=== PATIENT | female | born 1970 | race Caucasian/White ===

== ENCOUNTER 2023-04-12 10:34 | Outpatient (OUT) | payer BC, SELFPAY ==
--- NOTE | 2023-04-12 10:50 | US_ITS ---
The [address] [address] Patient Name: QUINN AGUILAR MRN: [id number] date: 1970 Sex: F Assigned Patient Location: US Current Patient Location: US Accession/Order Number: [id number] Exam Date: 04/12/2023 10:52 Report Date: 04/12/2023 11:42 At the request of: SEFERINO MENDOZA Procedure: US right upper quadrant EXAM: US right upper quadrant HISTORY: . R10.11 RIGHT UPPER QUADRANT PAIN . COMPARISON: None. TECHNIQUE: Grayscale and color imaging was performed FINDINGS: The pancreas appears normal. Scanning of the liver demonstrates diffuse increased echogenicity of liver consistent with fatty infiltration of the liver. Color-flow is noted in the portal and hepatic veins. Common bile duct measures 4 mm. The gallbladder appears normal. Right kidney measures 10.6 x 5.3 x 6.4 cm. No solid renal cortical masses or hydronephrosis is noted. No fluid is noted in the right upper quadrant. US/US right upper quadrant IMPRESSION: 1. Increased echogenicity of liver consistent with fatty infiltration of liver. 2. The remainder of the right upper quadrant is unremarkable. Electronically authenticated by: YULIANA JOHANSEN Date: 04/12/2023 11:42
== END 2023-04-12 10:35 | disposition home or self-care (01) ==
PROVIDERS: PCP Family Medicine; Visit Provider Family Medicine
DX: R10.11 Right upper quadrant pain (principal)
CPT/HCPCS: 76705

== ENCOUNTER 2024-01-10 07:45 | Outpatient (OUT) | payer BC, SELFPAY ==
[2024-01-10 08:15] LABS: Basophils Absolute Auto 0.1 10^3/uL (0.0-0.1); Basophils Percent Auto 1.2 % (0.2-2.0); Eosinophils Absolute Auto 0.1 10^3/uL (0.0-0.7); Eosinophils Percent Auto 2.3 % (0.9-7.0); Hematocrit 43.1 % (36.0-48.0); Hemoglobin 13.8 g/dL (12.0-16.0); Immature Granulocytes Abs Auto 0.01 10^3/uL (0.00-0.03); Immature Granulocytes Pct Auto 0.2 % (0.0-0.5); Lymphocytes Absolute Auto 1.6 10^3/uL (1.2-3.8); Mean Corpuscular Hemoglobin 25.7 pg (26.7-34.0); Mean Corpuscular Volume 80.4 fL (81.0-99.0); Mean Platelet Volume 10.8 fL (9.5-13.5); Monocytes Absolute Auto 0.5 10^3/uL (0.3-0.8); Monocytes Percent Auto 8.4 % (1.7-12.0); Neutrophils Absolute Auto 3.4 10^3/uL (1.4-6.5); Neutrophils Percent Auto 59.9 % (43.0-75.0); Platelet Count 235 10^3/uL (150-450); Red Blood Count 5.36 10^6/uL (4.20-5.40); Red Cell Distribution Width 13.8 % (11.0-15.0); White Blood Count 5.6 10^3/uL (4.0-11.0)
[2024-01-10 08:47] LABS: Estimated Average Glucose 174 mg/dL; Glycohemoglobin A1C 7.7 % (4.5-6.2)
[2024-01-10 10:33] LABS: Alanine Aminotransferase 32 U/L (14-59); Albumin Globulin Ratio 1.1; Albumin Level 3.8 g/dL (3.4-5.0); Alkaline Phosphatase 64 U/L (46-116); Anion Gap 15.5; Aspartate Amino Transferase 16 U/L (15-37); BUN Creatinine Ratio 33.3; Bilirubin Total 0.6 mg/dL (0.2-1.0); Calcium 9.3 mg/dL (8.5-10.1); Carbon Dioxide 23.5 mmol/L (21.0-32.0); Chloride 107 mmol/L (98-107); Cholesterol 137 mg/dL (<=200); Estimated GFR (African America >60 (>=60); Estimated GFR (Non-African Ame >60 (>=60); Free T3 2.41 pg/mL (2.18-3.98); Globulin 3.4 g/dL; Glucose 155 mg/dL (74-106); HDL Cholesterol 34 mg/dL (40-60); Sodium 142 mmol/L (136-145); Thyroid Stimulating Hormone 0.056 uIU/mL (0.358-3.740); Total Protein 7.2 g/dL (6.4-8.2); Triglycerides 140 mg/dL (<=150)
== END 2024-01-10 07:46 | disposition home or self-care (01) ==
LOC: LAB 07:49
PROVIDERS: PCP Family Medicine; Visit Provider Family Medicine
DX: Z00.00 Encounter for general adult medical examination without abnormal findings (principal)
CPT/HCPCS: 36415; 80053; 80061; 83036; 83540; 84436; 84443; 84481; 85025

== ENCOUNTER 2024-02-04 15:25 | Outpatient (OUT) | payer BC, SELFPAY ==
--- NOTE | 2024-02-04 | MM_ITS ---
Patient Name: QUINN AGUILAR MR#: [id number] : 1970 Exam Date: 02/04/2024 Ordering Doctor: DR Vincent Ahmadi . RADIOLOGY REPORT PROCEDURE: MM TOMOSYNTHESIS SCREENING BI COMPARISON: MG MAMM SCREEN 3D PORSHA CAD, 01/29/2023. MG MAMM SCREEN 3D PORSHA CAD, 01/25/2022. MG MAMM SCREEN 3D PORSHA CAD, 01/24/2021. MG MAMM PORSHA SCRN W CAD DIG, 10/05/2013. INDICATIONS: Screening mammogram Calculator Name NCI Breast Cancer Risk Assessment Tool 5 Year Breast Cancer Risk 1.10% Lifetime Breast Cancer Risk 7.40% Personal Breast Cancer No Personal Ovarian Cancer No Treatments None Family Cancers None LOCATION: [facility] BREAST COMPOSITION: There are scattered areas of fibroglandular density. FINDINGS: DIAGNOSTIC CATEGORY 1--NEGATIVE. RIGHT BREAST: No significant suspicious finding. No significant change has occurred. LEFT BREAST: No significant suspicious finding. No significant change has occurred. RECOMMENDATIONS: ROUTINE MAMMOGRAM AND CLINICAL EVALUATION IN 12 MONTHS. PLEASE NOTE: A NORMAL MAMMOGRAM DOES NOT EXCLUDE THE POSSIBILITY OF BREAST CANCER. A CLINICALLY SUSPICIOUS PALPABLE LUMP SHOULD BE BIOPSIED. Dictated by: Nazario Perez M.D. on 02/06/2024 at 14:04 Approved by: Nazario Perez M.D. on 02/06/2024 at 14:18
== END 2024-02-04 15:26 | disposition home or self-care (01) ==
LOC: MAMMO 15:26
PROVIDERS: PCP Family Medicine; Visit Provider Family Medicine
DX: Z12.31 Encounter for screening mammogram for malignant neoplasm of breast (principal)
CPT/HCPCS: 77063; 77067

== ENCOUNTER 2024-04-13 08:52 | Outpatient (OUT) | payer BC, SELFPAY ==
--- OUTSIDE RECORDS SUMMARY | 2024-04-13 09:09 | XMS_ITS | CCD ---
Author Organization [facility] Care Team Providers Care Glass Blowing Instructor Name Role Phone PHYSICIAN, DEFAULT Unavailable Unavailable PHYSICIAN, DEFAULT Unavailable Unavailable HOY ., DR GENTILE Primary Care Unavailable HOY ., DR GENTILE Admitting Unavailable HOY ., DR GENTILE Attending Unavailable HOY ., DR GENTILE Consulting Unavailable HOY ., DR GENTILE Consulting Unavailable HOY ., DR GENTILE Admitting Unavailable HOY ., DR GENTILE Primary Care Unavailable HOY ., DR GENTILE Attending Unavailable ZIEBER, DR NAZARIO Dao Consulting Unavailable HOY ., DR GENTILE Admitting Unavailable HOY ., DR GENTILE Primary Care Unavailable HOY ., DR GENTILE Attending Unavailable HOY ., DR GENTILE Consulting Unavailable HOY ., DR GENTILE Admitting Unavailable HOY ., DR GENTILE Primary Care Unavailable HOY ., DR GENTILE Attending Unavailable HOY ., DR GENTILE Consulting Unavailable HOY ., DR GENTILE Admitting Unavailable HOY ., DR GENTILE Primary Care Unavailable HOY ., DR GENTILE Attending Unavailable HOY ., DR GENTILE Consulting Unavailable HOY ., DR GENTILE Primary Care Unavailable HOY ., DR GENTILE Admitting Unavailable HOY ., DR GENTILE Attending Unavailable HOY ., DR GENTILE Admitting Unavailable HOY ., DR GENTILE Primary Care Unavailable HOY ., DR GENTILE Attending Unavailable HOY ., DR GENTILE Consulting Unavailable HOY ., DR GENTIEL Primary Care Unavailable HOY ., DR GENTILE Admitting Unavailable HOY ., DR GENTILE Attending Unavailable HOY ., DR GENTILE Consulting Unavailable ZIEBER, DR NAZARIO Dao Consulting Unavailable Allergies Allergy Classification Reported Allergen(s) Allergy Type Date of Onset Reaction(s) Facility (1 source) Acetaminophen / oxyCODONE Drug Allergy 10-19-2016 [facility] Repository (1 source) Penicillins Drug allergy (disorder) 01-09-2013 [facility] Repository Problems Active Problems Problem Classification Problem Date Documented Date Episodic/Chronic Deficiency and other anemia (1 source) Anemia, unspecified; Translations: [ANEMIA UNSPECIFIED] Onset: 01-11-20 Episodic Diabetes mellitus with complications (1 source) Type 2 diabetes mellitus with diabetic neuropathy, unspecified; Translations: [TYPE 2 DM W/DIABETIC NEUROPATHY UNS] Onset: 01-11-20 Chronic Disorders of lipid metabolism (4 sources) Pure hypercholesterolemia, unspecified; Translations: [PURE HYPERCHOLESTEROLEMIA UNSPEC] Onset: 10-13-19 Chronic Essential hypertension (1 source) Essential (primary) hypertension; Translations: [ESSENTIAL PRIMARY HYPERTENSION] Onset: 01-11-20 Chronic Other gastrointestinal disorders (1 source) Diarrhea, unspecified; Translations: [DIARRHEA UNSPECIFIED] Onset: 01-11-20 Episodic Other screening for suspected conditions (not mental disorders or infectious disease) (5 sources) Encounter for screening mammogram for malignant neoplasm of breast; Translations: [Encounter for screening for malignant neoplasm of rectum] Onset: 01-11-20 Episodic Rheumatoid arthritis and related disease (4 sources) Rheumatoid arthritis, unspecified; Translations: [RHEUMATOID ARTHRITIS UNSPECIFIED] Onset: 01-08-20 Chronic Thyroid disorders (1 source) Hypothyroidism, unspecified; Translations: [HYPOTHYROIDISM UNSPECIFIED] Onset: 01-11-20 Chronic Unclassified (3 sources) CONTACT W/AND (SUSP) EXPOS COVID-19; Translations: [CONTACT W/AND (SUSP) EXPOS COVID-19] Onset: 04-19-20 Past or Other Problems Problem Classification Problem Date Documented Da te Episodic/Chronic Other connective tissue disease (4 sources) Pain in right hand; Translations: [PAIN IN RIGHT HAND] Onset: 07-03-2022 Episodic Other non-traumatic joint disorders (4 sources) Pain in unspecified joint; Translations: [PAIN IN UNSPECIFIED JOINT] Onset: 07-13-2022 Episodic Other non-traumatic joint disorders (1 source) Pain in right wrist; Translations: [PAIN IN RIGHT WRIST] Onset: 07-05-2022 Episodic Unclassified (1 source) CONTACT W/AND (SUSP) EXPOS COVID-19; Translations: [CONTACT W/AND (SUSP) EXPOS COVID-19] Onset: 04-18-2022 Results Test Name Value Interpretation Reference Range Facility MG MAMM SCREEN 3D PORSHA CADon 01-29-2023 MG MAMM SCREEN 3D PORSHA CAD Patient: QUINN AGUILAR Exam Date: 01/29/2023 : 1970 Gender:F Ordering : DR SEFERINO MENDOZA . Admission #: [id number] Family : Order #: [id number] CLICK HERE TO VIEW EXAM RADIOLOGY REPORT PROCEDURE: MAMMOGRAM SCREENING 3D BILATERAL CAD COMPARISON: MG MAMM SCREEN 3D PORSHA CAD, 01/25/2022. MG MAMM SCREEN 3D PORSHA CAD, 01/24/2021. MG MAMM SCREEN PORSHA W CAD, 01/12/2020. DIGITIZED_MAMMO, 06/28/2009. INDICATIONS: Screening mammography Calculator Name NCI Breast Cancer Risk Assessment Tool 5 Year Breast Cancer Risk 1.00% Lifetime Breast Cancer Risk 7.50% Personal Breast Cancer No Personal Ovarian Cancer No Treatments None Family Cancers None LOCATION: [facility] BREAST COMPOSITION: Scattered areas fibroglandular density. FINDINGS: DIAGNOSTIC CATEGORY 1--NEGATIVE. RIGHT BREAST: No significant suspicious finding. No significant change has occurred. LEFT BREAST: No significant suspicious finding. No significant change has occurred. RECOMMENDATIONS: ROUTINE MAMMOGRAM AND CLINICAL EVALUATION IN 12 MONTHS. PLEASE NOTE: A NORMAL MAMMOGRAM DOES NOT EXCLUDE THE POSSIBILITY OF BREAST CANCER. A CLINICALLY SUSPICIOUS PALPABLE LUMP SHOULD BE BIOPSIED. Dictated by: Nazario Perez M.D. on 01/30/2023 at 13:37 Approved by: Nazario Perez M.D. on 01/30/2023 at 13:47 Normal [facility] INSULINon 01-08-2023 Insulin 11.3 uIU/mL Normal 2.6-24.9 [facility] Comment on above: Performed By: #### C VDTBH #### [facility] [address] [address] [address] Dona Turner CBC AUTO DIFFon 01-07-2023 BASO # 0.1 103/ul Normal 0.0-0.1 [facility] Comment on above: Performed By: #### C VDTBH #### [facility] [address] [address] [address] Dona Turner Basophils/100 WBC (Bld) 1.2 % Normal 0.2-2.0 [facility] Comment on above: Performed By: #### C VDTBH #### [facility] [address] [place] [address] Dr. Dona Turner EO # 0.1 103/ul Normal 0.0-0.7 [facility] Comment on above: Performed By: #### C VDTBH #### [facility] [address] [place] [address] Dr. Dona Turner Eosinophils/100 WBC (Bld) 2.0 % Normal 0.9-7.0 [facility] Comment on above: Performed By: #### C VDTBH #### [facility] [address] [place] [address] Dr. Dona Turner Erythrocyte distribution width (RBC) [Ratio] 14.5 % Normal 11.0-15.0 [facility] Comment on above: Performed By: #### C VDTBH #### [facility] [address] [place] [address] Dr. Dona Turner Hematocrit (Bld) [Volume fraction] 45.1 % Normal 36.0-48.0 [facility] Comment on above: Performed By: #### C VDTBH #### [facility] [address] [place] [address] Dr. Dona Turner Hemoglobin (Bld) [Mass/Vol] 14.1 g/dL Normal 12.0-16.0 [facility] Comment on above: Performed By: #### C VDTBH #### [facility] [address] [place] [address] Dr. Dona Turner IG # 0.02 10e3/ul Normal 0.00-0.03 [facility] Comment on above: Performed By: #### C VDTBH #### [facility] [address] [place] [address] Dr. Dona Turner IG % 0.4 % Normal 0.0-0.5 [facility] Comment on above: Performed By: #### C VDTBH #### [facility] [address] [place] [address] Dr. Dona Turner LYMPH # 1.3 103/ul Normal 1.2-3.8 [facility] Comment on above: Performed By: #### C VDTBH #### [facility] [address] [place] [address] Dr. Dona Turner Lymphocytes/100 WBC (Bld) 26.4 % Normal 20.5-60.0 [facility] Comment on above: Performed By: #### C VDTBH #### [facility] [address] [place] [address] Dr. Dona Turner MANUAL DIFF REQ NO Normal [facility] Comment on above: Performed By: #### C VDTBH #### [facility] [address] [place] [address] Dr. Dona Turner MCH (RBC) [Entitic mass] 25.0 pg Critically low 26.7-34.0 [facility] Comment on above: Performed By: #### C VDTBH #### [facility] [address] [place] [address] Dr. Dona Turner MCHC (RBC) [Mass/Vol] 31.3 g/dL Normal 29.9-35.2 [facility] Comment on above: Performed By: #### C VDTBH #### [facility] [address] [place] [address] Dr. Dona Turner MCV (RBC) [Entitic vol] 80.0 fL Critically low 81.0-99.0 [facility] Comment on above: Performed By: #### C VDTBH #### [facility] [address] [place] [address] Dr. Dona Turner MONO # 0.4 103/ul Normal 0.3-0.8 [facility] Comment on above: Performed By: #### C VDTBH #### [facility] [address] [place] [address] Dr. Dona Turner Monocytes/100 WBC (Bld) 7.7 % Normal 1.7-12.0 [facility] Comment on above: Performed By: #### C VDTBH #### [facility] [address] [place] [address] Dr. Dona Turner NEUT # 3.1 103/ul Normal 1.4-6.5 [facility] Comment on above: Performed By: #### C VDTBH #### [facility] [address] [place] [address] Dr. Dona Turner Neutrophils/100 WBC (Bld) 62.3 % Normal 43.0-75.0 [facility] Comment on above: Performed By: #### C VDTBH #### [facility] [address] [place] [address] Dr. Dona Turner Platelet mean volume (Bld) [Entitic vol] 10.7 fL Normal 9.5-13.5 [facility] Comment on above: Performed By: #### C VDTBH #### [facility] [address] [place] [address] Dr. Dona Turner PLT 257 103/ul Normal 150-450 [facility] Comment on above: Performed By: #### C VDTBH #### [facility] [address] [place] [address] Dr. Dona Turner RBC 5.64 106/ul Critically high 4.20-5.40 [facility] Comment on above: Performed By: #### C VDTBH #### [facility] [address] [place] [address] Dr. Dona Turner WBC 5.0 103/ul Normal 4.0-11.0 [facility] Comment on above: Performed By: #### C VDTBH #### [facility] [address] [place] [address] Dr. Dona Turner FREE THYROXINE INDEX T7on FTI 3.78 Normal 1.30-4.50 [facility] Comment on above: Performed By: #### L IPID, TSH, T7, CMP #### [facility] [address] [place] [address] Dr. Dona Turner T3U 35.0 % Normal 30.0-39.0 [facility] Comment on above: Performed By: #### L IPID, TSH, T7, CMP #### [facility] [address] [place] [address] Dr. Dona Turner T4 [Mass/Vol] 10.80 ug/dL Normal 4.80-13.90 [facility] Comment on above: Performed By: #### L IPID, TSH, T7, CMP #### [facility] [address] [address] [address] Dona Turner GLYCOHEMOGLOBIN A1Con 2022 ADA RECOMMENDATION SEE BELOW Normal [facility] Comment on above: Result Comment: ADA RECOMMENDED LIMIT 4.0 - 6.0 ADA THERAPEUTIC TARGET < 7.0 ACTION SUGGESTED > 7.0 Performed By: #### C VDTBH #### [facility] [address] [address] [address] Dnoa Turner Glucose [Mass/Vol] 160 mg/dL Normal [facility] Comment on above: Performed By: #### C VDTBH #### [facility] [address] [place] [address] Dr. Dona Turner HbA1c (Bld) [Mass fraction] 7.2 % Critically high 4.5-6.2 [facility] Comment on above: Performed By: #### C VDTBH #### [facility] [address] [address] [address] Dona Turner IRONon 01-07-2023 Iron [Mass/Vol] 50.0 ug/dL Normal 50.0-170.0 [facility] Comment on above: Performed By: #### I NSULIN #### [facility] [address] [place] [address] Dr. Dona Turner LIPID PROFILEon 01-07-2023 CHOL-HDL RATIO NORM SEE BELOW Normal [facility] Comment on above: Result Comment: 3.3 - 4.4 LOW RISK 4.4 - 7.1 AVERAGE RISK 7.1 - 11.0 MODERATE RISK >11.0 HIGH RISK Performed By: #### L IPID, TSH, T7, CMP #### [facility] [address] [address] [address] Dona Turner Cholesterol [Mass/Vol] 162 mg/dL Normal <=200 [facility] Comment on above: Performed By: #### L IPID, TSH, T7, CMP #### [facility] [address] [address] [address] Dona Turner Cholesterol in HDL [Mass/Vol] 33 mg/dL Critically low 40-60 [facility] Comment on above: Performed By: #### L IPID, TSH, T7, CMP #### [facility] [address] [address] [address] Dona Turner Cholesterol in LDL [Mass/Vol] 100.4 mg/dL Normal [facility] Comment on above: Performed By: #### L IPID, TSH, T7, CMP #### [facility] [address] [address] [address] Dona Turner Cholesterol.total/Chol esterol in HDL [Mass ratio] 4.9 {ratio} Normal [facility] Comment on above: Performed By: #### L IPID, TSH, T7, CMP #### [facility] [address] [address] [address] Dona Turner HDL NORMAL > or = 60 mg/dl - LOW CARDIOVASCULAR RISK <40 mg/dl - HIGH CARDIOVASCULAR RISK Normal [facility] Comment on above: Performed By: #### L IPID, TSH, T7, CMP #### [facility] [address] [address] [address] Dona Turner LDL CALC NORMAL SEE BELOW Normal [facility] Comment on above: Result Comment: <100 mg/dl OPTIMAL 100 - 129 mg/dl NEAR OR ABOVE OPTIMAL 130 - 159 mg/dl BORDERLINE HIGH 160 - 189 mg/dl HIGH >190 mg/dl VERY HIGH Performed By: #### L IPID, TSH, T7, CMP #### [facility] [address] [address] [address] Dona Turner Triglyceride [Mass/Vol] 143 mg/dL Normal <=150 [facility] Comment on above: Performed By: #### L IPID, TSH, T7, CMP #### [facility] [address] [address] [address] Dona Turner VLDL CALC 28.6 mg/dL Normal [facility] Comment on above: Performed By: #### L IPID, TSH, T7, CMP #### [facility] [address] [place] [address] Dr. Dona Turner PROF 14(COMP METB)on 023 Albumin [Mass/Vol] 3.8 g/dL Normal 3.4-5.0 [facility] Comment on above: Performed By: #### L IPID, TSH, T7, CMP #### [facility] [address] [place] [address] Dr. Dona Turner Albumin/Globulin [Mass ratio] 1.0 {ratio} Normal [facility] Comment on above: Performed By: #### L IPID, TSH, T7, CMP #### [facility] [address] [place] [address] Dr. Dona Turner ALP [Catalytic activity/Vol] 59 U/L Normal 46-116 [facility] Comment on above: Performed By: #### L IPID, TSH, T7, CMP #### [facility] [address] [place] [address] Dr. Dona Turner ALT [Catalytic activity/Vol] 43 U/L Normal 14-59 [facility] Comment on above: Performed By: #### L IPID, TSH, T7, CMP #### [facility] [address] [place] [address] Dr. Dona Turner Anion gap [Moles/Vol] 11.5 mmol/L Normal [facility] Comment on above: Performed By: #### L IPID, TSH, T7, CMP #### [facility] [address] [place] [address] Dr. Dona Turner AST [Catalytic activity/Vol] 19 U/L Normal 15-37 [facility] Comment on above: Performed By: #### L IPID, TSH, T7, CMP #### [facility] [address] [place] [address] Dr. Dona Turner Bilirubin [Mass/Vol] 0.4 mg/dL Normal 0.2-1.0 [facility] Comment on above: Performed By: #### L IPID, TSH, T7, CMP #### [facility] [address] [place] [address] Dr. Dona Turner Calcium [Mass/Vol] 9.1 mg/dL Normal 8.5-10.1 [facility] Comment on above: Performed By: #### L IPID, TSH, T7, CMP #### [facility] [address] [place] [address] Dr. Dona Turner Chloride [Moles/Vol] 107 mmol/L Normal 98-107 [facility] Comment on above: Performed By: #### L IPID, TSH, T7, CMP #### [facility] [address] [place] [address] Dr. Dona Turner CO2 [Moles/Vol] 28.5 mmol/L Normal 21.0-32.0 [facility] Comment on above: Performed By: #### L IPID, TSH, T7, CMP #### [facility] [address] [place] [address] Dr. Dona Turner Creatinine [Mass/Vol] 0.66 mg/dL Normal 0.55-1.02 [facility] Comment on above: Performed By: #### L IPID, TSH, T7, CMP #### [facility] [address] [place] [address] Dr. Dona Turner EGFR-AF UKRAINIAN >60 Normal >=60 [facility] Comment on above: Performed By: #### L IPID, TSH, T7, CMP #### [facility] [address] [place] [address] Dr. Dona Turner EGFR-NON AF UKRAINIAN >60 Normal >=60 [facility] Comment on above: Performed By: #### L IPID, TSH, T7, CMP #### [facility] [address] [place] [address] Dr. Dona Turner Globulin (S) [Mass/Vol] 3.8 g/dL Normal [facility] Comment on above: Performed By: #### L IPID, TSH, T7, CMP #### [facility] [address] [place] [address] Dr. Dona Turner Glucose [Mass/Vol] 112 mg/dL Critically high 74-106 [facility] Comment on above: Performed By: #### L IPID, TSH, T7, CMP #### [facility] [address] [place] [address] Dr. Dona Turner Potassium [Moles/Vol] 4.0 mmol/L Normal 3.5-5.1 [facility] Comment on above: Performed By: #### L IPID, TSH, T7, CMP #### [facility] [address] [place] [address] Dr. Dona Turner Protein [Mass/Vol] 7.6 g/dL Normal 6.4-8.2 [facility] Comment on above: Performed By: #### L IPID, TSH, T7, CMP #### [facility] [address] [place] [address] Dr. Dona Turner Sodium [Moles/Vol] 143 mmol/L Normal 136-145 [facility] Comment on above: Performed By: #### L IPID, TSH, T7, CMP #### [facility] [address] [place] [address] Dr. Dona Turner Urea nitrogen [Mass/Vol] 11.0 mg/dL Normal 7.0-18.0 [facility] Comment on above: Performed By: #### L IPID, TSH, T7, CMP #### [facility] [address] [place] [address] Dr. Dona Turner Urea nitrogen/Creatinine [Mass ratio] 16.7 mg/mg Normal [facility] Comment on above: Performed By: #### L IPID, TSH, T7, CMP #### [facility] [address] [place] [address] Dr. Dona Turner TSHon 01-07-2023 TSH 0.350 uIU/mL Critically low 0.358-3.740 [facility] Comment on above: Performed By: #### L IPID, TSH, T7, CMP #### [facility] [address] [place] [address] Dr. Dona Turner VITAMIN D 25 OHon 01-07-2023 VIT D 25-OH 52.4 ng/mL Normal [facility] Comment on above: Performed By: #### I NSULIN #### [facility] [address] [address] [address] Dona Turner VIT D RANGES SEE BELOW Normal [facility] Comment on above: Result Comment: <20 ng/mL Vit D deficient 20 - <30 ng/mL Vit D insufficient 30 - 100 ng/mL Vit D sufficient >100 ng/mL Potential Toxicity Performed By: #### I NSULIN #### [facility] [address] [address] [address] Dona Turner LIPID PROFILEon 10-13-2022 CHOL-HDL RATIO NORM SEE BELOW Normal [facility] Comment on above: Result Comment: 3.3 - 4.4 LOW RISK 4.4 - 7.1 AVERAGE RISK 7.1 - 11.0 MODERATE RISK >11.0 HIGH RISK Performed By: #### C VDTBH #### [facility] [address] [address] [address] Dona Turner Cholesterol [Mass/Vol] 136 mg/dL Normal <=200 [facility] Comment on above: Performed By: #### C VDTBH #### [facility] [address] [address] [address] Dona Turner Cholesterol in HDL [Mass/Vol] 33 mg/dL Critically low 40-60 [facility] Comment on above: Performed By: #### C VDTBH #### [facility] [address] [place] [address] Dr. Dona Turner Cholesterol in LDL [Mass/Vol] 76.4 mg/dL Normal [facility] Comment on above: Performed By: #### C VDTBH #### [facility] [address] [address] [address] Dona Turner Cholesterol.total/Chol esterol in HDL [Mass ratio] 4.1 {ratio} Normal [facility] Comment on above: Performed By: #### C VDTBH #### [facility] [address] [place] [address] Dr. Dona Turner HDL NORMAL > or = 60 mg/dl - LOW CARDIOVASCULAR RISK <40 mg/dl - HIGH CARDIOVASCULAR RISK Normal [facility] Comment on above: Performed By: #### C VDTBH #### [facility] [address] [address] [address] Dona Turner LDL CALC NORMAL SEE BELOW Normal [facility] Comment on above: Result Comment: <100 mg/dl OPTIMAL 100 - 129 mg/dl NEAR OR ABOVE OPTIMAL 130 - 159 mg/dl BORDERLINE HIGH 160 - 189 mg/dl HIGH >190 mg/dl VERY HIGH Performed By: #### C VDTBH #### [facility] [address] [address] [address] Dona Turner Triglyceride [Mass/Vol] 133 mg/dL Normal <=150 [facility] Comment on above: Performed By: #### C VDTBH #### [facility] [address] [address] [address] Dona Turner VLDL CALC 26.6 mg/dL Normal [facility] Comment on above: Performed By: #### C VDTBH #### [facility] [address] [place] [address] Dr. Dona Turner LIVER PROFILEon 10-13-2022 Albumin [Mass/Vol] 3.6 g/dL Normal 3.4-5.0 [facility] Comment on above: Performed By: #### I NSULIN #### [facility] [address] [place] [address] Dr. Dona Turner Albumin/Globulin [Mass ratio] 1.1 {ratio} Normal [facility] Comment on above: Performed By: #### I NSULIN #### [facility] [address] [place] [address] Dr. Dona Turner ALP [Catalytic activity/Vol] 62 U/L Normal 46-116 [facility] [facility] Comment on above: Performed By: #### I NSULIN #### [facility] [address] [place] [address] Dr. Dona Turner ALT [Catalytic activity/Vol] 28 U/L Normal 14-59 [facility] Comment on above: Performed By: #### I NSULIN #### [facility] [address] [place] [address] Dr. Dona Turner AST [Catalytic activity/Vol] 16 U/L Normal 15-37 [facility] Comment on above: Performed By: #### I NSULIN #### [facility] [address] [address] [address] Dona Turner BILI, CONJUGATED 0.1 mg/dL Normal 0.0-0.2 [facility] Comment on above: Performed By: #### I NSULIN #### [facility] [address] [address] [address] Dona Turner Bilirubin [Mass/Vol] 0.5 mg/dL Normal 0.2-1.0 [facility] Comment on above: Performed By: #### I NSULIN #### [facility] [address] [address] [address] Dona Turner Globulin (S) [Mass/Vol] 3.4 g/dL Normal [facility] Comment on above: Performed By: #### I NSULIN #### [facility] [address] [place] [address] Dr. Dona Turner Protein [Mass/Vol] 7.0 g/dL Normal 6.4-8.2 [facility] Comment on above: Performed By: #### I NSULIN #### [facility] [address] [place] [address] Dr. Dona Turner BETH by IFAon 07-19-2022 Antinuclear Antibodies, IFA Negative Normal [facility] Comment on above: Result Comment: Nega tive <1:80 Borderline 1:80 Positive >1:80 ICAP nomenclature: AC-0 For more information about Hep-2 cell patterns use ANApatterns.org, the official website for the International Consensus on Antinuclear Antibody (BETH) Patterns (ICAP). Performed By: #### A NAIFA #### [facility] [address] [place] [address] Dr. Dona Turner ANTISTREPTOLYSIN O AB (ASO)o n 07-14-2022 Antistreptolysin O Ab 25.3 IU/mL Normal 0.0-200.0 [facility] Comment on above: Performed By: #### I NSULIN #### [facility] [address] [address] [address] Dona Turner RHEUMATOID FACTORon 07-14-20 RA Latex Turbid. 19.2 IU/mL Critically high <14.0 [facility] Comment on above: Performed By: #### L IPID, TSH, T7, CMP #### [facility] [address] [place] [address] Dr. Dona Turner CBC AUTO DIFFon 07-13-2022 BASO # 0.1 103/ul Normal 0.0-0.1 [facility] Comment on above: Performed By: #### C VDTBH #### [facility] [address] [place] [address] Dr. Dona Turner Basophils/100 WBC (Bld) 0.8 % Normal 0.2-2.0 [facility] Comment on above: Performed By: #### C VDTBH #### [facility] [address] [place] [address] Dr. Dona Turner EO # 0.1 103/ul Normal 0.0-0.7 [facility] Comment on above: Performed By: #### C VDTBH #### [facility] [address] [place] [address] Dr. Dona Turner Eosinophils/100 WBC (Bld) 1.0 % Normal 0.9-7.0 [facility] Comment on above: Performed By: #### C VDTBH #### [facility] [address] [place] [address] Dr. Dona Turner Erythrocyte distribution width (RBC) [Ratio] 14.3 % Normal 11.0-15.0 [facility] Comment on above: Performed By: #### C VDTBH #### [facility] [address] [place] [address] Dr. Dona Turner Hematocrit (Bld) [Volume fraction] 44.8 % Normal 36.0-48.0 [facility] Comment on above: Performed By: #### C VDTBH #### [facility] [address] [place] [address] Dr. Dona Turner Hemoglobin (Bld) [Mass/Vol] 14.4 g/dL Normal 12.0-16.0 [facility] Comment on above: Performed By: #### C VDTBH #### [facility] [address] [place] [address] Dr. Dona Turner IG # 0.03 10e3/ul Normal 0.00-0.03 [facility] Comment on above: Performed By: #### C VDTBH #### [facility] [address] [place] [address] Dr. Dona Turner IG % 0.3 % Normal 0.0-0.5 [facility] Comment on above: Performed By: #### C VDTBH #### [facility] [address] [place] [address] Dr. Dona Turner LYMPH # 1.9 103/ul Normal 1.2-3.8 [facility] Comment on above: Performed By: #### C VDTBH #### [facility] [address] [place] [address] Dr. Dona Turner Lymphocytes/100 WBC (Bld) 20.8 % Normal 20.5-60.0 [facility] Comment on above: Performed By: #### C VDTBH #### [facility] [address] [place] [address] Dr. Dona Turner MANUAL DIFF REQ NO Normal [facility] Comment on above: Performed By: #### C VDTBH #### [facility] [address] [place] [address] Dr. Dona Turner MCH (RBC) [Entitic mass] 25.5 pg Critically low 26.7-34.0 [facility] Comment on above: Performed By: #### C VDTBH #### [facility] [address] [place] [address] Dr. Dona Turner MCHC (RBC) [Mass/Vol] 32.1 g/dL Normal 29.9-35.2 [facility] Comment on above: Performed By: #### C VDTBH #### [facility] [address] [place] [address] Dr. Dona Turner MCV (RBC) [Entitic vol] 79.3 fL Critically low 81.0-99.0 [facility] Comment on above: Performed By: #### C VDTBH #### [facility] [address] [address] [address] Dona Turner MONO # 0.8 103/ul Normal 0.3-0.8 [facility] Comment on above: Performed By: #### C VDTBH #### [facility] [address] [place] [address] Dr. Dona Turner Monocytes/100 WBC (Bld) 8.5 % Normal 1.7-12.0 [facility] Comment on above: Performed By: #### C VDTBH #### [facility] [address] [place] [address] Dr. Dona Turner NEUT # 6.4 103/ul Normal 1.4-6.5 [facility] Comment on above: Performed By: #### C VDTBH #### [facility] [address] [place] [address] Dr. Dona Turner Neutrophils/100 WBC (Bld) 68.6 % Normal 43.0-75.0 [facility] Comment on above: Performed By: #### C VDTBH #### [facility] [address] [place] [address] Dr. Dona Turner Platelet mean volume (Bld) [Entitic vol] 10.5 fL Normal 9.5-13.5 [facility] Comment on above: Performed By: #### C VDTBH #### [facility] [address] [place] [address] Dr. Dona Turner PLT 290 103/ul Normal 150-450 [facility] Comment on above: Performed By: #### C VDTBH #### [facility] [address] [place] [address] Dr. Dona Turner RBC 5.65 106/ul Critically high 4.20-5.40 [facility] Comment on above: Performed By: #### C VDTBH #### [facility] [address] [place] [address] Dr. Dona Turnre WBC 9.3 103/ul Normal 4.0-11.0 [facility] Comment on above: Performed By: #### C VDTBH #### [facility] [address] [place] [address] Dr. Dona Turner CRPon 07-13-2022 CRP [Mass/Vol] mg/L Normal <=1.0 [facility] Comment on above: Performed By: #### I NSULIN #### [facility] [address] [place] [address] Dr. Dona Turner SED RATE WESTERGRENon 2021 SED RATE 47 mm/hr Critically high <=30 [facility] Comment on above: Performed By: #### S EDR #### [facility] [address] [place] [address] Dr. Dona Turner URIC ACID SERUMon 07-13-2022 Urate [Mass/Vol] 3.2 mg/dL Normal 2.6-6.0 [facility] Comment on above: Performed By: #### I NSULIN #### [facility] [address] [place] [address] Dr. Dona Turner INSULINon 07-10-2022 Insulin 11.5 uIU/mL Normal 2.6-24.9 [facility] Comment on above: Performed By: #### I NSULIN #### [facility] [address] [place] [address] Dr. Dona Turner CBC AUTO DIFFon 07-09-2022 BASO # 0.1 103/ul Normal 0.0-0.1 [facility] Comment on above: Performed By: #### C BC #### [facility] [address] [place] [address] Dr. Dona Turner Basophils/100 WBC (Bld) 0.8 % Normal 0.2-2.0 [facility] Comment on above: Performed By: #### C BC #### [facility] [address] [place] [address] Dr. Dona Turner EO # 0.1 103/ul Normal 0.0-0.7 [facility] Comment on above: Performed By: #### C BC #### [facility] [address] [place] [address] Dr. Dona Turner Eosinophils/100 WBC (Bld) 0.7 % Critically low 0.9-7.0 [facility] Comment on above: Performed By: #### C BC #### [facility] [address] [place] [address] Dr. Dona Turner Erythrocyte distribution width (RBC) [Ratio] 14.5 % Normal 11.0-15.0 [facility] Comment on above: Performed By: #### C BC #### [facility] [address] [place] [address] Dr. Dona Turner Hematocrit (Bld) [Volume fraction] 44.7 % Normal 36.0-48.0 [facility] Comment on above: Performed By: #### C BC #### [facility] [address] [place] [address] Dr. Dona Turner Hemoglobin (Bld) [Mass/Vol] 14.5 g/dL Normal 12.0-16.0 [facility] Comment on above: Performed By: #### C BC #### [facility] [address] [place] [address] Dr. Dona Turner IG # 0.04 10e3/ul Critically high 0.00-0.03 [facility] Comment on above: Performed By: #### C BC #### [facility] [address] [place] [address] Dr. Dona Turner IG % 0.4 % Normal 0.0-0.5 [facility] Comment on above: Performed By: #### C BC #### [facility] [address] [place] [address] Dr. Dona Turner LYMPH # 1.6 103/ul Normal 1.2-3.8 [facility] Comment on above: Performed By: #### C BC #### [facility] [address] [place] [address] Dr. Dona Turner Lymphocytes/100 WBC (Bld) 17.7 % Critically low 20.5-60.0 [facility] Comment on above: Performed By: #### C BC #### [facility] [address] [place] [address] Dr. Dona Turner MANUAL DIFF REQ NO Normal [facility] Comment on above: Performed By: #### C BC #### [facility] [address] [place] [address] Dr. Dona Turner MCH (RBC) [Entitic mass] 25.9 pg Critically low 26.7-34.0 [facility] Comment on above: Performed By: #### C BC #### [facility] [address] [place] [address] Dr. Dona Turner MCHC (RBC) [Mass/Vol] 32.4 g/dL Normal 29.9-35.2 [facility] Comment on above: Performed By: #### C BC #### [facility] [address] [place] [address] Dr. Dona Turner MCV (RBC) [Entitic vol] 79.8 fL Critically low 81.0-99.0 [facility] Comment on above: Performed By: #### C BC #### [facility] [address] [place] [address] Dr. Dona Turner MONO # 0.6 103/ul Normal 0.3-0.8 [facility] Comment on above: Performed By: #### C BC #### [facility] [address] [place] [address] Dr. Dona Turner Monocytes/100 WBC (Bld) 6.9 % Normal 1.7-12.0 [facility] Comment on above: Performed By: #### C BC #### [facility] [address] [place] [address] Dr. Dona Turner NEUT # 6.6 103/ul Critically high 1.4-6.5 [facility] Comment on above: Performed By: #### C BC #### [facility] [address] [place] [address] Dr. Dona Turner Neutrophils/100 WBC (Bld) 73.5 % Normal 43.0-75.0 [facility] Comment on above: Performed By: #### C BC #### [facility] [address] [place] [address] Dr. Dona Turner Platelet mean volume (Bld) [Entitic vol] 11.1 fL Normal 9.5-13.5 [facility] Comment on above: Performed By: #### C BC #### [facility] [address] [place] [address] Dr. Dona Turner PLT 256 103/ul Normal 150-450 [facility] Comment on above: Performed By: #### C BC #### [facility] [address] [place] [address] Dr. Dona Turner RBC 5.60 106/ul Critically high 4.20-5.40 [facility] Comment on above: Performed By: #### C BC #### [facility] [address] [place] [address] Dr. Dona Turner WBC 8.9 103/ul Normal 4.0-11.0 [facility] Comment on above: Performed By: #### C BC #### [facility] [address] [place] [address] Dr. Dona Turner FREE THYROXINE INDEX T7on FTI 3.66 Normal 1.30-4.50 [facility] Comment on above: Performed By: #### C VDTBH #### [facility] [address] [place] [address] Dr. Dona Turner T3U 37.0 % Normal 30.0-39.0 [facility] Comment on above: Performed By: #### C VDTBH #### [facility] [address] [place] [address] Dr. Dona Turner T4 [Mass/Vol] 9.90 ug/dL Normal 4.80-13.90 [facility] Comment on above: Performed By: #### C VDTBH #### [facility] [address] [place] [address] Dr. Dnoa Turner GLYCOHEMOGLOBIN A1Con 2021 ADA RECOMMENDATION SEE BELOW Normal [facility] Comment on above: Result Comment: ADA RECOMMENDED LIMIT 4.0 - 6.0 ADA THERAPEUTIC TARGET < 7.0 ACTION SUGGESTED > 7.0 Performed By: #### A 1C #### [facility] [address] [address] [address] Dona Turner Glucose [Mass/Vol] 183 mg/dL Normal [facility] Comment on above: Performed By: #### A 1C #### [facility] [address] [address] [address] Dona Turner HbA1c (Bld) [Mass fraction] 8.0 % Critically high 4.5-6.2 [facility] Comment on above: Performed By: #### A 1C #### [facility] [address] [address] [address] Dona Turner IRONon 07-09-2022 Iron [Mass/Vol] 56.0 ug/dL Normal 50.0-170.0 [facility] Comment on above: Performed By: #### I NSULIN #### [facility] [address] [place] [address] Dr. Dona Turner LIPID PROFILEon 07-09-2022 CHOL-HDL RATIO NORM SEE BELOW Normal [facility] Comment on above: Result Comment: 3.3 - 4.4 LOW RISK 4.4 - 7.1 AVERAGE RISK 7.1 - 11.0 MODERATE RISK >11.0 HIGH RISK Performed By: #### C VDTBH #### [facility] [address] [place] [address] Dr. Dona Turner Cholesterol [Mass/Vol] 228 mg/dL Critically high <=200 [facility] Comment on above: Performed By: #### C VDTBH #### [facility] [address] [place] [address] Dr. Dona Turner Cholesterol in HDL [Mass/Vol] 37 mg/dL Critically low 40-60 [facility] Comment on above: Performed By: #### C VDTBH #### [facility] [address] [place] [address] Dr. Dona Turner Cholesterol in LDL [Mass/Vol] 163.6 mg/dL Normal [facility] Comment on above: Performed By: #### C VDTBH #### [facility] [address] [place] [address] Dr. Dona Turner Cholesterol.total/Chol esterol in HDL [Mass ratio] 6.2 {ratio} Normal [facility] Comment on above: Performed By: #### C VDTBH #### [facility] [address] [place] [address] Dr. Dona Turner HDL NORMAL > or = 60 mg/dl - LOW CARDIOVASCULAR RISK <40 mg/dl - HIGH CARDIOVASCULAR RISK Normal [facility] Comment on above: Performed By: #### C VDTBH #### [facility] [address] [place] [address] Dr. Dona Turner LDL CALC NORMAL SEE BELOW Normal [facility] Comment on above: Result Comment: <100 mg/dl OPTIMAL 100 - 129 mg/dl NEAR OR ABOVE OPTIMAL 130 - 159 mg/dl BORDERLINE HIGH 160 - 189 mg/dl HIGH >190 mg/dl VERY HIGH Performed By: #### C VDTBH #### [facility] [address] [place] [address] Dr. Dona Turner Triglyceride [Mass/Vol] 137 mg/dL Normal <=150 [facility] Comment on above: Performed By: #### C VDTBH #### [facility] [address] [place] [address] Dr. Dona Turner VLDL CALC 27.4 mg/dL Normal [facility] Comment on above: Performed By: #### C VDTBH #### [facility] [address] [place] [address] Dr. Dona Turner PROF 14(COMP METB)on 022 Albumin [Mass/Vol] 3.8 g/dL Normal 3.4-5.0 [facility] Comment on above: Performed By: #### C VDTBH #### [facility] [address] [place] [address] Dr. Dona Turner Albumin/Globulin [Mass ratio] 1.0 {ratio} Normal [facility] Comment on above: Performed By: #### C VDTBH #### [facility] [address] [place] [address] Dr. Dona Turner ALP [Catalytic activity/Vol] 57 U/L Normal 46-116 [facility] Comment on above: Performed By: #### C VDTBH #### [facility] [address] [address] [address] Dona Turner ALT [Catalytic activity/Vol] 24 U/L Normal 14-59 [facility] Comment on above: Performed By: #### C VDTBH #### [facility] [address] [address] [address] Dona Turner Anion gap [Moles/Vol] 9.6 mmol/L Normal [facility] Comment on above: Performed By: #### C VDTBH #### [facility] [address] [address] [address] Dona Turner AST [Catalytic activity/Vol] 15 U/L Normal 15-37 [facility] Comment on above: Performed By: #### C VDTBH #### [facility] [address] [place] [address] Dr. Dona Turner Bilirubin [Mass/Vol] 0.5 mg/dL Normal 0.2-1.0 [facility] Comment on above: Performed By: #### C VDTBH #### [facility] [address] [place] [address] Dr. Dona Turner Calcium [Mass/Vol] 9.3 mg/dL Normal 8.5-10.1 [facility] Comment on above: Performed By: #### C VDTBH #### [facility] [address] [place] [address] Dr. Dona Turner Chloride [Moles/Vol] 103 mmol/L Normal 98-107 [facility] Comment on above: Performed By: #### C VDTBH #### [facility] [address] [address] [address] Dona Turner CO2 [Moles/Vol] 29.5 mmol/L Normal 21.0-32.0 [facility] Comment on above: Performed By: #### C VDTBH #### [facility] [address] [place] [address] Dr. Dona Turner Creatinine [Mass/Vol] 0.61 mg/dL Normal 0.55-1.02 [facility] Comment on above: Performed By: #### C VDTBH #### [facility] [address] [address] [address] Dona Turner EGFR-AF UKRAINIAN >60 Normal >=60 [facility] Comment on above: Performed By: #### C VDTBH #### [facility] [address] [address] [address] Dona Turner EGFR-NON AF UKRAINIAN >60 Normal >=60 [facility] Comment on above: Performed By: #### C VDTBH #### [facility] [address] [address] [address] Dona Turner Globulin (S) [Mass/Vol] 3.8 g/dL Normal [facility] Comment on above: Performed By: #### C VDTBH #### [facility] [address] [address] [address] Dona Turner Glucose [Mass/Vol] 104 mg/dL Normal 74-106 [facility] Comment on above: Performed By: #### C VDTBH #### [facility] [address] [address] [address] Dona Turner Potassium [Moles/Vol] 4.1 mmol/L Normal 3.5-5.1 [facility] Comment on above: Performed By: #### C VDTBH #### [facility] [address] [address] [address] Dona Turner Protein [Mass/Vol] 7.6 g/dL Normal 6.4-8.2 [facility] Comment on above: Performed By: #### C VDTBH #### [facility] [address] [address] [address] Dona Turner Sodium [Moles/Vol] 138 mmol/L Normal 136-145 [facility] Comment on above: Performed By: #### C VDTBH #### [facility] [address] [address] [address] Dona Turner Urea nitrogen [Mass/Vol] 14.0 mg/dL Normal 7.0-18.0 [facility] Comment on above: Performed By: #### C VDTBH #### [facility] [address] [place] [address] Dr. Dona Turner Urea nitrogen/Creatinine [Mass ratio] 23.0 mg/mg Normal [facility] Comment on above: Performed By: #### C VDTBH #### [facility] [address] [place] [address] Dr. Dona Turner TSHon 07-09-2022 TSH 0.324 uIU/mL Critically low 0.358-3.740 [facility] Comment on above: Performed By: #### C VDTBH #### [facility] [address] [place] [address] Dr. Dona Turner VITAMIN D 25 OHon 07-09-2022 VIT D 25-OH 52.6 ng/mL Normal [facility] Comment on above: Performed By: #### I NSULIN #### [facility] [address] [place] [address] Dr. Dona Turner VIT D RANGES SEE BELOW Normal [facility] Comment on above: Result Comment: <20 ng/mL Vit D deficient 20 - <30 ng/mL Vit D insufficient 30 - 100 ng/mL Vit D sufficient >100 ng/mL Potential Toxicity Performed By: #### I NSULIN #### [facility] [address] [place] [address] Dr. Dona Turner Covid-19 PCR ([facility])on 04-02 SARS-CoV-2 (COVID-19) RNA JEWEL+probe Ql (Unsp spec) Not detected Normal NOT DETECTED [facility] Comment on above: Result Comment: This test is not yet approved or cleared by the [place] FDA. When there are no FDA-approved or cleared tests available, and other criteria are met, FDA can make tests available under an emergency access mechanism called an Emergency Use Authorization (EUA). The EUA for this test is supported by the Accident of Health and Human Service's (HHS's) declaration that circumstances exist to justify the emergency use of in vitro diagnostics for the detection and/or diagnosis of the virus that causes COVID-19. This EUA will remain in effect (meaning this test can be used) for the duration of the COVID-19 declaration justifying emergency of IVDs, unless it is terminated or revoked by FDA (after which the test may no longer be used). When diagnostic testing is negative, the possibility of a false negative should be considered in the context of a patient's recent exposures and the presence of clinical signs and symptoms consistent with SARS-CoV-2. Performed By: #### [facility] #### [facility] [address] [address] [address] Dona Turner Coding Summary.on 09-12-2018 Coding Summary. 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 However, the narrative phrase printed from the coding software may appear abbreviated, or result in slightly different terminology. Coded By: Debi Cuellar Date Saved: 09/12/2018 03:25 pm Normal [facility] Main OR Intraoperative Recor don 09-09-2018 Main OR Intraoperative Record IntraOp Document Type FTURO Summary Primary Physician: David ORTIZ MD Finalized Date/Time: 09/09/18 12:32:44 Pt. Name: QUINN AGUILAR/Sex: 1970 Female Med Rec #: [id number] Physician: David ORTIZ MD Financial #: [id number] Pt. Type: O Room/Bed: / Admit/Disch: 09/09/18 09:49:59 - Institution: Case Times FTURO Entry 1 Patient Times In Room 09/09/18 12:19:00 Out Room 09/09/18 12:33:00 Procedure Times Start 09/09/18 12:22:00 Stop 09/09/18 12:26:00 Anesthesia Times Last Modified By: GIUSEPPE Tijerina RN, Lou Ann 09/09/18 12:32:32 Case Attendance FTURO Entry 1 Entry 2 Entry 3 Case Attendee ANGEL SWANSON, David Lyon BUSINESS DEVELOPMENT ANALYST, Alannah Tijerina RN, Pearl CHIN Role Performed Surgeon - Primary Scrub - Primary Solar Power Installer - Primary Time In 09/09/18 12:20:00 09/09/18 12:19:00 09/09/18 12:19:00 Time Out 09/09/18 12:33:00 09/09/18 12:33:00 09/09/18 12:33:00 Procedure CYSTOSCOPY LOCAL WITH CYSTOSCOPY LOCAL WITH CYSTOSCOPY LOCAL WITH URETHRAL DILATION(.) URETHRAL DILATION(.) URETHRAL DILATION(.) Comments Last Modified By: GIUSEPPE Tijerina RN, Lou Ann Blank RN, CNOR, Lou Ann Blank RN, Pearl CHIN 09/09/18 12:32:40 09/09/18 12:32:40 09/09/18 12:32:40 Surgical Procedures FTURO Entry 1 Procedure Description Procedure CYSTOSCOPY LOCAL WITH Modifiers . URETHRAL DILATION Surgeon Description CYSTOSCOPY UD Primary Procedure Yes Primary Surgeon David ORTIZ MD Start 09/09/18 12:22:00 Stop 09/09/18 12:26:00 Anesthesia Type Local Surgical Service Urology Wound Class 2 - Clean-Contaminated Last Modified By: GIUSEPPE Tijerina RN, Lou Ann 09/09/18 12:30:52 General Case Data FTURO Pre-Care Text: Classifies surgical wound, implements aseptic technique, initiates traffic control Entry 1 Case Information OR URO 1 FT Case Level None Wound Class 2 - Clean-Contaminated Specialty Urology Preop Diagnosis FREQUENCY, URGENCY, Postop Same As Preop No MIXED INCONTINENCE, INCOMPLETE EMPTYING Postop Diagnosis urethral stricture Outcomes Met? Yes Last Modified By: Winsome LINDO, RADHIKAORValeria 09/09/18 07:12:30 Post-Care Text: The patient is free from signs and symptoms of infection EU IntraOp - FTURO Pre-Care Text: Implements protective measures prior to operative or invasive procedure, confirms identity before the operative or invasive procedure, verifies operative procedure, surgical site, and laterality Entry 1 EU Perioperative Protocols Procedure(s) CYSTOSCOPY LOCAL WITH Patient Identity Birthday, ID Band URETHRAL DILATION(.) Verified (select at Check, Patient least 2): Participation Consents / H and P HandP, Surgery/Procedure Operative Site N/A Verified Consent Marking Verified Surgical Site Yes Laterality Verified n/a Verified Procedure Verified Yes Correct Patient Yes Position Verified Availability Equipment, Medication Time Out David ORTIZ MD, Verified (If Participants Lyon BUSINESS DEVELOPMENT ANALYST, Alannah, Applicable) GIUSEPPE Tijerina RN, Lou Ann Time Out Complete 09/09/18 12:21:00 Allergies Reviewed? Yes Allergies Reviewed Self/Patient With Body Position Frog Legged Prep Area perineal area Prep Agents Betadine Solution Skin. Condition Unable to Visualize, Warm Additional None Specimens Collected Vitals - EU Blood Pressure Pulse Respirations SPO2 EBL 0 IandO - EU Total Intake 0 Total Output 0 Outcomes Met? Yes Last Modified By: GIUSEPPE Tijerina RN, Lou Ann 09/09/18 12:21:23 Post-Care Text: The patient is free from signs and symptoms of injury caused by extraneous objects Case Comments Finalized By: GIUSEPPE Tijerina RN, Lou Ann Document Signatures Signed By: GIUSEPPE Tijerina RN, Lou Ann 09/09/18 12:32 Normal [facility] Main OR Preoperative Recordo n 09-09-2018 Main OR Preoperative Record Holding Area Document Type FTURO Summary Primary Physician: David ORTIZ MD Finalized Date/Time: 09/09/18 12:22:07 Pt. Name: QUINN AGUILAR/Sex: 1970 Female Med Rec #: [id number] Physician: David ORTIZ MD Financial #: [id number] Pt. Type: O Room/Bed: / Admit/Disch: 09/09/18 09:49:59 - Institution: Case Times Holding FTURO Pre-Care Text: Verifies consent for planned procedure, identifies individual values and wishes concerning care, includes family members in perioperative teaching Secures patient's records' belongings, and valuables, maintains patient's dignity and privacy, and maintains patient confidentiality Entry 1 In Holding 09/09/18 11:42:00 Outcomes Met? Yes Last Modified By: Racheal Bernabe 09/09/18 11:42:03 Post-Care Text: The patient participates in decisions affecting his or her perioperative plan of care The patient's right to privacy is maintained Surgery Checklist FTURO Entry 1 Patient Birthday, ID Band Procedure Surgical Consent, With Identification: Check, Patient Verification: Patient Participation NPO after Midnight: No Date/Time: 09/09/18 11:42:00 Personal Items: Dentures Complaints of Pain: No Skin Integrity Intact, [place], Warm, & Dry Vitals - EU Blood Pressure 141/78 Pulse 57 bpm Respirations 16 br/min SPO2 Additional None RN Reviewed Yes Specimens Collected Last Modified By: GIUSEPPE Tijerina RN, Lou Ann 09/09/18 12:22:05 Finalized By: GIUSEPPE Tijerina RN, Lou Ann Document Signatures Signed By: Racheal Bernabe 09/09/18 11:43 GIUSEPPE Tijerina RN, Lou Ann 09/09/18 12:22 Normal [facility] Operative Reporton Operative Report Patient: QUINN AGUILAR Age: 48 years Sex: Female : 1970 Associated Diagnoses: None Author: David ORTIZ MD Procedure Operative Information Details: Date/ Time: 09/09/18 12:34:00. Pre-Op Dx: Urgency Incontinence - N39.41, Urgency - R39.15, Incomplete Bladder Emptying - R39.14. Post-Op Dx: Same. Anesthesia Type: Local. Procedure: Local Cystoscopy with Urethral Dilation. Complications: None. Risks/Benefits/Infor med Consent: Surgical risks, benefits, details of the procedure have been explained to the patient, Full informed consent has been obtained. Intraoperative Information Prepped: Patient is brought back to the endoscopy suite, Patient is placed in modified dorso/lithotomy position, Patient prepped in the usual fashion with Betadine solution, 2% Xylocaine Jelly is placed per Urethra, After waiting several minutes the Cystoscope is introduced. The Urethra is: Tight. The Bladder is: Abnormal, Trabeculated no b.t., no b.t. cystocele gr 2-3...obstructing urethra a bit. no gertrudis.. The ureteral orifices: Show efflux of clear urine. The Urethra was dilated to: 30 Telugu w/ sounds. Devices Implanted: None. Removal: Cystoscope is removed, The patient tolerated it well. Postoperative Information Discharge: Patient is discharged home with antibiotic coverage, Follow up arranged. she will do timed/double voids. try ditropan xl 10mgqd f/u 3 months with pvr bladder scan....?pessary. Normal [facility] Comment on above: Result Comment: Elec tronically Signed By: ANGEL SWANSON, David Urban\Date and Time Signed: 09/09/18 12:39 EST Encounters Encounter Date Encounter Type Care Provider Facility Start: 01-29-2023 End: 01-30-[address] SEFERINO MENDOZA . Facility[facility] Start: 01-07-2023 End: 01-08-[address] SEFERINO MENDOZA . Facility:[facility] Start: 10-13-2022 End: 10-14-[address] SEFERINO MENDOZA . Facility[facility] Start: 07-14-2022 Encounter for genera l adult medical examination without abnormal findings DR SEFERINO MENDOZA . [facility] Start: 07-13-2022 End: 07-14-[address] SEFERINO MENDOZA . Facility:[facility] Start: 07-09-2022 End: 07-10-[address] SEFERINO MENDOZA . Facility:[facility] Start: 07-09-2022 End: 07-10-2022 Encounter for general adult medical examination without abnormal findings DR SEFERINO MENDOZA . Facility:[facility] Start: 07-04-2022 End: 07-14-[address] SEFERINO MENDOZA . Facility:[facility] Start: 07-03-2022 End: 07-04-[address] SEFERINO MENDOZA . Facility:[facility] Start: 04-18-2022 End: 04-18-[address] SEFERINO MENDOZA . Facility:[facility] Start: 01-29-2018 End: 01-30-2018 Ambulatory DEFAULT PHYSICIAN Facility:[facility] Payers Date Payer Category Payer Unknown [id number] 2.16.84 [id number] 1970 Unknown [id number] 2.16.84 [id number] 1970 Unknown [id number] 2.16.84 [id number] 1970 Unknown [id number] 2.16.84 [id number] 1970 Unknown [id number] 2.16.84 [id number] 1970 Unknown [id number] 2.16.84 [id number] 1970 Unknown [id number] 2.16.84 [id number] 1970 Unknown [id number] 2.16.84 [id number] 1961 Unknown [id number] Unknown Clinical Note 07-03-2022 Note Date & Type Note Facility 07-03-2022 Note PROCEDURE: XR WRIST RT MIN 3 V, XR HAND RT MIN 3V HISTORY: Pain in right hand and wrist; cannot bend or straighten fingers COMPARISON: None. FINDINGS: BONES:No fracture, acute abnormality, or significant arthropathy. SOFT TISSUES:No visible soft tissue swelling. EFFUSION:None visible. OTHER: Negative. IMPRESSION: 1. No acute bone abnormality. 2. No significant degenerative changes or evidence of inflammatory arthritic process. Electronically authenticated by: NAZARIO PEREZ Date: 2022-07-03 10:07 [facility] Clinical Note 07-03-2022 Note Date & Type Note Facility 07-03-2022 Note PROCEDURE: XR WRIST RT MIN 3 V, XR HAND RT MIN 3V HISTORY: Pain in right hand and wrist; cannot bend or straighten fingers COMPARISON: None. FINDINGS: BONES:No fracture, acute abnormality, or significant arthropathy. SOFT TISSUES:No visible soft tissue swelling. EFFUSION:None visible. OTHER: Negative. IMPRESSION: 1. No acute bone abnormality. 2. No significant degenerative changes or evidence of inflammatory arthritic process. Electronically authenticated by: NAZARIO PEREZ Date: 2022-07-03 10:07 [facility] Summary Purpose Family History No Family History Records FoundNo Family History Records FoundNo Family History Records Found Advance Directives No Advanced Directives Records FoundNo Advanced Directives Records FoundNo Advanced Directives Records Found Additional Source Comments INFORMATION SOURCE (unrecogn ized section and content) DATE CREATED AUTHOR 02/19/2018 [facility] DATE CREATED AUTHOR AUTHOR'S ORGANIZ ATION 05/23/2019 [facility] DATE CREATED AUTHOR AUTHOR'S ORGANIZ ATION 02/08/2023 [facility] FOR RECORDS PERTAINING TO PATIENTS WHO ARE OR HAVE BEEN ENROLLED IN A CHEMICAL DEPENDENCY/SUBSTANCEABUSE PROGRAM, SOME INFORMATION MAY BE OMITTED. This clinical summary was aggregated from multiple sources. Caution should be exercised in using it in the provision of clinical care. This summary normalizes information from multiple sources, and as a consequence, information in this document may materially change the coding, format and clinical context of patient data. In addition, data may be omitted in some cases. CLINICAL DECISIONS SHOULD BE BASED ON THE PRIMARY CLINICAL RECORDS. [employer] [facility]. provides no warranty or guarantee of the accuracy or completeness of information in this document.
--- NOTE | 2024-04-13 10:12 | XR_ITS ---
[address] [address] Patient Name: QUINN AGUILAR MRN: [id number] date: 1970 Sex: F Assigned Patient Location: [facility] Current Patient Location: [facility] Accession/Order Number: [id number] Exam Date: 04/13/2024 10:00 Report Date: 04/15/2024 06:29 At the request of: SEFERINO MENDOZA Procedure: XR shoulder RT min 2V PROCEDURE: XR shoulder RT min 2V HISTORY: Arthralgia M25.50 COMPARISON: None. FINDINGS: BONES:Mild degenerative changes of the acromioclavicular joint. Unremarkable humeral head, scapula, and glenohumeral joint. SOFT TISSUES:No visible soft tissue swelling. EFFUSION:None visible. OTHER: Negative. XR/XR shoulder RT min 2V IMPRESSION: 1. No acute or suspicious bone abnormality. 2. Mild degenerative changes of the acromioclavicular joint. Electronically authenticated by: RAMESH GEORGE Date: 04/15/2024 06:29
--- NOTE | 2024-04-13 12:15 | VEINCLINIC_ITS ---
Varicose Veins Patient is a 54 year old female in this day as referral from her PCP Dr. Ahmadi due to bilateral leg edema and pain with a notable increase in the edema within the last three months. Patient has had multiple DVT to left leg. 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 Patient has worn bilateral leg knee high compression stockings for >5 years. Patient has not had any varicose vein treatment in the past. Patient does have a family history of varicose veins in her mother. IThomas MD personally performed the services described in this documentation, as scribed by Ramírez Driver RN in my presence and it is both accurate and complete. I, Ramírez Driver RN, am scribing for, and in the presence of, Dr. Thomas Shearer and in the presence of the patient. . thigh: bilateral, knee: bilateral, calf: bilateral, ankle: bilateral and hayward: bilateral aching, burning, cramping, dull and tender 1 year Worsened in recent months: Yes standing analgesics (Tylenol), elevating extremities and compression stockings Reports fatigue, heaviness, limb pain, edema and leg edema History of lower extremity trauma: No Superficial thrombophlebitis: Yes Family history of varicose veins: yes Has patient had previous lower extremity venous surgery: No Patient has previously received the following treatment(s) for lower extremity varicose veins: Reports none Does patient have a history of : yes Does patient intend to have future pregnancies: no Has patient had lower extremity venous scan with relux testing: No Support hose used: Yes Problems walking or doing physical activity: Yes How does it affect you: patient is on work restriction due to weakness Do you walk much: Yes Do you stand much: Yes Review of Systems ROS Status of ROS 10 or more systems reviewed and unremark able except as noted in history and below Cardiovascular Reports: edema Integumentary/Breast Reports: skin swelling and changing lesion Neurological Reports: weakness in extremities [facility] Medical History (Updated 04/13/24 @ 14:19 by Ramírez Driver) Varicose veins of bilateral lower extremities with pain ?I83.813 - Varicose veins of bilateral lower extremities with pain (ICD-10) Carpal tunnel syndrome ?G56.00 - Carpal tunnel syndrome, unspecified upper limb (ICD-10) Edema ?R60.9 - Edema, unspecified (ICD-10) Hypercholesteremia ?E78.00 - Pure hypercholesterolemia, unspecified (ICD-10) Hypothyroid ?E03.9 - Hypothyroidism, unspecified (ICD-10) Diabetes ?E11.9 - Type 2 diabetes mellitus without complications (ICD-10) Hypertension ?I10 - Essential (primary) hypertension (ICD-10) Deep vein thrombosis ?I82.409 - Acute embolism and thrombosis of unspecified deep veins of unspecified lower extremity (ICD-10) Surgical History (Updated 04/13/24 @ 13:42 by Ramírez Driver) History of carpal tunnel surgery ?Z98.890 - Other specified postprocedural states (ICD-10) History of arthroscopy of left shoulder ?Z98.890 - Other specified postprocedural states (ICD-10) H/O: hysterectomy ?Z90.710 - Acquired absence of both cervix and uterus (ICD-10) Family History (Updated 04/13/24 @ 13:42 by Ramírez Driver) Mother Family history of diabetes mellitus Family history of hypertension Varicose veins of bilateral lower extremities with pain Social History (Updated 04/13/24 @ 13:43 by Ramírez Driver) Within the past year, how often did you have a drink containing alcohol: never Score interpretation: A score less than 3 is consistent with normal alcohol consumption. Smoking status: Never smoker Non-prescribed substance use: denies use Meds Home Medications and Allergies Home Medications ?Medication ?Instructions ?Recorded ?Confirmed ?Type diclofenac potassium 04/13/24 History empagliflozin 25 mg tablet 25 mg PO QAM 04/13/24 04/13/24 History (Jardiance) furosemide 20 mg tablet 20 mg PO DAILY 04/13/24 04/13/24 History glimepiride 4 mg tablet 4 mg PO DAILY 04/13/24 04/13/24 History levothyroxine 125 mcg capsule 125 mcg PO DAILY 04/13/24 04/13/24 History levothyroxine 137 mcg tablet 137 mcg PO DAILY 04/13/24 04/13/24 History (Euthyrox) metformin 500 mg tablet,extended 500 mg PO DAILY 04/13/24 04/13/24 History release 24 hr metoprolol tartrate 50 mg tablet 25 mg PO DAILY 04/13/24 04/13/24 History pantoprazole 40 mg tablet,delayed 40 mg PO DAILY 04/13/24 04/13/24 History release (Protonix) sitagliptin phosphate 100 mg 100 mg PO DAILY 04/13/24 04/13/24 History tablet (Januvia) Allergies Allergy/AdvReac Type Severity Reaction Status Date / Time penicillamine Allergy Intermediate Rash Verified 04/13/24 13:46 Exam Narrative Exam Narrative: IThomas MD personally performed the services described in this documentation, as scribed by Ramírez Driver RN in my presence and it is both accurate and complete. IRamírez RN, am scribing for, and in the presence of, Dr. Thomas Shearer and in the presence of the patient. Constitutional Documenting provider has reviewed patient's vital signs: yes Common normals: oriented x3 Nutritional appearance: overweight Cardio Peripheral pulses: posterior tibial pulses present and dorsalis pedis pulses pr esent Extremity Common normals: normal capillary refill General: edema Right lower extremity: lower leg Right lower leg: inspection and palpation Left lower extremity: lower leg Left lower leg: inspection and palpation Neuro Common normals: oriented x3 Assessment and Plan Assessment and Plan (1) Edema: (2) Varicose veins of bilateral lower extremities with pain:
--- NOTE | 2024-04-13 12:16 | P.DS_ITS ---
Discharge Plan Discharge Disposition: Home, Self-Care Print Language: Citizen Of [place] Discharge Date/Time: 04/13/24 14:13
--- NOTE | 2024-04-13 12:16 | W.VEIN ---
Discharge Plan Discharge Disposition: Home, Self-Care Print Language: Chadian Discharge Date/Time: 04/13/24 14:13
--- NOTE | 2024-04-13 13:24 | VEIN_ITS ---
Patient Name: QUINN AGUILAR MR#: [id number] : 1970 Exam Date: 04/13/2024 Ordering Doctor: DR Vincent Ahmadi . CORRECTION Corrected on: 04/14/2024; change brain to vein in the impression RADIOLOGY REPORT PROCEDURE: VC EXT VENOUS REFLUX PORSHA LMTD COMPARISON: None. INDICATIONS: Edema R60.0 TECHNIQUE: Duplex imaging of the lower extremity to assess the deep and superficial venous system for the presence of deep or superficial venous incompetence and to document the location and severity of disease. The study includes evaluation of the great saphenous vein (GSV), anterior accessory saphenous vein (AASV) and small saphenous vein (SSV). Patient scanned in reverse Trendelenburg and standing. FINDINGS: RIGHT LOWER EXTREMITY: Saphenofemoral Junction Reflux: Yes 10.7mm 1.8 sec GSV: Diam (mm) Reflux/ Time (sec) Proximal Thigh 8.6 Yes 3.9 Mid Thigh 4.3 Yes 0.5 Distal Thigh 5.7 Yes 1.1 Prox Calf 4.7 Yes 0.3 Mid Calf 3.8 Yes 0.5 Saphenopopliteal Junction Reflux: 2.7mm Yes 0.3 SSV: Proximal Calf 3.3 No Mid Calf 3.5 No AASV: Proximal Thigh 5.9 No Mid Thigh 3.7 Yes 0.3 Distal Thigh Thrombi: No acute or chronic thrombus. Compressibility: Normal. Flow: No significant deep venous reflux. Preforator: Dist/medial lower leg 3.7 mm with 0.3s of reflux. Mid medial calf 2.8 mm with 0.6s reflux. Tech Note: Complex fluid collection popliteal fossa measures 4.7 x 2.6 x 1.7 cm. Incompetent varicose vein medial knee measures 3.6 mm with 0.7s reflux. Varicose vein mid medial thigh measures 5.2 mm with 0.7s reflux. Varicose vein mid medial calf measures 4.0 mm with 1.1s reflux. LEFT LOWER EXTREMITY: Saphenofemoral Junction Reflux: Yes 10.8 mm 1.5 sec GSV: Diam (mm) Reflux/Time (sec) Proximal Thigh 8.9 Yes 0.8 Mid Thigh 5.4 Yes 4.3 Distal Thigh 5.8 Yes 4.8 Prox Calf 4.0 Yes 1.9 Mid Calf 4.2 Yes 1.3 Saphenopopliteal Junction Relux: 5.5 mm Yes 0.9 SSV: Proximal Calf 3.9 No Mid Calf 3.3 No AASV: Proximal Thigh 6.4 Yes 0.4 Mid Thigh 5.3 Yes 1.0 Distal Thigh Thrombi: No acute or chronic thrombus. Compressibility: Normal. Flow: Severe reflux in popliteal vein. 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 Mid posterior calf 3.7 mm with 4.8s reflux. Tech Note: Incompetent varicose vein proximal medial calf measures 5.0 mm with 3.5s reflux. Varicose vein mid medial thigh off of GSV measures 4.3 mm with 0.5s reflux. CONCLUSION: 1. Moderate to severe bilateral great saphenous vein venous insufficiency with saphenofemoral junction reflux and dilatation 2. Severe deep vein reflux left popliteal vein 3. Bilateral incompetent varicose veins Dictated by: Thomas Shearer MD on 04/13/2024 at 14:53 Approved by: Thomas Shearer MD on 04/13/2024 at 15:27 Dictated by: Thomas Shearer MD on 04/14/2024 at 15:09 Approved by: Thomas Shearer MD on 04/14/2024 at 15:09
== END 2024-04-13 14:13 | disposition home or self-care (01) ==
PROVIDERS: PCP Family Medicine; Visit Provider Family Medicine
DX: M25.511 Pain in right shoulder (principal); R60.0 Localized edema
CPT/HCPCS: 73030; 93970

== ENCOUNTER 2024-05-21 13:51 | Outpatient (OUT) | payer BC, SELFPAY ==
--- NOTE | 2024-05-20 09:12 | VEINCLINIC_ITS ---
Vital Signs 05/21/24 13:56 Height 5 ft 2 in Weight 90.718 kg BMI 36.6 BP 124/66 BP Location Left Brachial BP Position Sitting BP Cuff Size Adult BP Source Manual Cuff Respiration 16 Pulse 91 H Pulse Source Monitor Pulse Oximetry (%) 95 Oxygen Delivery Method Room Air Comment The patient's blood pressure is elevated. Varicose Veins Patient is a 54 year old female in this day as a referral from her PCP Dr. MENDOZA. Patient c/o bilateral leg pain and edema intermittently for approximately 2 years. 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 Patient has worn bilateral leg knee high compression stockings for >5years. Patient has no history of varicose vein procedures. Patient rates the pain at an 8 on a scale of 1-10 and says it wakes her from her sleep often. Patient has a history of DVT x2 to left leg. Thomas Reza MD personally performed the services described in this documentation, as scribed by Ramírez Driver RN in my presence and it is both accurate and complete. IRamírez RN, am scribing for, and in the presence of, Dr. Thomas Shearer and in the presence of the patient. thigh: bilateral (symptoms equal bilaterally), knee: bilateral, calf: bilateral, ankle: bilateral and hayward: bilateral aching, burning, cramping, dull, sharp and tender 8 2 years Worsened in recent months: Yes standing, sitting and walking analgesics (Tylenol), elevating extremities, compression stockings and exercise Reports muscle spasms of leg, fatigue, heaviness, limb pain, edema and leg edema History of lower extremity trauma: No Superficial thrombophlebitis: Yes Family history of varicose veins: yes Has patient had previous lower extremity venous surgery: No Patient has previously received the following treatment(s) for lower extremity varicose veins: Reports none Does patient have a history of : yes Does patient intend to have future pregnancies: no Has patient had lower extremity venous scan with relux testing: No Support hose used: Yes Problems walking or doing physical activity: Yes How does it affect you: awakens her from sleep, often has to stop and elevate feet/legs Do you walk much: Yes Do you stand much: Yes Review of Systems ROS Narrative Thomas Reza MD personally performed the services described in this documentation, as scribed by Ramírez Driver RN in my presence and it is both accurate and complete. I, Ramírez Driver RN, am scribing for, and in the presence of, Dr. Thomas Shearer and in the presence of the patient. Status of ROS 10 or more systems reviewed and unremark able except as noted in history and below Cardiovascular Reports: edema Integumentary/Breast Reports: itching Neurological Reports: weakness in extremities PFSH PFS Medical History (Updated 04/13/24 @ 14:19 by Ramírez Driver) Varicose veins of bilateral lower extremities with pain ?I83.813 - Varicose veins of bilateral lower extremities with pain (ICD-10) Carpal tunnel syndrome ?G56.00 - Carpal tunnel syndrome, unspecified upper limb (ICD-10) Edema ?R60.9 - Edema, unspecified (ICD-10) Hypercholesteremia ?E78.00 - Pure hypercholesterolemia, unspecified (ICD-10) Hypothyroid ?E03.9 - Hypothyroidism, unspecified (ICD-10) Diabetes ?E11.9 - Type 2 diabetes mellitus without complications (ICD-10) Hypertension ?I10 - Essential (primary) hypertension (ICD-10) Deep vein thrombosis ?I82.409 - Acute embolism and thrombosis of unspecified deep veins of unspecified lower extremity (ICD-10) Surgical History (Updated 04/13/24 @ 13:42 by Ramírez Driver) History of carpal tunnel surgery ?Z98.890 - Other specified postprocedural states (ICD-10) History of arthroscopy of left shoulder ?Z98.890 - Other specified postprocedural states (ICD-10) H/O: hysterectomy ?Z90.710 - Acquired absence of both cervix and uterus (ICD-10) Family History (Updated 04/13/24 @ 13:42 by Ramírez Driver) Mother Family history of diabetes mellitus Family history of hypertension Varicose veins of bilateral lower extremities with pain Social History (Updated 04/13/24 @ 13:43 by Ramírez Driver) Within the past year, how often did you have a drink containing alcohol: never Score interpretation: A score less than 3 is consistent with normal alcohol consumption. Smoking status: Never smoker Non-prescribed substance use: denies use Meds Home Medications and Allergies Home Medications ?Medication ?Instructions ?Recorded ?Confirmed ?Type diclofenac potassium 04/13/24 History empagliflozin 25 mg tablet 25 mg PO QAM 04/13/24 04/13/24 History (Jardiance) furosemide 20 mg tablet 20 mg PO DAILY 04/13/24 04/13/24 History glimepiride 4 mg tablet 4 mg PO DAILY 04/13/24 04/13/24 History levothyroxine 125 mcg capsule 125 mcg PO DAILY 04/13/24 04/13/24 History levothyroxine 137 mcg tablet 137 mcg PO DAILY 04/13/24 04/13/24 History (Euthyrox) metformin 500 mg tablet,extended 500 mg PO DAILY 04/13/24 04/13/24 History release 24 hr metoprolol tartrate 50 mg tablet 25 mg PO DAILY 04/13/24 04/13/24 History pantoprazole 40 mg tablet,delayed 40 mg PO DAILY 04/13/24 04/13/24 History release (Protonix) sitagliptin phosphate 100 mg 100 mg PO DAILY 04/13/24 04/13/24 History tablet (Januvia) Allergies Allergy/AdvReac Type Severity Reaction Status Date / Time penicillamine Allergy Intermediate Rash Verified 04/13/24 13:46 Exam Narrative Exam Narrative: Thomas Reza MD personally performed the services described in this documentation, as scribed by Ramírez Driver RN in my presence and it is both accurate and complete. Ramírez Reza RN, am scribing for, and in the presence of, Dr. Thomas Shearer and in the presence of the patient. Constitutional Documenting provider has reviewed patient's vital signs: yes Common normals: oriented x3 Nutritional appearance: overweight Cardio Peripheral pulses: posterior tibial pulses present and dorsalis pedis pulses pr esent Extremity Common normals: normal capillary refill General: edema Right lower extremity: lower leg Right lower leg: inspection and palpation Left lower extremity: lower leg Left lower leg: inspection and palpation Neuro Common normals: oriented x3 Results Additional Findings Additional findings: Bilateral leg reflux u/s reveals moderate to severe GSV insufficiency with associated dilatation along with bilateral leg branch saphenous truncal tributary varicosities. Thomas Reza MD personally performed the services described in this documentation, as scribed by Ramírez Driver RN in my presence and it is both accurate and complete. Ramírez Reza RN, am scribing for, and in the presence of, Dr. Thomas Shearer and in the presence of the patient. Assessment and Plan Assessment and Plan (1) Varicose veins of bilateral lower extremities with pain: Plan Patient to continue use of bilateral leg compression stockings, exercise, rest, and elevation bilateral legs. Patient to return for EVLT of left GSV. IThomas MD personally performed the services described in this documentation, as scribed by Ramírez Driver RN in my presence and it is both accurate and complete. I, Ramírez Driver RN, am scribing for, and in the presence of, Dr. Thomas Shearer and in the presence of the patient.
--- NOTE | 2024-05-20 09:21 | P.DS_ITS ---
Discharge Plan Discharge Disposition: Home, Self-Care Outpatient Diagnostics: VC Endovenous Ablation 1VeinLT (Routine) Timeframe: 2 Months Facility: [facility] [place] - Location: [facility] Ordered By: Thomas Shearer Plan of Treatment: EVLT of left GSV Patient Instructions: Endovenous Ablation (GEN) Print Language: Vietnamese Discharge Date/Time: 05/21/24 15:12
--- NOTE | 2024-05-21 13:52 | VEIN_ITS ---
Patient Name: QUINN AGUILAR MR#: [id number] : 1970 Exam Date: 05/21/2024 Ordering Doctor: DR SEFERINO MENDOZA . RADIOLOGY REPORT PROCEDURE: [facility] [facility] - OFFICE VISIT INITIAL COMPARISON: None. PROGRESS NOTES: 54-year-old female who presents from her primary care physician Dr. Herrmann with bilateral leg edema and pain present for approximately 5-10 years but significantly increasing in the past 3 months. The patient reports several episodes of deep vein thrombus in the left leg more than 10 years ago for which she was temporarily placed on a blood thinner. The patient is no longer on a blood thinner. The patient has worn compression stockings for over 5 years. The patient's symptoms are exacerbated by prolonged sitting and standing and are only partially relieved by rest, leg elevation and over the counter Tylenol. The patient denies any signs and symptoms to suggest arterial ischemia. The patient describes a family history significant for diabetes hypertension and varicose veins. Past medical history is significant for lower extremity edema, varicose veins, hypercholesterolemia, hyperthyroidism, diabetes, hypertension. Past surgical history is significant for left shoulder arthroscope, carpal tunnel central in hysterectomy The patient does not drink alcohol. The patient has never smoked. No illicit drug use. No history of deep venous thrombus or pulmonary embolus. See separate history and physical for medication list. No prior treatment for varicose or spider veins. Nursing notes were reviewed. After history and physical exam I discussed at length the pathophysiology of venous hypertension and possible treatments, therapies and strategies available. We discussed at length the importance of elevating the lower extremities above the level of the heart, increased physical activity and compression stocking use. We discussed conservative treatment with compression stockings. Surgical and the interventions including ligation stripping and phlebectomy. I informed the patient that her symptoms were likely multifactorial and that treatment likely would resolve an improvement but not complete resolution of her swelling. Ultrasound venous reflux study performed April 13, 2024 was discussed at length with the patient. The report demonstrates moderate right and severe left great saphenous vein venous insufficiency with dilatation and saphenofemoral junction reflux. Bilateral incompetent varicose veins PHYSICAL EXAM: The right leg demonstrates moderate scattered varicose, reticular and spider veins. No hemosiderin staining . Mild to moderate subcutaneous edema. No active ulceration The left leg demonstrates moderate scattered varicose, reticular and spider veins. No hemosiderin staining. Mild to moderate subcutaneous edema. No active ulceration. Both thighs, legs and feet were symmetrically warm to the touch. Good posterior tibial and dorsalis pedis pulses were present bilaterally. VEIN/VC Facility EST Comprehensive IMPRESSION: 1. Bilateral great saphenous vein venous insufficiency with dilatation and saphenofemoral junction reflux 2. Moderate bilateral lower extremity varicose veins 3. Mild to moderate bilateral lower extremity subcutaneous edema 4. No definite flow significant arterial disease 5. CEAP: C3, Ep, As, Pr PLAN: 1. Endovenous laser ablation of the left great saphenous vein followed by the right great saphenous vein 2. Micro foam chemical ablation bilateral incompetent varicose veins 3. Injection sclerotherapy of reticular and spider veins 4. Long-term use of bilateral thigh-high or knee high 20-30 mm compression stockings 5. Leg elevation and increased physical activity for symptomatic relief Nurse notes, history and physical were reviewed and confirmed, see attached forms. The nurse was present throughout the physical exam and consultation Dictated by: Thomas Shearer MD on 05/21/2024 at 15:24 Approved by: Thomas Shearer MD on 05/21/2024 at 15:33
[2024-05-21 13:56] VITALS: BP 124/66; PULSE 91; O2SAT 95; BMI 36.6
--- OUTSIDE RECORDS SUMMARY | 2024-05-21 14:10 | XMS_ITS | CCD ---
Author Organization [facility] Care Team Providers Care Manager Engagement Name Role Phone PHYSICIAN, DEFAULT Unavailable Unavailable [...] Acetaminophen / oxyCODONE Drug Allergy 10-19-2016 [facility] Repository (1 source) Penicillins Drug allergy (disorder) 01-09-2013 [facility] Repository Problems Active Problems Problem Classification Problem [...] : DR SEFERINO MENDOZA . Admission #: [id number] Family : Order #: [id number] CLICK HERE TO VIEW EXAM RADIOLOGY REPORT [...] Treatments None Family Cancers None LOCATION: [facility] BREAST COMPOSITION: Scattered areas fibroglandular density. [...] M.D. on 01/30/2023 at 13:47 Normal [facility] INSULINon 01-08-2023 Insulin 11.3 uIU/mL Normal 2.6-24.9 [facility] Comment on above: Performed By: #### C VDTBH #### [facility] [address] [address] [address] Dona Turner CBC AUTO DIFFon 01-07-2023 BASO # 0.1 103/ul Normal 0.0-0.1 [facility] Comment on above: Performed By: #### C VDTBH #### [facility] [address] [address] [address] Dona Turner Basophils/100 WBC (Bld) 1.2 % Normal 0.2-2.0 [facility] Comment on above: Performed By: #### C VDTBH #### [facility] [address] [place] [address] Dr. Dona Turner EO # 0.1 103/ul Normal 0.0-0.7 [facility] Comment on above: Performed By: #### C VDTBH #### [facility] [address] [place] [address] Dr. Dona Turner Eosinophils/100 WBC (Bld) 2.0 % Normal 0.9-7.0 [facility] Comment on above: Performed By: #### C VDTBH #### [facility] [address] [place] [address] Dr. Dona Turner Erythrocyte distribution width (RBC) [Ratio] 14.5 % Normal 11.0-15.0 [facility] Comment on above: Performed By: #### C VDTBH #### [facility] [address] [place] [address] Dr. Dona Turner Hematocrit (Bld) [Volume fraction] 45.1 % Normal 36.0-48.0 [facility] Comment on above: Performed By: #### C VDTBH #### [facility] [address] [place] [address] Dr. Dona Turner Hemoglobin (Bld) [Mass/Vol] 14.1 g/dL Normal 12.0-16.0 [facility] Comment on above: Performed By: #### C VDTBH #### [facility] [address] [place] [address] Dr. Dona Turner IG # 0.02 10e3/ul Normal 0.00-0.03 [facility] Comment on above: Performed By: #### C VDTBH #### [facility] [address] [place] [address] Dr. Dona Turner IG % 0.4 % Normal 0.0-0.5 [facility] Comment on above: Performed By: #### C VDTBH #### [facility] [address] [place] [address] Dr. Dona Turner LYMPH # 1.3 103/ul Normal 1.2-3.8 [facility] Comment on above: Performed By: #### C VDTBH #### [facility] [address] [place] [address] Dr. Dona Turner Lymphocytes/100 WBC (Bld) 26.4 % Normal 20.5-60.0 [facility] Comment on above: Performed By: #### C VDTBH #### [facility] [address] [place] [address] Dr. Dona Turner MANUAL DIFF REQ NO Normal [facility] Comment on above: Performed By: #### C VDTBH #### [facility] [address] [place] [address] Dr. Dona Turner MCH (RBC) [Entitic mass] 25.0 pg Critically low 26.7-34.0 [facility] Comment on above: Performed By: #### C VDTBH #### [facility] [address] [place] [address] Dr. Dona Turner MCHC (RBC) [Mass/Vol] 31.3 g/dL Normal 29.9-35.2 [facility] Comment on above: Performed By: #### C VDTBH #### [facility] [address] [place] [address] Dr. Dona Turner MCV (RBC) [Entitic vol] 80.0 fL Critically low 81.0-99.0 [facility] Comment on above: Performed By: #### C VDTBH #### [facility] [address] [place] [address] Dr. Dona Turner MONO # 0.4 103/ul Normal 0.3-0.8 [facility] Comment on above: Performed By: #### C VDTBH #### [facility] [address] [place] [address] Dr. Dona Turner Monocytes/100 WBC (Bld) 7.7 % Normal 1.7-12.0 [facility] Comment on above: Performed By: #### C VDTBH #### [facility] [address] [place] [address] Dr. Dona Turner NEUT # 3.1 103/ul Normal 1.4-6.5 [facility] Comment on above: Performed By: #### C VDTBH #### [facility] [address] [place] [address] Dr. Dona Turner Neutrophils/100 WBC (Bld) 62.3 % Normal 43.0-75.0 [facility] Comment on above: Performed By: #### C VDTBH #### [facility] [address] [place] [address] Dr. Dona Turner Platelet mean volume (Bld) [Entitic vol] 10.7 fL Normal 9.5-13.5 [facility] Comment on above: Performed By: #### C VDTBH #### [facility] [address] [place] [address] Dr. Dona Turner PLT 257 103/ul Normal 150-450 [facility] Comment on above: Performed By: #### C VDTBH #### [facility] [address] [place] [address] Dr. Dnoa Turner RBC 5.64 106/ul Critically high 4.20-5.40 [facility] Comment on above: Performed By: #### C VDTBH #### [facility] [address] [place] [address] Dr. Dona Turner WBC 5.0 103/ul Normal 4.0-11.0 [facility] Comment on above: Performed By: #### C VDTBH #### [facility] [address] [place] [address] Dr. Dona Turner FREE THYROXINE INDEX T7on FTI 3.78 Normal 1.30-4.50 [facility] Comment on above: Performed By: #### L IPID, TSH, T7, CMP #### [facility] [address] [place] [address] Dr. Dona Turner T3U 35.0 % Normal 30.0-39.0 [facility] Comment on above: Performed By: #### L IPID, TSH, T7, CMP #### [facility] [address] [place] [address] Dr. Dona Turner T4 [Mass/Vol] 10.80 ug/dL Normal 4.80-13.[address] [facility] Comment on above: Performed By: #### L IPID, TSH, T7, CMP #### [facility] [address] [address] [address] Dona Turner GLYCOHEMOGLOBIN A1Con 2022 ADA RECOMMENDATION SEE BELOW Normal [facility] Comment on above: Result Comment: ADA RECOMMENDED LIMIT 4.0 - 6.0 ADA THERAPEUTIC TARGET < 7.0 ACTION SUGGESTED > 7.0 Performed By: #### C VDTBH #### [facility] [address] [address] [address] Dona Turner Glucose [Mass/Vol] 160 mg/dL Normal [facility] Comment on above: Performed By: #### C VDTBH #### [facility] [address] [place] [address] Dr. Dona Turner HbA1c (Bld) [Mass fraction] 7.2 % Critically high 4.5-6.2 [facility] Comment on above: Performed By: #### C VDTBH #### [facility] [address] [address] [address] Dona Turner IRONon 01-07-2023 Iron [Mass/Vol] 50.0 ug/dL Normal 50.0-170.0 [facility] Comment on above: Performed By: #### I NSULIN #### [facility] [address] [place] [address] Dr. Dona Turner LIPID PROFILEon 01-07-2023 CHOL-HDL RATIO NORM SEE BELOW Normal [facility] Comment on above: Result Comment: 3.3 - 4.4 LOW RISK 4.4 - 7.1 AVERAGE RISK 7.1 - 11.0 MODERATE RISK >11.0 HIGH RISK Performed By: #### L IPID, TSH, T7, CMP #### [facility] [address] [address] [address] Dona Turner Cholesterol [Mass/Vol] 162 mg/dL Normal <=200 [facility] Comment on above: Performed By: #### L IPID, TSH, T7, CMP #### [facility] [address] [address] [address] Dona Turner Cholesterol in HDL [Mass/Vol] 33 mg/dL Critically low 40-60 [facility] Comment on above: Performed By: #### L IPID, TSH, T7, CMP #### [facility] [address] [address] [address] Dona Turner Cholesterol in LDL [Mass/Vol] 100.4 mg/dL Normal [facility] Comment on above: Performed By: #### L IPID, TSH, T7, CMP #### [facility] [address] [address] [address] Dona Turner Cholesterol.total/Chol esterol in HDL [Mass ratio] 4.9 {ratio} Normal [facility] Comment on above: Performed By: #### L IPID, TSH, T7, CMP #### [facility] [address] [address] [address] Dona Turner HDL NORMAL > or = 60 mg/dl - LOW CARDIOVASCULAR RISK <40 mg/dl - HIGH CARDIOVASCULAR RISK Normal [facility] Comment on above: Performed By: #### L IPID, TSH, T7, CMP #### [facility] [address] [address] [address] Dona Turner LDL CALC NORMAL SEE BELOW Normal [facility] Comment on above: Result Comment: <100 mg/dl OPTIMAL 100 - 129 mg/dl NEAR OR ABOVE OPTIMAL 130 - 159 mg/dl BORDERLINE HIGH 160 - 189 mg/dl HIGH >190 mg/dl VERY HIGH Performed By: #### L IPID, TSH, T7, CMP #### [facility] [address] [address] [address] Dona Turner Triglyceride [Mass/Vol] 143 mg/dL Normal <=150 [facility] Comment on above: Performed By: #### L IPID, TSH, T7, CMP #### [facility] [address] [address] [address] Dona Turner VLDL CALC 28.6 mg/dL Normal [facility] Comment on above: Performed By: #### L IPID, TSH, T7, CMP #### [facility] [address] [place] [address] Dr. Dona Turner PROF 14(COMP METB)on 023 Albumin [Mass/Vol] 3.8 g/dL Normal 3.4-5.0 [facility] Comment on above: Performed By: #### L IPID, TSH, T7, CMP #### [facility] [address] [place] [address] Dr. Dona Turner Albumin/Globulin [Mass ratio] 1.0 {ratio} Normal [facility] Comment on above: Performed By: #### L IPID, TSH, T7, CMP #### [facility] [address] [place] [address] Dr. Dona Turner ALP [Catalytic activity/Vol] 59 U/L Normal 46-116 [facility] Comment on above: Performed By: #### L IPID, TSH, T7, CMP #### [facility] [address] [place] [address] Dr. Dona Turner ALT [Catalytic activity/Vol] 43 U/L Normal 14-59 [facility] Comment on above: Performed By: #### L IPID, TSH, T7, CMP #### [facility] [address] [place] [address] Dr. Dona Turner Anion gap [Moles/Vol] 11.5 mmol/L Normal [facility] Comment on above: Performed By: #### L IPID, TSH, T7, CMP #### [facility] [address] [place] [address] Dr. Dona Turner AST [Catalytic activity/Vol] 19 U/L Normal 15-37 [facility] Comment on above: Performed By: #### L IPID, TSH, T7, CMP #### [facility] [address] [place] [address] Dr. Dona Turner Bilirubin [Mass/Vol] 0.4 mg/dL Normal 0.2-1.0 [facility] Comment on above: Performed By: #### L IPID, TSH, T7, CMP #### [facility] [address] [place] [address] Dr. Dona Turner Calcium [Mass/Vol] 9.1 mg/dL Normal 8.5-10.1 [facility] Comment on above: Performed By: #### L IPID, TSH, T7, CMP #### [facility] [address] [place] [address] Dr. Dona Turner Chloride [Moles/Vol] 107 mmol/L Normal 98-107 [facility] Comment on above: Performed By: #### L IPID, TSH, T7, CMP #### [facility] [address] [place] [address] Dr. Dona Turner CO2 [Moles/Vol] 28.5 mmol/L Normal 21.0-32.0 [facility] Comment on above: Performed By: #### L IPID, TSH, T7, CMP #### [facility] [address] [place] [address] Dr. Dona Turner Creatinine [Mass/Vol] 0.66 mg/dL Normal 0.55-1.02 [facility] Comment on above: Performed By: #### L IPID, TSH, T7, CMP #### [facility] [address] [place] [address] Dr. Dona Turner EGFR-AF VIETNAMESE >60 Normal >=60 [facility] Comment on above: Performed By: #### L IPID, TSH, T7, CMP #### [facility] [address] [place] [address] Dr. Dona Turner EGFR-NON AF VIET[place]ESE >60 Normal >=60 [facility] Comment on above: Performed By: #### L IPID, TSH, T7, CMP #### [facility] [address] [place] [address] Dr. Dona Turner Globulin (S) [Mass/Vol] 3.8 g/dL Normal [facility] Comment on above: Performed By: #### L IPID, TSH, T7, CMP #### [facility] [address] [place] [address] Dr. Dona Turner Glucose [Mass/Vol] 112 mg/dL Critically high 74-106 [facility] Comment on above: Performed By: #### L IPID, TSH, T7, CMP #### [facility] [address] [place] [address] Dr. Dona Turner Potassium [Moles/Vol] 4.0 mmol/L Normal 3.5-5.1 [facility] Comment on above: Performed By: #### L IPID, TSH, T7, CMP #### [facility] [address] [place] [address] Dr. Dona Turner Protein [Mass/Vol] 7.6 g/dL Normal 6.4-8.2 [facility] Comment on above: Performed By: #### L IPID, TSH, T7, CMP #### [facility] [address] [place] [address] Dr. Dona Turner Sodium [Moles/Vol] 143 mmol/L Normal 136-145 [facility] Comment on above: Performed By: #### L IPID, TSH, T7, CMP #### [facility] [address] [place] [address] Dr. Dona Turner Urea nitrogen [Mass/Vol] 11.0 mg/dL Normal 7.0-18.0 [facility] Comment on above: Performed By: #### L IPID, TSH, T7, CMP #### [facility] [address] [place] [address] Dr. Dona Turner Urea nitrogen/Creatinine [Mass ratio] 16.7 mg/mg Normal [facility] Comment on above: Performed By: #### L IPID, TSH, T7, CMP #### [facility] [address] [place] [address] Dr. Dona Turner TSHon 01-07-2023 TSH 0.350 uIU/mL Critically low 0.358-3.740 [facility] Comment on above: Performed By: #### L IPID, TSH, T7, CMP #### [facility] [address] [place] [address] Dr. Dona Turner VITAMIN D 25 OHon 01-07-2023 VIT D 25-OH 52.4 ng/mL Normal [facility] Comment on above: Performed By: #### I NSULIN #### [facility] [address] [address] [address] Dona Turner VIT D RANGES SEE BELOW Normal [facility] Comment on above: Result Comment: <20 ng/mL Vit D deficient 20 - <30 ng/mL Vit D insufficient 30 - 100 ng/mL Vit D sufficient >100 ng/mL Potential Toxicity Performed By: #### I NSULIN #### [facility] [address] [address] [address] Dona Turner LIPID PROFILEon 10-13-2022 CHOL-HDL RATIO NORM SEE BELOW Normal [facility] Comment on above: Result Comment: 3.3 - 4.4 LOW RISK 4.4 - 7.1 AVERAGE RISK 7.1 - 11.0 MODERATE RISK >11.0 HIGH RISK Performed By: #### C VDTBH #### [facility] [address] [address] [address] Dona Turner Cholesterol [Mass/Vol] 136 mg/dL Normal <=200 [facility] Comment on above: Performed By: #### C VDTBH #### [facility] [address] [address] [address] Dona Turner Cholesterol in HDL [Mass/Vol] 33 mg/dL Critically low 40-60 [facility] Comment on above: Performed By: #### C VDTBH #### [facility] [address] [place] [address] Dr. Dona Turner Cholesterol in LDL [Mass/Vol] 76.4 mg/dL Normal [facility] Comment on above: Performed By: #### C VDTBH #### [facility] [address] [address] [address] Dona Turner Cholesterol.total/Chol esterol in HDL [Mass ratio] 4.1 {ratio} Normal [facility] Comment on above: Performed By: #### C VDTBH #### [facility] [address] [place] [address] Dr. Dona Turner HDL NORMAL > or = 60 mg/dl - LOW CARDIOVASCULAR RISK <40 mg/dl - HIGH CARDIOVASCULAR RISK Normal [facility] Comment on above: Performed By: #### C VDTBH #### [facility] [address] [address] [address] Dona Turner LDL CALC NORMAL SEE BELOW Normal [facility] Comment on above: Result Comment: <100 mg/dl OPTIMAL 100 - 129 mg/dl NEAR OR ABOVE OPTIMAL 130 - 159 mg/dl BORDERLINE HIGH 160 - 189 mg/dl HIGH >190 mg/dl VERY HIGH Performed By: #### C VDTBH #### [facility] [address] [address] [address] Dona Turner Triglyceride [Mass/Vol] 133 mg/dL Normal <=150 [facility] Comment on above: Performed By: #### C VDTBH #### [facility] [address] [address] [address] Dona Turner VLDL CALC 26.6 mg/dL Normal [facility] Comment on above: Performed By: #### C VDTBH #### [facility] [address] [place] [address] Dr. Dona Turner LIVER PROFILEon 10-13-2022 Albumin [Mass/Vol] 3.6 g/dL Normal 3.4-5.0 [facility] Comment on above: Performed By: #### I NSULIN #### [facility] [address] [place] [address] Dr. Dona Turner Albumin/Globulin [Mass ratio] 1.1 {ratio} Normal [facility] Comment on above: Performed By: #### I NSULIN #### [facility] [address] [place] [address] Dr. Dona Turner ALP [Catalytic activity/Vol] 62 U/L Normal 46-116 [facility] Comment on above: Performed By: #### I NSULIN #### [facility] [address] [place] [address] Dr. Dona Turner ALT [Catalytic activity/Vol] 28 U/L Normal 14-59 [facility] Comment on above: Performed By: #### I NSULIN #### [facility] [address] [place] [address] Dr. Dona Turner AST [Catalytic activity/Vol] 16 U/L Normal 15-37 [facility] Comment on above: Performed By: #### I NSULIN #### [facility] [address] [address] [address] Dona Turner BILI, CONJUGATED 0.1 mg/dL Normal 0.0-0.2 [facility] Comment on above: Performed By: #### I NSULIN #### [facility] [address] [address] [address] Dona Turner Bilirubin [Mass/Vol] 0.5 mg/dL Normal 0.2-1.0 [facility] Comment on above: Performed By: #### I NSULIN #### [facility] [address] [address] [address] Dona Turner Globulin (S) [Mass/Vol] 3.4 g/dL Normal [facility] Comment on above: Performed By: #### I NSULIN #### [facility] [address] [place] [address] Dr. Dona Turner Protein [Mass/Vol] 7.0 g/dL Normal 6.4-8.2 [facility] Comment on above: Performed By: #### I NSULIN #### [facility] [address] [place] [address] Dr. Dona Turner BETH by IFAon 07-19-2022 Antinuclear Antibodies, IFA Negative Normal [facility] Comment on above: Result Comment: Nega tive <1:80 Borderline 1:80 Positive >1:80 ICAP nomenclature: AC-0 For more information about Hep-2 cell patterns use ANApatterns.org, the official website for the International Consensus on Antinuclear Antibody (BETH) Patterns (ICAP). Performed By: #### A NAIFA #### [facility] [address] [place] [address] Dr. Dona Turner ANTISTREPTOLYSIN O AB (ASO)o n 07-14-2022 Antistreptolysin O Ab 25.3 IU/mL Normal 0.0-200.0 [facility] Comment on above: Performed By: #### I NSULIN #### [facility] [address] [address] [address] Dona Turner RHEUMATOID FACTORon 07-14-20 RA Latex Turbid. 19.2 IU/mL Critically high <14.0 [facility] Comment on above: Performed By: #### L IPID, TSH, T7, CMP #### [facility] [address] [place] [address] Dr. Dona Turner CBC AUTO DIFFon 07-13-2022 BASO # 0.1 103/ul Normal 0.0-0.1 [facility] Comment on above: Performed By: #### C VDTBH #### [facility] [address] [place] [address] Dr. Dona Turner Basophils/100 WBC (Bld) 0.8 % Normal 0.2-2.0 [facility] Comment on above: Performed By: #### C VDTBH #### [facility] [address] [place] [address] Dr. Dona Turner EO # 0.1 103/ul Normal 0.0-0.7 [facility] Comment on above: Performed By: #### C VDTBH #### [facility] [address] [place] [address] Dr. Dona Turner Eosinophils/100 WBC (Bld) 1.0 % Normal 0.9-7.0 [facility] Comment on above: Performed By: #### C VDTBH #### [facility] [address] [place] [address] Dr. Dona Turner Erythrocyte distribution width (RBC) [Ratio] 14.3 % Normal 11.0-15.0 [facility] Comment on above: Performed By: #### C VDTBH #### [facility] [address] [place] [address] Dr. Dona Turner Hematocrit (Bld) [Volume fraction] 44.8 % Normal 36.0-48.0 [facility] Comment on above: Performed By: #### C VDTBH #### [facility] [address] [place] [address] Dr. Dona Turner Hemoglobin (Bld) [Mass/Vol] 14.4 g/dL Normal 12.0-16.0 [facility] Comment on above: Performed By: #### C VDTBH #### [facility] [address] [place] [address] Dr. Dona Turner IG # 0.03 10e3/ul Normal 0.00-0.03 [facility] Comment on above: Performed By: #### C VDTBH #### [facility] [address] [place] [address] Dr. Dona Turner IG % 0.3 % Normal 0.0-0.5 [facility] Comment on above: Performed By: #### C VDTBH #### [facility] [address] [place] [address] Dr. Dona Turner LYMPH # 1.9 103/ul Normal 1.2-3.8 [facility] Comment on above: Performed By: #### C VDTBH #### [facility] [address] [place] [address] Dr. Dona Turner Lymphocytes/100 WBC (Bld) 20.8 % Normal 20.5-60.0 [facility] Comment on above: Performed By: #### C VDTBH #### [facility] [address] [place] [address] Dr. Dona Turner MANUAL DIFF REQ NO Normal [facility] Comment on above: Performed By: #### C VDTBH #### [facility] [address] [place] [address] Dr. Dona Turner MCH (RBC) [Entitic mass] 25.5 pg Critically low 26.7-34.0 [facility] Comment on above: Performed By: #### C VDTBH #### [facility] [address] [place] [address] Dr. Dona Turner MCHC (RBC) [Mass/Vol] 32.1 g/dL Normal 29.9-35.2 [facility] Comment on above: Performed By: #### C VDTBH #### [facility] [address] [place] [address] Dr. Dona Turner MCV (RBC) [Entitic vol] 79.3 fL Critically low 81.0-99.0 [facility] Comment on above: Performed By: #### C VDTBH #### [facility] [address] [address] [address] Dona Turner MONO # 0.8 103/ul Normal 0.3-0.8 [facility] Comment on above: Performed By: #### C VDTBH #### [facility] [address] [place] [address] Dr. Dona Turner Monocytes/100 WBC (Bld) 8.5 % Normal 1.7-12.0 [facility] Comment on above: Performed By: #### C VDTBH #### [facility] [address] [place] [address] Dr. Dona Turner NEUT # 6.4 103/ul Normal 1.4-6.5 [facility] - [place] Comment on above: Performed By: #### C VDTBH #### [facility] [address] [place] [address] Dr. Dona Turner Neutrophils/100 WBC (Bld) 68.6 % Normal 43.0-75.0 [facility] [place] Comment on above: Performed By: #### C VDTBH #### [facility] [address] [place] [address] Dr. Dona Turner Platelet mean volume (Bld) [Entitic vol] 10.5 fL Normal 9.5-13.5 [facility] Comment on above: Performed By: #### C VDTBH #### [facility] [address] [place] [address] Dr. Dona Turner PLT 290 103/ul Normal 150-450 [facility] Comment on above: Performed By: #### C VDTBH #### [facility] [address] [place] [address] Dr. Dona Turner RBC 5.65 106/ul Critically high 4.20-5.40 [facility] Comment on above: Performed By: #### C VDTBH #### [facility] [address] [place] [address] Dr. Dona Turner WBC 9.3 103/ul Normal 4.0-11.0 [facility] Comment on above: Performed By: #### C VDTBH #### [facility] [address] [place] [address] Dr. Dona Turner CRPon 07-13-2022 CRP [Mass/Vol] mg/L Normal <=1.0 [facility] Comment on above: Performed By: #### I NSULIN #### [facility] [address] [place] [address] Dr. Dona Turner SED RATE WESTERGRENon 2021 SED RATE 47 mm/hr Critically high <=30 [facility] Comment on above: Performed By: #### S EDR #### [facility] [address] [place] [address] Dr. Dona Turner URIC ACID SERUMon 07-13-2022 Urate [Mass/Vol] 3.2 mg/dL Normal 2.6-6.0 [facility] Comment on above: Performed By: #### I NSULIN #### [facility] [address] [place] [address] Dr. Dona Turner INSULINon 07-10-2022 Insulin 11.5 uIU/mL Normal 2.6-24.9 [facility] [place] Comment on above: Performed By: #### I NSULIN #### [facility] [address] [place] [address] Dr. Dona Turner CBC AUTO DIFFon 07-09-2022 BASO # 0.1 103/ul Normal 0.0-0.1 [facility] Comment on above: Performed By: #### C BC #### [facility] [address] [place] [address] Dr. Dona Turner Basophils/100 WBC (Bld) 0.8 % Normal 0.2-2.0 [facility] Comment on above: Performed By: #### C BC #### [facility] [address] [place] [address] Dr. Dona Turner EO # 0.1 103/ul Normal 0.0-0.7 [facility] Comment on above: Performed By: #### C BC #### [facility] [address] [place] [address] Dr. Dona Turner Eosinophils/100 WBC (Bld) 0.7 % Critically low 0.9-7.0 [facility] Comment on above: Performed By: #### C BC #### [facility] [address] [place] [address] Dr. Dona Turner Erythrocyte distribution width (RBC) [Ratio] 14.5 % Normal 11.0-15.0 [facility] Comment on above: Performed By: #### C BC #### [facility] [address] [place] [address] Dr. Dona Turner Hematocrit (Bld) [Volume fraction] 44.7 % Normal 36.0-48.0 [facility] Comment on above: Performed By: #### C BC #### [facility] [address] [place] [address] Dr. Dona Turner Hemoglobin (Bld) [Mass/Vol] 14.5 g/dL Normal 12.0-16.0 [facility] Comment on above: Performed By: #### C BC #### [facility] [address] [place] [address] Dr. Dona Turner IG # 0.04 10e3/ul Critically high 0.00-0.03 [facility] Comment on above: Performed By: #### C BC #### [facility] [address] [place] [address] Dr. Dona Turner IG % 0.4 % Normal 0.0-0.5 [facility] Comment on above: Performed By: #### C BC #### [facility] [address] [place] [address] Dr. Dona Turner LYMPH # 1.6 103/ul Normal 1.2-3.8 [facility] Comment on above: Performed By: #### C BC #### [facility] [address] [place] [address] Dr. Dona Turner Lymphocytes/100 WBC (Bld) 17.7 % Critically low 20.5-60.0 [facility] Comment on above: Performed By: #### C BC #### [facility] [address] [place] [address] Dr. Dona Turner MANUAL DIFF REQ NO Normal [facility] Comment on above: Performed By: #### C BC #### [facility] [address] [place] [address] Dr. Dona Turner MCH (RBC) [Entitic mass] 25.9 pg Critically low 26.7-34.0 [facility] Comment on above: Performed By: #### C BC #### [facility] [address] [place] [address] Dr. Dona Turner MCHC (RBC) [Mass/Vol] 32.4 g/dL Normal 29.9-35.2 [facility] Comment on above: Performed By: #### C BC #### [facility] [address] [place] [address] Dr. Dona Turner MCV (RBC) [Entitic vol] 79.8 fL Critically low 81.0-99.0 [facility] Comment on above: Performed By: #### C BC #### [facility] [address] [place] [address] Dr. Dona Turner MONO # 0.6 103/ul Normal 0.3-0.8 [facility] Comment on above: Performed By: #### C BC #### [facility] [address] [place] [address] Dr. Dona Turner Monocytes/100 WBC (Bld) 6.9 % Normal 1.7-12.0 [facility] Comment on above: Performed By: #### C BC #### [facility] [address] [place] [address] Dr. Dona Turner NEUT # 6.6 103/ul Critically high 1.4-6.5 [facility] Comment on above: Performed By: #### C BC #### [facility] [address] [place] [address] Dr. Dona Turner Neutrophils/100 WBC (Bld) 73.5 % Normal 43.0-75.0 [facility] Comment on above: Performed By: #### C BC #### [facility] [address] [place] [address] Dr. Dona Turner Platelet mean volume (Bld) [Entitic vol] 11.1 fL Normal 9.5-13.5 [facility] Comment on above: Performed By: #### C BC #### [facility] [address] [place] [address] Dr. Dona Turner PLT 256 103/ul Normal 150-450 [facility] Comment on above: Performed By: #### C BC #### [facility] [address] [place] [address] Dr. Dona Turner RBC 5.60 106/ul Critically high 4.20-5.40 [facility] Comment on above: Performed By: #### C BC #### [facility] [address] [place] [address] Dr. Dona Turner WBC 8.9 103/ul Normal 4.0-11.0 [facility] Comment on above: Performed By: #### C BC #### [facility] [address] [place] [address] Dr. Dona Turner FREE THYROXINE INDEX T7on FTI 3.66 Normal 1.30-4.50 [facility] Comment on above: Performed By: #### C VDTBH #### [facility] [address] [place] [address] Dr. Dona Turner T3U 37.0 % Normal 30.0-39.0 [facility] Comment on above: Performed By: #### C VDTBH #### [facility] [address] [place] [address] Dr. Dona Turner T4 [Mass/Vol] 9.90 ug/dL Normal 4.80-13.90 [facility] Comment on above: Performed By: #### C VDTBH #### [facility] [address] [place] [address] Dr. Dona Turner GLYCOHEMOGLOBIN A1Con 2021 ADA RECOMMENDATION SEE BELOW Normal [facility] Comment on above: Result Comment: ADA RECOMMENDED LIMIT 4.0 - 6.0 ADA THERAPEUTIC TARGET < 7.0 ACTION SUGGESTED > 7.0 Performed By: #### A 1C #### [facility] [address] [address] [address] Dona Turner Glucose [Mass/Vol] 183 mg/dL Normal [facility] Comment on above: Performed By: #### A 1C #### [facility] [address] [address] [address] Dona Turner HbA1c (Bld) [Mass fraction] 8.0 % Critically high 4.5-6.2 [facility] Comment on above: Performed By: #### A 1C #### [facility] [address] [address] [address] Dona Truner IRONon 07-09-2022 Iron [Mass/Vol] 56.0 ug/dL Normal 50.0-170.0 [facility] Comment on above: Performed By: #### I NSULIN #### [facility] [address] [place] [address] Dr. Dona Turner LIPID PROFILEon 07-09-2022 CHOL-HDL RATIO NORM SEE BELOW Normal [facility] Comment on above: Result Comment: 3.3 - 4.4 LOW RISK 4.4 - 7.1 AVERAGE RISK 7.1 - 11.0 MODERATE RISK >11.0 HIGH RISK Performed By: #### C VDTBH #### [facility] [address] [place] [address] Dr. Dona Turner Cholesterol [Mass/Vol] 228 mg/dL Critically high <=200 [facility] Comment on above: Performed By: #### C VDTBH #### [facility] [address] [place] [address] Dr. Dona Turner Cholesterol in HDL [Mass/Vol] 37 mg/dL Critically low 40-60 [facility] Comment on above: Performed By: #### C VDTBH #### [facility] [address] [place] [address] Dr. Dona Turner Cholesterol in LDL [Mass/Vol] 163.6 mg/dL Normal [facility] Comment on above: Performed By: #### C VDTBH #### [facility] [address] [place] [address] Dr. Dona Turner Cholesterol.total/Chol esterol in HDL [Mass ratio] 6.2 {ratio} Normal [facility] Comment on above: Performed By: #### C VDTBH #### [facility] [address] [place] [address] Dr. Dona Turner HDL NORMAL > or = 60 mg/dl - LOW CARDIOVASCULAR RISK <40 mg/dl - HIGH CARDIOVASCULAR RISK Normal [facility] [place] Comment on above: Performed By: #### C VDTBH #### [facility] [address] [place] [address] Dr. Dona Turner LDL CALC NORMAL SEE BELOW Normal [facility] Comment on above: Result Comment: <100 mg/dl OPTIMAL 100 - 129 mg/dl NEAR OR ABOVE OPTIMAL 130 - 159 mg/dl BORDERLINE HIGH 160 - 189 mg/dl HIGH >190 mg/dl VERY HIGH Performed By: #### C VDTBH #### [facility] [address] [place] [address] Dr. Dona Turner Triglyceride [Mass/Vol] 137 mg/dL Normal <=150 [facility] Comment on above: Performed By: #### C VDTBH #### [facility] [address] [place] [address] Dr. Dona Turner VLDL CALC 27.4 mg/dL Normal [facility] Comment on above: Performed By: #### C VDTBH #### [facility] [address] [place] [address] Dr. Dona Turner PROF 14(COMP METB)on 022 Albumin [Mass/Vol] 3.8 g/dL Normal 3.4-5.0 [facility] Comment on above: Performed By: #### C VDTBH #### [facility] [address] [place] [address] Dr. Dona Turner Albumin/Globulin [Mass ratio] 1.0 {ratio} Normal [facility] Comment on above: Performed By: #### C VDTBH #### [facility] [address] [place] [address] Dr. Dona Turner ALP [Catalytic activity/Vol] 57 U/L Normal 46-116 [facility] Comment on above: Performed By: #### C VDTBH #### [facility] [address] [address] [address] Dona Turner ALT [Catalytic activity/Vol] 24 U/L Normal 14-59 [facility] Comment on above: Performed By: #### C VDTBH #### [facility] [address] [address] [address] Dona Turner Anion gap [Moles/Vol] 9.6 mmol/L Normal [facility] Comment on above: Performed By: #### C VDTBH #### [facility] [address] [address] [address] Dona Turner AST [Catalytic activity/Vol] 15 U/L Normal 15-37 [facility] Comment on above: Performed By: #### C VDTBH #### [facility] [address] [place] [address] Dr. Dona Turner Bilirubin [Mass/Vol] 0.5 mg/dL Normal 0.2-1.0 [facility] Comment on above: Performed By: #### C VDTBH #### [facility] [address] [place] [address] Dr. Dona Turner Calcium [Mass/Vol] 9.3 mg/dL Normal 8.5-10.1 [facility] Comment on above: Performed By: #### C VDTBH #### [facility] [address] [place] [address] Dr. Dona Turner Chloride [Moles/Vol] 103 mmol/L Normal 98-107 [facility] Comment on above: Performed By: #### C VDTBH #### [facility] [address] [address] [address] Dona Turner CO2 [Moles/Vol] 29.5 mmol/L Normal 21.0-32.0 [facility] Comment on above: Performed By: #### C VDTBH #### [facility] [address] [place] [address] Dr. Dona Turner Creatinine [Mass/Vol] 0.61 mg/dL Normal 0.55-1.02 [facility] Comment on above: Performed By: #### C VDTBH #### [facility] [address] [address] [address] Dona Turner EGFR-AF VIETNAMESE >60 Normal >=60 [facility] Comment on above: Performed By: #### C VDTBH #### [facility] [address] [address] [address] Dona Turner EGFR-NON AF VIETNAMESE >60 Normal >=60 [facility] Comment on above: Performed By: #### C VDTBH #### [facility] [address] [address] [address] Dona Turner Globulin (S) [Mass/Vol] 3.8 g/dL Normal [facility] Comment on above: Performed By: #### C VDTBH #### [facility] [address] [address] [address] Dona Turner Glucose [Mass/Vol] 104 mg/dL Normal 74-106 [facility] Comment on above: Performed By: #### C VDTBH #### [facility] [address] [address] [address] Dona Turner Potassium [Moles/Vol] 4.1 mmol/L Normal 3.5-5.1 [facility] Comment on above: Performed By: #### C VDTBH #### [facility] [address] [address] [address] Dona Turner Protein [Mass/Vol] 7.6 g/dL Normal 6.4-8.2 [facility] Comment on above: Performed By: #### C VDTBH #### [facility] [address] [address] [address] Dona Turner Sodium [Moles/Vol] 138 mmol/L Normal 136-145 [facility] Comment on above: Performed By: #### C VDTBH #### [facility] [address] [address] [address] Dona Turner Urea nitrogen [Mass/Vol] 14.0 mg/dL Normal 7.0-18.0 [facility] Comment on above: Performed By: #### C VDTBH #### [facility] [address] [place] [address] Dr. Dona Turner Urea nitrogen/Creatinine [Mass ratio] 23.0 mg/mg Normal [facility] Comment on above: Performed By: #### C VDTBH #### [facility] [address] [place] [address] Dr. Dona Turner TSHon 07-09-2022 TSH 0.324 uIU/mL Critically low 0.358-3.740 [facility] Comment on above: Performed By: #### C VDTBH #### [facility] [address] [place] [address] Dr. Dona Turner VITAMIN D 25 OHon 07-09-2022 VIT D 25-OH 52.6 ng/mL Normal [facility] Comment on above: Performed By: #### I NSULIN #### [facility] [address] [place] [address] Dr. Dona Turner VIT D RANGES SEE BELOW Normal [facility] Comment on above: Result Comment: <20 ng/mL Vit D deficient 20 - <30 ng/mL Vit D insufficient 30 - 100 ng/mL Vit D sufficient >100 ng/mL Potential Toxicity Performed By: #### I NSULIN #### [facility] [address] [place] [address] Dr. Dona Turner Covid-19 PCR ([facility])on 04-02 SARS-CoV-2 (COVID-19) RNA JEWEL+probe Ql (Unsp spec) Not detected Normal NOT DETECTED [facility] Comment on above: Result Comment: This test is not yet approved or cleared by the [place] FDA. When there are no FDA-approved or cleared tests available, and other criteria are met, FDA can make tests available under an emergency access mechanism called an Emergency Use Authorization (EUA). The EUA for this test is supported by the [place] of Health and Human Service's (HHS's) declaration [...] SARS-CoV-2. Performed By: #### C [facility] #### [facility] [address] [address] [address] Dona Turner Coding Summary.on 09-12-2018 Coding Summary. CODING DATE: 09/12/2018 FINAL [facility] STATUS: Home (Routine DC) PAYOR: Loreto APC [...] Cuellar Date Saved: 09/12/2018 03:25 pm Normal [facility] Main OR Intraoperative Recor don 09-09-2018 Main OR Intraoperative Record IntraOp Document Type FTURO Summary Primary Physician: David ORTIZ MD Finalized Date/Time: 09/09/18 12:32:44 Pt. Name: QUINN AGUILAR/Sex: 1970 Female Med Rec #: [id number] Physician: David ORTIZ MD Financial #: [id number] Pt. Type: O Room/Bed: / Admit/Disch: 09/09/18 09:49:59 - Institution: Case Times FTURO Entry 1 Patient Times In Room 09/09/18 12:19:00 Out Room 09/09/18 12:33:00 Procedure Times Start 09/09/18 12:22:00 Stop 09/09/18 12:26:00 Anesthesia Times Last Modified By: GIUSEPPE Tijerina RN, Lou Ann 09/09/18 12:32:32 Case Attendance FTURO Entry 1 Entry 2 Entry 3 Case Attendee ANGEL SWANSON, David Lyon [employer]ENT, Alannah Tijerina RN, Pearl CHIN Role Performed Surgeon - Primary Scrub - Primary Agency Development Manager - Primary Time In 09/09/18 12:20:00 09/09/18 [...] David ORTIZ MD, Verified (If Participants [place] [employer]ENT, Alannah, Applicable) GIUSEPPE Tijerina RN, Lou Ann [...] Tijerina RN, Lou Ann 09/09/18 12:32 Normal [facility] Main OR Preoperative Recordo n 09-09-2018 Main OR Preoperative Record Holding Area Document Type FTURO Summary Primary Physician: David ORTIZ MD Finalized Date/Time: 09/09/18 12:22:07 Pt. Name: QUINN AGUILAR/Sex: 1970 Female Med Rec #: [id number] Physician: David ORTIZ MD Financial #: [id number] Pt. Type: O Room/Bed: / Admit/Disch: 09/09/18 [...] Complaints of Pain: No Skin Integrity Intact, [place], Warm, & Dry Vitals - EU Blood Pressure 141/78 Pulse 57 bpm Respirations 16 br/min SPO2 Additional None RN Reviewed Yes Specimens Collected Last Modified By: GIUSEPPE Tijerina RN, Lou Ann 09/09/18 12:22:05 Finalized By: GIUSEPPE Tijerina RN, Lou Ann Document Signatures Signed By: Racheal Bernabe 09/09/18 11:43 GIUSEPPE Tijerina RN, Lou Ann 09/09/18 12:22 Normal [facility] Operative Reporton Operative Report Patient: QUINN AGUILAR [...] urine. The Urethra was dilated to: 30 Trin[place] w/ sounds. Devices Implanted: None. Removal: Cystoscope is removed, The patient tolerated it well. Postoperative Information Discharge: Patient is discharged home with antibiotic coverage, Follow up arranged. she will do timed/double voids. try ditropan xl 10mgqd f/u 3 months with pvr bladder scan....?pessary. Normal [facility] Comment on above: Result Comment: Elec tronically Signed By: NAGEL SWANSON, David Urban\Date and Time Signed: 09/09/18 [...] abnormal findings DR SEFERINO MENDOZA . [facility] Start: 07-13-2022 End: 07-14-[address] [...] Start: 01-29-2018 End: 01-30-2018 Ambulatory DEFAULT PHYSICIAN Facility:[facility] Payers Date Payer Category Payer Unknown [id number] 2.16.84 [id number] 1970 Unknown [id number] 2.16.84 [id number] 1970 Unknown [id number] 2.16.84 [id number] 1970 Unknown [id number] 2.16.84 [id number] 1970 Unknown [id number] 2.16.84 [id number] 1970 Unknown [id number] 2.16.84 [id number] 1970 Unknown [id number] 2.16.84 [id number] 1970 Unknown [id number] 2.16.84 [id number] 1961 Unknown [id number] Unknown Clinical Note 07-03-2022 Note Date & [...] authenticated by: NAZARIO PEREZ Date: 2022-07-03 10:07 [facility] Clinical Note 07-03-2022 Note Date & Type [...] of inflammatory arthritic process. Electronically authenticated by: NAZAROI PEREZ Date: 2022-07-03 10:07 [facility] Summary Purpose Family History No Family History Records FoundNo Family History Records FoundNo Family History Records Found Advance Directives No Advanced Directives Records FoundNo Advanced Directives Records FoundNo Advanced Directives Records Found Additional Source Comments INFORMATION SOURCE (unrecogn ized section and content) DATE CREATED AUTHOR 02/19/2018 [facility] DATE CREATED AUTHOR AUTHOR'S ORGANIZ ATION 05/23/2019 [facility] DATE CREATED AUTHOR AUTHOR'S ORGANIZ ATION 02/08/2023 [facility] FOR RECORDS PERTAINING TO PATIENTS WHO ARE [...] BE BASED ON THE PRIMARY CLINICAL RECORDS. [employer] [facility]. provides no warranty or guarantee of the accuracy or completeness of information in this document.
== END 2024-05-21 15:12 | disposition home or self-care (01) ==
LOC: VC 13:51
PROVIDERS: PCP Family Medicine; Visit Provider Family Medicine
DX: I87.2 Venous insufficiency (chronic) (peripheral) (principal); I83.813 Varicose veins of bilateral lower extremities with pain
CPT/HCPCS: G0463

== ENCOUNTER 2024-06-08 07:41 | Outpatient (OUT) | payer BC, SELFPAY ==
--- NOTE | 2024-06-05 07:23 | VEINCLINIC_ITS ---
Vital Signs 06/08/24 08:01 06/08/24 08:28 Height 5 ft 2 in Weight 90 kg BP 135/71 BP Location Right Brachial BP Position Sitting BP Cuff Size Adult BP Source Automatic Cuff Respiration 16 Pulse 67 Pulse Source Monitor Pulse Oximetry (%) 98 Oxygen Delivery Method Room Air Comment The patient's blood pressure is elevated. Varicose Veins Patient in this day for EVLT of left GSV. Thomas Reza MD personally performed the services described in this documentation, as scribed by Ramírez Driver RN in my presence and it is both accurate and complete. IRamírez RN, am scribing for, and in the presence of, Dr. Thomas Shearer and in the presence of the patient. thigh: bilateral (symptoms equal bilaterally), knee: bilateral, calf: bilateral, ankle: bilateral and hayward: bilateral aching, burning, cramping, dull, sharp and tender 8 2 years Worsened in recent months: Yes standing, sitting and walking analgesics (Tylenol), elevating extremities, compression stockings and exercise Reports muscle spasms of leg, fatigue, heaviness, limb pain, edema and leg edema History of lower extremity trauma: No Superficial thrombophlebitis: Yes Family history of varicose veins: yes Has patient had previous lower extremity venous surgery: No Patient has previously received the following treatment(s) for lower extremity varicose veins: Reports none Does patient have a history of : yes Does patient intend to have future pregnancies: no Has patient had lower extremity venous scan with relux testing: No Support hose used: Yes Problems walking or doing physical activity: Yes How does it affect you: awakens her from sleep, often has to stop and elevate feet/legs Do you walk much: Yes Do you stand much: Yes Review of Systems ROS Narrative Thomas Reza MD personally performed the services described in this documentation, as scribed by Ramírez Driver RN in my presence and it is both accurate and complete. IRamírez RN, am scribing for, and in the presence of, Dr. Thomas Shearer and in the presence of the patient. Status of ROS 10 or more systems reviewed and unremark able except as noted in history and below Cardiovascular Reports: edema Integumentary/Breast Reports: itching Neurological Reports: weakness in extremities PFSH FOR[facility]LY [facility], 1928–1983 Medical History (Updated 04/13/24 @ 14:19 by Ramírez Driver) Varicose veins of bilateral lower extremities with pain ?I83.813 - Varicose veins of bilateral lower extremities with pain (ICD-10) Carpal tunnel syndrome ?G56.00 - Carpal tunnel syndrome, unspecified upper limb (ICD-10) Edema ?R60.9 - Edema, unspecified (ICD-10) Hypercholesteremia ?E78.00 - Pure hypercholesterolemia, unspecified (ICD-10) Hypothyroid ?E03.9 - Hypothyroidism, unspecified (ICD-10) Diabetes ?E11.9 - Type 2 diabetes mellitus without complications (ICD-10) Hypertension ?I10 - Essential (primary) hypertension (ICD-10) Deep vein thrombosis ?I82.409 - Acute embolism and thrombosis of unspecified deep veins of unspecified lower extremity (ICD-10) Surgical History (Updated 06/08/24 @ 08:49 by Ramírez Driver) Status post laser ablation of incompetent vein ?Z98.890 - Other specified postprocedural states (ICD-10) History of carpal tunnel surgery ?Z98.890 - Other specified postprocedural states (ICD-10) History of arthroscopy of left shoulder ?Z98.890 - Other specified postprocedural states (ICD-10) H/O: hysterectomy ?Z90.710 - Acquired absence of both cervix and uterus (ICD-10) Family History (Updated 04/13/24 @ 13:42 by Ramírez Driver) Mother Family history of diabetes mellitus Family history of hypertension Varicose veins of bilateral lower extremities with pain Social History (Updated 04/13/24 @ 13:43 by Ramírez Driver) Within the past year, how often did you have a drink containing alcohol: never Score interpretation: A score less than 3 is consistent with normal alcohol consumption. Smoking status: Never smoker Non-prescribed substance use: denies use Meds Home Medications and Allergies Home Medications ?Medication ?Instructions ?Recorded ?Confirmed ?Type diclofenac potassium 04/13/24 History empagliflozin 25 mg tablet 25 mg PO QAM 04/13/24 04/13/24 History (Jardiance) furosemide 20 mg tablet 20 mg PO DAILY 04/13/24 04/13/24 History glimepiride 4 mg tablet 4 mg PO DAILY 04/13/24 04/13/24 History levothyroxine 125 mcg capsule 125 mcg PO DAILY 04/13/24 04/13/24 History levothyroxine 137 mcg tablet 137 mcg PO DAILY 04/13/24 04/13/24 History (Euthyrox) metformin 500 mg tablet,extended 500 mg PO DAILY 04/13/24 04/13/24 History release 24 hr metoprolol tartrate 50 mg tablet 25 mg PO DAILY 04/13/24 04/13/24 History pantoprazole 40 mg tablet,delayed 40 mg PO DAILY 04/13/24 04/13/24 History release (Protonix) sitagliptin phosphate 100 mg 100 mg PO DAILY 04/13/24 04/13/24 History tablet (Januvia) Allergies Allergy/AdvReac Type Severity Reaction Status Date / Time penicillamine Allergy Intermediate Rash Verified 04/13/24 13:46 Exam Narrative Exam Narrative: Thomas Reza MD personally performed the services described in this documentation, as scribed by Ramírez Driver RN in my presence and it is both accurate and complete. IRamírez RN, am scribing for, and in the presence of, Dr. Thomas Shearer and in the presence of the patient. Constitutional Documenting provider has reviewed patient's vital signs: yes Common normals: oriented x3 Nutritional appearance: overweight Cardio Peripheral pulses: posterior tibial pulses present and dorsalis pedis pulses present Extremity Common normals: normal capillary refill General: edema Right lower extremity: lower leg Right lower leg: inspection and palpation Left lower extremity: lower leg Left lower leg: inspection and palpation Neuro Common normals: oriented x3 Assessment and Plan Assessment and Plan (1) Varicose veins of bilateral lower extremities with pain: Plan f/u evaluation with physician along with left leg limited u/s Thomas Reza MD personally performed the services described in this documentation, as scribed by Ramírez Driver RN in my presence and it is both accurate and complete. Ramírez Reza RN, am scribing for, and in the presence of, Dr. Thomas Shearer and in the presence of the patient. Procedures Procedure Instructions Procedures Plan of care: Risks and benefits of the procedure were discussed at length and informed written consent was obtained.? Time-out completed for verification of correct patient, procedure and site.? Staff present during time-out: Ramírez Driver RN,? Thomas Shearer MD, Kezia Le [facility] Time Out Time__833 Patient prepped and procedure performed in usual sterile fashion. Risk of injury related to use of Diode laser and/or laser devices? __CR___ ? Serial number of laser used :? [id number] Control panel self test performed, electrical cords in good condition, floor is dry, basin of water available, fire extinguisher in close proximity_CR__ Polycarbonate goggles available and Laser warning signs outside of doors___CR__ Eye protection provided to patient and staff in room_CR___ Use of laser retardant drapes and dull blackened instruments as directed__CR___ Use of nonflammable prep solutions and use of saline soaked sponges to protect tissues as indicated _CR___ Length __49__ cm Laser operated by __Dr. Shearer Physician verbal confirmation laser locked in place__CR__ Laser start time (date and time) _06/08/2024@__0848 Laser stop time(date and time) _06/08/2024@__0853 Alvarez _8.0___ Average laser use __2386__Joules Average laser use__298___seconds Pulse continuous ___CR_? Pulse intermittent ___ Amount of Tumescent used __325cc____ Evaluated patient for signs and symptoms of electrical injury __CR___ ? Skin clear at insertion site __CR___ Patient tolerated procedure well.? Left leg Coban dressing applied to access site.? Applied Left thigh high leg compression stocking. Will return on 06/15/2024 for Left leg limited venous ultrasound and exam. IThomas MD personally performed the services described in this documentation, as scribed by Ramírez Driver RN in my presence and it is both accurate and complete. I, Ramírez Driver RN, am scribing for, and in the presence of, Dr. Thomas Shearer and in the presence of the patient.
--- NOTE | 2024-06-05 07:28 | W.VEIN ---
Discharge Plan Discharge Disposition: Home, Self-Care Outpatient Diagnostics: [facility] Facility EST LMTD (Routine) Timeframe: 2 Weeks Facility: [facility] - Location: [facility] Ordered By: Thomas Shearer Follow Up Appointments: 06/15/2024 Plan of Treatment: f/u evaluation with physician along with left leg limited u/s Patient Instructions: Endovenous Ablation (DC) Print Language: Turkmen Discharge Date/Time: 06/08/24 08:38
[2024-06-08] MEDS: LIDOCAINE HCL 1% 100 MG/10 ML MDV INJ (07:51)
[2024-06-08] MEDS: 0.9 % SODIUM CHLORIDE 500 ML, LIDOCAINE HCL 20 ML, SODIUM BICARBONATE 10 MEQ INJ (07:51)
--- NOTE | 2024-06-08 07:52 | VEIN_ITS ---
[address] [address] Patient Name: QUINN AGUILAR MRN: [id number] date: 1970 Sex: F Assigned Patient Location: Current Patient Location: Accession/Order Number: [id number] Exam Date: 06/08/2024 07:56 Report Date: 06/08/2024 09:08 At the request of: YULIANA RANDALL Procedure: VC Endovenous Ablation 1VeinLT EXAMINATION: VC Endovenous Ablation 1VeinLT HISTORY: I83.813 - Varicose veins of bilateral lower extremities w... COMPARISON: No relevant comparison available. TECHNIQUE: The risks and benefits of the procedure had been previously discussed, and were rediscussed at length. Informed written consent was obtained. Kezia Le and Ramírez Driver assisted. Time out procedure was performed. The left lower extremity was prepared and draped in the usual sterile fashion to allow knee flexion in the sterile field. Duplex ultrasound probe was draped in a sterile cover, sterile transmission gel was used. Venous mapping was performed with the areas of dilation and large tributaries marked. The total length was 49 cm from the entry mid calf to 3 cm below the saphenofemoral junction. The diameter of the greater saphenous vein ranged from 5-9 mm. A 30 gauge needle and 1% buffered lidocaine was used to anesthetize the entry site. A 4 mm incision was made with a scalpel and the saphenous vein was entered percutaneously under direct ultrasound guidance with a micropuncture set, a single stick was successful in gaining access. A micro-guide wire was inserted and the needle removed. A micro-set including a dilator was inserted over the microwire and the needle and dilator were removed. A 0.018 guide wire was inserted through the micro-set and threaded through the saphenous vein to the saphenofemoral junction. The dilator was removed and an introducer sheath was inserted over the wire until the end of the sheath entered the saphenofemoral junction. The dilator and wire were removed and the 600 micron fiber was introduced and placed and positioned so that it extended beyond the sheath and was 3 cm peripheral to the saphenofemoral femoral junction. Final position of the fiber was determined by ultrasound guidance and duplex imaging. Tumescent anesthetic was delivered by ultrasound guidance. 325 cc of fluid was delivered along the entire course of the saphenous vein. The solution consisted of 1000 cc of normal saline with 40 mL of 1% lidocaine and 20 mL of sodium bicarbonate. A final positioning check was made. The energy source was turned on by means of the foot pedal and the fiber and sheath were withdrawn. The total number of Joules delivered was 2386. The laser was active for 298 seconds under continuous pulse, average laser use of 8 J. Laser start time 8:48 AM 06/08/2024 . Laser stop time 8:53 AM 06/08/2024 . A duplex ultrasound revealed compressibility and flow at the saphenofemoral junction immediately after the procedure. Hemostasis at the access site was achieved. The skin incision of the saphenous vein was closed with a 4 x 4. A compression stocking was applied. Postop instructions were given. A follow up appointment was recommended and scheduled. The patient tolerated the procedure well and was discharged in good condition . VEIN/VC Endovenous Ablation 1VeinLT IMPRESSION: Technically successful endovenous laser ablation of the left great saphenous vein Electronically authenticated by: YULIANA RANDALL Date: 06/08/2024 09:08
--- OUTSIDE RECORDS SUMMARY | 2024-06-08 07:52 | XMS_ITS | CCD ---
Author Organization [facility] Care Team Providers Care Alarm Security Or Surveillance Monitor Name Role Phone PHYSICIAN, DEFAULT Unavailable Unavailable [...] Acetaminophen / oxyCODONE Drug Allergy 10-19-2016 [facility] Repository (1 source) Penicillins Drug allergy (disorder) 01-09-2013 [facility] Repository Problems Active Problems Problem Classification Problem [...] : DR SEFERINO MENDOZA . Admission #: [id number] Family : Order #: [id number] CLICK HERE TO VIEW EXAM RADIOLOGY REPORT [...] Treatments None Family Cancers None LOCATION: [facility] BREAST COMPOSITION: Scattered areas fibroglandular density. FINDINGS: [...] M.D. on 01/30/2023 at 13:47 Normal [facility] INSULINon 01-08-2023 Insulin 11.3 uIU/mL Normal 2.6-24.9 [facility] Comment on above: Performed By: #### C VDTBH #### [facility] [address] [address] [address] Dona Turner CBC AUTO DIFFon 01-07-2023 BASO # 0.1 103/ul Normal 0.0-0.1 [facility] Comment on above: Performed By: #### C VDTBH #### [facility] [address] [address] [address] Dona Turner Basophils/100 WBC (Bld) 1.2 % Normal 0.2-2.0 [facility] Comment on above: Performed By: #### C VDTBH #### [facility] [address] [place] [address] Dr. Dona Turner EO # 0.1 103/ul Normal 0.0-0.7 [facility] Comment on above: Performed By: #### C VDTBH #### [facility] [address] [place] [address] Dr. Dona Turner Eosinophils/100 WBC (Bld) 2.0 % Normal 0.9-7.0 [facility] Comment on above: Performed By: #### C VDTBH #### [facility] [address] [place] [address] Dr. Dona Turner Erythrocyte distribution width (RBC) [Ratio] 14.5 % Normal 11.0-15.0 [facility] Comment on above: Performed By: #### C VDTBH #### [facility] [address] [place] [address] Dr. Dona Turner Hematocrit (Bld) [Volume fraction] 45.1 % Normal 36.0-48.0 [facility] Comment on above: Performed By: #### C VDTBH #### [facility] [address] [place] [address] Dr. Dona Turner Hemoglobin (Bld) [Mass/Vol] 14.1 g/dL Normal 12.0-16.0 [facility] Comment on above: Performed By: #### C VDTBH #### [facility] [address] [place] [address] Dr. Dona Turner IG # 0.02 10e3/ul Normal 0.00-0.03 [facility] Comment on above: Performed By: #### C VDTBH #### [facility] [address] [place] [address] Dr. Dona Turner IG % 0.4 % Normal 0.0-0.5 [facility] Comment on above: Performed By: #### C VDTBH #### [facility] [address] [place] [address] Dr. Dona Turner LYMPH # 1.3 103/ul Normal 1.2-3.8 [facility] Comment on above: Performed By: #### C VDTBH #### [facility] [address] [place] [address] Dr. Dona Turner Lymphocytes/100 WBC (Bld) 26.4 % Normal 20.5-60.0 [facility] Comment on above: Performed By: #### C VDTBH #### [facility] [address] [place] [address] Dr. Dona Turner MANUAL DIFF REQ NO Normal [facility] Comment on above: Performed By: #### C VDTBH #### [facility] [address] [place] [address] Dr. Dona Turner MCH (RBC) [Entitic mass] 25.0 pg Critically low 26.7-34.0 [facility] Comment on above: Performed By: #### C VDTBH #### [facility] [address] [place] [address] Dr. Dona Turner MCHC (RBC) [Mass/Vol] 31.3 g/dL Normal 29.9-35.2 [facility] Comment on above: Performed By: #### C VDTBH #### [facility] [address] [place] [address] Dr. Dona Turner MCV (RBC) [Entitic vol] 80.0 fL Critically low 81.0-99.0 [facility] Comment on above: Performed By: #### C VDTBH #### [facility] [address] [place] [address] Dr. Dona Turner MONO # 0.4 103/ul Normal 0.3-0.8 [facility] Comment on above: Performed By: #### C VDTBH #### [facility] [address] [place] [address] Dr. Dona Turner Monocytes/100 WBC (Bld) 7.7 % Normal 1.7-12.0 [facility] Comment on above: Performed By: #### C VDTBH #### [facility] [address] [place] [address] Dr. Dona Turner NEUT # 3.1 103/ul Normal 1.4-6.5 [facility] Comment on above: Performed By: #### C VDTBH #### [facility] [address] [place] [address] Dr. Dona Turner Neutrophils/100 WBC (Bld) 62.3 % Normal 43.0-75.0 [facility] Comment on above: Performed By: #### C VDTBH #### [facility] [address] [place] [address] Dr. Dona Turner Platelet mean volume (Bld) [Entitic vol] 10.7 fL Normal 9.5-13.5 [facility] Comment on above: Performed By: #### C VDTBH #### [facility] [address] [place] [address] Dr. Dona Turner PLT 257 103/ul Normal 150-450 [facility] Comment on above: Performed By: #### C VDTBH #### [facility] [address] [place] [address] Dr. Dona Turner RBC 5.64 106/ul Critically high 4.20-5.40 [facility] Comment on above: Performed By: #### C VDTBH #### [facility] [address] [place] [address] Dr. Dona Turner WBC 5.0 103/ul Normal 4.0-11.0 [facility] Comment on above: Performed By: #### C VDTBH #### [facility] [address] [place] [address] Dr. Dona Turner FREE THYROXINE INDEX T7on FTI 3.78 Normal 1.30-4.50 [facility] Comment on above: Performed By: #### L IPID, TSH, T7, CMP #### [facility] [address] [place] [address] Dr. Dona Turner T3U 35.0 % Normal 30.0-39.0 [facility] Comment on above: Performed By: #### L IPID, TSH, T7, CMP #### [facility] [address] [place] [address] Dr. Dona Turner T4 [Mass/Vol] 10.80 ug/dL Normal 4.80-13.90 [facility] Comment on above: Performed By: #### L IPID, TSH, T7, CMP #### [facility] [address] [address] [address] Dona Turner GLYCOHEMOGLOBIN A1Con 2022 ADA RECOMMENDATION SEE BELOW Normal [facility] Comment on above: Result Comment: ADA RECOMMENDED LIMIT 4.0 - 6.0 ADA THERAPEUTIC TARGET < 7.0 ACTION SUGGESTED > 7.0 Performed By: #### C VDTBH #### [facility] [address] [address] [address] Dona Turner Glucose [Mass/Vol] 160 mg/dL Normal [facility] Comment on above: Performed By: #### C VDTBH #### [facility] [address] [place] [address] Dr. Dona Turner HbA1c (Bld) [Mass fraction] 7.2 % Critically high 4.5-6.2 [facility] Comment on above: Performed By: #### C VDTBH #### [facility] [address] [address] [address] Dona Turner IRONon 01-07-2023 Iron [Mass/Vol] 50.0 ug/dL Normal 50.0-170.0 [facility] Comment on above: Performed By: #### I NSULIN #### [facility] [address] [place] [address] Dr. Dona Turner LIPID PROFILEon 01-07-2023 CHOL-HDL RATIO NORM SEE BELOW Normal [facility] Comment on above: Result Comment: 3.3 - 4.4 LOW RISK 4.4 - 7.1 AVERAGE RISK 7.1 - 11.0 MODERATE RISK >11.0 HIGH RISK Performed By: #### L IPID, TSH, T7, CMP #### [facility] [address] [address] [address] Dona Turner Cholesterol [Mass/Vol] 162 mg/dL Normal <=200 [facility] Comment on above: Performed By: #### L IPID, TSH, T7, CMP #### [facility] [address] [address] [address] Dona Turner Cholesterol in HDL [Mass/Vol] 33 mg/dL Critically low 40-60 [facility] Comment on above: Performed By: #### L IPID, TSH, T7, CMP #### [facility] [address] [address] [address] Dona Turner Cholesterol in LDL [Mass/Vol] 100.4 mg/dL Normal [facility] Comment on above: Performed By: #### L IPID, TSH, T7, CMP #### [facility] [address] [address] [address] Dona Turner Cholesterol.total/Chol esterol in HDL [Mass ratio] 4.9 {ratio} Normal [facility] Comment on above: Performed By: #### L IPID, TSH, T7, CMP #### [facility] [address] [address] [address] Dona Turner HDL NORMAL > or = 60 mg/dl - LOW CARDIOVASCULAR RISK <40 mg/dl - HIGH CARDIOVASCULAR RISK Normal [facility] Comment on above: Performed By: #### L IPID, TSH, T7, CMP #### [facility] [address] [address] [address] Dona Turner LDL CALC NORMAL SEE BELOW Normal [facility] Comment on above: Result Comment: <100 mg/dl OPTIMAL 100 - 129 mg/dl NEAR OR ABOVE OPTIMAL 130 - 159 mg/dl BORDERLINE HIGH 160 - 189 mg/dl HIGH >190 mg/dl VERY HIGH Performed By: #### L IPID, TSH, T7, CMP #### [facility] [address] [address] [address] Dona Turner Triglyceride [Mass/Vol] 143 mg/dL Normal <=150 [facility] Comment on above: Performed By: #### L IPID, TSH, T7, CMP #### [facility] [address] [address] [address] Dona Turner VLDL CALC 28.6 mg/dL Normal [facility] Comment on above: Performed By: #### L IPID, TSH, T7, CMP #### [facility] [address] [place] [address] Dr. Dona Turner PROF 14(COMP METB)on 023 Albumin [Mass/Vol] 3.8 g/dL Normal 3.4-5.0 [facility] Comment on above: Performed By: #### L IPID, TSH, T7, CMP #### [facility] [address] [place] [address] Dr. Dona Turner Albumin/Globulin [Mass ratio] 1.0 {ratio} Normal [facility] Comment on above: Performed By: #### L IPID, TSH, T7, CMP #### [facility] [address] [place] [address] Dr. Dona Turner ALP [Catalytic activity/Vol] 59 U/L Normal 46-116 [facility] Comment on above: Performed By: #### L IPID, TSH, T7, CMP #### [facility] [address] [place] [address] Dr. Dona Turner ALT [Catalytic activity/Vol] 43 U/L Normal 14-59 [facility] Comment on above: Performed By: #### L IPID, TSH, T7, CMP #### [facility] [address] [place] [address] Dr. Dona Turner Anion gap [Moles/Vol] 11.5 mmol/L Normal [facility] Comment on above: Performed By: #### L IPID, TSH, T7, CMP #### [facility] [address] [place] [address] Dr. Dona Turner AST [Catalytic activity/Vol] 19 U/L Normal 15-37 [facility] Comment on above: Performed By: #### L IPID, TSH, T7, CMP #### [facility] [address] [place] [address] Dr. Dona Turner Bilirubin [Mass/Vol] 0.4 mg/dL Normal 0.2-1.0 [facility] Comment on above: Performed By: #### L IPID, TSH, T7, CMP #### [facility] [address] [place] [address] Dr. Dona Turner Calcium [Mass/Vol] 9.1 mg/dL Normal 8.5-10.1 [facility] Comment on above: Performed By: #### L IPID, TSH, T7, CMP #### [facility] [address] [place] [address] Dr. Dona Turner Chloride [Moles/Vol] 107 mmol/L Normal 98-107 [facility] Comment on above: Performed By: #### L IPID, TSH, T7, CMP #### [facility] [address] [place] [address] Dr. Dona Turner CO2 [Moles/Vol] 28.5 mmol/L Normal 21.0-32.0 [facility] Comment on above: Performed By: #### L IPID, TSH, T7, CMP #### [facility] [address] [place] [address] Dr. Dona Turner Creatinine [Mass/Vol] 0.66 mg/dL Normal 0.55-1.02 [facility] Comment on above: Performed By: #### L IPID, TSH, T7, CMP #### [facility] [address] [place] [address] Dr. Dona Turner EGFR-AF VENEZUELAN >60 Normal >=60 [facility] Comment on above: Performed By: #### L IPID, TSH, T7, CMP #### [facility] [address] [place] [address] Dr. Dona Turner EGFR-NON AF VENEZUELAN >60 Normal >=60 [facility] Comment on above: Performed By: #### L IPID, TSH, T7, CMP #### [facility] [address] [place] [address] Dr. Dona Turner Globulin (S) [Mass/Vol] 3.8 g/dL Normal [facility] Comment on above: Performed By: #### L IPID, TSH, T7, CMP #### [facility] [address] [place] [address] Dr. Dona Turner Glucose [Mass/Vol] 112 mg/dL Critically high 74-106 [facility] Comment on above: Performed By: #### L IPID, TSH, T7, CMP #### [facility] [address] [place] [address] Dr. Dona Turner Potassium [Moles/Vol] 4.0 mmol/L Normal 3.5-5.1 [facility] Comment on above: Performed By: #### L IPID, TSH, T7, CMP #### [facility] [address] [place] [address] Dr. Dona Turner Protein [Mass/Vol] 7.6 g/dL Normal 6.4-8.2 [facility] Comment on above: Performed By: #### L IPID, TSH, T7, CMP #### [facility] [address] [place] [address] Dr. Dona Turner Sodium [Moles/Vol] 143 mmol/L Normal 136-145 [facility] Comment on above: Performed By: #### L IPID, TSH, T7, CMP #### [facility] [address] [place] [address] Dr. Dona Turner Urea nitrogen [Mass/Vol] 11.0 mg/dL Normal 7.0-18.0 [facility] Comment on above: Performed By: #### L IPID, TSH, T7, CMP #### [facility] [address] [place] [address] Dr. Dona Turner Urea nitrogen/Creatinine [Mass ratio] 16.7 mg/mg Normal [facility] Comment on above: Performed By: #### L IPID, TSH, T7, CMP #### [facility] [address] [place] [address] Dr. Dona Turner TSHon 01-07-2023 TSH 0.350 uIU/mL Critically low 0.358-3.740 [facility] Comment on above: Performed By: #### L IPID, TSH, T7, CMP #### [facility] [address] [place] [address] Dr. Dona Turner VITAMIN D 25 OHon 01-07-2023 VIT D 25-OH 52.4 ng/mL Normal [facility] Comment on above: Performed By: #### I NSULIN #### [facility] [address] [address] [address] Dona Turner VIT D RANGES SEE BELOW Normal [facility] Comment on above: Result Comment: <20 ng/mL Vit D deficient 20 - <30 ng/mL Vit D insufficient 30 - 100 ng/mL Vit D sufficient >100 ng/mL Potential Toxicity Performed By: #### I NSULIN #### [facility] [address] [address] [address] Dona Turner LIPID PROFILEon 10-13-2022 CHOL-HDL RATIO NORM SEE BELOW Normal [facility] Comment on above: Result Comment: 3.3 - 4.4 LOW RISK 4.4 - 7.1 AVERAGE RISK 7.1 - 11.0 MODERATE RISK >11.0 HIGH RISK Performed By: #### C VDTBH #### [facility] [address] [address] [address] Dona Turner Cholesterol [Mass/Vol] 136 mg/dL Normal <=200 [facility] Comment on above: Performed By: #### C VDTBH #### [facility] [address] [address] [address] Dona Turner Cholesterol in HDL [Mass/Vol] 33 mg/dL Critically low 40-60 [facility] Comment on above: Performed By: #### C VDTBH #### [facility] [address] [place] [address] Dr. Dona Turner Cholesterol in LDL [Mass/Vol] 76.4 mg/dL Normal [facility] Comment on above: Performed By: #### C VDTBH #### [facility] [address] [address] [address] Dona Turner Cholesterol.total/Chol esterol in HDL [Mass ratio] 4.1 {ratio} Normal [facility] Comment on above: Performed By: #### C VDTBH #### [facility] [address] [place] [address] Dr. Dona Turner HDL NORMAL > or = 60 mg/dl - LOW CARDIOVASCULAR RISK <40 mg/dl - HIGH CARDIOVASCULAR RISK Normal [facility] Comment on above: Performed By: #### C VDTBH #### [facility] [address] [address] [address] Dona Turner LDL CALC NORMAL SEE BELOW Normal [facility] Comment on above: Result Comment: <100 mg/dl OPTIMAL 100 - 129 mg/dl NEAR OR ABOVE OPTIMAL 130 - 159 mg/dl BORDERLINE HIGH 160 - 189 mg/dl HIGH >190 mg/dl VERY HIGH Performed By: #### C VDTBH #### [facility] [address] [address] [address] Dona Turner Triglyceride [Mass/Vol] 133 mg/dL Normal <=150 [facility] Comment on above: Performed By: #### C VDTBH #### [facility] [address] [address] [address] Dona Turner VLDL CALC 26.6 mg/dL Normal [facility] Comment on above: Performed By: #### C VDTBH #### [facility] [address] [place] [address] Dr. Dona Turner LIVER PROFILEon 10-13-2022 Albumin [Mass/Vol] 3.6 g/dL Normal 3.4-5.0 [facility] Comment on above: Performed By: #### I NSULIN #### [facility] [address] [place] [address] Dr. Dona Turner Albumin/Globulin [Mass ratio] 1.1 {ratio} Normal [facility] Comment on above: Performed By: #### I NSULIN #### [facility] [address] [place] [address] Dr. Dona Turner ALP [Catalytic activity/Vol] 62 U/L Normal 46-116 [facility] Comment on above: Performed By: #### I NSULIN #### [facility] [address] [place] [address] Dr. Dona Turner ALT [Catalytic activity/Vol] 28 U/L Normal 14-59 [facility] Comment on above: Performed By: #### I NSULIN #### [facility] [address] [place] [address] Dr. Dona Turner AST [Catalytic activity/Vol] 16 U/L Normal 15-37 [facility] Comment on above: Performed By: #### I NSULIN #### [facility] [address] [address] [address] Dona Turner BILI, CONJUGATED 0.1 mg/dL Normal 0.0-0.2 [facility] Comment on above: Performed By: #### I NSULIN #### [facility] [address] [address] [address] Dona Turner Bilirubin [Mass/Vol] 0.5 mg/dL Normal 0.2-1.0 [facility] Comment on above: Performed By: #### I NSULIN #### [facility] [address] [address] [address] Dona Turner Globulin (S) [Mass/Vol] 3.4 g/dL Normal [facility] Comment on above: Performed By: #### I NSULIN #### [facility] [address] [place] [address] Dr. Dona Turner Protein [Mass/Vol] 7.0 g/dL Normal 6.4-8.2 [facility] Comment on above: Performed By: #### I NSULIN #### [facility] [address] [place] [address] Dr. Dona Turner BETH by IFAon 07-19-2022 Antinuclear Antibodies, IFA Negative Normal [facility] Comment on above: Result Comment: Nega tive <1:80 Borderline 1:80 Positive >1:80 ICAP nomenclature: AC-0 For more information about Hep-2 cell patterns use ANApatterns.org, the official website for the International Consensus on Antinuclear Antibody (BETH) Patterns (ICAP). Performed By: #### A NAIFA #### [facility] [address] [place] [address] Dr. Dona Turner ANTISTREPTOLYSIN O AB (ASO)o n 07-14-2022 Antistreptolysin O Ab 25.3 IU/mL Normal 0.0-200.0 [facility] Comment on above: Performed By: #### I NSULIN #### [facility] [address] [address] [address] Dona Turner RHEUMATOID FACTORon 07-14-20 RA Latex Turbid. 19.2 IU/mL Critically high <14.0 [facility] Comment on above: Performed By: #### L IPID, TSH, T7, CMP #### [facility] [address] [place] [address] Dr. Dona Turner CBC AUTO DIFFon 07-13-2022 BASO # 0.1 103/ul Normal 0.0-0.1 [facility] Comment on above: Performed By: #### C VDTBH #### [facility] [address] [place] [address] Dr. Dona Turner Basophils/100 WBC (Bld) 0.8 % Normal 0.2-2.0 [facility] Comment on above: Performed By: #### C VDTBH #### [facility] [address] [place] [address] Dr. Dona Turner EO # 0.1 103/ul Normal 0.0-0.7 [facility] Comment on above: Performed By: #### C VDTBH #### [facility] [address] [place] [address] Dr. Dona Turner Eosinophils/100 WBC (Bld) 1.0 % Normal 0.9-7.0 [facility] Comment on above: Performed By: #### C VDTBH #### [facility] [address] [place] [address] Dr. Dona Turner Erythrocyte distribution width (RBC) [Ratio] 14.3 % Normal 11.0-15.0 [facility] Comment on above: Performed By: #### C VDTBH #### [facility] [address] [place] [address] Dr. Dona Turner Hematocrit (Bld) [Volume fraction] 44.8 % Normal 36.0-48.0 [facility] Comment on above: Performed By: #### C VDTBH #### [facility] [address] [place] [address] Dr. Dona Turner Hemoglobin (Bld) [Mass/Vol] 14.4 g/dL Normal 12.0-16.0 [facility] Comment on above: Performed By: #### C VDTBH #### [facility] [address] [place] [address] Dr. Dona Turner IG # 0.03 10e3/ul Normal 0.00-0.03 [facility] Comment on above: Performed By: #### C VDTBH #### [facility] [address] [place] [address] Dr. Dona Turner IG % 0.3 % Normal 0.0-0.5 [facility] Comment on above: Performed By: #### C VDTBH #### [facility] [address] [place] [address] Dr. Dona Turner LYMPH # 1.9 103/ul Normal 1.2-3.8 [facility] Comment on above: Performed By: #### C VDTBH #### [facility] [address] [place] [address] Dr. Dona Turner Lymphocytes/100 WBC (Bld) 20.8 % Normal 20.5-60.0 [facility] Comment on above: Performed By: #### C VDTBH #### [facility] [address] [place] [address] Dr. Dona Turner MANUAL DIFF REQ NO Normal [facility] Comment on above: Performed By: #### C VDTBH #### [facility] [address] [place] [address] Dr. Dona Turner MCH (RBC) [Entitic mass] 25.5 pg Critically low 26.7-34.0 [facility] Comment on above: Performed By: #### C VDTBH #### [facility] [address] [place] [address] Dr. Dona Turner MCHC (RBC) [Mass/Vol] 32.1 g/dL Normal 29.9-35.2 [facility] Comment on above: Performed By: #### C VDTBH #### [facility] [address] [place] [address] Dr. Dona Turner MCV (RBC) [Entitic vol] 79.3 fL Critically low 81.0-99.0 [facility] Comment on above: Performed By: #### C VDTBH #### [facility] [address] [address] [address] Dona Turner MONO # 0.8 103/ul Normal 0.3-0.8 [facility] Comment on above: Performed By: #### C VDTBH #### [facility] [address] [place] [address] Dr. Dona Turner Monocytes/100 WBC (Bld) 8.5 % Normal 1.7-12.0 [facility] Comment on above: Performed By: #### C VDTBH #### [facility] [address] [place] [address] Dr. Dona Turner NEUT # 6.4 103/ul Normal 1.4-6.5 [facility] Comment on above: Performed By: #### C VDTBH #### [facility] [address] [place] [address] Dr. Dona Turner Neutrophils/100 WBC (Bld) 68.6 % Normal 43.0-75.0 [facility] Comment on above: Performed By: #### C VDTBH #### [facility] [address] [place] [address] Dr. Dona Turner Platelet mean volume (Bld) [Entitic vol] 10.5 fL Normal 9.5-13.5 [facility] Comment on above: Performed By: #### C VDTBH #### [facility] [address] [place] [address] Dr. Dona Turner PLT 290 103/ul Normal 150-450 [facility] Comment on above: Performed By: #### C VDTBH #### [facility] [address] [place] [address] Dr. Dona Turner RBC 5.65 106/ul Critically high 4.20-5.40 [facility] Comment on above: Performed By: #### C VDTBH #### [facility] [address] [place] [address] Dr. Dona Turner WBC 9.3 103/ul Normal 4.0-11.0 [facility] Comment on above: Performed By: #### C VDTBH #### [facility] [address] [place] [address] Dr. Dona Turner CRPon 07-13-2022 CRP [Mass/Vol] mg/L Normal <=1.0 [facility] Comment on above: Performed By: #### I NSULIN #### [facility] [address] [place] [address] Dr. Dona Turner SED RATE WESTERGRENon 2021 SED RATE 47 mm/hr Critically high <=30 [facility] Comment on above: Performed By: #### S EDR #### [facility] [address] [place] [address] Dr. Dona Turner URIC ACID SERUMon 07-13-2022 Urate [Mass/Vol] 3.2 mg/dL Normal 2.6-6.0 [facility] Comment on above: Performed By: #### I NSULIN #### [facility] [address] [place] [address] Dr. Dona Turner INSULINon 07-10-2022 Insulin 11.5 uIU/mL Normal 2.6-24.9 [facility] Comment on above: Performed By: #### I NSULIN #### [facility] [address] [place] [address] Dr. Dona Turner CBC AUTO DIFFon 07-09-2022 BASO # 0.1 103/ul Normal 0.0-0.1 [facility] Comment on above: Performed By: #### C BC #### [facility] [address] [place] [address] Dr. Dona Turner Basophils/100 WBC (Bld) 0.8 % Normal 0.2-2.0 [facility] Comment on above: Performed By: #### C BC #### [facility] [address] [place] [address] Dr. Dona Turner EO # 0.1 103/ul Normal 0.0-0.7 [facility] Comment on above: Performed By: #### C BC #### [facility] [address] [place] [address] Dr. Dnoa Turner Eosinophils/100 WBC (Bld) 0.7 % Critically low 0.9-7.0 [facility] Comment on above: Performed By: #### C BC #### [facility] [address] [place] [address] Dr. Dona Turner Erythrocyte distribution width (RBC) [Ratio] 14.5 % Normal 11.0-15.0 [facility] Comment on above: Performed By: #### C BC #### [facility] [address] [place] [address] Dr. Dona Turner Hematocrit (Bld) [Volume fraction] 44.7 % Normal 36.0-48.0 [facility] Comment on above: Performed By: #### C BC #### [facility] [address] [place] [address] Dr. Dona Turner Hemoglobin (Bld) [Mass/Vol] 14.5 g/dL Normal 12.0-16.0 [facility] Comment on above: Performed By: #### C BC #### [facility] [address] [place] [address] Dr. Dona Turner IG # 0.04 10e3/ul Critically high 0.00-0.03 [facility] Comment on above: Performed By: #### C BC #### [facility] [address] [place] [address] Dr. Dona Turner IG % 0.4 % Normal 0.0-0.5 [facility] Comment on above: Performed By: #### C BC #### [facility] [address] [place] [address] Dr. Dona Turner LYMPH # 1.6 103/ul Normal 1.2-3.8 [facility] Comment on above: Performed By: #### C BC #### [facility] [address] [place] [address] Dr. Dona Turner Lymphocytes/100 WBC (Bld) 17.7 % Critically low 20.5-60.0 [facility] Comment on above: Performed By: #### C BC #### [facility] [address] [place] [address] Dr. Dona Turner MANUAL DIFF REQ NO Normal [facility] Comment on above: Performed By: #### C BC #### [facility] [address] [place] [address] Dr. Dona Truner MCH (RBC) [Entitic mass] 25.9 pg Critically low 26.7-34.0 [facility] Comment on above: Performed By: #### C BC #### [facility] [address] [place] [address] Dr. Dona Turner MCHC (RBC) [Mass/Vol] 32.4 g/dL Normal 29.9-35.2 [facility] Comment on above: Performed By: #### C BC #### [facility] [address] [place] [address] Dr. Dona Turner MCV (RBC) [Entitic vol] 79.8 fL Critically low 81.0-99.0 [facility] Comment on above: Performed By: #### C BC #### [facility] [address] [place] [address] Dr. Dona Turner MONO # 0.6 103/ul Normal 0.3-0.8 [facility] Comment on above: Performed By: #### C BC #### [facility] [address] [place] [address] Dr. Dona Turner Monocytes/100 WBC (Bld) 6.9 % Normal 1.7-12.0 [facility] Comment on above: Performed By: #### C BC #### [facility] [address] [place] [address] Dr. Dona Turner NEUT # 6.6 103/ul Critically high 1.4-6.5 [facility] Comment on above: Performed By: #### C BC #### [facility] [address] [place] [address] Dr. Dona Turner Neutrophils/100 WBC (Bld) 73.5 % Normal 43.0-75.0 [facility] Comment on above: Performed By: #### C BC #### [facility] [address] [place] [address] Dr. Dona Turner Platelet mean volume (Bld) [Entitic vol] 11.1 fL Normal 9.5-13.5 [facility] Comment on above: Performed By: #### C BC #### [facility] [address] [place] [address] Dr. Dona Turner PLT 256 103/ul Normal 150-450 [facility] Comment on above: Performed By: #### C BC #### [facility] [address] [place] [address] Dr. Dona Turner RBC 5.60 106/ul Critically high 4.20-5.40 [facility] Comment on above: Performed By: #### C BC #### [facility] [address] [place] [address] Dr. Dona Turner WBC 8.9 103/ul Normal 4.0-11.0 [facility] Comment on above: Performed By: #### C BC #### [facility] [address] [place] [address] Dr. Dona Turner FREE THYROXINE INDEX T7on FTI 3.66 Normal 1.30-4.50 [facility] Comment on above: Performed By: #### C VDTBH #### [facility] [address] [place] [address] Dr. Dona Turner T3U 37.0 % Normal 30.0-39.0 [facility] Comment on above: Performed By: #### C VDTBH #### [facility] [address] [place] [address] Dr. Dona Turner T4 [Mass/Vol] 9.90 ug/dL Normal 4.80-13.90 [facility] Comment on above: Performed By: #### C VDTBH #### [facility] [address] [place] [address] Dr. Dona Turner GLYCOHEMOGLOBIN A1Con 2021 ADA RECOMMENDATION SEE BELOW Normal [facility] Comment on above: Result Comment: ADA RECOMMENDED LIMIT 4.0 - 6.0 ADA THERAPEUTIC TARGET < 7.0 ACTION SUGGESTED > 7.0 Performed By: #### A 1C #### [facility] [address] [address] [address] Dona Turner Glucose [Mass/Vol] 183 mg/dL Normal [facility] Comment on above: Performed By: #### A 1C #### [facility] [address] [address] [address] Dona Turner HbA1c (Bld) [Mass fraction] 8.0 % Critically high 4.5-6.2 [facility] Comment on above: Performed By: #### A 1C #### [facility] [address] [address] [address] Dona Turner IRONon 07-09-2022 Iron [Mass/Vol] 56.0 ug/dL Normal 50.0-170.0 [facility] Comment on above: Performed By: #### I NSULIN #### [facility] [address] [place] [address] Dr. Dona Turner LIPID PROFILEon 07-09-2022 CHOL-HDL RATIO NORM SEE BELOW Normal [facility] Comment on above: Result Comment: 3.3 - 4.4 LOW RISK 4.4 - 7.1 AVERAGE RISK 7.1 - 11.0 MODERATE RISK >11.0 HIGH RISK Performed By: #### C VDTBH #### [facility] [address] [place] [address] Dr. Dona Turner Cholesterol [Mass/Vol] 228 mg/dL Critically high <=200 [facility] Comment on above: Performed By: #### C VDTBH #### [facility] [address] [place] [address] Dr. Dona Turner Cholesterol in HDL [Mass/Vol] 37 mg/dL Critically low 40-60 [facility] Comment on above: Performed By: #### C VDTBH #### [facility] [address] [place] [address] Dr. Dona Turner Cholesterol in LDL [Mass/Vol] 163.6 mg/dL Normal [facility] Comment on above: Performed By: #### C VDTBH #### [facility] [address] [place] [address] Dr. Dona Turner Cholesterol.total/Chol esterol in HDL [Mass ratio] 6.2 {ratio} Normal [facility] Comment on above: Performed By: #### C VDTBH #### [facility] [address] [place] [address] Dr. Dona Turner HDL NORMAL > or = 60 mg/dl - LOW CARDIOVASCULAR RISK <40 mg/dl - HIGH CARDIOVASCULAR RISK Normal [facility] Comment on above: Performed By: #### C VDTBH #### [facility] [address] [place] [address] Dr. Dona Turner LDL CALC NORMAL SEE BELOW Normal [facility] Comment on above: Result Comment: <100 mg/dl OPTIMAL 100 - 129 mg/dl NEAR OR ABOVE OPTIMAL 130 - 159 mg/dl BORDERLINE HIGH 160 - 189 mg/dl HIGH >190 mg/dl VERY HIGH Performed By: #### C VDTBH #### [facility] [address] [place] [address] Dr. Dona Turner Triglyceride [Mass/Vol] 137 mg/dL Normal <=150 [facility] Comment on above: Performed By: #### C VDTBH #### [facility] [address] [place] [address] Dr. Dona Turner VLDL CALC 27.4 mg/dL Normal [facility] Comment on above: Performed By: #### C VDTBH #### [facility] [address] [place] [address] Dr. Dona Turner PROF 14(COMP METB)on 022 Albumin [Mass/Vol] 3.8 g/dL Normal 3.4-5.0 [facility] Comment on above: Performed By: #### C VDTBH #### [facility] [address] [place] [address] Dr. Dona Turner Albumin/Globulin [Mass ratio] 1.0 {ratio} Normal [facility] Comment on above: Performed By: #### C VDTBH #### [facility] [address] [place] [address] Dr. Dona Turner ALP [Catalytic activity/Vol] 57 U/L Normal 46-116 [facility] Comment on above: Performed By: #### C VDTBH #### [facility] [address] [address] [address] Dona Turner ALT [Catalytic activity/Vol] 24 U/L Normal 14-59 [facility] Comment on above: Performed By: #### C VDTBH #### [facility] [address] [address] [address] Dona Turner Anion gap [Moles/Vol] 9.6 mmol/L Normal [facility] Comment on above: Performed By: #### C VDTBH #### [facility] [address] [address] [address] Dona Turner AST [Catalytic activity/Vol] 15 U/L Normal 15-37 [facility] Comment on above: Performed By: #### C VDTBH #### [facility] [address] [place] [address] Dr. Dona Turner Bilirubin [Mass/Vol] 0.5 mg/dL Normal 0.2-1.0 [facility] Comment on above: Performed By: #### C VDTBH #### [facility] [address] [place] [address] Dr. Dona Turner Calcium [Mass/Vol] 9.3 mg/dL Normal 8.5-10.1 [facility] Comment on above: Performed By: #### C VDTBH #### [facility] [address] [place] [address] Dr. Dona Turner Chloride [Moles/Vol] 103 mmol/L Normal 98-107 [facility] Comment on above: Performed By: #### C VDTBH #### [facility] [address] [address] [address] Dona Turner CO2 [Moles/Vol] 29.5 mmol/L Normal 21.0-32.0 [facility] Comment on above: Performed By: #### C VDTBH #### [facility] [address] [place] [address] Dr. Dona Turner Creatinine [Mass/Vol] 0.61 mg/dL Normal 0.55-1.02 [facility] Comment on above: Performed By: #### C VDTBH #### [facility] [address] [address] [address] Dona Turner EGFR-AF VENEZUELAN >60 Normal >=60 [facility] Comment on above: Performed By: #### C VDTBH #### [facility] [address] [address] [address] Dona Turner EGFR-NON AF VENEZUELAN >60 Normal >=60 [facility] Comment on above: Performed By: #### C VDTBH #### [facility] [address] [address] [address] Dona Turner Globulin (S) [Mass/Vol] 3.8 g/dL Normal [facility] Comment on above: Performed By: #### C VDTBH #### [facility] [address] [address] [address] Dona Turner Glucose [Mass/Vol] 104 mg/dL Normal 74-106 [facility] Comment on above: Performed By: #### C VDTBH #### [facility] [address] [address] [address] Dona Turner Potassium [Moles/Vol] 4.1 mmol/L Normal 3.5-5.1 [facility] Comment on above: Performed By: #### C VDTBH #### [facility] [address] [address] [address] Dona Turner Protein [Mass/Vol] 7.6 g/dL Normal 6.4-8.2 [facility] Comment on above: Performed By: #### C VDTBH #### [facility] [address] [address] [address] Dona Turner Sodium [Moles/Vol] 138 mmol/L Normal 136-145 [facility] Comment on above: Performed By: #### C VDTBH #### [facility] [address] [address] [address] Dona Turner Urea nitrogen [Mass/Vol] 14.0 mg/dL Normal 7.0-18.0 [facility] Comment on above: Performed By: #### C VDTBH #### [facility] [address] [place] [address] Dr. Dona Turner Urea nitrogen/Creatinine [Mass ratio] 23.0 mg/mg Normal [facility] Comment on above: Performed By: #### C VDTBH #### [facility] [address] [place] [address] Dr. Dona Turner TSHon 07-09-2022 TSH 0.324 uIU/mL Critically low 0.358-3.740 [facility] Comment on above: Performed By: #### C VDTBH #### [facility] [address] [place] [address] Dr. Dona Turner VITAMIN D 25 OHon 07-09-2022 VIT D 25-OH 52.6 ng/mL Normal [facility] Comment on above: Performed By: #### I NSULIN #### [facility] [address] [place] [address] Dr. Dona Turner VIT D RANGES SEE BELOW Normal [facility] Comment on above: Result Comment: <20 ng/mL Vit D deficient 20 - <30 ng/mL Vit D insufficient 30 - 100 ng/mL Vit D sufficient >100 ng/mL Potential Toxicity Performed By: #### I NSULIN #### [facility] [address] [place] [address] Dr. Dona Turner Covid-19 PCR ([facility])on 04-02 SARS-CoV-2 (COVID-19) RNA JEWEL+probe Ql (Unsp spec) Not detected Normal NOT DETECTED [facility] Comment on above: Result Comment: This test is not yet approved or cleared by the [place] FDA. When there are no FDA-approved or cleared tests available, and other criteria are met, FDA can make tests available under an emergency access mechanism called an Emergency Use Authorization (EUA). The EUA for this test is supported by the [place] of Health and Human Service's (HHS's) declaration [...] consistent with SARS-CoV-2. Performed By: #### C [facility] #### [facility] [address] [address] [address] Dona Turner Coding Summary.on 09-12-2018 Coding Summary. CODING DATE: 09/12/2018 FINAL [facility] STATUS: Home (Routine DC) PAYOR: Loreto [...] Cuellar Date Saved: 09/12/2018 03:25 pm Normal [facility] Main OR Intraoperative Recor don 09-09-2018 Main OR Intraoperative Record IntraOp Document Type FTURO Summary Primary Physician: David ORTIZ MD Finalized Date/Time: 09/09/18 12:32:44 Pt. Name: QUINN AGUILAR/Sex: 1970 Female Med Rec #: [id number] Physician: David ORTIZ MD Financial #: [id number] Pt. Type: O Room/Bed: / Admit/Disch: 09/09/18 09:49:59 - Institution: Case Times FTURO Entry 1 Patient Times In Room 09/09/18 12:19:00 Out Room 09/09/18 12:33:00 Procedure Times Start 09/09/18 12:22:00 Stop 09/09/18 12:26:00 Anesthesia Times Last Modified By: GIUSEPPE Tijerina RN, Lou Ann 09/09/18 12:32:32 Case Attendance FTURO Entry 1 Entry 2 Entry 3 Case Attendee ANGEL SWANSON, David Lyon STAFF COUNSELOR, Alannah Tijerina RN, Pearl CHIN Role Performed Surgeon - Primary Scrub - Primary Stair Builder - Primary Time In 09/09/18 12:20:00 09/09/18 [...] Met? Yes Last Modified By: Winsome LINDO, RAHDIKAORValeria 09/09/18 07:12:30 Post-Care Text: The patient is [...] David ORTIZ MD, Verified (If Participants [place] STAFF COUNSELOR, Alannah, Applicable) GIUSEPPE Tijerina RN, Lou Ann [...] Tijerina RN, Lou Ann 09/09/18 12:32 Normal [facility] Main OR Preoperative Recordo n 09-09-2018 Main OR Preoperative Record Holding Area Document Type FTURO Summary Primary Physician: David ORTIZ MD Finalized Date/Time: 09/09/18 12:22:07 Pt. Name: QUINN AGUILAR/Sex: 1970 Female Med Rec #: [id number] Physician: David ORTIZ MD Financial #: [id number] Pt. Type: O Room/Bed: / Admit/Disch: 09/09/18 [...] Complaints of Pain: No Skin Integrity Intact, Bobo, Warm, & Dry Vitals - EU Blood Pressure 141/78 Pulse 57 bpm Respirations 16 br/min SPO2 Additional None RN Reviewed Yes Specimens Collected Last Modified By: GIUSEPPE Tijerina RN, Lou Ann 09/09/18 12:22:05 Finalized By: GIUSEPPE Tijerina RN, Lou Ann Document Signatures Signed By: Racheal Bernabe 09/09/18 11:43 GIUSEPPE Tijerina RN, Lou Ann 09/09/18 12:22 Normal [facility] Operative Reporton Operative Report Patient: QUINN AGUILAR [...] urine. The Urethra was dilated to: 30 Kyrgyz w/ sounds. Devices Implanted: None. Removal: Cystoscope is removed, The patient tolerated it well. Postoperative Information Discharge: Patient is discharged home with antibiotic coverage, Follow up arranged. she will do timed/double voids. try ditropan xl 10mgqd f/u 3 months with pvr bladder scan....?pessary. Normal [facility] Comment on above: Result Comment: Elec tronically [...] abnormal findings DR SEFERINO MENDOZA . [facility] Start: 07-13-2022 End: 07-14-[address] SEFERINO [...] Start: 01-29-2018 End: 01-30-2018 Ambulatory DEFAULT PHYSICIAN Facility:[facility] Payers Date Payer Category Payer Unknown [id number] [id number] [id number] 1970 Unknown [id number] 2.16.84 [id number] 1970 Unknown [id number] 2.16.84 [id number] 1970 Unknown [id number] 2.16.84 [id number] 1970 Unknown [id number] 2.16.84 [id number] 1970 Unknown [id number] 2.16.84 [id number] 1970 Unknown [id number] 2.16.84 [id number] 1970 Unknown [id number] 2.16.84 [id number] 1961 Unknown [id number] Unknown Clinical Note 07-03-2022 Note Date & [...] authenticated by: NAZARIO PEREZ Date: 2022-07-03 10:07 [facility] Clinical Note 07-03-2022 Note Date & Type [...] authenticated by: NAZARIO PEREZ Date: 2022-07-03 10:07 [facility] Summary Purpose Family History No Family History Records FoundNo Family History Records FoundNo Family History Records Found Advance Directives No Advanced Directives Records FoundNo Advanced Directives Records FoundNo Advanced Directives Records Found Additional Source Comments INFORMATION SOURCE (unrecogn ized section and content) DATE CREATED AUTHOR 02/19/2018 [facility] DATE CREATED AUTHOR AUTHOR'S ORGANIZ ATION 05/23/2019 [facility] DATE CREATED AUTHOR AUTHOR'S ORGANIZ ATION 02/08/2023 [facility] FOR RECORDS PERTAINING TO PATIENTS WHO [...] BE BASED ON THE PRIMARY CLINICAL RECORDS. [employer] [facility]. provides no warranty or guarantee of the accuracy or completeness of information in this document.
[2024-06-08 08:01] VITALS: BP 135/71; PULSE 67; O2SAT 98
== END 2024-06-08 08:38 | disposition home or self-care (01) ==
LOC: VC 07:49
PROVIDERS: PCP Radiology Diagnostic Radiology; Visit Provider Radiology Diagnostic Radiology
DX: I83.813 Varicose veins of bilateral lower extremities with pain (principal)
CPT/HCPCS: 36478

== ENCOUNTER 2024-06-15 15:03 | Outpatient (OUT) | payer BC, SELFPAY ==
[2024-06-15 15:02] VITALS: BMI 36.3
--- NOTE | 2024-06-15 15:02 | VEINCLINIC_ITS ---
Vital Signs 06/15/24 15:02 Height 5 ft 2 in Weight 90 kg BMI 36.3 Varicose Veins Patient in today for follow up ultrasound of left lower extremity following EVLT of left GSV completed on 06/08/24. Thomas Reza MD personally performed the services described in this documentation, as scribed by Kezia Le RDMS in my presence and it is both accurate and complete. I, Kezia Le RDMS, am scribing for, and in the presence of, Dr. Thomas Shearer and in the presence of the patient. thigh: bilateral (symptoms equal bilaterally), knee: bilateral, calf: bilateral, ankle: bilateral and hayward: bilateral aching, burning, cramping, dull, sharp and tender 8 2 years Worsened in recent months: Yes standing, sitting and walking analgesics (Tylenol), elevating extremities, compression stockings and exercise Reports muscle spasms of leg, fatigue, heaviness, limb pain, edema and leg edema History of lower extremity trauma: No Superficial thrombophlebitis: Yes Family history of varicose veins: yes Has patient had previous lower extremity venous surgery: No Patient has previously received the following treatment(s) for lower extremity varicose veins: Reports none Does patient have a history of : yes Does patient intend to have future pregnancies: no Has patient had lower extremity venous scan with relux testing: No Support hose used: Yes Problems walking or doing physical activity: Yes How does it affect you: awakens her from sleep, often has to stop and elevate feet/legs Do you walk much: Yes Do you stand much: Yes Review of Systems ROS Narrative Thomas Reza MD personally performed the services described in this documentation, as scribed by Kezia Le RDMS in my presence and it is both accurate and complete. I, Kezia Le RDMS, am scribing for, and in the presence of, Dr. Thomas Shearer and in the presence of the patient. Status of ROS 10 or more systems reviewed and unremark able except as noted in history and below Cardiovascular Reports: edema Integumentary/Breast Reports: itching Neurological Reports: weakness in extremities [facility] Medical History (Updated 06/15/24 @ 15:06 by Kezia Le) Phlebitis and thrombophlebitis of superficial vessels of left lower extremity ?I80.02 - Phlebitis and thrombophlebitis of superficial vessels of left lower extremity (ICD-10) Varicose veins of bilateral lower extremities with pain ?I83.813 - Varicose veins of bilateral lower extremities with pain (ICD-10) Carpal tunnel syndrome ?G56.00 - Carpal tunnel syndrome, unspecified upper limb (ICD-10) Edema ?R60.9 - Edema, unspecified (ICD-10) Hypercholesteremia ?E78.00 - Pure hypercholesterolemia, unspecified (ICD-10) Hypothyroid ?E03.9 - Hypothyroidism, unspecified (ICD-10) Diabetes ?E11.9 - Type 2 diabetes mellitus without complications (ICD-10) Hypertension ?I10 - Essential (primary) hypertension (ICD-10) Deep vein thrombosis ?I82.409 - Acute embolism and thrombosis of unspecified deep veins of unspecified lower extremity (ICD-10) Surgical History (Updated 06/08/24 @ 08:49 by Ramírez Driver) Status post laser ablation of incompetent vein ?Z98.890 - Other specified postprocedural states (ICD-10) History of carpal tunnel surgery ?Z98.890 - Other specified postprocedural states (ICD-10) History of arthroscopy of left shoulder ?Z98.890 - Other specified postprocedural states (ICD-10) H/O: hysterectomy ?Z90.710 - Acquired absence of both cervix and uterus (ICD-10) Family History (Updated 04/13/24 @ 13:42 by Ramírez Driver) Mother Family history of diabetes mellitus Family history of hypertension Varicose veins of bilateral lower extremities with pain Social History (Updated 04/13/24 @ 13:43 by Ramírez Driver) Within the past year, how often did you have a drink containing alcohol: never Score interpretation: A score less than 3 is consistent with normal alcohol consumption. Smoking status: Never smoker Non-prescribed substance use: denies use Meds Home Medications and Allergies Home Medications ?Medication ?Instructions ?Recorded ?Confirmed ?Type diclofenac potassium 04/13/24 History empagliflozin 25 mg tablet 25 mg PO QAM 04/13/24 04/13/24 History (Jardiance) furosemide 20 mg tablet 20 mg PO DAILY 04/13/24 04/13/24 History glimepiride 4 mg tablet 4 mg PO DAILY 04/13/24 04/13/24 History levothyroxine 125 mcg capsule 125 mcg PO DAILY 04/13/24 04/13/24 History levothyroxine 137 mcg tablet 137 mcg PO DAILY 04/13/24 04/13/24 History (Euthyrox) metformin 500 mg tablet,extended 500 mg PO DAILY 04/13/24 04/13/24 History release 24 hr metoprolol tartrate 50 mg tablet 25 mg PO DAILY 04/13/24 04/13/24 History pantoprazole 40 mg tablet,delayed 40 mg PO DAILY 04/13/24 04/13/24 History release (Protonix) sitagliptin phosphate 100 mg 100 mg PO DAILY 04/13/24 04/13/24 History tablet (Januvia) Allergies Allergy/AdvReac Type Severity Reaction Status Date / Time penicillamine Allergy Intermediate Rash Verified 04/13/24 13:46 Exam Narrative Exam Narrative: Mild red rash noted on left leg. Thomas Reza MD personally performed the services described in this documentation, as scribed by Kezia Le RDMS in my presence and it is both accurate and complete. Kezia Reza RDMS, am scribing for, and in the presence of, Dr. Thomas Shearer and in the presence of the patient. Constitutional Documenting provider has reviewed patient's vital signs: yes Common normals: oriented x3 Nutritional appearance: overweight Cardio Peripheral pulses: posterior tibial pulses present and dorsalis pedis pulses present Extremity Common normals: normal capillary refill General: edema Right lower extremity: lower leg Right lower leg: inspection and palpation Left lower extremity: lower leg Left lower leg: inspection and palpation Neuro Common normals: oriented x3 Results Imaging Venous US: Radiologist's impression: Heat induced thrombus in left GSV 1.2 cm from SFJ and extends to mid lower leg. Thomas Reza MD personally performed the services described in this documentation, as scribed by Kezia Le RDMS in my presence and it is both accurate and complete. Kezia Reza RDMS am scribing for, and in the presence of, Dr. Thomas Shearer and in the presence of the patient. Assessment and Plan Assessment and Plan (1) Phlebitis and thrombophlebitis of superficial vessels of left lower extremity: Plan Plan is for patient to return for EVLT of right GSV on 06/26/24. I, Thomas Shearer MD personally performed the services described in this documentation, as scribed by Kezia Le RDMS in my presence and it is both accurate and complete. I, Kezia Le RDMS, am scribing for, and in the presence of, Dr. Thomas Shearer and in the presence of the patient.
--- NOTE | 2024-06-15 15:04 | VEIN_ITS ---
Patient Name: QUINN AGUILAR MR#: [id number] : 1970 Exam Date: 06/15/2024 Ordering Doctor: DR THOMAS SHEARER M.D. RADIOLOGY REPORT PROCEDURE: VC EXT VENOUS LT LIMITED COMPARISON: None. INDICATIONS: I80.02 - Phlebitis and thrombophlebitis of superficial veins left leg TECHNIQUE: Lower extremity watt scale and Duplex Doppler evaluation of the deep venous system from the inguinal ligament through the calf veins. FINDINGS: REGION: Left lower extremity. THROMBI: Negative for DVT. Heat induced thrombus in left GSV 1.2 cm from SFJ and extends to mid lower leg. COMPRESSIBILITY: Non-compressible segments corresponding to thrombus FLOW: Areas of no flow corresponding to thrombus CONCLUSION: Post ablation occlusion of the left great saphenous vein with heat induced thrombus 1.2 cm from the saphenofemoral junction. No deep vein thrombus Dictated by: Thomas Shaerer MD on 06/15/2024 at 15:41 Approved by: Thomas Shearer MD on 06/15/2024 at 15:42
--- NOTE | 2024-06-15 15:04 | VEIN_ITS ---
Patient Name: QUINN AGUILAR MR#: [id number] : 1970 Exam Date: 06/15/2024 Ordering Doctor: DR THOMAS SHEARER M.D. RADIOLOGY REPORT PROCEDURE: [facility] - OFFICE VISIT FOLLOW UP COMPARISON: None. PROGRESS NOTES: The patient reports some mild tenderness of the left thigh following intravenous laser ablation. The patient has worn her compression stocking. The patient did not require oral analgesics. The patient has exercise Physical exam demonstrates 2 areas of bruising in the medial left mid to distal thigh measuring 4 and 6 cm respectively. No erythema or warmth. The left great saphenous vein cannot be palpated possibly related to patient body habitus. No ulceration. Review of the ultrasound performed the same day demonstrates occlusive thrombus extending throughout the treated left great saphenous vein with heat induced thrombus 1.2 cm from the saphenofemoral junction. No deep vein thrombus. The patient expressed a desire to proceed with treatment of incompetent right great saphenous vein. VEIN/[facility] IMPRESSION: 1. Successful ablation of the left great saphenous vein 2. Persistent incompetent right great saphenous vein. PLAN: Intravenous laser ablation right great saphenous vein Nurse notes, history and physical were reviewed and confirmed, see attached forms. The nurse was present throughout the physical exam and consultation Dictated by: Thomas Shearer MD on 06/15/2024 at 15:50 Approved by: Thomas Shearer MD on 06/15/2024 at 15:55
--- OUTSIDE RECORDS SUMMARY | 2024-06-15 15:08 | XMS_ITS | CCD ---
Author Organization [facility] Care Team Providers Care Stereo Compiler Name Role Phone PHYSICIAN, DEFAULT Unavailable Unavailable [...] Acetaminophen / oxyCODONE Drug Allergy 10-19-2016 [facility] Repository (1 source) Penicillins Drug allergy (disorder) 01-09-2013 [facility] Repository Problems Active Problems Problem Classification Problem [...] : DR SEFERINO MENDOZA . Admission #: [id number] Family : Order #: [id number] CLICK HERE TO VIEW EXAM RADIOLOGY REPORT [...] Treatments None Family Cancers None LOCATION: [facility] BREAST COMPOSITION: Scattered areas fibroglandular density. FINDINGS: [...] M.D. on 01/30/2023 at 13:47 Normal [facility] INSULINon 01-08-2023 Insulin 11.3 uIU/mL Normal 2.6-24.9 [facility] Comment on above: Performed By: #### C VDTBH #### [facility] [address] [address] [address] Dona Turner CBC AUTO DIFFon 01-07-2023 BASO # 0.1 103/ul Normal 0.0-0.1 [facility] Comment on above: Performed By: #### C VDTBH #### [facility] [address] [address] [address] Dona Turner Basophils/100 WBC (Bld) 1.2 % Normal 0.2-2.0 [facility] Comment on above: Performed By: #### C VDTBH #### [facility] [address] [place] [address] Dr. Dona Turner EO # 0.1 103/ul Normal 0.0-0.7 [facility] Comment on above: Performed By: #### C VDTBH #### [facility] [address] [place] [address] Dr. Dona Turner Eosinophils/100 WBC (Bld) 2.0 % Normal 0.9-7.0 [facility] Comment on above: Performed By: #### C VDTBH #### [facility] [address] [place] [address] Dr. Dona Turner Erythrocyte distribution width (RBC) [Ratio] 14.5 % Normal 11.0-15.0 [facility] Comment on above: Performed By: #### C VDTBH #### [facility] [address] [place] [address] Dr. Dona Turner Hematocrit (Bld) [Volume fraction] 45.1 % Normal 36.0-48.0 [facility] Comment on above: Performed By: #### C VDTBH #### [facility] [address] [place] [address] Dr. Dona Turner Hemoglobin (Bld) [Mass/Vol] 14.1 g/dL Normal 12.0-16.0 [facility] Comment on above: Performed By: #### C VDTBH #### [facility] [address] [place] [address] Dr. Dona Turner IG # 0.02 10e3/ul Normal 0.00-0.03 [facility] Comment on above: Performed By: #### C VDTBH #### [facility] [address] [place] [address] Dr. Dona Turner IG % 0.4 % Normal 0.0-0.5 [facility] Comment on above: Performed By: #### C VDTBH #### [facility] [address] [place] [address] Dr. Dona Turner LYMPH # 1.3 103/ul Normal 1.2-3.8 [facility] Comment on above: Performed By: #### C VDTBH #### [facility] [address] [place] [address] Dr. Dona Turner Lymphocytes/100 WBC (Bld) 26.4 % Normal 20.5-60.0 [facility] Comment on above: Performed By: #### C VDTBH #### [facility] [address] [place] [address] Dr. Dona Turner MANUAL DIFF REQ NO Normal [facility] Comment on above: Performed By: #### C VDTBH #### [facility] [address] [place] [address] Dr. Dona Turner MCH (RBC) [Entitic mass] 25.0 pg Critically low 26.7-34.0 [facility] Comment on above: Performed By: #### C VDTBH #### [facility] [address] [place] [address] Dr. Dona Turner MCHC (RBC) [Mass/Vol] 31.3 g/dL Normal 29.9-35.2 [facility] Comment on above: Performed By: #### C VDTBH #### [facility] [address] [place] [address] Dr. Dona Turner MCV (RBC) [Entitic vol] 80.0 fL Critically low 81.0-99.0 [facility] Comment on above: Performed By: #### C VDTBH #### [facility] [address] [place] [address] Dr. Dona Turner MONO # 0.4 103/ul Normal 0.3-0.8 [facility] Comment on above: Performed By: #### C VDTBH #### [facility] [address] [place] [address] Dr. Dona Turner Monocytes/100 WBC (Bld) 7.7 % Normal 1.7-12.0 [facility] Comment on above: Performed By: #### C VDTBH #### [facility] [address] [place] [address] Dr. Dona Turner NEUT # 3.1 103/ul Normal 1.4-6.5 [facility] Comment on above: Performed By: #### C VDTBH #### [facility] [address] [place] [address] Dr. Dona Turner Neutrophils/100 WBC (Bld) 62.3 % Normal 43.0-75.0 [facility] Comment on above: Performed By: #### C VDTBH #### [facility] [address] [place] [address] Dr. Dona Turner Platelet mean volume (Bld) [Entitic vol] 10.7 fL Normal 9.5-13.5 [facility] Comment on above: Performed By: #### C VDTBH #### [facility] [address] [place] [address] Dr. Dona Turner PLT 257 103/ul Normal 150-450 [facility] Comment on above: Performed By: #### C VDTBH #### [facility] [address] [place] [address] Dr. Dona Turner RBC 5.64 106/ul Critically high 4.20-5.40 [facility] Comment on above: Performed By: #### C VDTBH #### [facility] [address] [place] [address] Dr. Dona Turner WBC 5.0 103/ul Normal 4.0-11.0 [facility] Comment on above: Performed By: #### C VDTBH #### [facility] [address] [place] [address] Dr. Dona Turner FREE THYROXINE INDEX T7on FTI 3.78 Normal 1.30-4.50 [facility] Comment on above: Performed By: #### L IPID, TSH, T7, CMP #### [facility] [address] [place] [address] Dr. Dona Turner T3U 35.0 % Normal 30.0-39.0 [facility] Comment on above: Performed By: #### L IPID, TSH, T7, CMP #### [facility] [address] [place] [address] Dr. Dona Turner T4 [Mass/Vol] 10.80 ug/dL Normal 4.80-13.[address] [facility] Comment on above: Performed By: #### L IPID, TSH, T7, CMP #### [facility] [address] [address] [address] Dona Turner GLYCOHEMOGLOBIN A1Con 2022 ADA RECOMMENDATION SEE BELOW Normal [facility] Comment on above: Result Comment: ADA RECOMMENDED LIMIT 4.0 - 6.0 ADA THERAPEUTIC TARGET < 7.0 ACTION SUGGESTED > 7.0 Performed By: #### C VDTBH #### [facility] [address] [address] [address] Dona Turner Glucose [Mass/Vol] 160 mg/dL Normal [facility] Comment on above: Performed By: #### C VDTBH #### [facility] [address] [place] [address] Dr. Dona Turner HbA1c (Bld) [Mass fraction] 7.2 % Critically high 4.5-6.2 [facility] Comment on above: Performed By: #### C VDTBH #### [facility] [address] [address] [address] Dona Turner IRONon 01-07-2023 Iron [Mass/Vol] 50.0 ug/dL Normal 50.0-170.0 [facility] Comment on above: Performed By: #### I NSULIN #### [facility] [address] [place] [address] Dr. Dona Turner LIPID PROFILEon 01-07-2023 CHOL-HDL RATIO NORM SEE BELOW Normal [facility] Comment on above: Result Comment: 3.3 - 4.4 LOW RISK 4.4 - 7.1 AVERAGE RISK 7.1 - 11.0 MODERATE RISK >11.0 HIGH RISK Performed By: #### L IPID, TSH, T7, CMP #### [facility] [address] [address] [address] Dona Turner Cholesterol [Mass/Vol] 162 mg/dL Normal <=200 [facility] Comment on above: Performed By: #### L IPID, TSH, T7, CMP #### [facility] [address] [address] [address] Dona Turner Cholesterol in HDL [Mass/Vol] 33 mg/dL Critically low 40-60 [facility] Comment on above: Performed By: #### L IPID, TSH, T7, CMP #### [facility] [address] [address] [address] Dona Turner Cholesterol in LDL [Mass/Vol] 100.4 mg/dL Normal [facility] Comment on above: Performed By: #### L IPID, TSH, T7, CMP #### [facility] [address] [address] [address] Dona Turner Cholesterol.total/Chol esterol in HDL [Mass ratio] 4.9 {ratio} Normal [facility] Comment on above: Performed By: #### L IPID, TSH, T7, CMP #### [facility] [address] [address] [address] Dona Turner HDL NORMAL > or = 60 mg/dl - LOW CARDIOVASCULAR RISK <40 mg/dl - HIGH CARDIOVASCULAR RISK Normal [facility] Comment on above: Performed By: #### L IPID, TSH, T7, CMP #### [facility] [address] [address] [address] Dona Turner LDL CALC NORMAL SEE BELOW Normal [facility] Comment on above: Result Comment: <100 mg/dl OPTIMAL 100 - 129 mg/dl NEAR OR ABOVE OPTIMAL 130 - 159 mg/dl BORDERLINE HIGH 160 - 189 mg/dl HIGH >190 mg/dl VERY HIGH Performed By: #### L IPID, TSH, T7, CMP #### [facility] [address] [address] [address] Dona Turner Triglyceride [Mass/Vol] 143 mg/dL Normal <=150 [facility] Comment on above: Performed By: #### L IPID, TSH, T7, CMP #### [facility] [address] [address] [address] Dona Turner VLDL CALC 28.6 mg/dL Normal [facility] Comment on above: Performed By: #### L IPID, TSH, T7, CMP #### [facility] [address] [place] [address] Dr. Dona Turner PROF 14(COMP METB)on 023 Albumin [Mass/Vol] 3.8 g/dL Normal 3.4-5.0 [facility] Comment on above: Performed By: #### L IPID, TSH, T7, CMP #### [facility] [address] [place] [address] Dr. Dona Turner Albumin/Globulin [Mass ratio] 1.0 {ratio} Normal [facility] Comment on above: Performed By: #### L IPID, TSH, T7, CMP #### [facility] [address] [place] [address] Dr. Dona Turner ALP [Catalytic activity/Vol] 59 U/L Normal 46-116 [facility] Comment on above: Performed By: #### L IPID, TSH, T7, CMP #### [facility] [address] [place] [address] Dr. Dona Turner ALT [Catalytic activity/Vol] 43 U/L Normal 14-59 [facility] Comment on above: Performed By: #### L IPID, TSH, T7, CMP #### [facility] [address] [place] [address] Dr. Dona Turner Anion gap [Moles/Vol] 11.5 mmol/L Normal [facility] Comment on above: Performed By: #### L IPID, TSH, T7, CMP #### [facility] [address] [place] [address] Dr. Dona Turner AST [Catalytic activity/Vol] 19 U/L Normal 15-37 [facility] Comment on above: Performed By: #### L IPID, TSH, T7, CMP #### [facility] [address] [place] [address] Dr. Dona Turner Bilirubin [Mass/Vol] 0.4 mg/dL Normal 0.2-1.0 [facility] Comment on above: Performed By: #### L IPID, TSH, T7, CMP #### [facility] [address] [place] [address] Dr. Dona Turner Calcium [Mass/Vol] 9.1 mg/dL Normal 8.5-10.1 [facility] Comment on above: Performed By: #### L IPID, TSH, T7, CMP #### [facility] [address] [place] [address] Dr. Dona Turner Chloride [Moles/Vol] 107 mmol/L Normal 98-107 [facility] Comment on above: Performed By: #### L IPID, TSH, T7, CMP #### [facility] [address] [place] [address] Dr. Dona Turner CO2 [Moles/Vol] 28.5 mmol/L Normal 21.0-32.0 [facility] Comment on above: Performed By: #### L IPID, TSH, T7, CMP #### [facility] [address] [place] [address] Dr. Dona Turner Creatinine [Mass/Vol] 0.66 mg/dL Normal 0.55-1.02 [facility] Comment on above: Performed By: #### L IPID, TSH, T7, CMP #### [facility] [address] [place] [address] Dr. Dona Turner EGFR-AF BRITISH >60 Normal >=60 [facility] Comment on above: Performed By: #### L IPID, TSH, T7, CMP #### [facility] [address] [place] [address] Dr. Dona Turner EGFR-NON AF BRITISH >60 Normal >=60 [facility] Comment on above: Performed By: #### L IPID, TSH, T7, CMP #### [facility] [address] [place] [address] Dr. Dona Turner Globulin (S) [Mass/Vol] 3.8 g/dL Normal [facility] Comment on above: Performed By: #### L IPID, TSH, T7, CMP #### [facility] [address] [place] [address] Dr. Dona Turner Glucose [Mass/Vol] 112 mg/dL Critically high 74-106 [facility] Comment on above: Performed By: #### L IPID, TSH, T7, CMP #### [facility] [address] [place] [address] Dr. Dona Turner Potassium [Moles/Vol] 4.0 mmol/L Normal 3.5-5.1 [facility] Comment on above: Performed By: #### L IPID, TSH, T7, CMP #### [facility] [address] [place] [address] Dr. Dona Turner Protein [Mass/Vol] 7.6 g/dL Normal 6.4-8.2 [facility] Comment on above: Performed By: #### L IPID, TSH, T7, CMP #### [facility] [address] [place] [address] Dr. Dona Turner Sodium [Moles/Vol] 143 mmol/L Normal 136-145 [facility] Comment on above: Performed By: #### L IPID, TSH, T7, CMP #### [facility] [address] [place] [address] Dr. Dona Turner Urea nitrogen [Mass/Vol] 11.0 mg/dL Normal 7.0-18.0 [facility] Comment on above: Performed By: #### L IPID, TSH, T7, CMP #### [facility] [address] [place] [address] Dr. Dona Turner Urea nitrogen/Creatinine [Mass ratio] 16.7 mg/mg Normal [facility] Comment on above: Performed By: #### L IPID, TSH, T7, CMP #### [facility] [address] [place] [address] Dr. Dona Turner TSHon 01-07-2023 TSH 0.350 uIU/mL Critically low 0.358-3.740 [facility] Comment on above: Performed By: #### L IPID, TSH, T7, CMP #### [facility] [address] [place] [address] Dr. Dona Turner VITAMIN D 25 OHon 01-07-2023 VIT D 25-OH 52.4 ng/mL Normal [facility] Comment on above: Performed By: #### I NSULIN #### [facility] [address] [address] [address] Dona Turner VIT D RANGES SEE BELOW Normal [facility] Comment on above: Result Comment: <20 ng/mL Vit D deficient 20 - <30 ng/mL Vit D insufficient 30 - 100 ng/mL Vit D sufficient >100 ng/mL Potential Toxicity Performed By: #### I NSULIN #### [facility] [address] [address] [address] Dona Turner LIPID PROFILEon 10-13-2022 CHOL-HDL RATIO NORM SEE BELOW Normal [facility] Comment on above: Result Comment: 3.3 - 4.4 LOW RISK 4.4 - 7.1 AVERAGE RISK 7.1 - 11.0 MODERATE RISK >11.0 HIGH RISK Performed By: #### C VDTBH #### [facility] [address] [address] [address] Dona Turner Cholesterol [Mass/Vol] 136 mg/dL Normal <=200 [facility] Comment on above: Performed By: #### C VDTBH #### [facility] [address] [address] [address] Dona Turner Cholesterol in HDL [Mass/Vol] 33 mg/dL Critically low 40-60 [facility] Comment on above: Performed By: #### C VDTBH #### [facility] [address] [place] [address] Dr. Dona Turner Cholesterol in LDL [Mass/Vol] 76.4 mg/dL Normal [facility] Comment on above: Performed By: #### C VDTBH #### [facility] [address] [address] [address] Dona Turner Cholesterol.total/Chol esterol in HDL [Mass ratio] 4.1 {ratio} Normal [facility] Comment on above: Performed By: #### C VDTBH #### [facility] [address] [place] [address] Dr. Dona Turner HDL NORMAL > or = 60 mg/dl - LOW CARDIOVASCULAR RISK <40 mg/dl - HIGH CARDIOVASCULAR RISK Normal [facility] Comment on above: Performed By: #### C VDTBH #### [facility] [address] [address] [address] Dona Turner LDL CALC NORMAL SEE BELOW Normal [facility] Comment on above: Result Comment: <100 mg/dl OPTIMAL 100 - 129 mg/dl NEAR OR ABOVE OPTIMAL 130 - 159 mg/dl BORDERLINE HIGH 160 - 189 mg/dl HIGH >190 mg/dl VERY HIGH Performed By: #### C VDTBH #### [facility] [address] [address] [address] Dona Turner Triglyceride [Mass/Vol] 133 mg/dL Normal <=150 [facility] Comment on above: Performed By: #### C VDTBH #### [facility] [address] [address] [address] Dona Turner VLDL CALC 26.6 mg/dL Normal [facility] Comment on above: Performed By: #### C VDTBH #### [facility] [address] [place] [address] Dr. Dona Turner LIVER PROFILEon 10-13-2022 Albumin [Mass/Vol] 3.6 g/dL Normal 3.4-5.0 [facility] Comment on above: Performed By: #### I NSULIN #### [facility] [address] [place] [address] Dr. Dona Turner Albumin/Globulin [Mass ratio] 1.1 {ratio} Normal [facility] Comment on above: Performed By: #### I NSULIN #### [facility] [address] [place] [address] Dr. Dona Turner ALP [Catalytic activity/Vol] 62 U/L Normal 46-116 [facility] Comment on above: Performed By: #### I NSULIN #### [facility] [address] [place] [address] Dr. Dona Turner ALT [Catalytic activity/Vol] 28 U/L Normal 14-59 [facility] Comment on above: Performed By: #### I NSULIN #### [facility] [address] [place] [address] Dr. Dona Turner AST [Catalytic activity/Vol] 16 U/L Normal 15-37 [facility] Comment on above: Performed By: #### I NSULIN #### [facility] [address] [address] [address] Dona Turner BILI, CONJUGATED 0.1 mg/dL Normal 0.0-0.2 [facility] Comment on above: Performed By: #### I NSULIN #### [facility] [address] [address] [address] Dona Turner Bilirubin [Mass/Vol] 0.5 mg/dL Normal 0.2-1.0 [facility] Comment on above: Performed By: #### I NSULIN #### [facility] [address] [address] [address] Dona Turner Globulin (S) [Mass/Vol] 3.4 g/dL Normal [facility] Comment on above: Performed By: #### I NSULIN #### [facility] [address] [place] [address] Dr. Dona Turner Protein [Mass/Vol] 7.0 g/dL Normal 6.4-8.2 [facility] Comment on above: Performed By: #### I NSULIN #### [facility] [address] [place] [address] Dr. Dona Turner BETH by IFAon 07-19-2022 Antinuclear Antibodies, IFA Negative Normal [facility] Comment on above: Result Comment: Nega tive <1:80 Borderline 1:80 Positive >1:80 ICAP nomenclature: AC-0 For more information about Hep-2 cell patterns use ANApatterns.org, the official website for the International Consensus on Antinuclear Antibody (BETH) Patterns (ICAP). Performed By: #### A NAIFA #### [facility] [address] [place] [address] Dr. Dona Turner ANTISTREPTOLYSIN O AB (ASO)o n 07-14-2022 Antistreptolysin O Ab 25.3 IU/mL Normal 0.0-200.0 [facility] Comment on above: Performed By: #### I NSULIN #### [facility] [address] [address] [address] Dona Turner RHEUMATOID FACTORon 07-14-20 RA Latex Turbid. 19.2 IU/mL Critically high <14.0 [facility] Comment on above: Performed By: #### L IPID, TSH, T7, CMP #### [facility] [address] [place] [address] Dr. Dona Turner CBC AUTO DIFFon 07-13-2022 BASO # 0.1 103/ul Normal 0.0-0.1 [facility] Comment on above: Performed By: #### C VDTBH #### [facility] [address] [place] [address] Dr. Dona Turner Basophils/100 WBC (Bld) 0.8 % Normal 0.2-2.0 [facility] Comment on above: Performed By: #### C VDTBH #### [facility] [address] [place] [address] Dr. Dona Turner EO # 0.1 103/ul Normal 0.0-0.7 [facility] Comment on above: Performed By: #### C VDTBH #### [facility] [address] [place] [address] Dr. Dona Turner Eosinophils/100 WBC (Bld) 1.0 % Normal 0.9-7.0 [facility] Comment on above: Performed By: #### C VDTBH #### [facility] [address] [place] [address] Dr. Dona Turner Erythrocyte distribution width (RBC) [Ratio] 14.3 % Normal 11.0-15.0 [facility] Comment on above: Performed By: #### C VDTBH #### [facility] [address] [place] [address] Dr. Dona Turner Hematocrit (Bld) [Volume fraction] 44.8 % Normal 36.0-48.0 [facility] Comment on above: Performed By: #### C VDTBH #### [facility] [address] [place] [address] Dr. Dona Turner Hemoglobin (Bld) [Mass/Vol] 14.4 g/dL Normal 12.0-16.0 [facility] Comment on above: Performed By: #### C VDTBH #### [facility] [address] [place] [address] Dr. Dona Turner IG # 0.03 10e3/ul Normal 0.00-0.03 [facility] Comment on above: Performed By: #### C VDTBH #### [facility] [address] [place] [address] Dr. Dona Turner IG % 0.3 % Normal 0.0-0.5 [facility] Comment on above: Performed By: #### C VDTBH #### [facility] [address] [place] [address] Dr. Dona Turner LYMPH # 1.9 103/ul Normal 1.2-3.8 [facility] Comment on above: Performed By: #### C VDTBH #### [facility] [address] [place] [address] Dr. Dona Turner Lymphocytes/100 WBC (Bld) 20.8 % Normal 20.5-60.0 [facility] Comment on above: Performed By: #### C VDTBH #### [facility] [address] [place] [address] Dr. Dona Turner MANUAL DIFF REQ NO Normal [facility] Comment on above: Performed By: #### C VDTBH #### [facility] [address] [place] [address] Dr. Dona Turner MCH (RBC) [Entitic mass] 25.5 pg Critically low 26.7-34.0 [facility] Comment on above: Performed By: #### C VDTBH #### [facility] [address] [place] [address] Dr. Dona Turner MCHC (RBC) [Mass/Vol] 32.1 g/dL Normal 29.9-35.2 [facility] Comment on above: Performed By: #### C VDTBH #### [facility] [address] [place] [address] Dr. Dona Turner MCV (RBC) [Entitic vol] 79.3 fL Critically low 81.0-99.0 [facility] Comment on above: Performed By: #### C VDTBH #### [facility] [address] [address] [address] Dona Turner MONO # 0.8 103/ul Normal 0.3-0.8 [facility] Comment on above: Performed By: #### C VDTBH #### [facility] [address] [place] [address] Dr. Dona Turner Monocytes/100 WBC (Bld) 8.5 % Normal 1.7-12.0 [facility] Comment on above: Performed By: #### C VDTBH #### [facility] [address] [place] [address] Dr. Dona Turner NEUT # 6.4 103/ul Normal 1.4-6.5 [facility] Comment on above: Performed By: #### C VDTBH #### [facility] [address] [place] [address] Dr. Dona Turner Neutrophils/100 WBC (Bld) 68.6 % Normal 43.0-75.0 [facility] Comment on above: Performed By: #### C VDTBH #### [facility] Laboratory [address] [place] [address] Dr. Dona Turner Platelet mean volume (Bld) [Entitic vol] 10.5 fL Normal 9.5-13.5 [facility] Comment on above: Performed By: #### C VDTBH #### [facility] [address] [place] [address] Dr. Dona Turner PLT 290 103/ul Normal 150-450 [facility] Comment on above: Performed By: #### C VDTBH #### [facility] [address] [place] [address] Dr. Dona Turner RBC 5.65 106/ul Critically high 4.20-5.40 The [facility] Comment on above: Performed By: #### C VDTBH #### [facility] [address] [place] [address] Dr. Dona Turner WBC 9.3 103/ul Normal 4.0-11.0 [facility] Comment on above: Performed By: #### C VDTBH #### [facility] [address] [place] [address] Dr. Dona Turner CRPon 07-13-2022 CRP [Mass/Vol] mg/L Normal <=1.0 The [facility] Comment on above: Performed By: #### I NSULIN #### [facility] [address] [place] [address] Dr. Dona Turner SED RATE WESTERGRENon 2021 SED RATE 47 mm/hr Critically high <=30 [facility] Comment on above: Performed By: #### S EDR #### [facility] [address] [place] [address] Dr. Dona Turner URIC ACID SERUMon 07-13-2022 Urate [Mass/Vol] 3.2 mg/dL Normal 2.6-6.0 [facility] Comment on above: Performed By: #### I NSULIN #### [facility] [address] [place] [address] Dr. Dona Turner INSULINon 07-10-2022 Insulin 11.5 uIU/mL Normal 2.6-24.9 [facility] Comment on above: Performed By: #### I NSULIN #### [facility] [address] [place] [address] Dr. Dona Turner CBC AUTO DIFFon 07-09-2022 BASO # 0.1 103/ul Normal 0.0-0.1 [facility] Comment on above: Performed By: #### C BC #### [facility] [address] [place] [address] Dr. Dona Turner Basophils/100 WBC (Bld) 0.8 % Normal 0.2-2.0 [facility] Comment on above: Performed By: #### C BC #### [facility] [address] [place] [address] Dr. Dona Turner EO # 0.1 103/ul Normal 0.0-0.7 [facility] Comment on above: Performed By: #### C BC #### [facility] [address] [place] [address] Dr. Dona Turner Eosinophils/100 WBC (Bld) 0.7 % Critically low 0.9-7.0 [facility] Comment on above: Performed By: #### C BC #### [facility] [address] [place] [address] Dr. Dona Turner Erythrocyte distribution width (RBC) [Ratio] 14.5 % Normal 11.0-15.0 [facility] Comment on above: Performed By: #### C BC #### [facility] [address] [place] [address] Dr. Dona Turner Hematocrit (Bld) [Volume fraction] 44.7 % Normal 36.0-48.0 [facility] Comment on above: Performed By: #### C BC #### [facility] [address] [place] [address] Dr. Dona Turner Hemoglobin (Bld) [Mass/Vol] 14.5 g/dL Normal 12.0-16.0 [facility] Comment on above: Performed By: #### C BC #### [facility] [address] [place] [address] Dr. Dona Turner IG # 0.04 10e3/ul Critically high 0.00-0.03 [facility] Comment on above: Performed By: #### C BC #### [facility] [address] [place] [address] Dr. Dona Turner IG % 0.4 % Normal 0.0-0.5 [facility] Comment on above: Performed By: #### C BC #### [facility] [address] [place] [address] Dr. Dona Turner LYMPH # 1.6 103/ul Normal 1.2-3.8 [facility] Comment on above: Performed By: #### C BC #### [facility] [address] [place] [address] Dr. Dona Turner Lymphocytes/100 WBC (Bld) 17.7 % Critically low 20.5-60.0 [facility] Comment on above: Performed By: #### C BC #### [facility] [address] [place] [address] Dr. Dona Turner MANUAL DIFF REQ NO Normal [facility] Comment on above: Performed By: #### C BC #### [facility] [address] [place] [address] Dr. Dona Turner MCH (RBC) [Entitic mass] 25.9 pg Critically low 26.7-34.0 [facility] Comment on above: Performed By: #### C BC #### [facility] [address] [place] [address] Dr. Dona Turner MCHC (RBC) [Mass/Vol] 32.4 g/dL Normal 29.9-35.2 [facility] Comment on above: Performed By: #### C BC #### [facility] [address] [place] [address] Dr. Dona Turner MCV (RBC) [Entitic vol] 79.8 fL Critically low 81.0-99.0 [facility] Comment on above: Performed By: #### C BC #### [facility] [address] [place] [address] Dr. Dona Turner MONO # 0.6 103/ul Normal 0.3-0.8 [facility] Comment on above: Performed By: #### C BC #### [facility] [address] [place] [address] Dr. Dona Turner Monocytes/100 WBC (Bld) 6.9 % Normal 1.7-12.0 [facility] Comment on above: Performed By: #### C BC #### [facility] [address] [place] [address] Dr. Dona Turner NEUT # 6.6 103/ul Critically high 1.4-6.5 [facility] Comment on above: Performed By: #### C BC #### [facility] [address] [place] [address] Dr. Dona Turner Neutrophils/100 WBC (Bld) 73.5 % Normal 43.0-75.0 [facility] Comment on above: Performed By: #### C BC #### [facility] [address] [place] [address] Dr. Dona Turner Platelet mean volume (Bld) [Entitic vol] 11.1 fL Normal 9.5-13.5 [facility] Comment on above: Performed By: #### C BC #### [facility] [address] [place] [address] Dr. Dona Turner PLT 256 103/ul Normal 150-450 [facility] Comment on above: Performed By: #### C BC #### [facility] [address] [place] [address] Dr. Dona Turner RBC 5.60 106/ul Critically high 4.20-5.40 [facility] Comment on above: Performed By: #### C BC #### [facility] [address] [place] [address] Dr. Dona Turner WBC 8.9 103/ul Normal 4.0-11.0 [facility] Comment on above: Performed By: #### C BC #### [facility] [address] [place] [address] Dr. Dona Turner FREE THYROXINE INDEX T7on FTI 3.66 Normal 1.30-4.50 [facility] Comment on above: Performed By: #### C VDTBH #### [facility] [address] [place] [address] Dr. Dona Turner T3U 37.0 % Normal 30.0-39.0 [facility] Comment on above: Performed By: #### C VDTBH #### [facility] [address] [place] [address] Dr. Dona Turner T4 [Mass/Vol] 9.90 ug/dL Normal 4.80-13.90 [facility] Comment on above: Performed By: #### C VDTBH #### [facility] [address] [place] [address] Dr. Dona Turner GLYCOHEMOGLOBIN A1Con 2021 ADA RECOMMENDATION SEE BELOW Normal [facility] Comment on above: Result Comment: ADA RECOMMENDED LIMIT 4.0 - 6.0 ADA THERAPEUTIC TARGET < 7.0 ACTION SUGGESTED > 7.0 Performed By: #### A 1C #### [facility] [address] [address] [address] Dona Turner Glucose [Mass/Vol] 183 mg/dL Normal [facility] Comment on above: Performed By: #### A 1C #### [facility] [address] [address] [address] Dona Turner HbA1c (Bld) [Mass fraction] 8.0 % Critically high 4.5-6.2 [facility] Comment on above: Performed By: #### A 1C #### [facility] [address] [address] [address] Dona Turner IRONon 07-09-2022 Iron [Mass/Vol] 56.0 ug/dL Normal 50.0-170.0 [facility] Comment on above: Performed By: #### I NSULIN #### [facility] [address] [place] [address] Dr. Dona Turner LIPID PROFILEon 07-09-2022 CHOL-HDL RATIO NORM SEE BELOW Normal [facility] Comment on above: Result Comment: 3.3 - 4.4 LOW RISK 4.4 - 7.1 AVERAGE RISK 7.1 - 11.0 MODERATE RISK >11.0 HIGH RISK Performed By: #### C VDTBH #### [facility] [address] [place] [address] Dr. Dona Turner Cholesterol [Mass/Vol] 228 mg/dL Critically high <=200 [facility] Comment on above: Performed By: #### C VDTBH #### [facility] [address] [place] [address] Dr. Dona Turner Cholesterol in HDL [Mass/Vol] 37 mg/dL Critically low 40-60 [facility] Comment on above: Performed By: #### C VDTBH #### [facility] [address] [place] [address] Dr. Dona Turner Cholesterol in LDL [Mass/Vol] 163.6 mg/dL Normal [facility] Comment on above: Performed By: #### C VDTBH #### [facility] [address] [place] [address] Dr. Dona Turner Cholesterol.total/Chol esterol in HDL [Mass ratio] 6.2 {ratio} Normal [facility] Comment on above: Performed By: #### C VDTBH #### [facility] [address] [place] [address] Dr. Dona Turner HDL NORMAL > or = 60 mg/dl - LOW CARDIOVASCULAR RISK <40 mg/dl - HIGH CARDIOVASCULAR RISK Normal [facility] Comment on above: Performed By: #### C VDTBH #### [facility] [address] [place] [address] Dr. Dona Turner LDL CALC NORMAL SEE BELOW Normal [facility] Comment on above: Result Comment: <100 mg/dl OPTIMAL 100 - 129 mg/dl NEAR OR ABOVE OPTIMAL 130 - 159 mg/dl BORDERLINE HIGH 160 - 189 mg/dl HIGH >190 mg/dl VERY HIGH Performed By: #### C VDTBH #### [facility] [address] [place] [address] Dr. Dona Turner Triglyceride [Mass/Vol] 137 mg/dL Normal <=150 [facility] Comment on above: Performed By: #### C VDTBH #### [facility] [address] [place] [address] Dr. Dona Turner VLDL CALC 27.4 mg/dL Normal [facility] Comment on above: Performed By: #### C VDTBH #### [facility] [address] [place] [address] Dr. Dona Turner PROF 14(COMP METB)on 022 Albumin [Mass/Vol] 3.8 g/dL Normal 3.4-5.0 [facility] Comment on above: Performed By: #### C VDTBH #### [facility] [address] [place] [address] Dr. Dona Turner Albumin/Globulin [Mass ratio] 1.0 {ratio} Normal [facility] Comment on above: Performed By: #### C VDTBH #### [facility] [address] [place] [address] Dr. Dona Turner ALP [Catalytic activity/Vol] 57 U/L Normal 46-116 [facility] Comment on above: Performed By: #### C VDTBH #### [facility] [address] [address] [address] Dona Turner ALT [Catalytic activity/Vol] 24 U/L Normal 14-59 [facility] Comment on above: Performed By: #### C VDTBH #### [facility] [address] [address] [address] Dona Turner Anion gap [Moles/Vol] 9.6 mmol/L Normal [facility] Comment on above: Performed By: #### C VDTBH #### [facility] [address] [address] [address] Dona Turner AST [Catalytic activity/Vol] 15 U/L Normal 15-37 [facility] Comment on above: Performed By: #### C VDTBH #### [facility] [address] [place] [address] Dr. Dona Turner Bilirubin [Mass/Vol] 0.5 mg/dL Normal 0.2-1.0 [facility] Comment on above: Performed By: #### C VDTBH #### [facility] [address] [place] [address] Dr. Dona Turner Calcium [Mass/Vol] 9.3 mg/dL Normal 8.5-10.1 [facility] Comment on above: Performed By: #### C VDTBH #### [facility] [address] [place] [address] Dr. Dona Turner Chloride [Moles/Vol] 103 mmol/L Normal 98-107 [facility] Comment on above: Performed By: #### C VDTBH #### [facility] [address] [address] [address] Dona Turner CO2 [Moles/Vol] 29.5 mmol/L Normal 21.0-32.0 [facility] Comment on above: Performed By: #### C VDTBH #### [facility] [address] [place] [address] Dr. Dona Turner Creatinine [Mass/Vol] 0.61 mg/dL Normal 0.55-1.02 [facility] Comment on above: Performed By: #### C VDTBH #### [facility] [address] [address] [address] Dona Turner EGFR-AF BRITISH >60 Normal >=60 [facility] Comment on above: Performed By: #### C VDTBH #### [facility] [address] [address] [address] Dona Turner EGFR-NON AF BRITISH >60 Normal >=60 [facility] Comment on above: Performed By: #### C VDTBH #### [facility] [address] [address] [address] Dona Turner Globulin (S) [Mass/Vol] 3.8 g/dL Normal [facility] Comment on above: Performed By: #### C VDTBH #### [facility] [address] [address] [address] Dona Turner Glucose [Mass/Vol] 104 mg/dL Normal 74-106 [facility] Comment on above: Performed By: #### C VDTBH #### [facility] [address] [address] [address] Dona Turner Potassium [Moles/Vol] 4.1 mmol/L Normal 3.5-5.1 [facility] Comment on above: Performed By: #### C VDTBH #### [facility] [address] [address] [address] Dona Turner Protein [Mass/Vol] 7.6 g/dL Normal 6.4-8.2 [facility] Comment on above: Performed By: #### C VDTBH #### [facility] [address] [address] [address] Dona Turner Sodium [Moles/Vol] 138 mmol/L Normal 136-145 [facility] Comment on above: Performed By: #### C VDTBH #### [facility] [address] [address] [address] Dona Turner Urea nitrogen [Mass/Vol] 14.0 mg/dL Normal 7.0-18.0 [facility] Comment on above: Performed By: #### C VDTBH #### [facility] [address] [place] [address] Dr. oDna Turner Urea nitrogen/Creatinine [Mass ratio] 23.0 mg/mg Normal [facility] Comment on above: Performed By: #### C VDTBH #### [facility] [address] [place] [address] Dr. Dona Turner TSHon 07-09-2022 TSH 0.324 uIU/mL Critically low 0.358-3.740 [facility] Comment on above: Performed By: #### C VDTBH #### [facility] [address] [place] [address] Dr. Dona Turner VITAMIN D 25 OHon 07-09-2022 VIT D 25-OH 52.6 ng/mL Normal [facility] Comment on above: Performed By: #### I NSULIN #### [facility] [address] [place] [address] Dr. Dona Turner VIT D RANGES SEE BELOW Normal [facility] Comment on above: Result Comment: <20 ng/mL Vit D deficient 20 - <30 ng/mL Vit D insufficient 30 - 100 ng/mL Vit D sufficient >100 ng/mL Potential Toxicity Performed By: #### I NSULIN #### [facility] [address] [place] [address] Dr. Dona Turner Covid-19 PCR ([facility])on 04-02 SARS-CoV-2 (COVID-19) RNA JEWEL+probe Ql (Unsp spec) Not detected Normal NOT DETECTED [facility] Comment on above: Result Comment: This test is not yet approved or cleared by the [place] FDA. When there are no FDA-approved or cleared tests available, and other criteria are met, FDA can make tests available under an emergency access mechanism called an Emergency Use Authorization (EUA). The EUA for this test is supported by the Inventory And Pricing Associate of Health and Human Service's (HHS's) declaration [...] SARS-CoV-2. Performed By: #### C [facility] #### [facility] [address] [address] [address] Dona Turner Coding Summary.on 09-12-2018 Coding Summary. CODING DATE: 09/12/2018 FINAL [facility] STATUS: Home (Routine DC) PAYOR: Loreto APC [...] Cuellar Date Saved: 09/12/2018 03:25 pm Normal [facility] Main OR Intraoperative Recor don 09-09-2018 Main OR Intraoperative Record IntraOp Document Type FTURO Summary Primary Physician: David ORTIZ MD Finalized Date/Time: 09/09/18 12:32:44 Pt. Name: QUINN AGUILAR/Sex: 1970 Female Med Rec #: [id number] Physician: David ORTIZ MD Financial #: [id number] Pt. Type: O Room/Bed: / Admit/Disch: 09/09/18 09:49:59 - Institution: Case Times FTURO Entry 1 Patient Times In Room 09/09/18 12:19:00 Out Room 09/09/18 12:33:00 Procedure Times Start 09/09/18 12:22:00 Stop 09/09/18 12:26:00 Anesthesia Times Last Modified By: GIUSEPPE Tijerina RN, Lou Ann 09/09/18 12:32:32 Case Attendance FTURO Entry 1 Entry 2 Entry 3 Case Attendee ANGEL SWANSON, David Lyon COST RECOVERY TECHNICIAN, Alannah Tijerina RN, Pearl CHIN Role Performed Surgeon - Primary Scrub - Primary Settlement Agent - Primary Time In 09/09/18 12:20:00 09/09/18 [...] David ORTIZ MD, Verified (If Participants Lyon COST RECOVERY TECHNICIAN, Alannah, Applicable) GIUSEPPE Tijerina RN, Lou Ann [...] Tijerina RN, Lou Ann 09/09/18 12:32 Normal [facility] Main OR Preoperative Recordo n 09-09-2018 Main OR Preoperative Record Holding Area Document Type FTURO Summary Primary Physician: David ORTIZ MD Finalized Date/Time: 09/09/18 12:22:07 Pt. Name: QUINN AGUILAR/Sex: 1970 Female Med Rec #: [id number] Physician: David ORTIZ MD Financial #: [id number] Pt. Type: O Room/Bed: / Admit/Disch: 09/09/18 [...] Complaints of Pain: No Skin Integrity Intact, Saunemin, Warm, & Dry Vitals - EU Blood Pressure 141/78 Pulse 57 bpm Respirations 16 br/min SPO2 Additional None RN Reviewed Yes Specimens Collected Last Modified By: GIUSEPPE Tijerina RN, Lou Ann 09/09/18 12:22:05 Finalized By: GIUSEPPE Tijerina RN, Lou Ann Document Signatures Signed By: Racheal Bernabe 09/09/18 11:43 GIUSEPPE Tijerina RN, Lou Ann 09/09/18 12:22 Normal [facility] Operative Reporton Operative Report Patient: [...] urine. The Urethra was dilated to: 30 Macanese w/ sounds. Devices Implanted: None. Removal: Cystoscope is removed, The patient tolerated it well. Postoperative Information Discharge: Patient is discharged home with antibiotic coverage, Follow up arranged. she will do timed/double voids. try ditropan xl 10mgqd f/u 3 months with pvr bladder scan....?pessary. Normal [facility] Comment on above: Result Comment: [...] abnormal findings DR SEFERINO MENDOZA . [facility] Start: 07-13-2022 End: 07-14-[address] SEFERINO [...] Start: 01-29-2018 End: 01-30-2018 Ambulatory DEFAULT PHYSICIAN Facility:[facility] Payers Date Payer Category Payer Unknown [id number] 2.16.84 [id number] 1970 Unknown [id number] 2.16.84 [id number] 1970 Unknown [id number] 2.16.84 [id number] 1970 Unknown [id number] 2.16.84 [id number] 1970 Unknown [id number] 2.16.84 [id number] 1970 Unknown [id number] 2.16.84 [id number] 1970 Unknown [id number] 2.16.84 [id number] 1970 Unknown [id number] 2.16.84 [id number] 1961 Unknown [id number] Unknown Clinical Note 07-03-2022 Note Date & [...] authenticated by: NAZARIO PEREZ Date: 2022-07-03 10:07 [facility] Clinical Note 07-03-2022 Note Date & Type [...] authenticated by: NAZARIO PEREZ Date: 2022-07-03 10:07 [facility] Summary Purpose Family History No Family History Records FoundNo Family History Records FoundNo Family History Records Found Advance Directives No Advanced Directives Records FoundNo Advanced Directives Records FoundNo Advanced Directives Records Found Additional Source Comments INFORMATION SOURCE (unrecogn ized section and content) DATE CREATED AUTHOR 02/19/2018 [facility] DATE CREATED AUTHOR AUTHOR'S ORGANIZ ATION 05/23/2019 [facility] DATE CREATED AUTHOR AUTHOR'S ORGANIZ ATION 02/08/2023 The [facility] FOR RECORDS PERTAINING TO PATIENTS WHO [...] BE BASED ON THE PRIMARY CLINICAL RECORDS. [employer] [facility]. provides no warranty or guarantee of the accuracy or completeness of information in this document.
--- NOTE | 2024-06-15 15:57 | P.DS_ITS ---
Discharge Plan Discharge Disposition: Home, Self-Care Outpatient Diagnostics: VC Endovenous Ablation 1VeinRT (Routine) Timeframe: 3 Weeks Facility: [facility] - Location[facility] Ordered By: Thomas Shearer Follow Up Appointments: 06/26/24 Plan of Treatment: EVLT of right GSV EVLT Tumescent Anesthesia: 500 mL 0.9% NS with 20 mL 1% Lidocaine and 10 mL 8.4% NAHCO3 Buffered Local Anesthesia: 10 mL of 1% Lidocaine Buffered Print Language: Nepalese Discharge Date/Time: 06/15/24 15:58
== END 2024-06-15 15:58 | disposition home or self-care (01) ==
PROVIDERS: PCP Radiology Diagnostic Radiology; Visit Provider Radiology Diagnostic Radiology
DX: I80.02 Phlebitis and thrombophlebitis of superficial vessels of left lower extremity (principal)
CPT/HCPCS: 93971; G0463

== ENCOUNTER 2024-06-26 07:57 | Outpatient (OUT) | payer BC, SELFPAY ==
--- NOTE | 2024-06-25 13:15 | VEINCLINIC_ITS ---
Vital Signs 06/26/24 08:11 BP 122/64 BP Location Right Brachial BP Position Sitting BP Cuff Size Adult Respiration 16 Pulse 68 Pulse Source Monitor Pulse Oximetry (%) 96 Comment The patient's blood pressure is elevated. Varicose Veins Patient in today for EVLT of right GSV Nazario Reza MD personally performed the services described in this documentation, as scribed by Ramírez Driver RN in my presence and it is both accurate and complete. IRamírez RN, am scribing for, and in the presence of, Dr. Nazario Perez and in the presence of the patient. thigh: bilateral (symptoms equal bilaterally), knee: bilateral, calf: bilateral, ankle: bilateral and hayward: bilateral aching, burning, cramping, dull, sharp and tender 8 2 years Worsened in recent months: Yes standing, sitting and walking analgesics (Tylenol), elevating extremities, compression stockings and exercise Reports muscle spasms of leg, fatigue, heaviness, limb pain, edema and leg edema History of lower extremity trauma: No Superficial thrombophlebitis: Yes Family history of varicose veins: yes Has patient had previous lower extremity venous surgery: No Patient has previously received the following treatment(s) for lower extremity varicose veins: Reports none Does patient have a history of : yes Does patient intend to have future pregnancies: no Has patient had lower extremity venous scan with relux testing: No Support hose used: Yes Problems walking or doing physical activity: Yes How does it affect you: awakens her from sleep, often has to stop and elevate feet/legs Do you walk much: Yes Do you stand much: Yes Review of Systems ROS Narrative Nazario Reza MD personally performed the services described in this documentation, as scribed by Ramírez Driver RN in my presence and it is both accurate and complete. Ramírez Reza RN, am scribing for, and in the presence of, Dr. Nazario Perez and in the presence of the patient. Status of ROS 10 or more systems reviewed and unremark able except as noted in history and below Cardiovascular Reports: edema Integumentary/Breast Reports: itching Neurological Reports: weakness in extremities [facility] Medical History (Updated 06/15/24 @ 15:06 by Kezia Le) Phlebitis and thrombophlebitis of superficial vessels of left lower extremity ?I80.02 - Phlebitis and thrombophlebitis of superficial vessels of left lower extremity (ICD-10) Varicose veins of bilateral lower extremities with pain ?I83.813 - Varicose veins of bilateral lower extremities with pain (ICD-10) Carpal tunnel syndrome ?G56.00 - Carpal tunnel syndrome, unspecified upper limb (ICD-10) Edema ?R60.9 - Edema, unspecified (ICD-10) Hypercholesteremia ?E78.00 - Pure hypercholesterolemia, unspecified (ICD-10) Hypothyroid ?E03.9 - Hypothyroidism, unspecified (ICD-10) Diabetes ?E11.9 - Type 2 diabetes mellitus without complications (ICD-10) Hypertension ?I10 - Essential (primary) hypertension (ICD-10) Deep vein thrombosis ?I82.409 - Acute embolism and thrombosis of unspecified deep veins of unspecified lower extremity (ICD-10) Surgical History (Updated 06/26/24 @ 09:09 by Ramírez Driver) Status post laser ablation of incompetent vein ?Z98.890 - Other specified postprocedural states (ICD-10) Status post laser ablation of incompetent vein ?Z98.890 - Other specified postprocedural states (ICD-10) History of carpal tunnel surgery ?Z98.890 - Other specified postprocedural states (ICD-10) History of arthroscopy of left shoulder ?Z98.890 - Other specified postprocedural states (ICD-10) H/O: hysterectomy ?Z90.710 - Acquired absence of both cervix and uterus (ICD-10) Family History (Updated 04/13/24 @ 13:42 by Ramírez Driver) Mother Family history of diabetes mellitus Family history of hypertension Varicose veins of bilateral lower extremities with pain Social History (Updated 04/13/24 @ 13:43 by Ramírez Driver) Within the past year, how often did you have a drink containing alcohol: never Score interpretation: A score less than 3 is consistent with normal alcohol consumption. Smoking status: Never smoker Non-prescribed substance use: denies use Meds Home Medications and Allergies Home Medications ?Medication ?Instructions ?Recorded ?Confirmed ?Type diclofenac potassium 04/13/24 History empagliflozin 25 mg tablet 25 mg PO QAM 04/13/24 04/13/24 History (Jardiance) furosemide 20 mg tablet 20 mg PO DAILY 04/13/24 04/13/24 History glimepiride 4 mg tablet 4 mg PO DAILY 04/13/24 04/13/24 History levothyroxine 125 mcg capsule 125 mcg PO DAILY 04/13/24 04/13/24 History levothyroxine 137 mcg tablet 137 mcg PO DAILY 04/13/24 04/13/24 History (Euthyrox) metformin 500 mg tablet,extended 500 mg PO DAILY 04/13/24 04/13/24 History release 24 hr metoprolol tartrate 50 mg tablet 25 mg PO DAILY 04/13/24 04/13/24 History pantoprazole 40 mg tablet,delayed 40 mg PO DAILY 04/13/24 04/13/24 History release (Protonix) sitagliptin phosphate 100 mg 100 mg PO DAILY 04/13/24 04/13/24 History tablet (Januvia) Allergies Allergy/AdvReac Type Severity Reaction Status Date / Time penicillamine Allergy Intermediate Rash Verified 04/13/24 13:46 Exam Narrative Exam Narrative: Nazario Reza MD personally performed the services described in this documentation, as scribed by Ramírez Driver RN in my presence and it is both accurate and complete. Ramírez Reza RN, am scribing for, and in the presence of, Dr. Nazario Perez and in the presence of the patient. Constitutional Documenting provider has reviewed patient's vital signs: yes Common normals: oriented x3 Nutritional appearance: overweight Cardio Peripheral pulses: posterior tibial pulses present and dorsalis pedis pulses present Extremity Common normals: normal capillary refill General: edema Right lower extremity: lower leg Right lower leg: inspection and palpation Left lower extremity: lower leg Left lower leg: inspection and palpation Neuro Common normals: oriented x3 Assessment and Plan Assessment and Plan (1) Varicose veins of bilateral lower extremities with pain: Plan f/u evaluation with physician along with right leg limited u/s Nazario Reza MD personally performed the services described in this documentation, as scribed by Ramírez Driver RN in my presence and it is both accurate and complete. Ramírez Reza RN, am scribing for, and in the presence of, Dr. Nazario Perez and in the presence of the patient. Procedures Procedure Instructions Procedures Plan of care: Risks and benefits of the procedure were discussed at length and informed written consent was obtained.? Time-out completed for verification of correct patient, procedure and site.? Staff present during time-out: Ramírez Driver RN,? Kezia Hernandez [facility]. Time Out Time__0836 Patient prepped and procedure performed in usual sterile fashion. Risk of injury related to use of Diode laser and/or laser devices__CR___ ? Serial number of laser used :? [id number] Control panel self test performed, electrical cords in good condition, floor is dry, basin of water available, fire extinguisher in close proximity_CR__ Polycarbonate goggles available and Laser warning signs outside of doors___CR__ Eye protection provided to patient and staff in room_CR___ Use of laser retardant drapes and dull blackened instruments as directed__CR___ Use of nonflammable prep solutions and use of saline soaked sponges to protect tissues as indicated _CR___ Length __58 cm Laser operated by __Dr. Perez Physician verbal confirmation laser locked in place__CR__ Laser start time (date and time) _06/25/2024@__0852 Laser stop time(date and time) __06/25/2024@_0859 Alvarez _8.0___ Average laser use ___3076____Joules Average laser use___385 seconds Pulse continuous ___CR_? Pulse intermittent ___ Amount of Tumescent used __250cc____ Evaluated patient for signs and symptoms of electrical injury __CR___ ? Skin clear at insertion site __CR___ Patient tolerated procedure well.? right leg Coban dressing applied to access site.? Applied right thigh high leg compression stocking. Will return on 07/01/2024 for right leg limited venous ultrasound and exam. I, Nazario Perez MD personally performed the services described in this documentation, as scribed by Ramírez Driver RN in my presence and it is both accurate and complete. I, Ramírez Driver RN, am scribing for, and in the presence of, Dr. Nazario Perez and in the presence of the patient.
--- NOTE | 2024-06-25 13:22 | P.DS_ITS ---
Discharge Plan Discharge Disposition: Home, Self-Care Outpatient Diagnostics: VC Facility EST LMTD (Routine) Timeframe: 2 Weeks Facility: [facility] - Location: [facility]in Center Ordered By: Nazario Perez VC EXT Venous RT LMTD (Routine) Timeframe: 2 Weeks Facility: [facility] - Location: Vein Center Ordered By: Nazario Perez Follow Up Appointments: 07/01/2024 Plan of Treatment: f/u evaluation with physician along with right leg limited u/s Patient Instructions: Endovenous Ablation (DC) Print Language: Yoruba Discharge Date/Time: 06/26/24 08:33
--- NOTE | 2024-06-26 07:59 | VEIN_ITS ---
The [address] [address] Patient Name: QUINN AGUILAR MRN: [id number] date: 1970 Sex: F Assigned Patient Location: Current Patient Location: Accession/Order Number: [id number] Exam Date: 06/26/2024 08:08 Report Date: 06/26/2024 09:38 At the request of: YULIANA RANDALL Procedure: VC Endovenous Ablation 1VeinRT EXAMINATION: VC Endovenous Ablation 1VeinRT HISTORY: I83.813 - Varicose veins of bilateral lower extremities w... The risks and benefits of the procedure had been previously discussed, and were rediscussed at length. Informed written consent was obtained. Ramírez Driver RN and Kezia Leonard RDMS assisted. Time out procedure was performed. The right lower extremity was prepared and draped in the usual sterile fashion to allow knee flexion in the sterile field. Duplex ultrasound probe was draped in a sterile cover, sterile transmission gel was used. Venous mapping was performed with the areas of dilation and large tributaries marked. The total length was 58 cm from the entry 3 cm above the ankle to 3 cm below the Saphenofemoral junction. The diameter of the right great saphenous vein ranged from 8.9 mm. A 30 gauge needle and 1% buffered lidocaine was used to anesthetize the entry site. A 4 mm incision was made with a scalpel and the saphenous vein was entered percutaneously under direct ultrasound guidance with a micropuncture set, a single stick was successful in gaining access. A micro-guide wire was inserted and the needle removed. A micro-set including a dilator was inserted over the microwire and the needle and dilator were removed. A guide wire was inserted through the micro-set and guided through the saphenous vein to the saphenofemoral junction. The dilator was removed and an introducer sheath was inserted over the wire until the end of the sheath entered the saphenofemoral junction. The dilator and wire were removed and the 600 micron fiber was introduced and placed and positioned so that it extended beyond the sheath and was 3 cm distal to the saphenofemoral or saphenopopliteal junction. Final position of the fiber was determined by ultrasound guidance and duplex imaging. Tumescent anesthetic was delivered by ultrasound guidance. 250 cc of fluid was delivered along the entire course of the saphenous vein. The solution consisted of 1000 cc of normal saline with 40 mL of 1% lidocaine and 20 mL of sodium bicarbonate. A final positioning check was made. The energy source was turned on by means of the foot pedal and the fiber and sheath were withdrawn. The total number of Joules delivered was 3076. The laser was active for 385 seconds under continuous pulse, average laser use of 8 J. Laser start time: 8:52 AM Laser stop time: 8:59 AM Date: 06/26/2024. A duplex ultrasound revealed compressibility and flow at the saphenofemoral junction immediately after the procedure. Hemostasis at the access site was achieved. The skin incision of the saphenous vein was closed with a 4 x 4. A compression stocking was applied. Postop instructions were given. A follow up appointment was recommended and scheduled. The patient tolerated the procedure well. Electronically authenticated by: RAMESH GEORGE Date: 06/26/2024 09:38
[2024-06-26] MEDS: LIDOCAINE HCL 1% 100 MG/10 ML MDV INJ (08:00)
--- OUTSIDE RECORDS SUMMARY | 2024-06-26 08:00 | XMS_ITS | CCD ---
Author Organization [facility] Care Team Providers Care Mental Health Professional Name Role Phone PHYSICIAN, DEFAULT Unavailable Unavailable [...] Acetaminophen / oxyCODONE Drug Allergy 10-19-2016 [facility] Repository (1 source) Penicillins Drug allergy (disorder) 01-09-2013 [facility] Repository Problems Active Problems Problem Classification [...] : DR SEFERINO MENDOZA . Admission #: [id number] Family : Order #: [id number] CLICK HERE TO VIEW EXAM RADIOLOGY REPORT [...] Treatments None Family Cancers None LOCATION: [facility] BREAST COMPOSITION: Scattered areas fibroglandular density. [...] M.D. on 01/30/2023 at 13:47 Normal [facility] INSULINon 01-08-2023 Insulin 11.3 uIU/mL Normal 2.6-24.9 [facility] Comment on above: Performed By: #### C VDTBH #### [facility] [address] [address] [address] Dona Turner CBC AUTO DIFFon 01-07-2023 BASO # 0.1 103/ul Normal 0.0-0.1 [facility] Comment on above: Performed By: #### C VDTBH #### [facility] [address] [address] [address] Dona Turner Basophils/100 WBC (Bld) 1.2 % Normal 0.2-2.0 [facility] Comment on above: Performed By: #### C VDTBH #### [facility] [address] [place] [address] Dr. Dona Turner EO # 0.1 103/ul Normal 0.0-0.7 [facility] Comment on above: Performed By: #### C VDTBH #### [facility] [address] [place] [address] Dr. Dona Turner Eosinophils/100 WBC (Bld) 2.0 % Normal 0.9-7.0 [facility] Comment on above: Performed By: #### C VDTBH #### [facility] [address] [place] [address] Dr. Dona Turner Erythrocyte distribution width (RBC) [Ratio] 14.5 % Normal 11.0-15.0 [facility] Comment on above: Performed By: #### C VDTBH #### [facility] [address] [place] [address] Dr. Dona Turner Hematocrit (Bld) [Volume fraction] 45.1 % Normal 36.0-48.0 [facility] Comment on above: Performed By: #### C VDTBH #### [facility] [address] [place] [address] Dr. Dona Turner Hemoglobin (Bld) [Mass/Vol] 14.1 g/dL Normal 12.0-16.0 [facility] Comment on above: Performed By: #### C VDTBH #### [facility] [address] [place] [address] Dr. Dona Turner IG # 0.02 10e3/ul Normal 0.00-0.03 [facility] Comment on above: Performed By: #### C VDTBH #### [facility] [address] [place] [address] Dr. Dona Turner IG % 0.4 % Normal 0.0-0.5 [facility] Comment on above: Performed By: #### C VDTBH #### [facility] [address] [place] [address] Dr. Dona Turner LYMPH # 1.3 103/ul Normal 1.2-3.8 [facility] Comment on above: Performed By: #### C VDTBH #### [facility] [address] [place] [address] Dr. Dona Turner Lymphocytes/100 WBC (Bld) 26.4 % Normal 20.5-60.0 [facility] Comment on above: Performed By: #### C VDTBH #### [facility] [address] [place] [address] Dr. Dona Turner MANUAL DIFF REQ NO Normal [facility] Comment on above: Performed By: #### C VDTBH #### [facility] [address] [place] [address] Dr. Dona Turner MCH (RBC) [Entitic mass] 25.0 pg Critically low 26.7-34.0 [facility] Comment on above: Performed By: #### C VDTBH #### [facility] [address] [place] [address] Dr. Dona Turner MCHC (RBC) [Mass/Vol] 31.3 g/dL Normal 29.9-35.2 [facility] Comment on above: Performed By: #### C VDTBH #### [facility] [address] [place] [address] Dr. Dona Turner MCV (RBC) [Entitic vol] 80.0 fL Critically low 81.0-99.0 [facility] Comment on above: Performed By: #### C VDTBH #### [facility] [address] [place] [address] Dr. Dona Turner MONO # 0.4 103/ul Normal 0.3-0.8 [facility] Comment on above: Performed By: #### C VDTBH #### [facility] [address] [place] [address] Dr. Dona Turner Monocytes/100 WBC (Bld) 7.7 % Normal 1.7-12.0 [facility] Comment on above: Performed By: #### C VDTBH #### [facility] [address] [place] [address] Dr. Dona Turner NEUT # 3.1 103/ul Normal 1.4-6.5 [facility] Comment on above: Performed By: #### C VDTBH #### [facility] [address] [place] [address] Dr. Dona Turner Neutrophils/100 WBC (Bld) 62.3 % Normal 43.0-75.0 [facility] Comment on above: Performed By: #### C VDTBH #### [facility] [address] [place] [address] Dr. Dona Turner Platelet mean volume (Bld) [Entitic vol] 10.7 fL Normal 9.5-13.5 [facility] Comment on above: Performed By: #### C VDTBH #### [facility] [address] [place] [address] Dr. Dnoa Turner PLT 257 103/ul Normal 150-450 [facility] Comment on above: Performed By: #### C VDTBH #### [facility] [address] [place] [address] Dr. Dona Turner RBC 5.64 106/ul Critically high 4.20-5.40 [facility] Comment on above: Performed By: #### C VDTBH #### [facility] [address] [place] [address] Dr. Dona Turner WBC 5.0 103/ul Normal 4.0-11.0 [facility] Comment on above: Performed By: #### C VDTBH #### [facility] [address] [place] [address] Dr. Dona Turner FREE THYROXINE INDEX T7on FTI 3.78 Normal 1.30-4.50 [facility] Comment on above: Performed By: #### L IPID, TSH, T7, CMP #### [facility] [address] [place] [address] Dr. Dona Turner T3U 35.0 % Normal 30.0-39.0 [facility] Comment on above: Performed By: #### L IPID, TSH, T7, CMP #### [facility] [address] [place] [address] Dr. Dona Turner T4 [Mass/Vol] 10.80 ug/dL Normal 4.80-13.90 [facility] Comment on above: Performed By: #### L IPID, TSH, T7, CMP #### [facility] [address] [address] [address] oDna Turner GLYCOHEMOGLOBIN A1Con 2022 ADA RECOMMENDATION SEE BELOW Normal [facility] Comment on above: Result Comment: ADA RECOMMENDED LIMIT 4.0 - 6.0 ADA THERAPEUTIC TARGET < 7.0 ACTION SUGGESTED > 7.0 Performed By: #### C VDTBH #### [facility] [address] [address] [address] Dona Turner Glucose [Mass/Vol] 160 mg/dL Normal [facility] Comment on above: Performed By: #### C VDTBH #### [facility] [address] [place] [address] Dr. Dona Turner HbA1c (Bld) [Mass fraction] 7.2 % Critically high 4.5-6.2 [facility] Comment on above: Performed By: #### C VDTBH #### [facility] [address] [address] [address] Dona Turner IRONon 01-07-2023 Iron [Mass/Vol] 50.0 ug/dL Normal 50.0-170.0 [facility] Comment on above: Performed By: #### I NSULIN #### [facility] [address] [place] [address] Dr. Dona Turner LIPID PROFILEon 01-07-2023 CHOL-HDL RATIO NORM SEE BELOW Normal [facility] Comment on above: Result Comment: 3.3 - 4.4 LOW RISK 4.4 - 7.1 AVERAGE RISK 7.1 - 11.0 MODERATE RISK >11.0 HIGH RISK Performed By: #### L IPID, TSH, T7, CMP #### [facility] [address] [address] [address] Dona Turner Cholesterol [Mass/Vol] 162 mg/dL Normal <=200 [facility] Comment on above: Performed By: #### L IPID, TSH, T7, CMP #### [facility] [address] [address] [address] Dona Turner Cholesterol in HDL [Mass/Vol] 33 mg/dL Critically low 40-60 [facility] Comment on above: Performed By: #### L IPID, TSH, T7, CMP #### [facility] [address] [address] [address] Dona Turner Cholesterol in LDL [Mass/Vol] 100.4 mg/dL Normal [facility] Comment on above: Performed By: #### L IPID, TSH, T7, CMP #### [facility] [address] [address] [address] Dona Turner Cholesterol.total/Chol esterol in HDL [Mass ratio] 4.9 {ratio} Normal [facility] Comment on above: Performed By: #### L IPID, TSH, T7, CMP #### [facility] [address] [address] [address] Dona Turner HDL NORMAL > or = 60 mg/dl - LOW CARDIOVASCULAR RISK <40 mg/dl - HIGH CARDIOVASCULAR RISK Normal [facility] Comment on above: Performed By: #### L IPID, TSH, T7, CMP #### [facility] [address] [address] [address] Dona Turner LDL CALC NORMAL SEE BELOW Normal [facility] Comment on above: Result Comment: <100 mg/dl OPTIMAL 100 - 129 mg/dl NEAR OR ABOVE OPTIMAL 130 - 159 mg/dl BORDERLINE HIGH 160 - 189 mg/dl HIGH >190 mg/dl VERY HIGH Performed By: #### L IPID, TSH, T7, CMP #### [facility] [address] [address] [address] Dona Turner Triglyceride [Mass/Vol] 143 mg/dL Normal <=150 [facility] Comment on above: Performed By: #### L IPID, TSH, T7, CMP #### [facility] [address] [address] [address] Dona Turner VLDL CALC 28.6 mg/dL Normal [facility] Comment on above: Performed By: #### L IPID, TSH, T7, CMP #### [facility] [address] [place] [address] Dr. Dona Turner PROF 14(COMP METB)on 023 Albumin [Mass/Vol] 3.8 g/dL Normal 3.4-5.0 [facility] Comment on above: Performed By: #### L IPID, TSH, T7, CMP #### [facility] [address] [place] [address] Dr. Dona Turner Albumin/Globulin [Mass ratio] 1.0 {ratio} Normal [facility] Comment on above: Performed By: #### L IPID, TSH, T7, CMP #### [facility] [address] [place] [address] Dr. Dona Turner ALP [Catalytic activity/Vol] 59 U/L Normal 46-116 [facility] Comment on above: Performed By: #### L IPID, TSH, T7, CMP #### [facility] [address] [place] [address] Dr. Dona Turner ALT [Catalytic activity/Vol] 43 U/L Normal 14-59 [facility] Comment on above: Performed By: #### L IPID, TSH, T7, CMP #### [facility] [address] [place] [address] Dr. Dona Turner Anion gap [Moles/Vol] 11.5 mmol/L Normal [facility] Comment on above: Performed By: #### L IPID, TSH, T7, CMP #### [facility] [address] [place] [address] Dr. Dona Turner AST [Catalytic activity/Vol] 19 U/L Normal 15-37 [facility] Comment on above: Performed By: #### L IPID, TSH, T7, CMP #### [facility] [address] [place] [address] Dr. Dona Turner Bilirubin [Mass/Vol] 0.4 mg/dL Normal 0.2-1.0 [facility] Comment on above: Performed By: #### L IPID, TSH, T7, CMP #### [facility] [address] [place] [address] Dr. Dona Turner Calcium [Mass/Vol] 9.1 mg/dL Normal 8.5-10.1 [facility] Comment on above: Performed By: #### L IPID, TSH, T7, CMP #### [facility] [address] [place] [address] Dr. Dona Turner Chloride [Moles/Vol] 107 mmol/L Normal 98-107 [facility] Comment on above: Performed By: #### L IPID, TSH, T7, CMP #### [facility] [address] [place] [address] Dr. Dona Turner CO2 [Moles/Vol] 28.5 mmol/L Normal 21.0-32.0 [facility] Comment on above: Performed By: #### L IPID, TSH, T7, CMP #### [facility] [address] [place] [address] Dr. Dona Turner Creatinine [Mass/Vol] 0.66 mg/dL Normal 0.55-1.02 [facility] Comment on above: Performed By: #### L IPID, TSH, T7, CMP #### [facility] [address] [place] [address] Dr. Dona Turner EGFR-AF UGANDAN >60 Normal >=60 [facility] Comment on above: Performed By: #### L IPID, TSH, T7, CMP #### [facility] [address] [place] [address] Dr. Dona Turner EGFR-NON AF UGANDAN >60 Normal >=60 [facility] Comment on above: Performed By: #### L IPID, TSH, T7, CMP #### [facility] [address] [place] [address] Dr. Dona Turner Globulin (S) [Mass/Vol] 3.8 g/dL Normal [facility] Comment on above: Performed By: #### L IPID, TSH, T7, CMP #### [facility] [address] [place] [address] Dr. Dona Turner Glucose [Mass/Vol] 112 mg/dL Critically high 74-106 [facility] Comment on above: Performed By: #### L IPID, TSH, T7, CMP #### [facility] [address] [place] [address] Dr. Dona Turner Potassium [Moles/Vol] 4.0 mmol/L Normal 3.5-5.1 [facility] Comment on above: Performed By: #### L IPID, TSH, T7, CMP #### [facility] [address] [place] [address] Dr. Dona Turner Protein [Mass/Vol] 7.6 g/dL Normal 6.4-8.2 [facility] Comment on above: Performed By: #### L IPID, TSH, T7, CMP #### [facility] [address] [place] [address] Dr. Dona Turner Sodium [Moles/Vol] 143 mmol/L Normal 136-145 [facility] Comment on above: Performed By: #### L IPID, TSH, T7, CMP #### [facility] [address] [place] [address] Dr. Dona Turner Urea nitrogen [Mass/Vol] 11.0 mg/dL Normal 7.0-18.0 [facility] Comment on above: Performed By: #### L IPID, TSH, T7, CMP #### [facility] [address] [place] [address] Dr. Dona Turner Urea nitrogen/Creatinine [Mass ratio] 16.7 mg/mg Normal [facility] Comment on above: Performed By: #### L IPID, TSH, T7, CMP #### [facility] [address] [place] [address] Dr. Dona Turner TSHon 01-07-2023 TSH 0.350 uIU/mL Critically low 0.358-3.740 [facility] Comment on above: Performed By: #### L IPID, TSH, T7, CMP #### [facility] [address] [place] [address] Dr. Dona Turner VITAMIN D 25 OHon 01-07-2023 VIT D 25-OH 52.4 ng/mL Normal [facility] Comment on above: Performed By: #### I NSULIN #### [facility] [address] [address] [address] Dona Turner VIT D RANGES SEE BELOW Normal [facility] Comment on above: Result Comment: <20 ng/mL Vit D deficient 20 - <30 ng/mL Vit D insufficient 30 - 100 ng/mL Vit D sufficient >100 ng/mL Potential Toxicity Performed By: #### I NSULIN #### [facility] [address] [address] [address] Dona Turner LIPID PROFILEon 10-13-2022 CHOL-HDL RATIO NORM SEE BELOW Normal [facility] Comment on above: Result Comment: 3.3 - 4.4 LOW RISK 4.4 - 7.1 AVERAGE RISK 7.1 - 11.0 MODERATE RISK >11.0 HIGH RISK Performed By: #### C VDTBH #### [facility] [address] [address] [address] Dona Turner Cholesterol [Mass/Vol] 136 mg/dL Normal <=200 [facility] Comment on above: Performed By: #### C VDTBH #### [facility] [address] [address] [address] Dona Turner Cholesterol in HDL [Mass/Vol] 33 mg/dL Critically low 40-60 [facility] Comment on above: Performed By: #### C VDTBH #### [facility] [address] [place] [address] Dr. Dona Turner Cholesterol in LDL [Mass/Vol] 76.4 mg/dL Normal [facility] Comment on above: Performed By: #### C VDTBH #### [facility] [address] [address] [address] Dona Turner Cholesterol.total/Chol esterol in HDL [Mass ratio] 4.1 {ratio} Normal [facility] Comment on above: Performed By: #### C VDTBH #### [facility] [address] [place] [address] Dr. Dona Turner HDL NORMAL > or = 60 mg/dl - LOW CARDIOVASCULAR RISK <40 mg/dl - HIGH CARDIOVASCULAR RISK Normal [facility] Comment on above: Performed By: #### C VDTBH #### [facility] [address] [address] [address] Dona Turner LDL CALC NORMAL SEE BELOW Normal [facility] Comment on above: Result Comment: <100 mg/dl OPTIMAL 100 - 129 mg/dl NEAR OR ABOVE OPTIMAL 130 - 159 mg/dl BORDERLINE HIGH 160 - 189 mg/dl HIGH >190 mg/dl VERY HIGH Performed By: #### C VDTBH #### [facility] [address] [address] [address] Dona Turner Triglyceride [Mass/Vol] 133 mg/dL Normal <=150 [facility] Comment on above: Performed By: #### C VDTBH #### [facility] [address] [address] [address] Dona Turner VLDL CALC 26.6 mg/dL Normal [facility] Comment on above: Performed By: #### C VDTBH #### [facility] [address] [place] [address] Dr. Dona Turner LIVER PROFILEon 10-13-2022 Albumin [Mass/Vol] 3.6 g/dL Normal 3.4-5.0 [facility] Comment on above: Performed By: #### I NSULIN #### [facility] [address] [place] [address] Dr. Dona Turner Albumin/Globulin [Mass ratio] 1.1 {ratio} Normal [facility] Comment on above: Performed By: #### I NSULIN #### [facility] [address] [place] [address] Dr. Dona Turner ALP [Catalytic activity/Vol] 62 U/L Normal 46-116 [facility] Comment on above: Performed By: #### I NSULIN #### [facility] [address] [place] [address] Dr. Dona Turner ALT [Catalytic activity/Vol] 28 U/L Normal 14-59 [facility] Comment on above: Performed By: #### I NSULIN #### [facility] [address] [place] [address] Dr. Dona Turner AST [Catalytic activity/Vol] 16 U/L Normal 15-37 [facility] Comment on above: Performed By: #### I NSULIN #### [facility] [address] [address] [address] Dona Turner BILI, CONJUGATED 0.1 mg/dL Normal 0.0-0.2 [facility] Comment on above: Performed By: #### I NSULIN #### [facility] [address] [address] [address] Dona Turner Bilirubin [Mass/Vol] 0.5 mg/dL Normal 0.2-1.0 [facility] Comment on above: Performed By: #### I NSULIN #### [facility] [address] [address] [address] Dona Turner Globulin (S) [Mass/Vol] 3.4 g/dL Normal [facility] Comment on above: Performed By: #### I NSULIN #### [facility] [address] [place] [address] Dr. Dona Turner Protein [Mass/Vol] 7.0 g/dL Normal 6.4-8.2 [facility] Comment on above: Performed By: #### I NSULIN #### [facility] [address] [place] [address] Dr. Dona Turner BETH by IFAon 07-19-2022 Antinuclear Antibodies, IFA Negative Normal [facility] Comment on above: Result Comment: Nega tive <1:80 Borderline 1:80 Positive >1:80 ICAP nomenclature: AC-0 For more information about Hep-2 cell patterns use ANApatterns.org, the official website for the International Consensus on Antinuclear Antibody (BETH) Patterns (ICAP). Performed By: #### A NAIFA #### [facility] [address] [place] [address] Dr. Dona Turner ANTISTREPTOLYSIN O AB (ASO)o n 07-14-2022 Antistreptolysin O Ab 25.3 IU/mL Normal 0.0-200.0 [facility] Comment on above: Performed By: #### I NSULIN #### [facility] [address] [address] [address] Dona Turner RHEUMATOID FACTORon 07-14-20 RA Latex Turbid. 19.2 IU/mL Critically high <14.0 [facility] Comment on above: Performed By: #### L IPID, TSH, T7, CMP #### [facility] [address] [place] [address] Dr. Dona Turner CBC AUTO DIFFon 07-13-2022 BASO # 0.1 103/ul Normal 0.0-0.1 [facility] Comment on above: Performed By: #### C VDTBH #### [facility] [address] [place] [address] Dr. Dona Turner Basophils/100 WBC (Bld) 0.8 % Normal 0.2-2.0 [facility] Comment on above: Performed By: #### C VDTBH #### [facility] [address] [place] [address] Dr. Dona Turner EO # 0.1 103/ul Normal 0.0-0.7 [facility] Comment on above: Performed By: #### C VDTBH #### [facility] [address] [place] [address] Dr. Dona Turner Eosinophils/100 WBC (Bld) 1.0 % Normal 0.9-7.0 [facility] Comment on above: Performed By: #### C VDTBH #### [facility] [address] [place] [address] Dr. Dona Turner Erythrocyte distribution width (RBC) [Ratio] 14.3 % Normal 11.0-15.0 [facility] Comment on above: Performed By: #### C VDTBH #### [facility] [address] [place] [address] Dr. Dona Turner Hematocrit (Bld) [Volume fraction] 44.8 % Normal 36.0-48.0 [facility] Comment on above: Performed By: #### C VDTBH #### [facility] [address] [place] [address] Dr. Dona Turner Hemoglobin (Bld) [Mass/Vol] 14.4 g/dL Normal 12.0-16.0 [facility] Comment on above: Performed By: #### C VDTBH #### [facility] [address] [place] [address] Dr. Dona Turner IG # 0.03 10e3/ul Normal 0.00-0.03 [facility] Comment on above: Performed By: #### C VDTBH #### [facility] [address] [place] [address] Dr. Dona Turner IG % 0.3 % Normal 0.0-0.5 [facility] Comment on above: Performed By: #### C VDTBH #### [facility] [address] [place] [address] Dr. Dona Turner LYMPH # 1.9 103/ul Normal 1.2-3.8 [facility] Comment on above: Performed By: #### C VDTBH #### [facility] [address] [place] [address] Dr. Dona Turner Lymphocytes/100 WBC (Bld) 20.8 % Normal 20.5-60.0 [facility] Comment on above: Performed By: #### C VDTBH #### [facility] [address] [place] [address] Dr. Dona Turner MANUAL DIFF REQ NO Normal [facility] Comment on above: Performed By: #### C VDTBH #### [facility] [address] [place] [address] Dr. Dona Turner MCH (RBC) [Entitic mass] 25.5 pg Critically low 26.7-34.0 [facility] Comment on above: Performed By: #### C VDTBH #### [facility] [address] [place] [address] Dr. Dona Turner MCHC (RBC) [Mass/Vol] 32.1 g/dL Normal 29.9-35.2 [facility] Comment on above: Performed By: #### C VDTBH #### [facility] [address] [place] [address] Dr. Dona Turner MCV (RBC) [Entitic vol] 79.3 fL Critically low 81.0-99.0 [facility] Comment on above: Performed By: #### C VDTBH #### [facility] [address] [address] [address] Dona Turner MONO # 0.8 103/ul Normal 0.3-0.8 [facility] Comment on above: Performed By: #### C VDTBH #### [facility] [address] [place] [address] Dr. Dona Turner Monocytes/100 WBC (Bld) 8.5 % Normal 1.7-12.0 [facility] Comment on above: Performed By: #### C VDTBH #### [facility] [address] [place] [address] Dr. Dona Turner NEUT # 6.4 103/ul Normal 1.4-6.5 [facility] Comment on above: Performed By: #### C VDTBH #### [facility] [address] [place] [address] Dr. Dona Turner Neutrophils/100 WBC (Bld) 68.6 % Normal 43.0-75.0 [facility] Comment on above: Performed By: #### C VDTBH #### [facility] [address] [place] [address] Dr. Dona Turner Platelet mean volume (Bld) [Entitic vol] 10.5 fL Normal 9.5-13.5 [facility] Comment on above: Performed By: #### C VDTBH #### [facility] [address] [place] [address] Dr. Dona Turner PLT 290 103/ul Normal 150-450 [facility] Comment on above: Performed By: #### C VDTBH #### [facility] [address] [place] [address] Dr. Dona Turner RBC 5.65 106/ul Critically high 4.20-5.40 [facility] Comment on above: Performed By: #### C VDTBH #### [facility] [address] [place] [address] Dr. Dona Turner WBC 9.3 103/ul Normal 4.0-11.0 [facility] Comment on above: Performed By: #### C VDTBH #### [facility] [address] [place] [address] Dr. Dona Turner CRPon 07-13-2022 CRP [Mass/Vol] mg/L Normal <=1.0 [facility] Comment on above: Performed By: #### I NSULIN #### [facility] [address] [place] [address] Dr. Dona Turner SED RATE WESTERGRENon 2021 SED RATE 47 mm/hr Critically high <=30 [facility] Comment on above: Performed By: #### S EDR #### [facility] [address] [place] [address] Dr. Dona Turner URIC ACID SERUMon 07-13-2022 Urate [Mass/Vol] 3.2 mg/dL Normal 2.6-6.0 [facility] Comment on above: Performed By: #### I NSULIN #### [facility] [address] [place] [address] Dr. Dona Turner INSULINon 07-10-2022 Insulin 11.5 uIU/mL Normal 2.6-24.9 [facility] Comment on above: Performed By: #### I NSULIN #### [facility] [address] [place] [address] Dr. Dona Turner CBC AUTO DIFFon 07-09-2022 BASO # 0.1 103/ul Normal 0.0-0.1 [facility] Comment on above: Performed By: #### C BC #### [facility] [address] [place] [address] Dr. Dona Turner Basophils/100 WBC (Bld) 0.8 % Normal 0.2-2.0 [facility] Comment on above: Performed By: #### C BC #### [facility] [address] [place] [address] Dr. Dona Turner EO # 0.1 103/ul Normal 0.0-0.7 [facility] Comment on above: Performed By: #### C BC #### [facility] [address] [place] [address] Dr. Dona Turner Eosinophils/100 WBC (Bld) 0.7 % Critically low 0.9-7.0 [facility] Comment on above: Performed By: #### C BC #### [facility] [address] [place] [address] Dr. Dona Turner Erythrocyte distribution width (RBC) [Ratio] 14.5 % Normal 11.0-15.0 [facility] Comment on above: Performed By: #### C BC #### [facility] [address] [place] [address] Dr. Dona Turner Hematocrit (Bld) [Volume fraction] 44.7 % Normal 36.0-48.0 [facility] Comment on above: Performed By: #### C BC #### [facility] [address] [place] [address] Dr. Dona Turner Hemoglobin (Bld) [Mass/Vol] 14.5 g/dL Normal 12.0-16.0 [facility] Comment on above: Performed By: #### C BC #### [facility] [address] [place] [address] Dr. Dona Turner IG # 0.04 10e3/ul Critically high 0.00-0.03 [facility] Comment on above: Performed By: #### C BC #### [facility] [address] [place] [address] Dr. Dona Turner IG % 0.4 % Normal 0.0-0.5 [facility] Comment on above: Performed By: #### C BC #### [facility] [address] [place] [address] Dr. Dona Turner LYMPH # 1.6 103/ul Normal 1.2-3.8 [facility] Comment on above: Performed By: #### C BC #### [facility] [address] [place] [address] Dr. Dona Turner Lymphocytes/100 WBC (Bld) 17.7 % Critically low 20.5-60.0 [facility] Comment on above: Performed By: #### C BC #### [facility] [address] [place] [address] Dr. Dona Turner MANUAL DIFF REQ NO Normal [facility] Comment on above: Performed By: #### C BC #### [facility] [address] [place] [address] Dr. Dona Turner MCH (RBC) [Entitic mass] 25.9 pg Critically low 26.7-34.0 [facility] Comment on above: Performed By: #### C BC #### [facility] [address] [place] [address] Dr. Dona Turner MCHC (RBC) [Mass/Vol] 32.4 g/dL Normal 29.9-35.2 [facility] Comment on above: Performed By: #### C BC #### [facility] [address] [place] [address] Dr. Dona Turner MCV (RBC) [Entitic vol] 79.8 fL Critically low 81.0-99.0 [facility] Comment on above: Performed By: #### C BC #### [facility] [address] [place] [address] Dr. Dona Turner MONO # 0.6 103/ul Normal 0.3-0.8 [facility] Comment on above: Performed By: #### C BC #### [facility] [address] [place] [address] Dr. Dona Turner Monocytes/100 WBC (Bld) 6.9 % Normal 1.7-12.0 [facility] Comment on above: Performed By: #### C BC #### [facility] [address] [place] [address] Dr. Dona Turner NEUT # 6.6 103/ul Critically high 1.4-6.5 [facility] Comment on above: Performed By: #### C BC #### [facility] [address] [place] [address] Dr. Dona Turner Neutrophils/100 WBC (Bld) 73.5 % Normal 43.0-75.0 [facility] Comment on above: Performed By: #### C BC #### [facility] [address] [place] [address] Dr. Dona Turner Platelet mean volume (Bld) [Entitic vol] 11.1 fL Normal 9.5-13.5 [facility] Comment on above: Performed By: #### C BC #### [facility] [address] [place] [address] Dr. Dona Turner PLT 256 103/ul Normal 150-450 [facility] Comment on above: Performed By: #### C BC #### [facility] [address] [place] [address] Dr. Dona Turner RBC 5.60 106/ul Critically high 4.20-5.40 [facility] Comment on above: Performed By: #### C BC #### [facility] [address] [place] [address] Dr. Dona Turner WBC 8.9 103/ul Normal 4.0-11.0 [facility] Comment on above: Performed By: #### C BC #### [facility] [address] [place] [address] Dr. Dona Turner FREE THYROXINE INDEX T7on FTI 3.66 Normal 1.30-4.50 [facility] Comment on above: Performed By: #### C VDTBH #### [facility] [address] [place] [address] Dr. Dona Turner T3U 37.0 % Normal 30.0-39.0 [facility] Comment on above: Performed By: #### C VDTBH #### [facility] [address] [place] [address] Dr. Dona Turner T4 [Mass/Vol] 9.90 ug/dL Normal 4.80-13.90 [facility] Comment on above: Performed By: #### C VDTBH #### [facility] [address] [place] [address] Dr. Dona Turner GLYCOHEMOGLOBIN A1Con 2021 ADA RECOMMENDATION SEE BELOW Normal [facility] Comment on above: Result Comment: ADA RECOMMENDED LIMIT 4.0 - 6.0 ADA THERAPEUTIC TARGET < 7.0 ACTION SUGGESTED > 7.0 Performed By: #### A 1C #### [facility] [address] [address] [address] Dona Turner Glucose [Mass/Vol] 183 mg/dL Normal [facility] Comment on above: Performed By: #### A 1C #### [facility] [address] [address] [address] Dona Turner HbA1c (Bld) [Mass fraction] 8.0 % Critically high 4.5-6.2 [facility] Comment on above: Performed By: #### A 1C #### [facility] [address] [address] [address] Dona Turner IRONon 07-09-2022 Iron [Mass/Vol] 56.0 ug/dL Normal 50.0-170.0 [facility] Comment on above: Performed By: #### I NSULIN #### [facility] [address] [place] [address] Dr. Dona Turner LIPID PROFILEon 07-09-2022 CHOL-HDL RATIO NORM SEE BELOW Normal [facility] Comment on above: Result Comment: 3.3 - 4.4 LOW RISK 4.4 - 7.1 AVERAGE RISK 7.1 - 11.0 MODERATE RISK >11.0 HIGH RISK Performed By: #### C VDTBH #### [facility] [address] [place] [address] Dr. Dona Turner Cholesterol [Mass/Vol] 228 mg/dL Critically high <=200 [facility] Comment on above: Performed By: #### C VDTBH #### [facility] [address] [place] [address] Dr. Dona Turner Cholesterol in HDL [Mass/Vol] 37 mg/dL Critically low 40-60 [facility] Comment on above: Performed By: #### C VDTBH #### [facility] [address] [place] [address] Dr. Dona Turner Cholesterol in LDL [Mass/Vol] 163.6 mg/dL Normal [facility] Comment on above: Performed By: #### C VDTBH #### [facility] [address] [place] [address] Dr. Dona Turner Cholesterol.total/Chol esterol in HDL [Mass ratio] 6.2 {ratio} Normal [facility] Comment on above: Performed By: #### C VDTBH #### [facility] [address] [place] [address] Dr. Dona Turner HDL NORMAL > or = 60 mg/dl - LOW CARDIOVASCULAR RISK <40 mg/dl - HIGH CARDIOVASCULAR RISK Normal [facility] Comment on above: Performed By: #### C VDTBH #### [facility] [address] [place] [address] Dr. Dona Turner LDL CALC NORMAL SEE BELOW Normal [facility] Comment on above: Result Comment: <100 mg/dl OPTIMAL 100 - 129 mg/dl NEAR OR ABOVE OPTIMAL 130 - 159 mg/dl BORDERLINE HIGH 160 - 189 mg/dl HIGH >190 mg/dl VERY HIGH Performed By: #### C VDTBH #### [facility] [address] [place] [address] Dr. Dona Turner Triglyceride [Mass/Vol] 137 mg/dL Normal <=150 [facility] Comment on above: Performed By: #### C VDTBH #### [facility] [address] [place] [address] Dr. Dona Turner VLDL CALC 27.4 mg/dL Normal [facility] Comment on above: Performed By: #### C VDTBH #### [facility] [address] [place] [address] Dr. Dona Turner PROF 14(COMP METB)on 022 Albumin [Mass/Vol] 3.8 g/dL Normal 3.4-5.0 [facility] Comment on above: Performed By: #### C VDTBH #### [facility] [address] [place] [address] Dr. Dona Turner Albumin/Globulin [Mass ratio] 1.0 {ratio} Normal [facility] Comment on above: Performed By: #### C VDTBH #### [facility] [address] [place] [address] Dr. Dona Turner ALP [Catalytic activity/Vol] 57 U/L Normal 46-116 [facility] Comment on above: Performed By: #### C VDTBH #### [facility] [address] [address] [address] Dona Turner ALT [Catalytic activity/Vol] 24 U/L Normal 14-59 [facility] Comment on above: Performed By: #### C VDTBH #### [facility] [address] [address] [address] Dona Turner Anion gap [Moles/Vol] 9.6 mmol/L Normal [facility] Comment on above: Performed By: #### C VDTBH #### [facility] [address] [address] [address] Dona Turner AST [Catalytic activity/Vol] 15 U/L Normal 15-37 [facility] Comment on above: Performed By: #### C VDTBH #### [facility] [address] [place] [address] Dr. Dona Turner Bilirubin [Mass/Vol] 0.5 mg/dL Normal 0.2-1.0 [facility] Comment on above: Performed By: #### C VDTBH #### [facility] [address] [place] [address] Dr. Dona Turner Calcium [Mass/Vol] 9.3 mg/dL Normal 8.5-10.1 [facility] Comment on above: Performed By: #### C VDTBH #### [facility] [address] [place] [address] Dr. Dona Turner Chloride [Moles/Vol] 103 mmol/L Normal 98-107 [facility] Comment on above: Performed By: #### C VDTBH #### [facility] [address] [address] [address] Dona Turner CO2 [Moles/Vol] 29.5 mmol/L Normal 21.0-32.0 [facility] Comment on above: Performed By: #### C VDTBH #### [facility] [address] [place] [address] Dr. Dona Turner Creatinine [Mass/Vol] 0.61 mg/dL Normal 0.55-1.02 [facility] Comment on above: Performed By: #### C VDTBH #### [facility] [address] [address] [address] Dona Turner EGFR-AF UGANDAN >60 Normal >=60 [facility] Comment on above: Performed By: #### C VDTBH #### [facility] [address] [address] [address] Dona Turner EGFR-NON AF UGANDAN >60 Normal >=60 [facility] Comment on above: Performed By: #### C VDTBH #### [facility] [address] [address] [address] Dona Turner Globulin (S) [Mass/Vol] 3.8 g/dL Normal [facility] Comment on above: Performed By: #### C VDTBH #### [facility] [address] [address] [address] Dona Turner Glucose [Mass/Vol] 104 mg/dL Normal 74-106 [facility] Comment on above: Performed By: #### C VDTBH #### [facility] [address] [address] [address] Dona Turner Potassium [Moles/Vol] 4.1 mmol/L Normal 3.5-5.1 [facility] Comment on above: Performed By: #### C VDTBH #### [facility] [address] [address] [address] Dona Turner Protein [Mass/Vol] 7.6 g/dL Normal 6.4-8.2 [facility] Comment on above: Performed By: #### C VDTBH #### [facility] [address] [address] [address] Dona Turner Sodium [Moles/Vol] 138 mmol/L Normal 136-145 [facility] Comment on above: Performed By: #### C VDTBH #### [facility] [address] [address] [address] Dona Turner Urea nitrogen [Mass/Vol] 14.0 mg/dL Normal 7.0-18.0 [facility] Comment on above: Performed By: #### C VDTBH #### [facility] [address] [place] [address] Dr. Dona Turner Urea nitrogen/Creatinine [Mass ratio] 23.0 mg/mg Normal [facility] Comment on above: Performed By: #### C VDTBH #### [facility] [address] [place] [address] Dr. Dona Turner TSHon 07-09-2022 TSH 0.324 uIU/mL Critically low 0.358-3.740 [facility] Comment on above: Performed By: #### C VDTBH #### [facility] [address] [place] [address] Dr. Dona Turner VITAMIN D 25 OHon 07-09-2022 VIT D 25-OH 52.6 ng/mL Normal [facility] Comment on above: Performed By: #### I NSULIN #### [facility] [address] [place] [address] Dr. Dona Turner VIT D RANGES SEE BELOW Normal [facility] Comment on above: Result Comment: <20 ng/mL Vit D deficient 20 - <30 ng/mL Vit D insufficient 30 - 100 ng/mL Vit D sufficient >100 ng/mL Potential Toxicity Performed By: #### I NSULIN #### [facility] [address] [place] [address] Dr. Dona Turner Covid-19 PCR ([facility])on 04-02 SARS-CoV-2 (COVID-19) RNA JEWEL+probe Ql (Unsp spec) Not detected Normal NOT DETECTED [facility] Comment on above: Result Comment: This test is not yet approved or cleared by the [place] FDA. When there are no FDA-approved or cleared tests available, and other criteria are met, FDA can make tests available under an emergency access mechanism called an Emergency Use Authorization (EUA). The EUA for this test is supported by the [employer] of Health and Human Service's (HHS's) declaration [...] SARS-CoV-2. Performed By: #### C [facility] #### [facility] [address] [address] [address] Dona Turner Coding Summary.on 09-12-2018 Coding Summary. CODING DATE: 09/12/2018 FINAL [facility] STATUS: Home (Routine DC) PAYOR: Loreto [...] Cuellar Date Saved: 09/12/2018 03:25 pm Normal [facility] Main OR Intraoperative Recor don 09-09-2018 Main OR Intraoperative Record IntraOp Document Type FTURO Summary Primary Physician: David ORTIZ MD Finalized Date/Time: 09/09/18 12:32:44 Pt. Name: QUINN AGUILAR/Sex: 1970 Female Med Rec #: [id number] Physician: David ORTIZ MD Financial #: [id number] Pt. Type: O Room/Bed: / Admit/Disch: 09/09/18 09:49:59 - Institution: Case Times FTURO Entry 1 Patient Times In Room 09/09/18 12:19:00 Out Room 09/09/18 12:33:00 Procedure Times Start 09/09/18 12:22:00 Stop 09/09/18 12:26:00 Anesthesia Times Last Modified By: GIUSEPPE Tijerina RN, Lou Ann 09/09/18 12:32:32 Case Attendance FTURO Entry 1 Entry 2 Entry 3 Case Attendee ANGEL SWANSON, David Lyon UTILITY PORTER, Alannah Tijerina RN, Pearl CHIN Role Performed Surgeon - Primary Scrub - Primary Margin Analyst - Primary Time In 09/09/18 12:20:00 09/09/18 [...] David ORTIZ MD, Verified (If Participants Lyon UTILITY PORTER, Alannah, Applicable) GIUSEPPE Tijerina RN, Lou Ann [...] Tijerina RN, Lou Ann 09/09/18 12:32 Normal [facility] Main OR Preoperative Recordo n 09-09-2018 Main OR Preoperative Record Holding Area Document Type FTURO Summary Primary Physician: David ORTIZ MD Finalized Date/Time: 09/09/18 12:22:07 Pt. Name: QUINN AGUILAR/Sex: 1970 Female Med Rec #: [id number] Physician: David ORTIZ MD Financial #: [id number] Pt. Type: O Room/Bed: / Admit/Disch: 09/09/18 [...] Complaints of Pain: No Skin Integrity Intact, [place], Warm, & Dry Vitals - EU Blood Pressure 141/78 Pulse 57 bpm Respirations 16 br/min SPO2 Additional None RN Reviewed Yes Specimens Collected Last Modified By: GIUSEPPE Tijerina RN, Lou Ann 09/09/18 12:22:05 Finalized By: GIUSEPPE Tijerina RN, Lou Ann Document Signatures Signed By: Racheal Bernabe 09/09/18 11:43 GIUSEPPE Tijerina RN, Lou Ann 09/09/18 12:22 Normal [facility] Operative Reporton Operative Report Patient: [...] urine. The Urethra was dilated to: 30 Cuban w/ sounds. Devices Implanted: None. Removal: Cystoscope is removed, The patient tolerated it well. Postoperative Information Discharge: Patient is discharged home with antibiotic coverage, Follow up arranged. she will do timed/double voids. try ditropan xl 10mgqd f/u 3 months with pvr bladder scan....?pessary. Normal [facility] Comment on above: Result Comment: [...] abnormal findings DR SEFERINO MENDOZA . [facility] Start: 07-13-2022 End: 07-14-[address] SEFERINO MENDOZA . Facility[facility] Start: 07-09-2022 End: 07-10-[address] SEFERINO MENDOZA . [facility] Start: 07-09-2022 End: 07-10-2022 Encounter for general adult medical examination without abnormal findings DR SEFERINO MENDOZA . Facility[facility] Start: 07-04-2022 End: 07-14-[address] SEFERINO MENDOZA . Facility[facility] Start: 07-03-2022 End: 07-04-[address] SEFERINO MENDOAZ . Facility:[facility] Start: 04-18-2022 End: 04-18-[address] SEFERINO MENDOZA . Facility[facility] Start: 01-29-2018 End: 01-30-2018 Ambulatory DEFAULT PHYSICIAN Facility:[facility] Payers Date Payer Category Payer Unknown [id number] 2.16.84 [id number] 1970 Unknown [id number] 2.16.84 [id number] 1970 Unknown [id number] 2.16.84 [id number] 1970 Unknown [id number] 2.16.84 [id number] 1970 Unknown [id number] 2.16.84 [id number] 1970 Unknown [id number] 2.16.84 [id number] 1970 Unknown [id number] 2.16.84 [id number] 1970 Unknown [id number] 2.16.84 [id number] 1961 Unknown [id number] Unknown Clinical Note 07-03-2022 Note Date & [...] authenticated by: NAZARIO PEREZ Date: 2022-07-03 10:07 [facility] Clinical Note 07-03-2022 Note Date & [...] authenticated by: NAZARIO PEREZ Date: 2022-07-03 10:07 [facility] Summary Purpose Family History No Family History Records FoundNo Family History Records FoundNo Family History Records Found Advance Directives No Advanced Directives Records FoundNo Advanced Directives Records FoundNo Advanced Directives Records Found Additional Source Comments INFORMATION SOURCE (unrecogn ized section and content) DATE CREATED AUTHOR 02/19/2018 [facility] DATE CREATED AUTHOR AUTHOR'S ORGANIZ ATION 05/23/2019 [facility] DATE CREATED AUTHOR AUTHOR'S ORGANIZ ATION 02/08/2023 [facility] FOR RECORDS PERTAINING TO PATIENTS WHO [...] BE BASED ON THE PRIMARY CLINICAL RECORDS. [facility] [facility]. provides no warranty or guarantee of the accuracy or completeness of information in this document.
[2024-06-26] MEDS: 0.9 % SODIUM CHLORIDE 500 ML, LIDOCAINE HCL 20 ML, SODIUM BICARBONATE 10 MEQ INJ (08:01)
[2024-06-26 08:11] VITALS: BP 122/64; PULSE 68; O2SAT 96
== END 2024-06-26 08:33 | disposition home or self-care (01) ==
LOC: VC 07:57
PROVIDERS: PCP Radiology Diagnostic Radiology; Visit Provider Radiology Diagnostic Radiology
DX: I83.813 Varicose veins of bilateral lower extremities with pain (principal)
CPT/HCPCS: 36478

== ENCOUNTER 2024-07-01 14:59 | Outpatient (OUT) | payer BC, SELFPAY ==
--- NOTE | 2024-07-01 15:07 | VEIN_ITS ---
Patient Name: QUINN AGUILAR MR#: [id number] : 1970 Exam Date: 07/01/2024 Ordering Doctor: DR RAMESH GEORGE M.D. RADIOLOGY REPORT PROCEDURE: [facility] EST [facility] - OFFICE VISIT FOLLOW UP [facility] PROGRESS NOTES: The patient reports improvement in leg symptoms. There has been interval reduction in varicosities. The patient has followed our recommendations to walk 20-30 minutes once or twice per day since the procedure. Physical exam demonstrates decrease in varicosities of the leg. Persistent varicosities are identified along the legs bilaterally. Review of the ultrasound performed the same day demonstrates occlusive thrombus extending throughout the treated vein(s), see separate report, consistent with a successful ablation. No thrombus extending into or beyond the saphenofemoral junction. The patient expressed a desire to proceed with treatment of remaining incompetent varicosities. The patient was informed that treatment was a process and would require several procedures/sessions. VEIN/[facility] EST TD IMPRESSION: 1. Successful ablation of the right great saphenous vein(s). 2. Persistent varicose veins and lower extremity symptoms. PLAN: 1. Microfoam chemical ablation of left leg incompetent branch saphenous varicosities. Nurse notes, history and physical were reviewed and confirmed, see attached forms. The nurse was present throughout the physical exam and consultation Dictated by: Ramesh George M.D. on 07/01/2024 at 16:10 Approved by: Ramesh George M.D. on 07/01/2024 at 16:11
--- NOTE | 2024-07-01 15:07 | VEIN_ITS ---
Patient Name: QUINN AGUILAR MR#: [id number] : 1970 Exam Date: 07/01/2024 Ordering Doctor: DR RAMESH PEREZ M.D. RADIOLOGY REPORT PROCEDURE: VC EXT VENOUS RT LMTD COMPARISON: None. INDICATIONS: I80.01 - Phlebitis and thrombophlebitis of superficial veins right leg TECHNIQUE: Lower extremity watt scale and Duplex Doppler evaluation of the deep venous system from the inguinal ligament through the calf veins. FINDINGS: REGION: Left lower extremity. THROMBI: Negative for DVT. Heat induced thrombus visualized 1.8cm from the SFJ. The heat induced thrombus extends from groin to distal calf. COMPRESSIBILITY: Non-compressible segments corresponding to thrombus FLOW: Areas of no flow corresponding to thrombus OTHER: CONCLUSION: 1. Successful post ablation occlusion of right great saphenous vein. Dictated by: Ramesh Perez M.D. on 07/01/2024 at 16:09 Approved by: Ramesh Perez M.D. on 07/01/2024 at 16:10
[2024-07-01 15:40] VITALS: BMI 36.3
--- NOTE | 2024-07-01 15:40 | VEINCLINIC_ITS ---
Vital Signs 07/01/24 15:40 Height 5 ft 2 in Weight 90 kg BMI 36.3 Varicose Veins Patient in today for follow up ultrasound post EVLT of right GSV Nazario Reza MD personally performed the services described in this documentation, as scribed by Dilia Lopez RVT, RDMS in my presence and it is both accurate and complete. Dilia Reza RVT, RDMS, am scribing for, and in the presence of, Dr. Nazario Perez and in the presence of the patient. thigh: bilateral (symptoms equal bilaterally), knee: bilateral, calf: bilateral, ankle: bilateral and hayward: bilateral aching, burning, cramping, dull, sharp and tender 8 2 years Worsened in recent months: Yes standing, sitting and walking analgesics (Tylenol), elevating extremities, compression stockings and exercise Reports muscle spasms of leg, fatigue, heaviness, limb pain, edema and leg edema History of lower extremity trauma: No Superficial thrombophlebitis: Yes Family history of varicose veins: yes Has patient had previous lower extremity venous surgery: No Patient has previously received the following treatment(s) for lower extremity varicose veins: Reports none Does patient have a history of : yes Does patient intend to have future pregnancies: no Has patient had lower extremity venous scan with relux testing: No Support hose used: Yes Problems walking or doing physical activity: Yes How does it affect you: awakens her from sleep, often has to stop and elevate feet/legs Do you walk much: Yes Do you stand much: Yes Review of Systems ROS Narrative Nazario Reza MD personally performed the services described in this documentation, as scribed by Dilia Lopez RVT, RDMS in my presence and it is both accurate and complete. Dilia Reza RVT, RDMS, am scribing for, and in the presence of, Dr. Nazario Perez and in the presence of the patient. 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 ?I80.01 - Phlebitis and thrombophlebitis of superficial vessels of right lower extremity (ICD-10) Phlebitis and thrombophlebitis of superficial vessels of left lower extremity ?I80.02 - Phlebitis and thrombophlebitis of superficial vessels of left lower extremity (ICD-10) Varicose veins of bilateral lower extremities with pain ?I83.813 - Varicose veins of bilateral lower extremities with pain (ICD-10) Carpal tunnel syndrome ?G56.00 - Carpal tunnel syndrome, unspecified upper limb (ICD-10) Edema ?R60.9 - Edema, unspecified (ICD-10) Hypercholesteremia ?E78.00 - Pure hypercholesterolemia, unspecified (ICD-10) Hypothyroid ?E03.9 - Hypothyroidism, unspecified (ICD-10) Diabetes ?E11.9 - Type 2 diabetes mellitus without complications (ICD-10) Hypertension ?I10 - Essential (primary) hypertension (ICD-10) Deep vein thrombosis ?I82.409 - Acute embolism and thrombosis of unspecified deep veins of unspecified lower extremity (ICD-10) Surgical History (Updated 06/26/24 @ 09:09 by Ramírez Driver) Status post laser ablation of incompetent vein ?Z98.890 - Other specified postprocedural states (ICD-10) Status post laser ablation of incompetent vein ?Z98.890 - Other specified postprocedural states (ICD-10) History of carpal tunnel surgery ?Z98.890 - Other specified postprocedural states (ICD-10) History of arthroscopy of left shoulder ?Z98.890 - Other specified postprocedural states (ICD-10) H/O: hysterectomy ?Z90.710 - Acquired absence of both cervix and uterus (ICD-10) Family History (Updated 04/13/24 @ 13:42 by Ramírez Driver) Mother Family history of diabetes mellitus Family history of hypertension Varicose veins of bilateral lower extremities with pain Social History (Updated 04/13/24 @ 13:43 by Ramírez Driver) Within the past year, how often did you have a drink containing alcohol: never Score interpretation: A score less than 3 is consistent with normal alcohol consumption. Smoking status: Never smoker Non-prescribed substance use: denies use Meds Home Medications and Allergies Home Medications ?Medication ?Instructions ?Recorded ?Confirmed ?Type diclofenac potassium 04/13/24 History empagliflozin 25 mg tablet 25 mg PO QAM 04/13/24 04/13/24 History (Jardiance) furosemide 20 mg tablet 20 mg PO DAILY 04/13/24 04/13/24 History glimepiride 4 mg tablet 4 mg PO DAILY 04/13/24 04/13/24 History levothyroxine 125 mcg capsule 125 mcg PO DAILY 04/13/24 04/13/24 History levothyroxine 137 mcg tablet 137 mcg PO DAILY 04/13/24 04/13/24 History (Euthyrox) metformin 500 mg tablet,extended 500 mg PO DAILY 04/13/24 04/13/24 History release 24 hr metoprolol tartrate 50 mg tablet 25 mg PO DAILY 04/13/24 04/13/24 History pantoprazole 40 mg tablet,delayed 40 mg PO DAILY 04/13/24 04/13/24 History release (Protonix) sitagliptin phosphate 100 mg 100 mg PO DAILY 04/13/24 04/13/24 History tablet (Januvia) Allergies Allergy/AdvReac Type Severity Reaction Status Date / Time penicillamine Allergy Intermediate Rash Verified 04/13/24 13:46 Exam Narrative Exam Narrative: INazario MD personally performed the services described in this documentation, as scribed by Dilia Lopez RVT, RDMS in my presence and it is both accurate and complete. Dilia Reza RVT, RDMS, am scribing for, and in the presence of, Dr. Nazario Perez and in the presence of the patient. Constitutional Documenting provider has reviewed patient's vital signs: yes Common normals: oriented x3 Nutritional appearance: overweight Cardio Peripheral pulses: posterior tibial pulses present and dorsalis pedis pulses present Extremity Common normals: normal capillary refill General: edema Right lower extremity: lower leg Right lower leg: inspection and palpation Left lower extremity: lower leg Left lower leg: inspection and palpation Neuro Common normals: oriented x3 Results Imaging Venous US: Radiologist's impression: The ultrasound demonstrates Heat induced thrombus visualized 1.8cm from the SFJ. The heat induced thrombus extends from groin to distal calf. Assessment and Plan Assessment and Plan (1) 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: Plan Patient in today for follow up ultrasound of lower extremity following treatment of EVLT of right leg GSV completed on 06/24/24. INazario MD personally performed the services described in this documentation, as scribed by Dilia Lopez RVT, RDMS in my presence and it is both accurate and complete. I, Dilia Lopez RVT, RDMS, am scribing for, and in the presence of, Dr. Nazario Perez and in the presence of the patient.
--- NOTE | 2024-07-01 15:43 | P.DS_ITS ---
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 Print Language: Sinhala Discharge Date/Time: 07/01/24 16:12
--- NOTE | 2024-07-01 15:43 | W.VEIN ---
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 Print Language: Malay Discharge Date/Time: 07/01/24 16:12
== END 2024-07-01 16:12 | disposition home or self-care (01) ==
PROVIDERS: PCP Radiology Diagnostic Radiology; Visit Provider Radiology Diagnostic Radiology
DX: I80.01 Phlebitis and thrombophlebitis of superficial vessels of right lower extremity (principal)
CPT/HCPCS: 93971; G0463

== ENCOUNTER 2024-07-10 07:53 | Outpatient (OUT) | payer BC, SELFPAY ==
--- NOTE | 2024-07-10 07:45 | VEINCLINIC_ITS ---
Vital Signs 07/10/24 08:43 BP 120/68 BP Location Left Brachial BP Position Sitting BP Cuff Size Adult BP Source Manual Cuff Respiration 18 Pulse 72 Pulse Source Monitor Pulse Oximetry (%) 98 Oxygen Delivery Method Room Air Comment The patient's blood pressure is elevated. Varicose Veins Patient in today for varithena/microfoam chemical ablation left leg. Nazario Reza MD personally performed the services described in this documentation, as scribed by Yoli Alegria RN in my presence and it is both accurate and complete. Yoli Reza RN, am scribing for, and in the presence of, Dr. Nazario Perez and in the presence of the patient. thigh: bilateral (symptoms equal bilaterally), knee: bilateral, calf: bilateral, ankle: bilateral and hayward: bilateral aching, burning, cramping, dull, sharp and tender 8 2 years Worsened in recent months: Yes standing, sitting and walking analgesics (Tylenol), elevating extremities, compression stockings and exercise Reports muscle spasms of leg, fatigue, heaviness, limb pain, edema and leg edema History of lower extremity trauma: No Superficial thrombophlebitis: Yes Family history of varicose veins: yes Has patient had previous lower extremity venous surgery: No Patient has previously received the following treatment(s) for lower extremity varicose veins: Reports none Does patient have a history of : yes Does patient intend to have future pregnancies: no Has patient had lower extremity venous scan with relux testing: No Support hose used: Yes Problems walking or doing physical activity: Yes How does it affect you: awakens her from sleep, often has to stop and elevate feet/legs Do you walk much: Yes Do you stand much: Yes Review of Systems ROS Narrative Nazario Reza MD personally performed the services described in this documentation, as scribed by Yoli Alegria RN in my presence and it is both acc urate and complete. Yoli Reza RN, am scribing for, and in the presence of, Dr. Nazario Perez and in the presence of the patient. 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 ?I80.01 - Phlebitis and thrombophlebitis of superficial vessels of right lower extremity (ICD-10) Phlebitis and thrombophlebitis of superficial vessels of left lower extremity ?I80.02 - Phlebitis and thrombophlebitis of superficial vessels of left lower extremity (ICD-10) Varicose veins of bilateral lower extremities with pain ?I83.813 - Varicose veins of bilateral lower extremities with pain (ICD-10) Carpal tunnel syndrome ?G56.00 - Carpal tunnel syndrome, unspecified upper limb (ICD-10) Edema ?R60.9 - Edema, unspecified (ICD-10) Hypercholesteremia ?E78.00 - Pure hypercholesterolemia, unspecified (ICD-10) Hypothyroid ?E03.9 - Hypothyroidism, unspecified (ICD-10) Diabetes ?E11.9 - Type 2 diabetes mellitus without complications (ICD-10) Hypertension ?I10 - Essential (primary) hypertension (ICD-10) Deep vein thrombosis ?I82.409 - Acute embolism and thrombosis of unspecified deep veins of unspecified lower extremity (ICD-10) Surgical History (Updated 06/26/24 @ 09:09 by Ramírez Driver) Status post laser ablation of incompetent vein ?Z98.890 - Other specified postprocedural states (ICD-10) Status post laser ablation of incompetent vein ?Z98.890 - Other specified postprocedural states (ICD-10) History of carpal tunnel surgery ?Z98.890 - Other specified postprocedural states (ICD-10) History of arthroscopy of left shoulder ?Z98.890 - Other specified postprocedural states (ICD-10) H/O: hysterectomy ?Z90.710 - Acquired absence of both cervix and uterus (ICD-10) Family History (Updated 04/13/24 @ 13:42 by Ramírez Driver) Mother Family history of diabetes mellitus Family history of hypertension Varicose veins of bilateral lower extremities with pain Social History (Updated 04/13/24 @ 13:43 by Ramírez Driver) Within the past year, how often did you have a drink containing alcohol: never Score interpretation: A score less than 3 is consistent with normal alcohol consumption. Smoking status: Never smoker Non-prescribed substance use: denies use Meds Home Medications and Allergies Home Medications ?Medication ?Instructions ?Recorded ?Confirmed ?Type diclofenac potassium 04/13/24 History empagliflozin 25 mg tablet 25 mg PO QAM 04/13/24 04/13/24 History (Jardiance) furosemide 20 mg tablet 20 mg PO DAILY 04/13/24 04/13/24 History glimepiride 4 mg tablet 4 mg PO DAILY 04/13/24 04/13/24 History levothyroxine 125 mcg capsule 125 mcg PO DAILY 04/13/24 04/13/24 History levothyroxine 137 mcg tablet 137 mcg PO DAILY 04/13/24 04/13/24 History (Euthyrox) metformin 500 mg tablet,extended 500 mg PO DAILY 04/13/24 04/13/24 History release 24 hr metoprolol tartrate 50 mg tablet 25 mg PO DAILY 04/13/24 04/13/24 History pantoprazole 40 mg tablet,delayed 40 mg PO DAILY 04/13/24 04/13/24 History release (Protonix) sitagliptin phosphate 100 mg 100 mg PO DAILY 04/13/24 04/13/24 History tablet (Januvia) Allergies Allergy/AdvReac Type Severity Reaction Status Date / Time penicillamine Allergy Intermediate Rash Verified 04/13/24 13:46 Exam Narrative Exam Narrative: INazario MD personally performed the services described in this documentation, as scribed by Yoli Alegria RN in my presence and it is both accurate and complete. IYoli RN, am scribing for, and in the presence of, Dr. Nazario Perez and in the presence of the patient. Constitutional Documenting provider has reviewed patient's vital signs: yes Common normals: oriented x3 Nutritional appearance: overweight Cardio Peripheral pulses: posterior tibial pulses present and dorsalis pedis pulses present Extremity Common normals: normal capillary refill General: edema Right lower extremity: lower leg Right lower leg: inspection and palpation Left lower extremity: lower leg Left lower leg: inspection and palpation Neuro Common normals: oriented x3 Assessment and Plan Assessment and Plan (1) Varicose veins of bilateral lower extremities with pain: Plan leg microfoam chemical ablation/Varithena: Risks and benefits of the procedure were discussed at length and informed written consent was obtained.? Time-out procedure was performed and the correct patient and procedure were confirmed.? Staff present during time-out: Yoli Alegria RN and Nazario Perez MD.? Patient prepped and procedure performed in usual sterile fashion.? Patient was placed in Trendelenburg prior to Polidocanol/Varithena injections. Sclerosing Agent:?? 4cc 1% Polidocanol/Varithena Site Injected: left leg Number of Injections:? 5cc into 4mm vein left distal medial lower leg 5cc into 5mm vein left medial knee The patient tolerated the procedure well without complication.? Hemostasis was obtained and thigh-high compression stocking was applied with foam pads.? Instructed patient to wear stocking for at least 96 hours and sleep with it and only remove for showering.? The patient was instructed to? wear stocking for 2 weeks.? Patient verbalizes understanding and states they will comply.? Patient was given post-procedure instructions. Patient was discharged in good condition.? Scheduled to undergo limited venous ultrasound and? exam on 07/16/24. I,Nazario Perez MD personally performed the services described in this documentation, as scribed by Yoli Alegria RN in my presence and it is both accurate and complete. Yoli Reza RN, am scribing for, and in the presence of, Dr. Nazario Perez and in the presence of the patient. Procedures Procedure Note Procedure: Varithena/microfoam chemical ablatoin left leg 07/10/24
--- NOTE | 2024-07-10 07:54 | VEIN_ITS ---
[address] [address] Patient Name: QUINN AGUILAR MRN: [id number] date: 1970 Sex: F Assigned Patient Location: Current Patient Location: Accession/Order Number: [id number] Exam Date: 07/10/2024 08:05 Report Date: 07/10/2024 09:19 At the request of: RAMESH GEORGE Procedure: VC INJ Foam Sclerosant WUS SURVEY RESEARCH ANALYST PROCEDURE: VC INJ Foam Sclerosant WUS SURVEY RESEARCH ANALYST HISTORY: I83.813 - Varicose veins of bilateral lower extremities w... Pre-operative Diagnosis: CEAP class C3 venous insufficiency with pain, tenderness, edema and incompetent branch saphenous vein(s), chronic venous insufficiency left leg secondary to venous incompetence Post-operative Diagnosis: CEAP class C3 venous insufficiency with pain, tenderness, edema and incompetent branch saphenous vein(s), chronic venous insufficiency left leg secondary to venous incompetence Procedure Performed: 1. Ultrasound-guided microfoam chemical ablation with Varithenaregistered 2. Intraoperative ultrasound guidance Physician: Ramesh George M.D. Anesthesia: None Indications for Procedure: 54 year old female. Symptoms including lower extremity pain, swelling, dilated bulging veins for many years despite conservative medical therapy including medical compression stockings, exercise and analgesics. Prior procedures include endovenous laser ablation. Multiple incompetent varicosities of the left leg. Duplex scan showed reflux and enlarged diameters up to 5 mm. The patient underwent informed consent including management options where the complications of infection, bleeding, pain, and skin injury were discussed. Particular attention was spent discussing thrombus extension and deep vein thrombosis as well as the possibility of pulmonary embolus and treatment with oral or injectable blood thinners. Procedure: The patient walked to the procedure room. All applicable staff donned appropriate apparel. A procedure timeout was performed to confirm correct patient, correct extremity, correct procedure, and correct room set-up including presence of all applicable supplies, devices, and drugs. A duplex ultrasound, performed by myself confirmed the location and incompetence of branch saphenous varicosities and their course was marked on the skin together with the dilated tributaries. The extent of treatment of the vein and the associated varicosities was determined through ultrasound mapping. The skin was prepped and then punctured with a butterfly needle and advanced under ultrasound guidance. The Varithenaregistered canister was activated and the canister was primed and purged as required in the instructions for use. Varithenaregistered was drawn into a sterile syringe. Varithenaregistered was slowly administered at 0.5-1.0 cc/second with close observation by ultrasound of its course in the vessels. Total volume utilized was: 10 mL (5 mL into a 4 mm varicosity distal medial lower leg; 5 mL into a 5 mm varicosity medial to the knee). Following administration of Varithenaregistered the leg was elevated and the patient was asked to repeatedly dorsiflex the ankle to limit flow of Varithenaregistered into perforating veins. Once appropriate spasm had been confirmed in the treated veins, the vascular catheter was removed from the leg and light pressure was applied over the puncture site for hemostasis. The common femoral and deep superficial veins were then evaluated for flow and compressibility prior to dressing placement. The lower extremity was kept elevated at 45 degrees above the horizontal and cording material was applied over the saphenous segments and tributaries to allow for eccentric compression over the target vessels including the targeted saphenous vein(s). A multilayer dressing was applied consisting of foam pads, coban and thigh-high 20-30 mm Hg compression elastic support hose were placed on the patient. The leg was lowered only after compression had been applied and the patient was immediately ambulatory. The patient ambulated 10 minutes under supervision and was without apparent concerns at time of release. Post-care instructions include advising patient to keep post-treatment bandages in place and dry for 48 hours, avoid extended periods of inactivity, avoid heavy exercise for one week, wear compression stockings on the treated leg continuously for two weeks, to walk daily for 10 minutes over the next month. The patient was instructed to take an anti-inflammatory medicine as needed and to follow up for color duplex scan of the Saphenous veins, the treated branch saphenous varicosities, the adjacent deep veins, and additional treatment within 7 days. PERSONNEL: Yoli Alegria RN Electronically authenticated by: RAMESH GEORGE Date: 07/10/2024 09:19
--- NOTE | 2024-07-10 07:55 | P.DS_ITS ---
Discharge Plan Discharge Disposition: Home, Self-Care Outpatient Diagnostics: VC Facility EST LMTD (Routine) Timeframe: 2 Weeks Facility: [facility] - Location: [facility] Center Ordered By: Nazario Perez VC EXT Venous LT Limited (Routine) Timeframe: 2 Weeks Facility: [facility] - Location: Vein Center Ordered By: Nazario Perez Follow Up Appointments: 07/16/24 Plan of Treatment: u/s follow up following varithena left leg 07/10/24 Patient Instructions: Polidocanol (By injection) Print Language: Malay Discharge Date/Time: 07/10/24 08:45
--- OUTSIDE RECORDS SUMMARY | 2024-07-10 07:56 | XMS_ITS | CCD ---
Author Organization [facility] Care Team Providers Care Segmental Paver Installer Name Role Phone PHYSICIAN, DEFAULT Unavailable Unavailable [...] Primary Care Unavailable HOY ., DR GENTILE Admanupam Unavailable HOY ., DR GENTILE Attending Unavailable HOY ., DR GENTILE Admitting Unavailable HOY ., DR GENTILE Primary Care Unavailable HOY ., DR GENTILE Attending Unavailable HOY ., DR GENTILE Consulting Unavailable HOY ., DR GENTILE Primary Care Unavailable HOY ., DR GENTILE Admitting Unavailable HOY ., DR GENTILE Attending Unavailable HOY ., DR GENTILE Consulting Unavailable ZIEBER, DR NAZARIO Dao Consulting Unavailable Que Perez Attending Unavailable Que Perez Referring Unavailable Allergies Allergy Classification Reported Allergen(s) Allergy Type Date of Onset Reaction(s) Facility (1 source) Acetaminophen / oxyCODONE Drug Allergy 10-19-2016 [facility] Repository (1 source) Penicillins Drug allergy (disorder) 01-09-2013 [facility] Repository Problems Active Problems Problem Classification Problem Date Documented Date Episodic/Chronic Cataract (1 source) Age-related nuclear cataract, bilateral; Translations: [Cataract, Nuclear Sclerosis OU] Onset: 07-06-20 Chronic Deficiency and other anemia (1 source) Anemia, unspecified; Translations: [ANEMIA UNSPECIFIED] Onset: 01-11-20 Episodic Diabetes mellitus with complications (2 sources) Type 2 diabetes mellitus with diabetic neuropathy, unspecified; Translations: [Type 2 diabetes mellitus with mild nonproliferative diabetic retinopathy without macular edema, bilateral] Onset: 01-11-20 Chronic Disorders of lipid metabolism (4 sources) Pure hypercholesterolemia, unspecified; Translations: [PURE HYPERCHOLESTEROLEMIA UNSPEC] Onset: 10-13-19 Chronic Essential hypertension (2 sources) Essential (primary) hypertension; Translations: [ESSENTIAL PRIMARY HYPERTENSION] Onset: 01-11-20 Chronic Other eye disorders (1 source) Dry eye syndrome of bilateral lacrimal glands; Translations: [Dry eyes, bilateral] Onset: 07-06-20 Episodic Other gastrointestinal disorders (1 source) Diarrhea, unspecified; [...] MG MAMM SCREEN 3D PORSHA CAD Patient: IAN BRIGGS Exam Date: 01/29/2023 : 1970 Gender:F Ordering : DR SEFERINO MENDOZA . Admission #: [id number] Family : Order #: [id number] CLICK HERE TO VIEW EXAM RADIOLOGY REPORT [...] Treatments None Family Cancers None LOCATION: [facility] BREAST COMPOSITION: Scattered areas fibroglandular density. FINDINGS: [...] M.D. on 01/30/2023 at 13:47 Normal [facility] INSULINon 01-08-2023 Insulin 11.3 uIU/mL Normal 2.6-24.9 [facility] Comment on above: Performed By: #### C [facility] #### [facility] [address] [place] [address] Dr. Dona Turner CBC AUTO DIFFon 01-07-2023 BASO # 0.1 103/ul Normal 0.0-0.1 [facility] Comment on above: Performed By: #### C VDTBH #### [facility] [address] [place] [address] Dr. Dona Turner Basophils/100 WBC (Bld) 1.2 % Normal 0.2-2.0 [facility] Comment on above: Performed By: #### C VDTBH #### [facility] [address] [place] [address] Dr. Dona Turner EO # 0.1 103/ul Normal 0.0-0.7 [facility] Comment on above: Performed By: #### C VDTBH #### [facility] [address] [place] [address] Dr. Dona Turner Eosinophils/100 WBC (Bld) 2.0 % Normal 0.9-7.0 [facility] Comment on above: Performed By: #### C VDTBH #### [facility] [address] [place] [address] Dr. Dona Turner Erythrocyte distribution width (RBC) [Ratio] 14.5 % Normal 11.0-15.0 [facility] Comment on above: Performed By: #### C VDTBH #### [facility] [address] [place] [address] Dr. Dona Turner Hematocrit (Bld) [Volume fraction] 45.1 % Normal 36.0-48.0 [facility] Comment on above: Performed By: #### C VDTBH #### [facility] [address] [place] [address] Dr. Dona Turner Hemoglobin (Bld) [Mass/Vol] 14.1 g/dL Normal 12.0-16.0 [facility] Comment on above: Performed By: #### C VDTBH #### [facility] [address] [place] [address] Dr. Dona Turner IG # 0.02 10e3/ul Normal 0.00-0.03 [facility] Comment on above: Performed By: #### C VDTBH #### [facility] [address] [address] [address] Dona Turner IG % 0.4 % Normal 0.0-0.5 [facility] Comment on above: Performed By: #### C VDTBH #### [facility] [address] [address] [address] Dona Turner LYMPH # 1.3 103/ul Normal 1.2-3.8 [facility] Comment on above: Performed By: #### C VDTBH #### [facility] [address] [address] [address] Dona Turner Lymphocytes/100 WBC (Bld) 26.4 % Normal 20.5-60.0 [facility] Comment on above: Performed By: #### C VDTBH #### [facility] [address] [place] [address] Dr. Dona Turner MANUAL DIFF REQ NO Normal [facility] Comment on above: Performed By: #### C VDTBH #### [facility] [address] [place] [address] Dr. Dona Turner MCH (RBC) [Entitic mass] 25.0 pg Critically low 26.7-34.0 [facility] Comment on above: Performed By: #### C VDTBH #### [facility] [address] [place] [address] Dr. Dona Turner MCHC (RBC) [Mass/Vol] 31.3 g/dL Normal 29.9-35.2 [facility] Comment on above: Performed By: #### C VDTBH #### [facility] [address] [place] [address] Dr. Dona Turner MCV (RBC) [Entitic vol] 80.0 fL Critically low 81.0-99.0 [facility] Comment on above: Performed By: #### C VDTBH #### [facility] [address] [place] [address] Dr. Dona Turner MONO # 0.4 103/ul Normal 0.3-0.8 [facility] Comment on above: Performed By: #### C VDTBH #### [facility] [address] [place] [address] Dr. Dona Turner Monocytes/100 WBC (Bld) 7.7 % Normal 1.7-12.0 [facility] Comment on above: Performed By: #### C VDTBH #### [facility] [address] [place] [address] Dr. Dona Turner NEUT # 3.1 103/ul Normal 1.4-6.5 [facility] Comment on above: Performed By: #### C VDTBH #### [facility] [address] [place] [address] Dr. Dona Turner Neutrophils/100 WBC (Bld) 62.3 % Normal 43.0-75.0 [facility] Comment on above: Performed By: #### C VDTBH #### [facility] [address] [place] [address] Dr. Dona Turner Platelet mean volume (Bld) [Entitic vol] 10.7 fL Normal 9.5-13.5 [facility] Comment on above: Performed By: #### C VDTBH #### [facility] [address] [place] [address] Dr. Dona Turner PLT 257 103/ul Normal 150-450 [facility] Comment on above: Performed By: #### C VDTBH #### [facility] [address] [place] [address] Dr. Dona Turner RBC 5.64 106/ul Critically high 4.20-5.40 [facility] Comment on above: Performed By: #### C VDTBH #### [facility] [address] [place] [address] Dr. Dona Turner WBC 5.0 103/ul Normal 4.0-11.0 [facility] Comment on above: Performed By: #### C VDTBH #### [facility] [address] [place] [address] Dr. Dona Turner FREE THYROXINE INDEX T7on FTI 3.78 Normal 1.30-4.50 [facility] Comment on above: Performed By: #### L IPID, TSH, T7, CMP #### [facility] [address] [address] [address] Dona Turner T3U 35.0 % Normal 30.0-39.0 [facility] Comment on above: Performed By: #### L IPID, TSH, T7, CMP #### [facility] [address] [address] [address] Dona Turner T4 [Mass/Vol] 10.80 ug/dL Normal 4.80-13.90 [facility] Comment on above: Performed By: #### L IPID, TSH, T7, CMP #### [facility] [address] [address] [address] Dona Turner GLYCOHEMOGLOBIN A1Con 2022 ADA RECOMMENDATION SEE BELOW Normal [facility] Comment on above: Result Comment: ADA RECOMMENDED LIMIT 4.0 - 6.0 ADA THERAPEUTIC TARGET < 7.0 ACTION SUGGESTED > 7.0 Performed By: #### C VDTBH #### [facility] [address] [address] [address] Dona Turner Glucose [Mass/Vol] 160 mg/dL Normal [facility] Comment on above: Performed By: #### C VDTBH #### [facility] [address] [address] [address] Dona Turner HbA1c (Bld) [Mass fraction] 7.2 % Critically high 4.5-6.2 [facility] Comment on above: Performed By: #### C VDTBH #### [facility] [address] [address] [address] Dona Turner IRONon 01-07-2023 Iron [Mass/Vol] 50.0 ug/dL Normal 50.0-170.0 [facility] Comment on above: Performed By: #### I NSULIN #### [facility] [address] [place] [address] Dr. Dona Turner LIPID PROFILEon 01-07-2023 CHOL-HDL RATIO NORM SEE BELOW Normal [facility] Comment on above: Result Comment: 3.3 - 4.4 LOW RISK 4.4 - 7.1 AVERAGE RISK 7.1 - 11.0 MODERATE RISK >11.0 HIGH RISK Performed By: #### L IPID, TSH, T7, CMP #### [facility] [address] [place] [address] Dr. Dona Turner Cholesterol [Mass/Vol] 162 mg/dL Normal <=200 [facility] Comment on above: Performed By: #### L IPID, TSH, T7, CMP #### [facility] [address] [address] [address] Dona Turner Cholesterol in HDL [Mass/Vol] 33 mg/dL Critically low 40-60 [facility] Comment on above: Performed By: #### L IPID, TSH, T7, CMP #### [facility] [address] [place] [address] Dr. Dona Turner Cholesterol in LDL [Mass/Vol] 100.4 mg/dL Normal [facility] Comment on above: Performed By: #### L IPID, TSH, T7, CMP #### [facility] [address] [place] [address] Dr. Dona Turner Cholesterol.total/Chol esterol in HDL [Mass ratio] 4.9 {ratio} Normal [facility] Comment on above: Performed By: #### L IPID, TSH, T7, CMP #### [facility] [address] [place] [address] Dr. Dona Turner HDL NORMAL > or = 60 mg/dl - LOW CARDIOVASCULAR RISK <40 mg/dl - HIGH CARDIOVASCULAR RISK Normal [facility] Comment on above: Performed By: #### L IPID, TSH, T7, CMP #### [facility] [address] [place] [address] Dr. Dona Turner LDL CALC NORMAL SEE BELOW Normal [facility] Comment on above: Result Comment: <100 mg/dl OPTIMAL 100 - 129 mg/dl NEAR OR ABOVE OPTIMAL 130 - 159 mg/dl BORDERLINE HIGH 160 - 189 mg/dl HIGH >190 mg/dl VERY HIGH Performed By: #### L IPID, TSH, T7, CMP #### [facility] [address] [place] [address] Dr. Dona Turner Triglyceride [Mass/Vol] 143 mg/dL Normal <=150 [facility] Comment on above: Performed By: #### L IPID, TSH, T7, CMP #### [facility] [address] [address] [address] Dona Turner VLDL CALC 28.6 mg/dL Normal [facility] Comment on above: Performed By: #### L IPID, TSH, T7, CMP #### [facility] [address] [address] [address] Dona Turner PROF 14(COMP METB)on 023 Albumin [Mass/Vol] 3.8 g/dL Normal 3.4-5.0 [facility] Comment on above: Performed By: #### L IPID, TSH, T7, CMP #### [facility] [address] [place] [address] Dr. Dona Turner Albumin/Globulin [Mass ratio] 1.0 {ratio} Normal [facility] Comment on above: Performed By: #### L IPID, TSH, T7, CMP #### [facility] [address] [place] [address] Dr. Dona Turner ALP [Catalytic activity/Vol] 59 U/L Normal 46-116 [facility] Comment on above: Performed By: #### L IPID, TSH, T7, CMP #### [facility] [address] [place] [address] Dr. Dona Turner ALT [Catalytic activity/Vol] 43 U/L Normal 14-59 [facility] Comment on above: Performed By: #### L IPID, TSH, T7, CMP #### [facility] [address] [address] [address] Dona Turner Anion gap [Moles/Vol] 11.5 mmol/L Normal [facility] Comment on above: Performed By: #### L IPID, TSH, T7, CMP #### [facility] [address] [place] [address] Dr. Dona Turner AST [Catalytic activity/Vol] 19 U/L Normal 15-37 [facility] Comment on above: Performed By: #### L IPID, TSH, T7, CMP #### [facility] [address] [place] [address] Dr. Dona Turner Bilirubin [Mass/Vol] 0.4 mg/dL Normal 0.2-1.0 [facility] Comment on above: Performed By: #### L IPID, TSH, T7, CMP #### [facility] [address] [place] [address] Dr. Dona Turner Calcium [Mass/Vol] 9.1 mg/dL Normal 8.5-10.1 [facility] Comment on above: Performed By: #### L IPID, TSH, T7, CMP #### [facility] [address] [place] [address] Dr. Dona Turner Chloride [Moles/Vol] 107 mmol/L Normal 98-107 [facility] Comment on above: Performed By: #### L IPID, TSH, T7, CMP #### [facility] [address] [place] [address] Dr. Dona Turner CO2 [Moles/Vol] 28.5 mmol/L Normal 21.0-32.[address] [facility] Comment on above: Performed By: #### L IPID, TSH, T7, CMP #### [facility] [address] [place] [address] Dr. Dona Turner Creatinine [Mass/Vol] 0.66 mg/dL Normal 0.55-1.02 [facility] Comment on above: Performed By: #### L IPID, TSH, T7, CMP #### [facility] [address] [place] [address] Dr. Dona Turner EGFR-AF ERITREAN >60 Normal >=[address] [facility] Comment on above: Performed By: #### L IPID, TSH, T7, CMP #### [facility] [address] [place] [address] Dr. Dona Turner EGFR-NON AF ERITREAN >60 Normal >=60 [facility] Comment on above: Performed By: #### L IPID, TSH, T7, CMP #### [facility] [address] [place] [address] Dr. Dona Turner Globulin (S) [Mass/Vol] 3.8 g/dL Normal [facility] Comment on above: Performed By: #### L IPID, TSH, T7, CMP #### [facility] [address] [address] [address] Dona Turner Glucose [Mass/Vol] 112 mg/dL Critically high 74-106 [facility] [place] Comment on above: Performed By: #### L IPID, TSH, T7, CMP #### [facility] [address] [address] [address] Dona Turner Potassium [Moles/Vol] 4.0 mmol/L Normal 3.5-5.1 [facility] Comment on above: Performed By: #### L IPID, TSH, T7, CMP #### [facility] [address] [place] [address] Dr. Dona Turner Protein [Mass/Vol] 7.6 g/dL Normal 6.4-8.2 [facility] Comment on above: Performed By: #### L IPID, TSH, T7, CMP #### [facility] [address] [place] [address] Dr. Dona Turner Sodium [Moles/Vol] 143 mmol/L Normal 136-145 [facility] Comment on above: Performed By: #### L IPID, TSH, T7, CMP #### [facility] [address] [place] [address] Dr. Dona Turner Urea nitrogen [Mass/Vol] 11.0 mg/dL Normal 7.0-18.0 [facility] Comment on above: Performed By: #### L IPID, TSH, T7, CMP #### [facility] [address] [place] [address] Dr. Dona Turner Urea nitrogen/Creatinine [Mass ratio] 16.7 mg/mg Normal [facility] Comment on above: Performed By: #### L IPID, TSH, T7, CMP #### [facility] [address] [place] [address] Dr. Dona Turner TSHon 01-07-2023 TSH 0.350 uIU/mL Critically low 0.358-3.740 [facility] Comment on above: Performed By: #### L IPID, TSH, T7, CMP #### [facility] [address] [place] [address] Dr. Dona Turner VITAMIN D 25 OHon 01-07-2023 VIT D 25-OH 52.4 ng/mL Normal [facility] Comment on above: Performed By: #### I NSULIN #### [facility] [address] [place] [address] Dr. Dona Turner VIT D RANGES SEE BELOW Normal [facility] Comment on above: Result Comment: <20 ng/mL Vit D deficient 20 - <30 ng/mL Vit D insufficient 30 - 100 ng/mL Vit D sufficient >100 ng/mL Potential Toxicity Performed By: #### I NSULIN #### [facility] [address] [place] [address] Dr. Dona Turner LIPID PROFILEon 10-13-2022 CHOL-HDL RATIO NORM SEE BELOW Normal [facility] Comment on above: Result Comment: 3.3 - 4.4 LOW RISK 4.4 - 7.1 AVERAGE RISK 7.1 - 11.0 MODERATE RISK >11.0 HIGH RISK Performed By: #### C VDTBH #### [facility] [address] [place] [address] Dr. Dona Turner Cholesterol [Mass/Vol] 136 mg/dL Normal <=200 [facility] Comment on above: Performed By: #### C VDTBH #### [facility] [address] [place] [address] Dr. Dona Turner Cholesterol in HDL [Mass/Vol] 33 mg/dL Critically low 40-60 [facility] Comment on above: Performed By: #### C VDTBH #### [facility] [address] [place] [address] Dr. Dona Turner Cholesterol in LDL [Mass/Vol] 76.4 mg/dL Normal [facility] Comment on above: Performed By: #### C VDTBH #### [facility] [address] [place] [address] Dr. Dona Turner Cholesterol.total/Chol esterol in HDL [Mass ratio] 4.1 {ratio} Normal [facility] Comment on above: Performed By: #### C VDTBH #### [facility] [address] [address] [address] Dona Turner HDL NORMAL > or = 60 mg/dl - LOW CARDIOVASCULAR RISK <40 mg/dl - HIGH CARDIOVASCULAR RISK Normal [facility] Comment on above: Performed By: #### C VDTBH #### [facility] [address] [address] [address] Dona Turner LDL CALC NORMAL SEE BELOW Normal [facility] Comment on above: Result Comment: <100 mg/dl OPTIMAL 100 - 129 mg/dl NEAR OR ABOVE OPTIMAL 130 - 159 mg/dl BORDERLINE HIGH 160 - 189 mg/dl HIGH >190 mg/dl VERY HIGH Performed By: #### C VDTBH #### [facility] [address] [place] [address] Dr. Dona Turner Triglyceride [Mass/Vol] 133 mg/dL Normal <=150 [facility] Comment on above: Performed By: #### C VDTBH #### [facility] [address] [place] [address] Dr. Dona Turner VLDL CALC 26.6 mg/dL Normal [facility] Comment on above: Performed By: #### C VDTBH #### [facility] [address] [place] [address] Dr. Dona Turner LIVER PROFILEon 10-13-2022 Albumin [Mass/Vol] 3.6 g/dL Normal 3.4-5.0 [facility] Comment on above: Performed By: #### I NSULIN #### [facility] [address] [place] [address] Dr. Dona Turner Albumin/Globulin [Mass ratio] 1.1 {ratio} Normal [facility] Comment on above: Performed By: #### I NSULIN #### [facility] [address] [place] [address] Dr. Dona Turner ALP [Catalytic activity/Vol] 62 U/L Normal 46-116 [facility] Comment on above: Performed By: #### I NSULIN #### [facility] [address] [address] [address] Dona Turner ALT [Catalytic activity/Vol] 28 U/L Normal 14-59 [facility] Comment on above: Performed By: #### I NSULIN #### [facility] [address] [address] [address] Dona Turner AST [Catalytic activity/Vol] 16 U/L Normal 15-37 [facility] Comment on above: Performed By: #### I NSULIN #### [facility] [address] [address] [address] Dona Turner BILI, CONJUGATED 0.1 mg/dL Normal 0.0-0.[address] [facility] Comment on above: Performed By: #### I NSULIN #### [facility] [address] [place] [address] Dr. Dona Turner Bilirubin [Mass/Vol] 0.5 mg/dL Normal 0.2-1.0 [facility] Comment on above: Performed By: #### I NSULIN #### [facility] [address] [place] [address] Dr. Dona Turner Globulin (S) [Mass/Vol] 3.4 g/dL Normal [facility] Comment on above: Performed By: #### I NSULIN #### [facility] [address] [place] [address] Dr. Dona Turner Protein [Mass/Vol] 7.0 g/dL Normal 6.4-8.2 [facility] Comment on above: Performed By: #### I NSULIN #### [facility] [address] [place] [address] Dr. Dona Turner BETH by IFAon 07-19-2022 Antinuclear Antibodies, IFA Negative Normal [facility] Comment on above: Result Comment: Nega tive <1:80 Borderline 1:80 Positive >1:80 ICAP nomenclature: AC-0 For more information about Hep-2 cell patterns use ANApatterns.org, the official website for the International Consensus on Antinuclear Antibody (BETH) Patterns (ICAP). Performed By: #### A NAIFA #### [facility] [address] [place] [address] Dr. Dona Turner ANTISTREPTOLYSIN O AB (ASO)o n 07-14-2022 Antistreptolysin O Ab 25.3 IU/mL Normal 0.0-200.0 [facility] Comment on above: Performed By: #### I NSULIN #### [facility] [address] [place] [address] Dr. Dona Turner RHEUMATOID FACTORon 07-14-20 RA Latex Turbid. 19.2 IU/mL Critically high <14.0 [facility] Comment on above: Performed By: #### L IPID, TSH, T7, CMP #### [facility] [address] [place] [address] Dr. Dona Turner CBC AUTO DIFFon 07-13-2022 BASO # 0.1 103/ul Normal 0.0-0.1 [facility] Comment on above: Performed By: #### C VDTBH #### [facility] [address] [place] [address] Dr. Dona Turner Basophils/100 WBC (Bld) 0.8 % Normal 0.2-2.0 [facility] Comment on above: Performed By: #### C VDTBH #### [facility] [address] [place] [address] Dr. Dona Turner EO # 0.1 103/ul Normal 0.0-0.7 [facility] Comment on above: Performed By: #### C VDTBH #### [facility] [address] [place] [address] Dr. Dona Turner Eosinophils/100 WBC (Bld) 1.0 % Normal 0.9-7.0 [facility] Comment on above: Performed By: #### C VDTBH #### [facility] [address] [place] [address] Dr. Dona Turner Erythrocyte distribution width (RBC) [Ratio] 14.3 % Normal 11.0-15.0 [facility] Comment on above: Performed By: #### C VDTBH #### [facility] [address] [place] [address] Dr. Dona Turner Hematocrit (Bld) [Volume fraction] 44.8 % Normal 36.0-48.0 [facility] Comment on above: Performed By: #### C VDTBH #### [facility] [address] [place] [address] Dr. Dona Turner Hemoglobin (Bld) [Mass/Vol] 14.4 g/dL Normal 12.0-16.0 [facility] Comment on above: Performed By: #### C VDTBH #### [facility] [address] [place] [address] Dr. Dona Turner IG # 0.03 10e3/ul Normal 0.00-0.03 [facility] Comment on above: Performed By: #### C VDTBH #### [facility] [address] [place] [address] Dr. Dona Turner IG % 0.3 % Normal 0.0-0.5 [facility] Comment on above: Performed By: #### C VDTBH #### [facility] [address] [place] [address] Dr. Dona Turner LYMPH # 1.9 103/ul Normal 1.2-3.8 [facility] Comment on above: Performed By: #### C VDTBH #### [facility] [address] [place] [address] Dr. Dona Turner Lymphocytes/100 WBC (Bld) 20.8 % Normal 20.5-60.0 [facility] Comment on above: Performed By: #### C VDTBH #### [facility] [address] [place] [address] Dr. Dona Turner MANUAL DIFF REQ NO Normal [facility] Comment on above: Performed By: #### C VDTBH #### [facility] [address] [place] [address] Dr. Dona Turner MCH (RBC) [Entitic mass] 25.5 pg Critically low 26.7-34.0 [facility] Comment on above: Performed By: #### C VDTBH #### [facility] [address] [place] [address] Dr. Dona Turner MCHC (RBC) [Mass/Vol] 32.1 g/dL Normal 29.9-35.2 [facility] Comment on above: Performed By: #### C VDTBH #### [facility] [address] [place] [address] Dr. Dona Turner MCV (RBC) [Entitic vol] 79.3 fL Critically low 81.0-99.0 [facility] Comment on above: Performed By: #### C VDTBH #### [facility] [address] [place] [address] Dr. Dona Turner MONO # 0.8 103/ul Normal 0.3-0.8 [facility] Comment on above: Performed By: #### C VDTBH #### [facility] [address] [place] [address] Dr. Dona Turner Monocytes/100 WBC (Bld) 8.5 % Normal 1.7-12.0 [facility] Comment on above: Performed By: #### C VDTBH #### [facility] [address] [place] [address] Dr. Dona Turner NEUT # 6.4 103/ul Normal 1.4-6.5 [facility] Comment on above: Performed By: #### C VDTBH #### [facility] [address] [place] [address] Dr. Dona Turner Neutrophils/100 WBC (Bld) 68.6 % Normal 43.0-75.0 [facility] Comment on above: Performed By: #### C VDTBH #### [facility] [address] [place] [address] Dr. Dona Turner Platelet mean volume (Bld) [Entitic vol] 10.5 fL Normal 9.5-13.5 [facility] Comment on above: Performed By: #### C VDTBH #### [facility] [address] [place] [address] Dr. Dona Turner PLT 290 103/ul Normal 150-450 [facility] Comment on above: Performed By: #### C VDTBH #### [facility] [address] [address] [address] Dona Turner RBC 5.65 106/ul Critically high 4.20-5.40 [facility] Comment on above: Performed By: #### C VDTBH #### [facility] [address] [place] [address] Dr. Dona Turner WBC 9.3 103/ul Normal 4.0-11.0 [facility] Comment on above: Performed By: #### C VDTBH #### [facility] [address] [place] [address] Dr. Dona Turner CRPon 07-13-2022 CRP [Mass/Vol] mg/L Normal <=1.0 [facility] Comment on above: Performed By: #### I NSULIN #### [facility] [address] [place] [address] Dr. Dona Turner SED RATE WESTERGRENon 2021 SED RATE 47 mm/hr Critically high <=30 [facility] Comment on above: Performed By: #### S EDR #### [facility] [address] [place] [address] Dr. Dona Turner URIC ACID SERUMon 07-13-2022 Urate [Mass/Vol] 3.2 mg/dL Normal 2.6-6.0 [facility] Comment on above: Performed By: #### I NSULIN #### [facility] [address] [place] [address] Dr. Dona Turner INSULINon 07-10-2022 Insulin 11.5 uIU/mL Normal 2.6-24.9 [facility] Comment on above: Performed By: #### I NSULIN #### [facility] [address] [place] [address] Dr. Dona Turner CBC AUTO DIFFon 07-09-2022 BASO # 0.1 103/ul Normal 0.0-0.1 [facility] Comment on above: Performed By: #### C BC #### [facility] [address] [place] [address] Dr. Dona Turner Basophils/100 WBC (Bld) 0.8 % Normal 0.2-2.0 [facility] Comment on above: Performed By: #### C BC #### [facility] [address] [place] [address] Dr. Dona Turner EO # 0.1 103/ul Normal 0.0-0.7 [facility] Comment on above: Performed By: #### C BC #### [facility] [address] [place] [address] Dr. Dona Turner Eosinophils/100 WBC (Bld) 0.7 % Critically low 0.9-7.0 [facility] Comment on above: Performed By: #### C BC #### [facility] [address] [place] [address] Dr. Dona Turner Erythrocyte distribution width (RBC) [Ratio] 14.5 % Normal 11.0-15.0 [facility] Comment on above: Performed By: #### C BC #### [facility] [address] [place] [address] Dr. Dona Turner Hematocrit (Bld) [Volume fraction] 44.7 % Normal 36.0-48.0 [facility] Comment on above: Performed By: #### C BC #### [facility] [address] [place] [address] Dr. Dona Turner Hemoglobin (Bld) [Mass/Vol] 14.5 g/dL Normal 12.0-16.0 [facility] Comment on above: Performed By: #### C BC #### [facility] [address] [place] [address] Dr. Dona Turner IG # 0.04 10e3/ul Critically high 0.00-0.03 [facility] Comment on above: Performed By: #### C BC #### [facility] [address] [place] [address] Dr. Dona Turner IG % 0.4 % Normal 0.0-0.5 [facility] Comment on above: Performed By: #### C BC #### [facility] [address] [place] [address] Dr. Dona Turner LYMPH # 1.6 103/ul Normal 1.2-3.8 [facility] Comment on above: Performed By: #### C BC #### [facility] [address] [address] [address] Dona Truner Lymphocytes/100 WBC (Bld) 17.7 % Critically low 20.5-60.0 [facility] Comment on above: Performed By: #### C BC #### [facility] [address] [address] [address] Dona Turner MANUAL DIFF REQ NO Normal [facility] Comment on above: Performed By: #### C BC #### [facility] [address] [address] [address] Dona Turner MCH (RBC) [Entitic mass] 25.9 pg Critically low 26.7-34.0 [facility] Comment on above: Performed By: #### C BC #### [facility] [address] [place] [address] Dr. Dona Turner MCHC (RBC) [Mass/Vol] 32.4 g/dL Normal 29.9-35.2 [facility] Comment on above: Performed By: #### C BC #### [facility] [address] [place] [address] Dr. Dona Turner MCV (RBC) [Entitic vol] 79.8 fL Critically low 81.0-99.0 [facility] Comment on above: Performed By: #### C BC #### [facility] [address] [place] [address] Dr. Dona Turner MONO # 0.6 103/ul Normal 0.3-0.8 [facility] Comment on above: Performed By: #### C BC #### [facility] [address] [place] [address] Dr. Dona Turner Monocytes/100 WBC (Bld) 6.9 % Normal 1.7-12.0 [facility] Comment on above: Performed By: #### C BC #### [facility] [address] [place] [address] Dr. Dona Turner NEUT # 6.6 103/ul Critically high 1.4-6.5 [facility] Comment on above: Performed By: #### C BC #### [facility] [address] [place] [address] Dr. Dona Turner Neutrophils/100 WBC (Bld) 73.5 % Normal 43.0-75.0 [facility] Comment on above: Performed By: #### C BC #### [facility] [address] [place] [address] Dr. Dona Turner Platelet mean volume (Bld) [Entitic vol] 11.1 fL Normal 9.5-13.5 [facility] Comment on above: Performed By: #### C BC #### [facility] [address] [place] [address] Dr. Dona Turner PLT 256 103/ul Normal 150-450 [facility] Comment on above: Performed By: #### C BC #### [facility] [address] [place] [address] Dr. Dona Turner RBC 5.60 106/ul Critically high 4.20-5.[address] [facility] Comment on above: Performed By: #### C BC #### [facility] [address] [place] [address] Dr. Dona Turner WBC 8.9 103/ul Normal 4.0-11.0 [facility] Comment on above: Performed By: #### C BC #### [facility] [address] [place] [address] Dr. Dona Turner FREE THYROXINE INDEX T7on FTI 3.66 Normal 1.30-4.50 [facility] Comment on above: Performed By: #### C VDTBH #### [facility] [address] [place] [address] Dr. Dona Turner T3U 37.0 % Normal 30.0-39.0 [facility] Comment on above: Performed By: #### C VDTBH #### [facility] [address] [place] [address] Dr. Dona Turner T4 [Mass/Vol] 9.90 ug/dL Normal 4.80-13.90 [facility] Comment on above: Performed By: #### C VDTBH #### [facility] [address] [address] [address] Dona Turner GLYCOHEMOGLOBIN A1Con 2021 ADA RECOMMENDATION SEE BELOW Normal [facility] Comment on above: Result Comment: ADA RECOMMENDED LIMIT 4.0 - 6.0 ADA THERAPEUTIC TARGET < 7.0 ACTION SUGGESTED > 7.0 Performed By: #### A 1C #### [facility] [address] [place] [address] Dr. Dona Turner Glucose [Mass/Vol] 183 mg/dL Normal [facility] Comment on above: Performed By: #### A 1C #### [facility] [address] [place] [address] Dr. Dona Turner HbA1c (Bld) [Mass fraction] 8.0 % Critically high 4.5-6.2 [facility] Comment on above: Performed By: #### A 1C #### [facility] [address] [place] [address] Dr. Dona Turner IRONon 07-09-2022 Iron [Mass/Vol] 56.0 ug/dL Normal 50.0-170.0 [facility] Comment on above: Performed By: #### I NSULIN #### [facility] [address] [place] [address] Dr. Dona Turner LIPID PROFILEon 07-09-2022 CHOL-HDL RATIO NORM SEE BELOW Normal [facility] Comment on above: Result Comment: 3.3 - 4.4 LOW RISK 4.4 - 7.1 AVERAGE RISK 7.1 - 11.0 MODERATE RISK >11.0 HIGH RISK Performed By: #### C VDTBH #### [facility] [address] [place] [address] Dr. Dona Turner Cholesterol [Mass/Vol] 228 mg/dL Critically high <=200 [facility] Comment on above: Performed By: #### C VDTBH #### [facility] [address] [place] [address] Dr. Dona Turner Cholesterol in HDL [Mass/Vol] 37 mg/dL Critically low 40-60 [facility] Comment on above: Performed By: #### C VDTBH #### [facility] [address] [address] [address] Dona Turner Cholesterol in LDL [Mass/Vol] 163.6 mg/dL Normal [facility] Comment on above: Performed By: #### C VDTBH #### [facility] [address] [address] [address] Dona Turner Cholesterol.total/Chol esterol in HDL [Mass ratio] 6.2 {ratio} Normal [facility] Comment on above: Performed By: #### C VDTBH #### [facility] [address] [address] [address] Dona Turner HDL NORMAL > or = 60 mg/dl - LOW CARDIOVASCULAR RISK <40 mg/dl - HIGH CARDIOVASCULAR RISK Normal [facility] Comment on above: Performed By: #### C VDTBH #### [facility] [address] [place] [address] Dr. Dona Turner LDL CALC NORMAL SEE BELOW Normal [facility] Comment on above: Result Comment: <100 mg/dl OPTIMAL 100 - 129 mg/dl NEAR OR ABOVE OPTIMAL 130 - 159 mg/dl BORDERLINE HIGH 160 - 189 mg/dl HIGH >190 mg/dl VERY HIGH Performed By: #### C VDTBH #### [facility] [address] [place] [address] Dr. Dona Turner Triglyceride [Mass/Vol] 137 mg/dL Normal <=150 [facility] Comment on above: Performed By: #### C VDTBH #### [facility] [address] [place] [address] Dr. Dona Turner VLDL CALC 27.4 mg/dL Normal [facility] Comment on above: Performed By: #### C VDTBH #### [facility] [address] [place] [address] Dr. Dona Turner PROF 14(COMP METB)on 022 Albumin [Mass/Vol] 3.8 g/dL Normal 3.4-5.0 [facility] Comment on above: Performed By: #### C VDTBH #### [facility] [address] [place] [address] Dr. Dona Turner Albumin/Globulin [Mass ratio] 1.0 {ratio} Normal [facility] Comment on above: Performed By: #### C VDTBH #### [facility] [address] [place] [address] Dr. Dona Turner ALP [Catalytic activity/Vol] 57 U/L Normal 46-116 [facility] Comment on above: Performed By: #### C VDTBH #### [facility] [address] [place] [address] Dr. Dona Turner ALT [Catalytic activity/Vol] 24 U/L Normal 14-59 [facility] Comment on above: Performed By: #### C VDTBH #### [facility] [address] [place] [address] Dr. Dona Turner Anion gap [Moles/Vol] 9.6 mmol/L Normal [facility] Comment on above: Performed By: #### C VDTBH #### [facility] [address] [place] [address] Dr. Dona Turner AST [Catalytic activity/Vol] 15 U/L Normal 15-37 [facility] Comment on above: Performed By: #### C VDTBH #### [facility] [address] [place] [address] Dr. Dona Turner Bilirubin [Mass/Vol] 0.5 mg/dL Normal 0.2-1.0 [facility] Comment on above: Performed By: #### C VDTBH #### [facility] [address] [place] [address] Dr. Dona Turner Calcium [Mass/Vol] 9.3 mg/dL Normal 8.5-10.1 [facility] Comment on above: Performed By: #### C VDTBH #### [facility] [address] [place] [address] Dr. Dona Turner Chloride [Moles/Vol] 103 mmol/L Normal 98-107 [facility] Comment on above: Performed By: #### C VDTBH #### [facility] [address] [place] [address] Dr. Dona Turner CO2 [Moles/Vol] 29.5 mmol/L Normal 21.0-32.0 [facility] Comment on above: Performed By: #### C VDTBH #### [facility] [address] [place] [address] Dr. Dona uTrner Creatinine [Mass/Vol] 0.61 mg/dL Normal 0.55-1.02 [facility] Comment on above: Performed By: #### C VDTBH #### [facility] [address] [address] [address] Dona Turner EGFR-AF ERITREAN >60 Normal >=60 [facility] Comment on above: Performed By: #### C VDTBH #### [facility] [address] [place] [address] Dr. Dona Turner EGFR-NON AF ERITREAN >60 Normal >=60 [facility] Comment on above: Performed By: #### C VDTBH #### [facility] [address] [place] [address] Dr. Dona Turner Globulin (S) [Mass/Vol] 3.8 g/dL Normal [facility] Comment on above: Performed By: #### C VDTBH #### [facility] [address] [place] [address] Dr. Dona Turner Glucose [Mass/Vol] 104 mg/dL Normal 74-106 [facility] Comment on above: Performed By: #### C VDTBH #### [facility] [address] [place] [address] Dr. Dona Turner Potassium [Moles/Vol] 4.1 mmol/L Normal 3.5-5.1 [facility] Comment on above: Performed By: #### C VDTBH #### [facility] [address] [place] [address] Dr. Dona Turner Protein [Mass/Vol] 7.6 g/dL Normal 6.4-8.2 [facility] Comment on above: Performed By: #### C VDTBH #### [facility] [address] [place] [address] Dr. Dona Turner Sodium [Moles/Vol] 138 mmol/L Normal 136-145 [facility] Comment on above: Performed By: #### C VDTBH #### [facility] [address] [place] [address] Dr. Dona Turner Urea nitrogen [Mass/Vol] 14.0 mg/dL Normal 7.0-18.0 [facility] Comment on above: Performed By: #### C VDTBH #### [facility] [address] [place] [address] Dr. Dona Turner Urea nitrogen/Creatinine [Mass ratio] 23.0 mg/mg Normal [facility] Comment on above: Performed By: #### C VDTBH #### [facility] [address] [place] [address] Dr. Dona Turner TSHon 07-09-2022 TSH 0.324 uIU/mL Critically low 0.358-3.740 [facility] Comment on above: Performed By: #### C VDTBH #### [facility] [address] [place] [address] Dr. Dona Turner VITAMIN D 25 OHon 07-09-2022 VIT D 25-OH 52.6 ng/mL Normal [facility] Comment on above: Performed By: #### I NSULIN #### [facility] [address] [place] [address] Dr. Dona Turner VIT D RANGES SEE BELOW Normal [facility] Comment on above: Result Comment: <20 ng/mL Vit D deficient 20 - <30 ng/mL Vit D insufficient 30 - 100 ng/mL Vit D sufficient >100 ng/mL Potential Toxicity Performed By: #### I NSULIN #### [facility] [address] [place] [address] Dr. Dona Turner [facility] SARS-CoV-2 (COVID-19) RNA JEWEL+probe Ql (Unsp spec) Not detected Normal NOT DETECTED [facility] Comment on above: Result Comment: This test is not yet approved or cleared by the [place] FDA. When there are no FDA-approved or cleared tests available, and other criteria are met, FDA can make tests available under an emergency access mechanism called an Emergency Use Authorization (EUA). The EUA for this test is supported by the [place] of Health and Human Service's (HHS's) declaration [...] consistent with SARS-CoV-2. Performed By: #### C [facility] #### [facility] [address] [place] [address] Dr. Dona Turner Coding Summary.on 09-12-2018 Coding Summary. CODING DATE: 09/12/2018 [facility] STATUS: Home (Routine DC) PAYOR: Loreto APC [...] Cuellar Date Saved: 09/12/2018 03:25 pm Normal [facility] Main OR Intraoperative Recor don 09-09-2018 Main OR Intraoperative Record IntraOp Document Type FTURO Summary Primary Physician: David ORTIZ MD Finalized Date/Time: 09/09/18 12:32:44 Pt. Name: IAN BRIGGS /Sex: 1970 Female Med Rec #: [id number] Physician: David ORTIZ MD Financial #: [id number] Pt. Type: O Room/Bed: / Admit/Disch: 09/09/18 09:49:59 - Institution: Case Times FTURO Entry 1 Patient Times In Room 09/09/18 12:19:00 Out Room 09/09/18 12:33:00 Procedure Times Start 09/09/18 12:22:00 Stop 09/09/18 12:26:00 Anesthesia Times Last Modified By: Lilliana RN, RADHIKAOR, Pearl Hoffmann 09/09/18 12:32:32 Case Attendance FTURO Entry 1 Entry 2 Entry 3 Case Attendee David ORTIZ MD SHUTTLE FILLER, Alannah Tijerina RN, CNOR, Pearl Hoffmann Role Performed Surgeon - Primary Scrub - Primary Grapple Operator - Primary Time In 09/09/18 12:20:00 09/09/18 12:19:00 09/09/18 12:19:00 Time Out 09/09/18 12:33:00 09/09/18 12:33:00 09/09/18 12:33:00 Procedure CYSTOSCOPY LOCAL WITH CYSTOSCOPY LOCAL WITH CYSTOSCOPY LOCAL WITH URETHRAL DILATION(.) URETHRAL DILATION(.) URETHRAL DILATION(.) Comments Last Modified By: Lilliana RN, CNOR, Pearl Tijerina RN, RADHIKAOR, Pearl Tijerina RN, RADHIKAOR, Pearl Hoffmann 09/09/18 12:32:40 09/09/18 12:32:40 09/09/18 12:32:40 Surgical Procedures FTURO Entry 1 Procedure Description Procedure CYSTOSCOPY LOCAL WITH Modifiers . URETHRAL DILATION Surgeon Description CYSTOSCOPY UD Primary Procedure Yes Primary Surgeon David ORTIZ MD Start 09/09/18 12:22:00 Stop 09/09/18 12:26:00 Anesthesia Type Local Surgical Service Urology Wound Class 2 - Clean-Contaminated Last Modified By: Lilliana RN, RADHIKAOR, Pearl Hoffmann 09/09/18 12:30:52 General Case Data FTURO Pre-Care Text: Classifies surgical wound, implements aseptic technique, initiates traffic control Entry 1 Case Information OR URO 1 FT Case Level None Wound Class 2 - Clean-Contaminated Specialty Urology Preop Diagnosis FREQUENCY, URGENCY, Postop Same As Preop No MIXED INCONTINENCE, INCOMPLETE EMPTYING Postop Diagnosis urethral stricture Outcomes Met? Yes Last Modified By: GIUSEPPE Schumacher RN, Ruthann 09/09/18 07:12:30 Post-Care Text: The patient is [...] David ORTIZ MD, Verified (If Participants [place] SHUTTLE FILLER, Alannah, Applicable) GIUSEPPE Tijerina RN, Lou Ann [...] Tijerina RN, Lou Ann 09/09/18 12:32 Normal [facility] Main OR Preoperative Recordo n 09-09-2018 Main OR Preoperative Record Holding Area Document Type FTURO Summary Primary Physician: David ORTIZ MD Finalized Date/Time: 09/09/18 12:22:07 Pt. Name: IAN BRIGGS/Sex: 1970 Female Med Rec #: [id number] Physician: David ORTIZ MD Financial #: [id number] Pt. Type: O Room/Bed: / Admit/Disch: 09/09/18 [...] Complaints of Pain: No Skin Integrity Intact, Kiln, Warm, & Dry Vitals - EU Blood Pressure 141/78 Pulse 57 bpm Respirations 16 br/min SPO2 Additional None RN Reviewed Yes Specimens Collected Last Modified By: GIUSEPPE Tijerina RN, Lou Ann 09/09/18 12:22:05 Finalized By: GIUSEPPE Tijerina RN, Lou Ann Document Signatures Signed By: Racheal Bernabe 09/09/18 11:43 GIUSEPPE Tijerina RN, Lou Ann 09/09/18 12:22 Normal [facility] Operative Reporton 9 Operative Report Patient: IAN BRIGGS Age: 48 years Sex: Female : 1970 [...] urine. The Urethra was dilated to: 30 [place] w/ sounds. Devices Implanted: None. Removal: Cystoscope is removed, The patient tolerated it well. Postoperative Information Discharge: Patient is discharged home with antibiotic coverage, Follow up arranged. she will do timed/double voids. try ditropan xl 10mgqd f/u 3 months with pvr bladder scan....?pessary. Normal [facility] Comment on above: Result Comment: Elec tronically Signed By: ANGEL SWANSON, David Leija.br\Date and Time Signed: 09/09/18 12:39 EST Encounters Encounter Date Encounter Type Care Provider Facility Start: [facility]06[facility] Start: 01-29-2023 End: 01-30-[address] SEFERINO MENDOZA . Facility:[facility] Start: 01-07-2023 End: 01-08-[address] SEFERINO MENDOZA . Facility[facility] Start: 10-13-2022 End: 10-14-[address] SEFERINO MENDOZA . Facility:[facility] Start: 07-14-2022 Encounter for genera l adult medical examination without abnormal findings DR SEFERINO MENDOZA . [facility] Start: 07-13-2022 End: 07-14-[address] SEFERINO [...] End: 04-18-[address] SEFERINO MENDOZA . Facility: Start: 01-29-2018 End: 01-30-2018 Ambulatory DEFAULT PHYSICIAN Facility:[facility] Procedures Date Procedure Procedure Detail Performing Clinician Start: 07-06-2024 Computerized ophthal raf imaging retina Que Fernando Shawna Payers Date Payer Category Payer Unknown [id number] 1970 Unknown [id number] 2.16.84 [id number] 1970 Unknown [id number] 2.16.84 [id number] 1970 Unknown [id number] 2.16.84 [id number] 1970 Unknown [id number] 2.16.84 [id number] 1970 Unknown [id number] 2.16.84 [id number] 1970 Unknown [id number] 2.16.84 [id number] 1970 Unknown [id number] 2.16.84 [id number] 1970 Unknown [id number] 2.16.84 [id number] 1970 Unknown [id number] 2.16.84 [id number] 1961 Unknown [id number] Unknown Clinical Note 07-03-2022 Note Date & [...] authenticated by: NAZARIO PEREZ Date: 2022-07-03 10:07 [facility] Clinical Note 07-03-2022 Note Date & [...] authenticated by: NAZARIO PEREZ Date: 2022-07-03 10:07 [facility] Summary Purpose Family History No Family History Records FoundNo Family History Records FoundNo Family History Records FoundNo Family History Records Found Advance Directives No Advanced Directives Records FoundNo Advanced Directives Records FoundNo Advanced Directives Records FoundNo Advanced Directives Records Found Additional Source Comments INFORMATION SOURCE (unrecogn ized section and content) DATE CREATED AUTHOR 02/19/2018 [facility] DATE CREATED AUTHOR AUTHOR'S ORGANIZ ATION 05/23/2019 [facility] DATE CREATED AUTHOR AUTHOR'S ORGANIZ ATION 02/08/2023 [facility] DATE CREATED AUTHOR AUTHOR'S ORGANIZ ATION 07/09/2024 [facility] I nstitute FOR RECORDS PERTAINING TO PATIENTS WHO ARE [...] BE BASED ON THE PRIMARY CLINICAL RECORDS. [email or web address] provides no warranty or guarantee of the accuracy or completeness of information in this document.
[2024-07-10 08:43] VITALS: BP 120/68; PULSE 72; O2SAT 98
== END 2024-07-10 08:45 | disposition home or self-care (01) ==
PROVIDERS: PCP Radiology Diagnostic Radiology; Visit Provider Radiology Diagnostic Radiology
DX: I83.813 Varicose veins of bilateral lower extremities with pain (principal)
CPT/HCPCS: 36466

== ENCOUNTER 2024-07-16 14:59 | Outpatient (OUT) | payer BC, SELFPAY ==
--- NOTE | 2024-07-15 14:36 | V.VEINS.HP ---
Varicose Veins Patient in today for follow up ultrasound post varithena/microfoam chemical ablation left leg. Nazario Reza MD personally performed the services described in this documentation, as scribed by Dilia Lopez RVT, RDMS in my presence and it is both accurate and complete. Dilia Reza RVT, RDMS, am scribing for, and in the presence of, Dr. Nazario Perez and in the presence of the patient. thigh: bilateral (symptoms equal bilaterally), knee: bilateral, calf: bilateral, ankle: bilateral and hayward: bilateral aching, burning, cramping, dull, sharp and tender 8 2 years Worsened in recent months: Yes standing, sitting and walking analgesics (Tylenol), elevating extremities, compression stockings and exercise Reports muscle spasms of leg, fatigue, heaviness, limb pain, edema and leg edema History of lower extremity trauma: No Superficial thrombophlebitis: Yes Family history of varicose veins: yes Has patient had previous lower extremity venous surgery: No Patient has previously received the following treatment(s) for lower extremity varicose veins: Reports none Does patient have a history of : yes Does patient intend to have future pregnancies: no Has patient had lower extremity venous scan with relux testing: No Support hose used: Yes Problems walking or doing physical activity: Yes How does it affect you: awakens her from sleep, often has to stop and elevate feet/legs Do you walk much: Yes Do you stand much: Yes Review of Systems ROS Narrative Nazario Reza MD personally performed the services described in this documentation, as scribed by Dilia Lopez RVT, RDMS in my presence and it is both accurate and complete. Dilia Reza RVT, RDMS, am scribing for, and in the presence of, Dr. Nazario Perez and in the presence of the patient. 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 ?I80.01 - Phlebitis and thrombophlebitis of superficial vessels of right lower extremity (ICD-10) Phlebitis and thrombophlebitis of superficial vessels of left lower extremity ?I80.02 - Phlebitis and thrombophlebitis of superficial vessels of left lower extremity (ICD-10) Varicose veins of bilateral lower extremities with pain ?I83.813 - Varicose veins of bilateral lower extremities with pain (ICD-10) Carpal tunnel syndrome ?G56.00 - Carpal tunnel syndrome, unspecified upper limb (ICD-10) Edema ?R60.9 - Edema, unspecified (ICD-10) Hypercholesteremia ?E78.00 - Pure hypercholesterolemia, unspecified (ICD-10) Hypothyroid ?E03.9 - Hypothyroidism, unspecified (ICD-10) Diabetes ?E11.9 - Type 2 diabetes mellitus without complications (ICD-10) Hypertension ?I10 - Essential (primary) hypertension (ICD-10) Deep vein thrombosis ?I82.409 - Acute embolism and thrombosis of unspecified deep veins of unspecified lower extremity (ICD-10) Surgical History (Updated 06/26/24 @ 09:09 by Ramírez Driver) Status post laser ablation of incompetent vein ?Z98.890 - Other specified postprocedural states (ICD-10) Status post laser ablation of incompetent vein ?Z98.890 - Other specified postprocedural states (ICD-10) History of carpal tunnel surgery ?Z98.890 - Other specified postprocedural states (ICD-10) History of arthroscopy of left shoulder ?Z98.890 - Other specified postprocedural states (ICD-10) H/O: hysterectomy ?Z90.710 - Acquired absence of both cervix and uterus (ICD-10) Family History (Updated 04/13/24 @ 13:42 by Ramírez Driver) Mother Family history of diabetes mellitus Family history of hypertension Varicose veins of bilateral lower extremities with pain Social History (Updated 04/13/24 @ 13:43 by Ramírez Driver) Within the past year, how often did you have a drink containing alcohol: never Score interpretation: A score less than 3 is consistent with normal alcohol consumption. Smoking status: Never smoker Non-prescribed substance use: denies use Meds Home Medications and Allergies Home Medications ?Medication ?Instructions ?Recorded ?Confirmed ?Type diclofenac potassium 04/13/24 History empagliflozin 25 mg tablet 25 mg PO QAM 04/13/24 04/13/24 History (Jardiance) furosemide 20 mg tablet 20 mg PO DAILY 04/13/24 04/13/24 History glimepiride 4 mg tablet 4 mg PO DAILY 04/13/24 04/13/24 History levothyroxine 125 mcg capsule 125 mcg PO DAILY 04/13/24 04/13/24 History levothyroxine 137 mcg tablet 137 mcg PO DAILY 04/13/24 04/13/24 History (Euthyrox) metformin 500 mg tablet,extended 500 mg PO DAILY 04/13/24 04/13/24 History release 24 hr metoprolol tartrate 50 mg tablet 25 mg PO DAILY 04/13/24 04/13/24 History pantoprazole 40 mg tablet,delayed 40 mg PO DAILY 04/13/24 04/13/24 History release (Protonix) sitagliptin phosphate 100 mg 100 mg PO DAILY 04/13/24 04/13/24 History tablet (Januvia) Allergies Allergy/AdvReac Type Severity Reaction Status Date / Time penicillamine Allergy Intermediate Rash Verified 04/13/24 13:46 Exam Narrative Exam Narrative: Nazario Reza MD personally performed the services described in this documentation, as scribed by Dilia Lopez RVT, RDMS in my presence and it is both accurate and complete. Dilia Reza RVT, RDMS, am scribing for, and in the presence of, Dr. Nazario Perez and in the presence of the patient. 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 Assessment and Plan Assessment and Plan (1) Phlebitis and thrombophlebitis of superficial vessels of left lower extremity: Plan Patient in today for follow up ultrasound of lower extremity following treatment of Varithena/microfoam completed on 07/10/24. I, Nazario Perez MD personally performed the services described in this documentation, as scribed by Dilia Lopez RVT, RDMS in my presence and it is both accurate and complete. I, Dilia Lopez RVT, RDMS, am scribing for, and in the presence of, Dr. Nazario Perez and in the presence of the patient.
--- NOTE | 2024-07-15 14:38 | P.DS_ITS ---
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
--- NOTE | 2024-07-15 14:38 | W.VEIN ---
Discharge Plan Discharge Disposition: Home, Self-Care Outpatient Diagnostics: VC INJ Foam Sclerosant BRAULIO ADJUNCT FACULTY MATHEMATICS DEPARTMENT (Routine) Timeframe: 2 Weeks Facility: [facility] - Location: Vein Center Ordered By: Nazario Perez Follow Up Appointments: 08/07/24 Print Language: Yoruba
--- NOTE | 2024-07-16 15:00 | VEIN_ITS ---
Patient Name: QUINN AGUILAR MR#: [id number] : 1970 Exam Date: 07/16/2024 Ordering Doctor: DR RAMESH GEORGE M.D. RADIOLOGY REPORT PROCEDURE: [facility] EST LMTD VEIN CENTER - OFFICE VISIT FOLLOW UP [facility]. PROGRESS NOTES: The patient reports improvement in leg symptoms. There has been interval reduction in varicosities. The patient has followed our recommendations to walk 20-30 minutes once or twice per day since the procedure. Physical exam demonstrates decrease in varicosities of the leg. Persistent right leg varicose veins and bilateral reticular/spider veins are identified along the legs. Review of the ultrasound performed the same day demonstrates occlusive thrombus extending throughout the treated vein(s), see separate report, consistent with a successful ablation. No thrombus extending into or beyond the saphenofemoral junction. The patient expressed a desire to proceed with treatment of remaining incompetent varicosities. The patient was informed that treatment was a process and would require several procedures/sessions. VEIN/[facility] EST LMTD IMPRESSION: 1. Successful ablation of the left leg treated branch saphenous vein(s). 2. Persistent right leg varicose veins and lower extremity symptoms. PLAN: 1. Microfoam chemical ablation of right leg incompetent branch saphenous varicosities. Nurse notes, history and physical were reviewed and confirmed, see attached forms. The nurse was present throughout the physical exam and consultation Dictated by: Ramesh George M.D. on 07/16/2024 at 15:28 Approved by: Ramesh George M.D. on 07/16/2024 at 15:29
--- NOTE | 2024-07-16 15:00 | VEIN_ITS ---
Patient Name: QUINN AGUILAR MR#: [id number] : 1970 Exam Date: 07/16/2024 Ordering Doctor: DR RAMESH PEREZ M.D. RADIOLOGY REPORT PROCEDURE: VC EXT VENOUS LT LIMITED COMPARISON: VC EXT VENOUS LT LIMITED, 06/15/2024. INDICATIONS: I80.02 - Phlebitis and thrombophlebitis of superficial ve... TECHNIQUE: Lower extremity watt scale and Duplex Doppler evaluation of the deep venous system from the inguinal ligament through the calf veins. FINDINGS: REGION: Left lower extremity. THROMBI: Negative for DVT. Varithena induced thrombus visualized at dist/med calf, mid/med calf, and dist/med thigh. COMPRESSIBILITY: Non-compressible segments corresponding to thrombus FLOW: Areas of no flow corresponding to thrombus OTHER: No patent varicose veins remain. CONCLUSION: 1. Successful post ablation occlusion of left leg treated branch saphenous varicosities. Dictated by: Ramesh Perez M.D. on 07/16/2024 at 15:21 Approved by: Ramesh Perez M.D. on 07/16/2024 at 15:28
== END 2024-07-16 15:33 | disposition home or self-care (01) ==
LOC: VC 14:59
PROVIDERS: PCP Radiology Diagnostic Radiology; Visit Provider Radiology Diagnostic Radiology
DX: I80.02 Phlebitis and thrombophlebitis of superficial vessels of left lower extremity (principal)
CPT/HCPCS: 93971; G0463

== ENCOUNTER 2024-07-29 07:52 | Outpatient (OUT) | payer BC, SELFPAY ==
--- NOTE | 2024-07-28 09:00 | V.VEINS.HP ---
Vital Signs 07/29/24 08:00 BP 128/76 BP Location Right Brachial BP Position Sitting BP Cuff Size Adult BP Source Manual Cuff Respiration 18 Pulse 72 Pulse Source Monitor Pulse Oximetry (%) 95 Oxygen Delivery Method Room Air Comment The patient's blood pressure is elevated. Varicose Veins Patient in today for microfoam chemical ablation right leg. Nazario Reza MD personally performed the services described in this documentation, as scribed by Ramírez Driver RN in my presence and it is both accurate and complete. Ramírez Reza RN, am scribing for, and in the presence of, Dr. Nazario Perez and in the presence of the patient. thigh: bilateral (symptoms equal bilaterally), knee: bilateral, calf: bilateral, ankle: bilateral and hayward: bilateral aching, burning, cramping, dull, sharp and tender 8 2 years Worsened in recent months: Yes standing, sitting and walking analgesics (Tylenol), elevating extremities, compression stockings and exercise Reports muscle spasms of leg, fatigue, heaviness, limb pain, edema and leg edema History of lower extremity trauma: No Superficial thrombophlebitis: Yes Family history of varicose veins: yes Has patient had previous lower extremity venous surgery: No Patient has previously received the following treatment(s) for lower extremity varicose veins: Reports none Does patient have a history of : yes Does patient intend to have future pregnancies: no Has patient had lower extremity venous scan with relux testing: No Support hose used: Yes Problems walking or doing physical activity: Yes How does it affect you: awakens her from sleep, often has to stop and elevate feet/legs Do you walk much: Yes Do you stand much: Yes Review of Systems ROS Narrative Nazario Reza MD personally performed the services described in this documentation, as scribed by Ramírez Driver RN in my presence and it is both accurate and complete. Ramírez Reza RN, am scribing for, and in the presence of, Dr. Nazario Perez and in the presence of the patient. 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 ?I80.01 - Phlebitis and thrombophlebitis of superficial vessels of right lower extremity (ICD-10) Phlebitis and thrombophlebitis of superficial vessels of left lower extremity ?I80.02 - Phlebitis and thrombophlebitis of superficial vessels of left lower extremity (ICD-10) Varicose veins of bilateral lower extremities with pain ?I83.813 - Varicose veins of bilateral lower extremities with pain (ICD-10) Carpal tunnel syndrome ?G56.00 - Carpal tunnel syndrome, unspecified upper limb (ICD-10) Edema ?R60.9 - Edema, unspecified (ICD-10) Hypercholesteremia ?E78.00 - Pure hypercholesterolemia, unspecified (ICD-10) Hypothyroid ?E03.9 - Hypothyroidism, unspecified (ICD-10) Diabetes ?E11.9 - Type 2 diabetes mellitus without complications (ICD-10) Hypertension ?I10 - Essential (primary) hypertension (ICD-10) Deep vein thrombosis ?I82.409 - Acute embolism and thrombosis of unspecified deep veins of unspecified lower extremity (ICD-10) Surgical History (Updated 07/29/24 @ 08:54 by Ramírez Driver) S/P sclerotherapy of varicose veins ?Z98.890 - Other specified postprocedural states (ICD-10) ?Z86.79 - Personal history of other diseases of the circulatory system (ICD-10) Status post laser ablation of incompetent vein ?Z98.890 - Other specified postprocedural states (ICD-10) Status post laser ablation of incompetent vein ?Z98.890 - Other specified postprocedural states (ICD-10) History of carpal tunnel surgery ?Z98.890 - Other specified postprocedural states (ICD-10) History of arthroscopy of left shoulder ?Z98.890 - Other specified postprocedural states (ICD-10) H/O: hysterectomy ?Z90.710 - Acquired absence of both cervix and uterus (ICD-10) Family History (Updated 04/13/24 @ 13:42 by Ramírez Driver) Mother Family history of diabetes mellitus Family history of hypertension Varicose veins of bilateral lower extremities with pain Social History (Updated 04/13/24 @ 13:43 by Ramírez Driver) Within the past year, how often did you have a drink containing alcohol: never Score interpretation: A score less than 3 is consistent with normal alcohol consumption. Smoking status: Never smoker Non-prescribed substance use: denies use Meds Home Medications and Allergies Home Medications ?Medication ?Instructions ?Recorded ?Confirmed ?Type diclofenac potassium 04/13/24 History empagliflozin 25 mg tablet 25 mg PO QAM 04/13/24 04/13/24 History (Jardiance) furosemide 20 mg tablet 20 mg PO DAILY 04/13/24 04/13/24 History glimepiride 4 mg tablet 4 mg PO DAILY 04/13/24 04/13/24 History levothyroxine 125 mcg capsule 125 mcg PO DAILY 04/13/24 04/13/24 History levothyroxine 137 mcg tablet 137 mcg PO DAILY 04/13/24 04/13/24 History (Euthyrox) metformin 500 mg tablet,extended 500 mg PO DAILY 04/13/24 04/13/24 History release 24 hr metoprolol tartrate 50 mg tablet 25 mg PO DAILY 04/13/24 04/13/24 History pantoprazole 40 mg tablet,delayed 40 mg PO DAILY 04/13/24 04/13/24 History release (Protonix) sitagliptin phosphate 100 mg 100 mg PO DAILY 04/13/24 04/13/24 History tablet (Januvia) Allergies Allergy/AdvReac Type Severity Reaction Status Date / Time penicillamine Allergy Intermediate Rash Verified 04/13/24 13:46 Exam Narrative Exam Narrative: Nazario Reza MD personally performed the services described in this documentation, as scribed by Ramírez Driver RN in my presence and it is both accurate and complete. Ramírez Reza RN, am scribing for, and in the presence of, Dr. Nazario Perez and in the presence of the patient. Constitutional Documenting provider has reviewed patient's vital signs: yes Common normals: oriented x3 Nutritional appearance: overweight Cardio Peripheral pulses: posterior tibial pulses present and dorsalis pedis pulses present Extremity Common normals: normal capillary refill General: edema Right lower extremity: lower leg Right lower leg: inspection and palpation Left lower extremity: lower leg Left lower leg: inspection and palpation Neuro Common normals: oriented x3 Assessment and Plan Assessment and Plan (1) Varicose veins of bilateral lower extremities with pain: Plan f/u examination with physician along with right leg limited u/s I, Nazario Zieber, MD personally performed the services described in this documentation, as scribed by Ramírez Driver RN in my presence and it is both accurate and complete. Ramírez Reza RN, am scribing for, and in the presence of, Dr. Nazario Perez and in the presence of the patient. Procedures Procedure Instructions Procedures Right legleg microfoam chemical ablation/Varithena: Risks and benefits of the procedure were discussed at length and informed written consent was obtained.? Time-out procedure was performed and the correct patient and procedure were confirmed.? Staff present during time-out: Ramírez Driver RN and Nazario Perez MD.? Patient prepped and procedure performed in usual sterile fashion.? Patient was placed in Trendelenburg prior to Polidocanol/Varithena injections. Sclerosing Agent:?10? cc 1% Polidocanol/Varithena Site Injected: right lecc varithena administered in to a 4mm varicose vein distal medial lower leg 3cc varithena administered in to a 4mm varicose vein mid medial lower leg 5cc varithena administered in to a 4mm varicose vein anterior distal upper leg Number of Injections:? 3 The patient tolerated the procedure well without complication.? Hemostasis was obtained and thigh-high compression stocking was applied with foam pads.? Instructed patient to wear stocking for at least 96 hours and sleep with it and only remove for showering.? The patient was instructed to? wear stocking for 2 weeks.? Patient verbalizes understanding and states they will comply.? Patient was given post-procedure instructions. Patient was discharged in good condition.? Scheduled to undergo limited venous ultrasound and? exam on 08/03/2024. Nazario Reza MD personally performed the services described in this documentation, as scribed by Ramírez Driver RN in my presence and it is both accurate and complete. Ramírez Reza RN, am scribing for, and in the presence of, Dr. Nazario Perez and in the presence of the patient.
--- NOTE | 2024-07-28 09:08 | W.VEIN ---
Discharge Plan Discharge Disposition: Home, Self-Care Outpatient Diagnostics: VC Facility EST LMTD (Routine) Timeframe: 2 Weeks Facility: [facility] - Location: Vein Center Ordered By: Nazario Perez VC EXT Venous RT LMTD (Routine) Timeframe: 2 Weeks Facility: [facility] - Location: Vein Center Ordered By: Nazario Perez Follow Up Appointments: 08/03/2024 Plan of Treatment: f/u evaluation with physician along with right leg limited u/s Patient Instructions: Endovenous Ablation (DC) Print Language: Telugu Discharge Date/Time: 07/29/24 08:57
--- NOTE | 2024-07-29 07:52 | VEIN_ITS ---
[address] [address] Patient Name: QUINN AGUILAR MRN: [id number] date: 1970 Sex: F Assigned Patient Location: Current Patient Location: Accession/Order Number: [id number] Exam Date: 07/29/2024 07:52 Report Date: 07/29/2024 11:05 At the request of: RAMESH GEORGE Procedure: VC INJ Foam Sclerosant [employer] PROCEDURE: VC INJ Foam Sclerosant [employer] HISTORY: I83.813 - Varicose veins of bilateral lower extremities w... Pre-operative Diagnosis: CEAP class C3 venous insufficiency with pain, tenderness, edema and incompetent branch saphenous vein(s), chronic venous insufficiency right leg secondary to venous incompetence Post-operative Diagnosis: CEAP class C3 venous insufficiency with pain, tenderness, edema and incompetent branch saphenous vein(s), chronic venous insufficiency right leg secondary to venous incompetence Procedure Performed: 1. Ultrasound-guided microfoam chemical ablation with Varithenaregistered 2. Intraoperative ultrasound guidance Physician: Ramesh George M.D. Anesthesia: None Indications for Procedure: 54 year old female. Symptoms including lower extremity pain, swelling, dilated bulging veins for many years despite conservative medical therapy including medical compression stockings, exercise and analgesics. Prior procedures include endovenous laser ablation and microfoam chemical ablation. Multiple incompetent varicosities of the right leg. Duplex scan showed reflux and enlarged diameters up to 4 mm. The patient underwent informed consent including management options where the complications of infection, bleeding, pain, and skin injury were discussed. Particular attention was spent discussing thrombus extension and deep vein thrombosis as well as the possibility of pulmonary embolus and treatment with oral or injectable blood thinners. Procedure: The patient walked to the procedure room. All applicable staff donned appropriate apparel. A procedure timeout was performed to confirm correct patient, correct extremity, correct procedure, and correct room set-up including presence of all applicable supplies, devices, and drugs. A duplex ultrasound, performed by myself confirmed the location and incompetence of branch saphenous varicosities and their course was marked on the skin together with the dilated tributaries. The extent of treatment of the vein and the associated varicosities was determined through ultrasound mapping. The skin was prepped and then punctured with a butterfly needle and advanced under ultrasound guidance. The Varithenaregistered canister was activated and the canister was primed and purged as required in the instructions for use. Varithenaregistered was drawn into a sterile syringe. Varithenaregistered was slowly administered at 0.5-1.0 cc/second with close observation by ultrasound of its course in the vessels. Total volume utilized was: 10 mL (2 mL into a 4 mm varicosity distal medial lower right leg; 3 mL into a 4 mm varicosity mid medial lower leg; 5 mL into a 4 mm varicosity anterior distal upper leg). Following administration of Varithenaregistered the leg was elevated and the patient was asked to repeatedly dorsiflex the ankle to limit flow of Varithenaregistered into perforating veins. Once appropriate spasm had been confirmed in the treated veins, the vascular catheter was removed from the leg and light pressure was applied over the puncture site for hemostasis. The common femoral and deep superficial veins were then evaluated for flow and compressibility prior to dressing placement. The lower extremity was kept elevated at 45 degrees above the horizontal and cording material was applied over the saphenous segments and tributaries to allow for eccentric compression over the target vessels including the targeted saphenous vein(s). A multilayer dressing was applied consisting of foam pads, coban and thigh-high 20-30 mm Hg compression elastic support hose were placed on the patient. The leg was lowered only after compression had been applied and the patient was immediately ambulatory. The patient ambulated 10 minutes under supervision and was without apparent concerns at time of release. Post-care instructions include advising patient to keep post-treatment bandages in place and dry for 48 hours, avoid extended periods of inactivity, avoid heavy exercise for one week, wear compression stockings on the treated leg continuously for two weeks, to walk daily for 10 minutes over the next month. The patient was instructed to take an anti-inflammatory medicine as needed and to follow up for color duplex scan of the Saphenous veins, the treated branch saphenous varicosities, the adjacent deep veins, and additional treatment within 7 days. PERSONNEL: Ramírez Driver RN Electronically authenticated by: RAMESH GEORGE Date: 07/29/2024 11:05
[2024-07-29 08:00] VITALS: BP 128/76; PULSE 72; O2SAT 95
--- OUTSIDE RECORDS SUMMARY | 2024-07-29 08:13 | XMS_ITS | CCD ---
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 Repository Problems Active Problems Problem Classification [...] : DR SEFERINO MENDOZA . Admission #: [id number] Family : Order #: [id number] CLICK HERE TO VIEW EXAM RADIOLOGY REPORT [...] Treatments None Family Cancers None LOCATION: [facility] BREAST COMPOSITION: Scattered areas fibroglandular density. FINDINGS: [...] M.D. on 01/30/2023 at 13:47 Normal [facility] INSULINon 01-08-2023 Insulin 11.3 uIU/mL Normal 2.6-24.9 [facility] Comment on above: Performed By: #### C [facility] #### [facility] [address] [place] [address] Dr. Dona Turner CBC AUTO DIFFon 01-07-2023 BASO # 0.1 103/ul Normal 0.0-0.[address] [facility] Comment on above: Performed By: #### C VDT[facility] #### [facility] [address] [place] [address] Dr. Dona Turner Basophils/100 WBC (Bld) 1.2 % Normal 0.2-2.0 [facility] Comment on above: Performed By: #### C VDTBH #### [facility] [address] [place] [address] Dr. Dona Turner EO # 0.1 103/ul Normal 0.0-0.[address] [facility] Comment on above: Performed By: #### C VDT[facility] #### [facility] [address] [place] [address] Dr. Dona Turner Eosinophils/100 WBC (Bld) 2.0 % Normal 0.9-7.[address] [facility] Comment on above: Performed By: #### C VDT[facility] #### [facility] [address] [place] [address] Dr. Dona Turner Erythrocyte distribution width (RBC) [Ratio] 14.5 % Normal 11.0-15.[address] [facility] Comment on above: Performed By: #### C VDT[facility] #### [facility] [address] [place] [address] Dr. Dona Turner Hematocrit (Bld) [Volume fraction] 45.1 % Normal 36.0-48.[address] [facility] Comment on above: Performed By: #### C VDT[facility] #### [facility] [address] [place] [address] Dr. Dona Turner Hemoglobin (Bld) [Mass/Vol] 14.1 g/dL Normal 12.0-16.0 [facility] Comment on above: Performed By: #### C VDT[facility] #### [facility] [address] [place] [address] Dr. Dona Turner IG # 0.02 10e3/ul Normal 0.00-0.03 [facility] Comment on above: Performed By: #### C VDT[facility] #### [facility] [address] [address] [address] Dona Turner IG % 0.4 % Normal 0.0-0.[address] [facility] Comment on above: Performed By: #### C VDT[facility] #### [facility] [address] [address] [address] Dona Turner LYMPH # 1.3 103/ul Normal 1.2-3.[address] [facility] Comment on above: Performed By: #### C V[facility] #### [facility] [address] [address] [address] Dona Turner Lymphocytes/100 WBC (Bld) 26.4 % Normal 20.5-60.[address] [facility] Comment on above: Performed By: #### C VDT[facility] #### [facility] [address] [place] [address] Dr. Dnoa Turner MANUAL DIFF REQ NO Normal [facility] Comment on above: Performed By: #### C VDTBH #### [facility] [address] [place] [address] Dr. Dona Turner MCH (RBC) [Entitic mass] 25.0 pg Critically low 26.7-34.[address] [facility] Comment on above: Performed By: #### C VDT[facility] #### [facility] [address] [place] [address] Dr. Dona Turner MCHC (RBC) [Mass/Vol] 31.3 g/dL Normal 29.9-35.[address] [facility] Comment on above: Performed By: #### C VDT[facility] #### [facility] [address] [place] [address] Dr. Dona Turner MCV (RBC) [Entitic vol] 80.0 fL Critically low 81.0-99.[address] [facility] Comment on above: Performed By: #### C VDT[facility] #### [facility] [address] [place] [address] Dr. Dona Turner MONO # 0.4 103/ul Normal 0.3-0.[address] [facility] Comment on above: Performed By: #### C VDT[facility] #### [facility] [address] [place] [address] Dr. Dona Turner Monocytes/100 WBC (Bld) 7.7 % Normal 1.7-12.[address] [facility] Comment on above: Performed By: #### C VDT[facility] #### [facility] [address] [place] [address] Dr. Dona Turner NEUT # 3.1 103/ul Normal 1.4-6.[address] [facility] Comment on above: Performed By: #### C VDT[facility] #### [facility] [address] [place] [address] Dr. Dona Turner Neutrophils/100 WBC (Bld) 62.3 % Normal 43.0-75.[address] [facility] Comment on above: Performed By: #### C VDT[facility] #### [facility] [address] [place] [address] Dr. Dona Turner Platelet mean volume (Bld) [Entitic vol] 10.7 fL Normal 9.5-13.[address] [facility] Comment on above: Performed By: #### C VDT[facility] #### [facility] [address] [place] [address] Dr. Dona Turner PLT 257 103/ul Normal 150-[address] [facility] Comment on above: Performed By: #### C VDT[facility] #### [facility] [address] [place] [address] Dr. Dona Turner RBC 5.64 106/ul Critically high 4.20-5.40 [facility] Comment on above: Performed By: #### C VDT[facility] #### [facility] [address] [place] [address] Dr. Dona Turner WBC 5.0 103/ul Normal 4.0-11.0 [facility] Comment on above: Performed By: #### C VDT[facility] #### [facility] [address] [place] [address] Dr. Dona Turner FREE THYROXINE INDEX T7on FTI 3.78 Normal 1.30-4.[address] [facility] Comment on above: Performed By: #### L IPID, TSH, T7, CMP #### [facility] [address] [address] [address] Dona Turner T3U 35.0 % Normal 30.0-39.[address] [facility] Comment on above: Performed By: #### L IPID, TSH, T7, CMP #### [facility] [address] [address] [address] Dona Turner T4 [Mass/Vol] 10.80 ug/dL Normal 4.80-13.90 [facility] Comment on above: Performed By: #### L IPID, TSH, T7, CMP #### [facility] [address] [address] [address] Dona Turner GLYCOHEMOGLOBIN A1Con 2022 ADA RECOMMENDATION SEE BELOW Normal [facility] Comment on above: Result Comment: ADA RECOMMENDED LIMIT 4.0 - 6.0 ADA THERAPEUTIC TARGET < 7.0 ACTION SUGGESTED > 7.0 Performed By: #### C VDTBH #### [facility] [address] [address] [address] Dona Turner Glucose [Mass/Vol] 160 mg/dL Normal [facility] Comment on above: Performed By: #### C VDT[facility] #### [facility] [address] [address] [address] Dona Turner HbA1c (Bld) [Mass fraction] 7.2 % Critically high 4.5-6.[address] [facility] Comment on above: Performed By: #### C VDTBH #### [facility] [address] [address] [address] Dona Turner IRONon 01-07-2023 Iron [Mass/Vol] 50.0 ug/dL Normal 50.0-170.0 [facility] Comment on above: Performed By: #### I NSULIN #### [facility] [address] [place] [address] Dr. Dona Turner LIPID PROFILEon 01-07-2023 CHOL-HDL RATIO NORM SEE BELOW Normal [facility] Comment on above: Result Comment: 3.3 - 4.4 LOW RISK 4.4 - 7.1 AVERAGE RISK 7.1 - 11.0 MODERATE RISK >11.0 HIGH RISK Performed By: #### L IPID, TSH, T7, CMP #### [facility] [address] [place] [address] Dr. Dona Turner Cholesterol [Mass/Vol] 162 mg/dL Normal <=200 [facility] Comment on above: Performed By: #### L IPID, TSH, T7, CMP #### [facility] [address] [address] [address] Dona Turner Cholesterol in HDL [Mass/Vol] 33 mg/dL Critically low 40-[address] [facility] Comment on above: Performed By: #### L IPID, TSH, T7, CMP #### [facility] [address] [place] [address] Dr. Dona Turner Cholesterol in LDL [Mass/Vol] 100.4 mg/dL Normal [facility] Comment on above: Performed By: #### L IPID, TSH, T7, CMP #### [facility] [address] [place] [address] Dr. Dona Turner Cholesterol.total/Chol esterol in HDL [Mass ratio] 4.9 {ratio} Normal [facility] Comment on above: Performed By: #### L IPID, TSH, T7, CMP #### [facility] [address] [place] [address] Dr. Dona Turner HDL NORMAL > or = 60 mg/dl - LOW CARDIOVASCULAR RISK <40 mg/dl - HIGH CARDIOVASCULAR RISK Normal [facility] Comment on above: Performed By: #### L IPID, TSH, T7, CMP #### [facility] [address] [place] [address] Dr. Dona Turner LDL CALC NORMAL SEE BELOW Normal [facility] Comment on above: Result Comment: <100 mg/dl OPTIMAL 100 - 129 mg/dl NEAR OR ABOVE OPTIMAL 130 - 159 mg/dl BORDERLINE HIGH 160 - 189 mg/dl HIGH >190 mg/dl VERY HIGH Performed By: #### L IPID, TSH, T7, CMP #### [facility] [address] [place] [address] Dr. Dona Turner Triglyceride [Mass/Vol] 143 mg/dL Normal <=[address] [facility] Comment on above: Performed By: #### L IPID, TSH, T7, CMP #### [facility] [address] [address] [address] Dona Turner VLDL CALC 28.6 mg/dL Normal [facility] Comment on above: Performed By: #### L IPID, TSH, T7, CMP #### [facility] [address] [address] [address] Dona Turner PROF 14(COMP METB)on 023 Albumin [Mass/Vol] 3.8 g/dL Normal 3.4-5.0 [facility] Comment on above: Performed By: #### L IPID, TSH, T7, CMP #### [facility] [address] [place] [address] Dr. Dona Turner Albumin/Globulin [Mass ratio] 1.0 {ratio} Normal [facility] Comment on above: Performed By: #### L IPID, TSH, T7, CMP #### [facility] [address] [place] [address] Dr. Dona Turner ALP [Catalytic activity/Vol] 59 U/L Normal 46-[address] [facility] Comment on above: Performed By: #### L IPID, TSH, T7, CMP #### [facility] [address] [place] [address] Dr. Dona Turner ALT [Catalytic activity/Vol] 43 U/L Normal 14-[address] [facility] Comment on above: Performed By: #### L IPID, TSH, T7, CMP #### [facility] [address] [address] [address] Dona Turner Anion gap [Moles/Vol] 11.5 mmol/L Normal [facility] Comment on above: Performed By: #### L IPID, TSH, T7, CMP #### [facility] [address] [place] [address] Dr. Dona Turner AST [Catalytic activity/Vol] 19 U/L Normal 15-[address] [facility] Comment on above: Performed By: #### L IPID, TSH, T7, CMP #### [facility] [address] [place] [address] Dr. Dona Turner Bilirubin [Mass/Vol] 0.4 mg/dL Normal 0.2-1.[address] [facility] Comment on above: Performed By: #### L IPID, TSH, T7, CMP #### [facility] [address] [place] [address] Dr. Dona Turner Calcium [Mass/Vol] 9.1 mg/dL Normal 8.5-10.1 [facility] Comment on above: Performed By: #### L IPID, TSH, T7, CMP #### [facility] [address] [place] [address] Dr. Dona Turner Chloride [Moles/Vol] 107 mmol/L Normal 98-[address] [facility] Comment on above: Performed By: #### L IPID, TSH, T7, CMP #### [facility] [address] [place] [address] Dr. Dona Turner CO2 [Moles/Vol] 28.5 mmol/L Normal 21.0-32.0 [facility] Comment on above: Performed By: #### L IPID, TSH, T7, CMP #### [facility] [address] [place] [address] Dr. Dona Turner Creatinine [Mass/Vol] 0.66 mg/dL Normal 0.55-1.[address] [facility] Comment on above: Performed By: #### L IPID, TSH, T7, CMP #### [facility] [address] [place] [address] Dr. Dona Turner EGFR-AF TAJIK >60 Normal >=60 [facility] Comment on above: Performed By: #### L IPID, TSH, T7, CMP #### [facility] [address] [place] [address] Dr. Dona Turner EGFR-NON AF TAJIK >60 Normal >=[address] [facility] Comment on above: Performed By: #### L IPID, TSH, T7, CMP #### [facility] [address] [place] [address] Dr. Dona Turner Globulin (S) [Mass/Vol] 3.8 g/dL Normal [facility] Comment on above: Performed By: #### L IPID, TSH, T7, CMP #### [facility] [address] [address] [address] Dona Turner Glucose [Mass/Vol] 112 mg/dL Critically high 74-[address] [facility] Comment on above: Performed By: #### L IPID, TSH, T7, CMP #### [facility] [address] [address] [address] Dona Turner Potassium [Moles/Vol] 4.0 mmol/L Normal 3.5-5.[address] [facility] Comment on above: Performed By: #### L IPID, TSH, T7, CMP #### [facility] [address] [place] [address] Dr. Dona Turner Protein [Mass/Vol] 7.6 g/dL Normal 6.4-8.2 [facility] Comment on above: Performed By: #### L IPID, TSH, T7, CMP #### [facility] [address] [place] [address] Dr. Dona Turner Sodium [Moles/Vol] 143 mmol/L Normal 136-145 [facility] Comment on above: Performed By: #### L IPID, TSH, T7, CMP #### [facility] [address] [place] [address] Dr. Dona Turner Urea nitrogen [Mass/Vol] 11.0 mg/dL Normal 7.0-18.[address] [facility] Comment on above: Performed By: #### L IPID, TSH, T7, CMP #### [facility] [address] [place] [address] Dr. Dona Turner Urea nitrogen/Creatinine [Mass ratio] 16.7 mg/mg Normal [facility] Comment on above: Performed By: #### L IPID, TSH, T7, CMP #### [facility] [address] [place] [address] Dr. Dona Turner TSHon 01-07-2023 TSH 0.350 uIU/mL Critically low 0.358-3.740 [facility] Comment on above: Performed By: #### L IPID, TSH, T7, CMP #### [facility] [address] [place] [address] Dr. Dona Turner VITAMIN D 25 OHon 01-07-2023 VIT D 25-OH 52.4 ng/mL Normal [facility] Comment on above: Performed By: #### I NSULIN #### [facility] [address] [place] [address] Dr. Dona Turner VIT D RANGES SEE BELOW Normal [facility] Comment on above: Result Comment: <20 ng/mL Vit D deficient 20 - <30 ng/mL Vit D insufficient 30 - 100 ng/mL Vit D sufficient >100 ng/mL Potential Toxicity Performed By: #### I NSULIN #### [facility] [address] [place] [address] Dr. Dona Turner LIPID PROFILEon 10-13-2022 CHOL-HDL RATIO NORM SEE BELOW Normal [facility] Comment on above: Result Comment: 3.3 - 4.4 LOW RISK 4.4 - 7.1 AVERAGE RISK 7.1 - 11.0 MODERATE RISK >11.0 HIGH RISK Performed By: #### C VDTBH #### [facility] [address] [place] [address] Dr. Dona Turner Cholesterol [Mass/Vol] 136 mg/dL Normal <=200 Th [facility] Comment on above: Performed By: #### C VDTBH #### [facility] [address] [place] [address] Dr. Dona Turner Cholesterol in HDL [Mass/Vol] 33 mg/dL Critically low 40-[address] [facility] Comment on above: Performed By: #### C VDTBH #### [facility] [address] [place] [address] Dr. Dona Turner Cholesterol in LDL [Mass/Vol] 76.4 mg/dL Normal [facility] Comment on above: Performed By: #### C VDTBH #### [facility] [address] [place] [address] Dr. Dona Turner Cholesterol.total/Chol esterol in HDL [Mass ratio] 4.1 {ratio} Normal [facility] Comment on above: Performed By: #### C VDTBH #### [facility] [address] [address] [address] Dona Turner HDL NORMAL > or = 60 mg/dl - LOW CARDIOVASCULAR RISK <40 mg/dl - HIGH CARDIOVASCULAR RISK Normal [facility] Comment on above: Performed By: #### C VDTBH #### [facility] [address] [address] [address] Dona Turner LDL CALC NORMAL SEE BELOW Normal [facility] Comment on above: Result Comment: <100 mg/dl OPTIMAL 100 - 129 mg/dl NEAR OR ABOVE OPTIMAL 130 - 159 mg/dl BORDERLINE HIGH 160 - 189 mg/dl HIGH >190 mg/dl VERY HIGH Performed By: #### C VDTBH #### [facility] [address] [place] [address] Dr. Dona Turner Triglyceride [Mass/Vol] 133 mg/dL Normal <=[address] [facility] Comment on above: Performed By: #### C VDTBH #### [facility] [address] [place] [address] Dr. Dona Turner VLDL CALC 26.6 mg/dL Normal [facility] Comment on above: Performed By: #### C VDTBH #### [facility] [address] [place] [address] Dr. Dona Turner LIVER PROFILEon 10-13-2022 Albumin [Mass/Vol] 3.6 g/dL Normal 3.4-5.0 [facility] Comment on above: Performed By: #### I NSULIN #### [facility] [address] [place] [address] Dr. Dona Turner Albumin/Globulin [Mass ratio] 1.1 {ratio} Normal [facility] Comment on above: Performed By: #### I NSULIN #### [facility] [address] [place] [address] Dr. Dona Turner ALP [Catalytic activity/Vol] 62 U/L Normal 46-[address] [facility] Comment on above: Performed By: #### I NSULIN #### [facility] [address] [address] [address] Dona Turner ALT [Catalytic activity/Vol] 28 U/L Normal 14-[address] [facility] Comment on above: Performed By: #### I NSULIN #### [facility] [address] [address] [address] Dona Turner AST [Catalytic activity/Vol] 16 U/L Normal 15-[address] [facility] Comment on above: Performed By: #### I NSULIN #### [facility] [address] [address] [address] Dona Turner BILI, CONJUGATED 0.1 mg/dL Normal 0.0-0.2 [facility] Comment on above: Performed By: #### I NSULIN #### [facility] [address] [place] [address] Dr. Dona Turner Bilirubin [Mass/Vol] 0.5 mg/dL Normal 0.2-1.[address] [facility] Comment on above: Performed By: #### I NSULIN #### [facility] [address] [place] [address] Dr. Dona Turner Globulin (S) [Mass/Vol] 3.4 g/dL Normal [facility] Comment on above: Performed By: #### I NSULIN #### [facility] [address] [place] [address] Dr. Dona Turner Protein [Mass/Vol] 7.0 g/dL Normal 6.4-8.2 [facility] Comment on above: Performed By: #### I NSULIN #### [facility] [address] [place] [address] Dr. Dona Turner BETH by IFAon 07-19-2022 Antinuclear Antibodies, IFA Negative Normal [facility] Comment on above: Result Comment: Nega tive <1:80 Borderline 1:80 Positive >1:80 ICAP nomenclature: AC-0 For more information about Hep-2 cell patterns use ANApatterns.org, the official website for the International Consensus on Antinuclear Antibody (BETH) Patterns (ICAP). Performed By: #### A NAIFA #### [facility] [address] [place] [address] Dr. Dona Turner ANTISTREPTOLYSIN O AB (ASO)o n 07-14-2022 Antistreptolysin O Ab 25.3 IU/mL Normal 0.0-200.[address] [facility] Comment on above: Performed By: #### I NSULIN #### [facility] [address] [place] [address] Dr. Dona Turner RHEUMATOID FACTORon 07-14-20 RA Latex Turbid. 19.2 IU/mL Critically high <14.[address] [facility] Comment on above: Performed By: #### L IPID, TSH, T7, CMP #### [facility] [address] [place] [address] Dr. Dona Turner CBC AUTO DIFFon 07-13-2022 BASO # 0.1 103/ul Normal 0.0-0.[address] [facility] Comment on above: Performed By: #### C VDTBH #### [facility] [address] [place] [address] Dr. Dona Turner Basophils/100 WBC (Bld) 0.8 % Normal 0.2-2.[address] [facility] Comment on above: Performed By: #### C VDTBH #### [facility] [address] [place] [address] Dr. Dona Turner EO # 0.1 103/ul Normal 0.0-0.[address] [facility] Comment on above: Performed By: #### C VDTBH #### [facility] [address] [place] [address] Dr. oDna Turner Eosinophils/100 WBC (Bld) 1.0 % Normal 0.9-7.0 [facility] Comment on above: Performed By: #### C VDTBH #### [facility] [address] [place] [address] Dr. Dona Turner Erythrocyte distribution width (RBC) [Ratio] 14.3 % Normal 11.0-15.[address] [facility] Comment on above: Performed By: #### C VDTBH #### [facility] [address] [place] [address] Dr. Dona Turner Hematocrit (Bld) [Volume fraction] 44.8 % Normal 36.0-48.[address] [facility] Comment on above: Performed By: #### C VDTBH #### [facility] [address] [place] [address] Dr. Dona Turner Hemoglobin (Bld) [Mass/Vol] 14.4 g/dL Normal 12.0-16.[address] [facility] Comment on above: Performed By: #### C VDTBH #### [facility] [address] [place] [address] Dr. Dona Turner IG # 0.03 10e3/ul Normal 0.00-0.[address] [facility] Comment on above: Performed By: #### C VDTBH #### [facility] [address] [place] [address] Dr. Dona Turner IG % 0.3 % Normal 0.0-0.[address] [facility] Comment on above: Performed By: #### C VDTBH #### [facility] [address] [place] [address] Dr. Dona Turner LYMPH # 1.9 103/ul Normal 1.2-3.[address] [facility] Comment on above: Performed By: #### C VDTBH #### [facility] [address] [place] [address] Dr. Dona Turner Lymphocytes/100 WBC (Bld) 20.8 % Normal 20.5-60.[address] [facility] Comment on above: Performed By: #### C VDTBH #### [facility] [address] [place] [address] Dr. Dona Turner MANUAL DIFF REQ NO Normal [facility] Comment on above: Performed By: #### C VDTBH #### [facility] [address] [place] [address] Dr. Dona Turner MCH (RBC) [Entitic mass] 25.5 pg Critically low 26.7-34.[address] [facility] Comment on above: Performed By: #### C VDTBH #### [facility] [address] [place] [address] Dr. Dona Turner MCHC (RBC) [Mass/Vol] 32.1 g/dL Normal 29.9-35.2 [facility] Comment on above: Performed By: #### C VDTBH #### [facility] [address] [place] [address] Dr. Dona Turner MCV (RBC) [Entitic vol] 79.3 fL Critically low 81.0-99.0 [facility] Comment on above: Performed By: #### C VDTBH #### [facility] [address] [place] [address] Dr. Dona Turner MONO # 0.8 103/ul Normal 0.3-0.8 [facility] Comment on above: Performed By: #### C VDTBH #### [facility] [address] [place] [address] Dr. Dona Turner Monocytes/100 WBC (Bld) 8.5 % Normal 1.7-12.0 [facility] Comment on above: Performed By: #### C VDTBH #### [facility] [address] [place] [address] Dr. Dona Turner NEUT # 6.4 103/ul Normal 1.4-6.5 [facility] Comment on above: Performed By: #### C VDTBH #### [facility] [address] [place] [address] Dr. Dona Turner Neutrophils/100 WBC (Bld) 68.6 % Normal 43.0-75.0 [facility] Comment on above: Performed By: #### C VDTBH #### [facility] [address] [place] [address] Dr. Dona Turner Platelet mean volume (Bld) [Entitic vol] 10.5 fL Normal 9.5-13.5 [facility] Comment on above: Performed By: #### C VDTBH #### [facility] [address] [place] [address] Dr. Dona Turner PLT 290 103/ul Normal 150-450 [facility] Comment on above: Performed By: #### C VDTBH #### [facility] [address] [address] [address] Dona Turner RBC 5.65 106/ul Critically high 4.20-5.40 [facility] Comment on above: Performed By: #### C VDTBH #### [facility] [address] [place] [address] Dr. Dona Turner WBC 9.3 103/ul Normal 4.0-11.0 [facility] Comment on above: Performed By: #### C VDTBH #### [facility] [address] [place] [address] Dr. Dona Turner CRPon 07-13-2022 CRP [Mass/Vol] mg/L Normal <=1.0 [facility] Comment on above: Performed By: #### I NSULIN #### [facility] [address] [place] [address] Dr. Dona Turner SED RATE WESTERGRENon 2021 SED RATE 47 mm/hr Critically high <=30 [facility] Comment on above: Performed By: #### S EDR #### [facility] [address] [place] [address] Dr. Dona Turner URIC ACID SERUMon 07-13-2022 Urate [Mass/Vol] 3.2 mg/dL Normal 2.6-6.0 [facility] Comment on above: Performed By: #### I NSULIN #### [facility] [address] [place] [address] Dr. Dona Turner INSULINon 07-10-2022 Insulin 11.5 uIU/mL Normal 2.6-24.9 [facility] Comment on above: Performed By: #### I NSULIN #### [facility] [address] [place] [address] Dr. Dona Turner CBC AUTO DIFFon 07-09-2022 BASO # 0.1 103/ul Normal 0.0-0.1 [facility] Comment on above: Performed By: #### C BC #### [facility] [address] [place] [address] Dr. Dona Turner Basophils/100 WBC (Bld) 0.8 % Normal 0.2-2.0 [facility] Comment on above: Performed By: #### C BC #### [facility] [address] [place] [address] Dr. Dona Turner EO # 0.1 103/ul Normal 0.0-0.[address] [facility] Comment on above: Performed By: #### C BC #### [facility] [address] [place] [address] Dr. Dona Turner Eosinophils/100 WBC (Bld) 0.7 % Critically low 0.9-7.[address] [facility] Comment on above: Performed By: #### C BC #### [facility] [address] [place] [address] Dr. Dona Turner Erythrocyte distribution width (RBC) [Ratio] 14.5 % Normal 11.0-15.[address] [facility] Comment on above: Performed By: #### C BC #### [facility] [address] [place] [address] Dr. Dona Turner Hematocrit (Bld) [Volume fraction] 44.7 % Normal 36.0-48.[address] [facility] Comment on above: Performed By: #### C BC #### [facility] [address] [place] [address] Dr. Dona Turner Hemoglobin (Bld) [Mass/Vol] 14.5 g/dL Normal 12.0-16.[address] [facility] Comment on above: Performed By: #### C BC #### [facility] [address] [place] [address] Dr. Dona Turner IG # 0.04 10e3/ul Critically high 0.00-0.03 [facility] Comment on above: Performed By: #### C BC #### [facility] [address] [place] [address] Dr. Dona Turner IG % 0.4 % Normal 0.0-0.[address] [facility] Comment on above: Performed By: #### C BC #### [facility] [address] [place] [address] Dr. Dona Turner LYMPH # 1.6 103/ul Normal 1.2-3.[address] [facility] Comment on above: Performed By: #### C BC #### [facility] [address] [address] [address] Dona Turner Lymphocytes/100 WBC (Bld) 17.7 % Critically low 20.5-60.[address] [facility] Comment on above: Performed By: #### C BC #### [facility] [address] [address] [address] Dona Turner MANUAL DIFF REQ NO Normal [facility] Comment on above: Performed By: #### C BC #### [facility] [address] [address] [address] Dona Turner MCH (RBC) [Entitic mass] 25.9 pg Critically low 26.7-34.[address] [facility] Comment on above: Performed By: #### C BC #### [facility] [address] [place] [address] Dr. Dona Turner MCHC (RBC) [Mass/Vol] 32.4 g/dL Normal 29.9-35.[address] [facility] Comment on above: Performed By: #### C BC #### [facility] [address] [place] [address] Dr. Dona Turner MCV (RBC) [Entitic vol] 79.8 fL Critically low 81.0-99.[address] [facility] Comment on above: Performed By: #### C BC #### [facility] [address] [place] [address] Dr. Dona Turner MONO # 0.6 103/ul Normal 0.3-0.8 [facility] Comment on above: Performed By: #### C BC #### [facility] [address] [place] [address] Dr. Dona Turner Monocytes/100 WBC (Bld) 6.9 % Normal 1.7-12.0 [facility] Comment on above: Performed By: #### C BC #### [facility] [address] [place] [address] Dr. Dona Turner NEUT # 6.6 103/ul Critically high 1.4-6.5 [facility] Comment on above: Performed By: #### C BC #### [facility] [address] [place] [address] Dr. Dona Turner Neutrophils/100 WBC (Bld) 73.5 % Normal 43.0-75.[address] [facility] Comment on above: Performed By: #### C BC #### [facility] [address] [place] [address] Dr. Dona Turner Platelet mean volume (Bld) [Entitic vol] 11.1 fL Normal 9.5-13.[address] [facility] Comment on above: Performed By: #### C BC #### [facility] [address] [place] [address] Dr. Dona Turner PLT 256 103/ul Normal 150-[address] [facility] Comment on above: Performed By: #### C BC #### [facility] [address] [place] [address] Dr. Dona Turner RBC 5.60 106/ul Critically high 4.20-5.40 [facility] Comment on above: Performed By: #### C BC #### [facility] [address] [place] [address] Dr. Dona Turner WBC 8.9 103/ul Normal 4.0-11.[address] [facility] Comment on above: Performed By: #### C BC #### [facility] [address] [place] [address] Dr. Dona Turner FREE THYROXINE INDEX T7on FTI 3.66 Normal 1.30-4.[address] [facility] Comment on above: Performed By: #### C VDTBH #### [facility] [address] [place] [address] Dr. Dona Turner T3U 37.0 % Normal 30.0-39.0 [facility] Comment on above: Performed By: #### C VDTBH #### [facility] [address] [place] [address] Dr. Dona Turner T4 [Mass/Vol] 9.90 ug/dL Normal 4.80-13.90 [facility] Comment on above: Performed By: #### C VDTBH #### [facility] [address] [address] [address] Dona Turner GLYCOHEMOGLOBIN A1Con 2021 ADA RECOMMENDATION SEE BELOW Normal [facility] Comment on above: Result Comment: ADA RECOMMENDED LIMIT 4.0 - 6.0 ADA THERAPEUTIC TARGET < 7.0 ACTION SUGGESTED > 7.0 Performed By: #### A 1C #### [facility] [address] [place] [address] Dr. Dona Turner Glucose [Mass/Vol] 183 mg/dL Normal [facility] Comment on above: Performed By: #### A 1C #### [facility] [address] [place] [address] Dr. Dona Turner HbA1c (Bld) [Mass fraction] 8.0 % Critically high 4.5-6.[address] [facility] Comment on above: Performed By: #### A 1C #### [facility] [address] [place] [address] Dr. Dona Turner IRONon 07-09-2022 Iron [Mass/Vol] 56.0 ug/dL Normal 50.0-170.0 [facility] Comment on above: Performed By: #### I NSULIN #### [facility] [address] [place] [address] Dr. Dona Turner LIPID PROFILEon 07-09-2022 CHOL-HDL RATIO NORM SEE BELOW Normal [facility] Comment on above: Result Comment: 3.3 - 4.4 LOW RISK 4.4 - 7.1 AVERAGE RISK 7.1 - 11.0 MODERATE RISK >11.0 HIGH RISK Performed By: #### C VDTBH #### [facility] [address] [place] [address] Dr. Dona Turner Cholesterol [Mass/Vol] 228 mg/dL Critically high <=[address] [facility] Comment on above: Performed By: #### C VDTBH #### [facility] [address] [place] [address] Dr. Dona Turner Cholesterol in HDL [Mass/Vol] 37 mg/dL Critically low 40-[address] [facility] Comment on above: Performed By: #### C VDTBH #### [facility] [address] [address] [address] Dona Turner Cholesterol in LDL [Mass/Vol] 163.6 mg/dL Normal [facility] Comment on above: Performed By: #### C VDTBH #### [facility] [address] [address] [address] Dona Turner Cholesterol.total/Chol esterol in HDL [Mass ratio] 6.2 {ratio} Normal [facility] Comment on above: Performed By: #### C VDTBH #### [facility] [address] [address] [address] Dona Turner HDL NORMAL > or = 60 mg/dl - LOW CARDIOVASCULAR RISK <40 mg/dl - HIGH CARDIOVASCULAR RISK Normal [facility] Comment on above: Performed By: #### C VDTBH #### [facility] [address] [place] [address] Dr. Dona Truner LDL CALC NORMAL SEE BELOW Normal [facility] Comment on above: Result Comment: <100 mg/dl OPTIMAL 100 - 129 mg/dl NEAR OR ABOVE OPTIMAL 130 - 159 mg/dl BORDERLINE HIGH 160 - 189 mg/dl HIGH >190 mg/dl VERY HIGH Performed By: #### C VDTBH #### [facility] [address] [place] [address] Dr. Dona Turner Triglyceride [Mass/Vol] 137 mg/dL Normal <=[address] [facility] Comment on above: Performed By: #### C VDTBH #### [facility] [address] [place] [address] Dr. Dona Turner VLDL CALC 27.4 mg/dL Normal [facility] Comment on above: Performed By: #### C VDTBH #### [facility] [address] [place] [address] Dr. Dona Turner PROF 14(COMP METB)on 022 Albumin [Mass/Vol] 3.8 g/dL Normal 3.4-5.0 [facility] Comment on above: Performed By: #### C VDTBH #### [facility] [address] [place] [address] Dr. Dona Turner Albumin/Globulin [Mass ratio] 1.0 {ratio} Normal [facility] Comment on above: Performed By: #### C VDTBH #### [facility] [address] [place] [address] Dr. Dona Turner ALP [Catalytic activity/Vol] 57 U/L Normal 46-[address] [facility] Comment on above: Performed By: #### C VDTBH #### [facility] [address] [place] [address] Dr. Dona Turner ALT [Catalytic activity/Vol] 24 U/L Normal 14-[address] [facility] Comment on above: Performed By: #### C VDTBH #### [facility] [address] [place] [address] Dr. Dona Turner Anion gap [Moles/Vol] 9.6 mmol/L Normal [facility] Comment on above: Performed By: #### C VDTBH #### [facility] [address] [place] [address] Dr. Dona Turner AST [Catalytic activity/Vol] 15 U/L Normal 15-[address] [facility] Comment on above: Performed By: #### C VDTBH #### [facility] [address] [place] [address] Dr. Dona Turner Bilirubin [Mass/Vol] 0.5 mg/dL Normal 0.2-1.[address] [facility] Comment on above: Performed By: #### C VDTBH #### [facility] [address] [place] [address] Dr. Dona Turner Calcium [Mass/Vol] 9.3 mg/dL Normal 8.5-10.1 [facility] Comment on above: Performed By: #### C VDTBH #### [facility] [address] [place] [address] Dr. Dona Turner Chloride [Moles/Vol] 103 mmol/L Normal 98-[address] [facility] Comment on above: Performed By: #### C VDTBH #### [facility] [address] [place] [address] Dr. Dona Turner CO2 [Moles/Vol] 29.5 mmol/L Normal 21.0-32.0 [facility] Comment on above: Performed By: #### C VDTBH #### [facility] [address] [place] [address] Dr. Dona Turner Creatinine [Mass/Vol] 0.61 mg/dL Normal 0.55-1.[address] [facility] Comment on above: Performed By: #### C VDTBH #### [facility] [address] [address] [address] Dona Turner EGFR-AF TAJIK >60 Normal >=60 [facility] Comment on above: Performed By: #### C VDTBH #### [facility] [address] [place] [address] Dr. Dona Turner EGFR-NON AF TAJIK >60 Normal >=[address] [facility] Comment on above: Performed By: #### C VDTBH #### [facility] [address] [place] [address] Dr. Dona Turner Globulin (S) [Mass/Vol] 3.8 g/dL Normal [facility] Comment on above: Performed By: #### C VDTBH #### [facility] [address] [place] [address] Dr. Dona Turner Glucose [Mass/Vol] 104 mg/dL Normal 74-106 [facility] Comment on above: Performed By: #### C VDTBH #### [facility] [address] [place] [address] Dr. Dona Turner Potassium [Moles/Vol] 4.1 mmol/L Normal 3.5-5.1 [facility] Comment on above: Performed By: #### C VDTBH #### [facility] [address] [place] [address] Dr. Dona Turner Protein [Mass/Vol] 7.6 g/dL Normal 6.4-8.2 [facility] Comment on above: Performed By: #### C VDTBH #### [facility] [address] [place] [address] Dr. Dona Turner Sodium [Moles/Vol] 138 mmol/L Normal 136-145 [facility] Comment on above: Performed By: #### C VDTBH #### [facility] [address] [place] [address] Dr. Dona Turner Urea nitrogen [Mass/Vol] 14.0 mg/dL Normal 7.0-18.[address] [facility] Comment on above: Performed By: #### C VDTBH #### [facility] [address] [place] [address] Dr. Dona Turner Urea nitrogen/Creatinine [Mass ratio] 23.0 mg/mg Normal [facility] Comment on above: Performed By: #### C VDTBH #### [facility] [address] [place] [address] Dr. Dona Turner TSHon 07-09-2022 TSH 0.324 uIU/mL Critically low 0.358-3.740 [facility] Comment on above: Performed By: #### C VDTBH #### [facility] [address] [place] [address] Dr. Dona Turner VITAMIN D 25 OHon 07-09-2022 VIT D 25-OH 52.6 ng/mL Normal [facility] Comment on above: Performed By: #### I NSULIN #### [facility] [address] [place] [address] Dr. Dona Turner VIT D RANGES SEE BELOW Normal [facility] Comment on above: Result Comment: <20 ng/mL Vit D deficient 20 - <30 ng/mL Vit D insufficient 30 - 100 ng/mL Vit D sufficient >100 ng/mL Potential Toxicity Performed By: #### I NSULIN #### [facility] [address] [place] [address] Dr. Dona Turner [facility]02 SARS-CoV-2 (COVID-19) RNA JEWEL+probe Ql (Unsp spec) Not detected Normal NOT DETECTED [facility] Comment on above: Result Comment: This test is not yet approved or cleared by the [place] FDA. When there are no FDA-approved or cleared tests available, and other criteria are met, FDA can make tests available under an emergency access mechanism called an Emergency Use Authorization (EUA). The EUA for this test is supported by the [employer] Sales Consultant of Health and Human Service's (HHS's) declaration [...] consistent with SARS-CoV-2. Performed By: #### C [facility] #### [facility] [address] [place] [address] Dr. Dona Turenr Coding Summary.on 09-12-2018 Coding Summary. CODING DATE: 09/12/2018 [facility] STATUS: Home (Routine DC) PAYOR: Loreto APC [...] Cuellar Date Saved: 09/12/2018 03:25 pm Normal [facility] Main OR Intraoperative Recor don 09-09-2018 Main OR Intraoperative Record IntraOp Document Type FTURO Summary Primary Physician: David ORTIZ MD Finalized Date/Time: 09/09/18 12:32:44 Pt. Name: IAN BRIGGS /Sex: 1970 Female Med Rec #: [id number] Physician: David ORTIZ MD Financial #: [id number] Pt. Type: O Room/Bed: / Admit/Disch: 09/09/18 09:49:59 - Institution: Case Times FTURO Entry 1 Patient Times In Room 09/09/18 12:19:00 Out Room 09/09/18 12:33:00 Procedure Times Start 09/09/18 12:22:00 Stop 09/09/18 12:26:00 Anesthesia Times Last Modified By: Lilliana RN, RADHIKAOR, Pearl Hoffmann 09/09/18 12:32:32 Case Attendance FTURO Entry 1 Entry 2 Entry 3 Case Attendee David ORTIZ MD CITY [employer] DIRECTOR, Alannah Tijerina RN, CNOR, Pearl Hoffmann Role Performed Surgeon - Primary Scrub - Primary Rigging Engineer - Primary Time In 09/09/18 12:20:00 09/09/18 [...] David ORTIZ MD, Verified (If Participants [place] [employer] LIBRARY DIRECTOR, Alannah, Applicable) GIUSEPPE Tijerina RN, Lou Ann [...] Tijerina RN, Lou Ann 09/09/18 12:32 Normal [facility] Main OR Preoperative Recordo n 09-09-2018 Main OR Preoperative Record Holding Area Document Type FTURO Summary Primary Physician: David ORTIZ MD Finalized Date/Time: 09/09/18 12:22:07 Pt. Name: IAN BRIGGS/Sex: 1970 Female Med Rec #: [id number] Physician: David ORTIZ MD Financial #: [id number] Pt. Type: O Room/Bed: / Admit/Disch: 09/09/18 [...] Complaints of Pain: No Skin Integrity Intact, [place], Warm, & Dry Vitals - EU Blood Pressure 141/78 Pulse 57 bpm Respirations 16 br/min SPO2 Additional None RN Reviewed Yes Specimens Collected Last Modified By: GIUSEPPE Tijerina RN, Lou Ann 09/09/18 12:22:05 Finalized By: GIUSEPPE Tijerina RN, Lou Ann Document Signatures Signed By: Racheal Bernabe 09/09/18 11:43 GIUSEPPE Tijerina RN, Lou Ann 09/09/18 12:22 Normal [facility] Operative Reporton 9 Operative Report Patient: IAN [...] urine. The Urethra was dilated to: 30 English w/ sounds. Devices Implanted: None. Removal: Cystoscope is removed, The patient tolerated it well. Postoperative Information Discharge: Patient is discharged home with antibiotic coverage, Follow up arranged. she will do timed/double voids. try ditropan xl 10mgqd f/u 3 months with pvr bladder scan....?pessary. Normal [facility] Comment on above: Result Comment: Elec tronically Signed By: ANGEL SWANSON, David Leija.br\Date and Time Signed: 09/09/18 12:39 EST Encounters Encounter Date Encounter Type Care Provider Facility Start: [facility] Start: 01-29-2023 End: 01-30-[address] SEFERINO MENDOZA . Facility[facility] Start: 01-07-2023 End: 01-08-[address] SEFERINO MENDOZA . Facility[facility] Start: 10-13-2022 End: 10-14-[address] SEFERINO MENDOZA . Facility[facility] Start: 07-14-2022 Encounter for genera l adult medical examination without abnormal findings DR SEFERINO MENDOZA . [facility] Start: 07-13-2022 End: 07-14-[address] SEFERINO [...] 01-29-2018 End: 01-30-2018 Ambulatory DEFAULT PHYSICIAN Facility:[facility] Procedures Date Procedure Procedure Detail Performing Clinician Start: 07-06-2024 Computerized ophthal raf imaging retina Que Fernando Shawna Payers Date Payer Category Payer Unknown [id number] 1970 Unknown [id number] 2.16.84 [id number] 1970 Unknown [id number] 2.16.84 [id number] 1970 Unknown [id number] 2.16.84 [id number] 1970 Unknown [id number] 2.16.84 [id number] 1970 Unknown [id number] 2.16.84 [id number] 1970 Unknown [id number] 2.16.84 [id number] 1970 Unknown [id number] 2.16.84 [id number] 1970 Unknown [id number] 2.16.84 [id number] 1970 Unknown [id number] 2.16.84 [id number] 1961 Unknown [id number] Unknown Clinical Note 07-03-2022 Note Date & [...] authenticated by: NAZARIO PEREZ Date: 2022-07-03 10:[address] [facility] Clinical Note 07-03-2022 Note Date & [...] authenticated by: NAZARIO PEREZ Date: 2022-07-03 10:[address] [facility] Summary Purpose Family History No Family History Records FoundNo Family History Records FoundNo Family History Records FoundNo Family History Records Found Advance Directives No Advanced Directives Records FoundNo Advanced Directives Records FoundNo Advanced Directives Records FoundNo Advanced Directives Records Found Additional Source Comments INFORMATION SOURCE (unrecogn ized section and content) DATE CREATED AUTHOR 02/19/2018 [facility] DATE CREATED AUTHOR AUTHOR'S ORGANIZ ATION 05/23/2019 [facility] DATE CREATED AUTHOR AUTHOR'S ORGANIZ ATION 02/08/2023 [facility] DATE CREATED AUTHOR AUTHOR'S ORGANIZ ATION 07/09/2024 [facility] I nstitute FOR RECORDS PERTAINING TO [...] BE BASED ON THE PRIMARY CLINICAL RECORDS. [employer] provides no warranty or guarantee of the accuracy or completeness of information in this document.
== END 2024-07-29 08:57 | disposition home or self-care (01) ==
LOC: VC 07:52
PROVIDERS: PCP Radiology Diagnostic Radiology; Visit Provider Radiology Diagnostic Radiology
DX: I83.813 Varicose veins of bilateral lower extremities with pain (principal)
CPT/HCPCS: 36466

== ENCOUNTER 2024-08-03 14:57 | Outpatient (OUT) | payer BC, SELFPAY ==
[2024-08-03 14:48] VITALS: BMI 36.3
--- NOTE | 2024-08-03 14:48 | VEINCLINIC_ITS ---
Vital Signs 08/03/24 14:48 Height 5 ft 2 in Weight 90 kg BMI 36.3 Varicose Veins Patient in today for follow up ultrasound of right lower extremity following treatment of Varithena/microfoam completed on 07/29/24. Nazario Reza MD personally performed the services described in this documentation, as scribed by Kezia Le RDMS in my presence and it is both accurate and complete. I, Kezai Le RDMS, am scribing for, and in the presence of, Dr. Musa Preez and in the presence of the patient. thigh: bilateral (symptoms equal bilaterally), knee: bilateral, calf: bilateral, ankle: bilateral and hayward: bilateral aching, burning, cramping, dull, sharp and tender 8 2 years Worsened in recent months: Yes standing, sitting and walking analgesics (Tylenol), elevating extremities, compression stockings and exercise Reports muscle spasms of leg, fatigue, heaviness, limb pain, edema and leg edema History of lower extremity trauma: No Superficial thrombophlebitis: Yes Family history of varicose veins: yes Has patient had previous lower extremity venous surgery: No Patient has previously received the following treatment(s) for lower extremity varicose veins: Reports none Does patient have a history of : yes Does patient intend to have future pregnancies: no Has patient had lower extremity venous scan with relux testing: No Support hose used: Yes Problems walking or doing physical activity: Yes How does it affect you: awakens her from sleep, often has to stop and elevate feet/legs Do you walk much: Yes Do you stand much: Yes Review of Systems ROS Narrative Nazario Reza MD personally performed the services described in this documentation, as scribed by Kezia Le RDMS in my presence and it is both accurate and complete. Juaquin, Kezia Le RDMS, am scribing for, and in the presence of, Dr. Musa Perez and in the presence of the patient. Status of ROS 10 or more systems reviewed and unremark able except as noted in history and below Cardiovascular Reports: edema Integumentary/Breast Reports: itching Neurological Reports: weakness in extremities [facility] Medical History (Updated 08/03/24 @ 14:57 by Kezia Bollenbacher) Phlebitis and thrombophlebitis of superficial vessels of right lower extremity ?I80.01 - Phlebitis and thrombophlebitis of superficial vessels of right lower extremity (ICD-10) Superficial phlebitis of right leg ?I80.01 - Phlebitis and thrombophlebitis of superficial vessels of right lower extremity (ICD-10) 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 ?I80.01 - Phlebitis and thrombophlebitis of superficial vessels of right lower extremity (ICD-10) Phlebitis and thrombophlebitis of superficial vessels of left lower extremity ?I80.02 - Phlebitis and thrombophlebitis of superficial vessels of left lower extremity (ICD-10) Varicose veins of bilateral lower extremities with pain ?I83.813 - Varicose veins of bilateral lower extremities with pain (ICD-10) Carpal tunnel syndrome ?G56.00 - Carpal tunnel syndrome, unspecified upper limb (ICD-10) Edema ?R60.9 - Edema, unspecified (ICD-10) Hypercholesteremia ?E78.00 - Pure hypercholesterolemia, unspecified (ICD-10) Hypothyroid ?E03.9 - Hypothyroidism, unspecified (ICD-10) Diabetes ?E11.9 - Type 2 diabetes mellitus without complications (ICD-10) Hypertension ?I10 - Essential (primary) hypertension (ICD-10) Deep vein thrombosis ?I82.409 - Acute embolism and thrombosis of unspecified deep veins of unspecified lower extremity (ICD-10) Surgical History (Updated 07/29/24 @ 08:54 by Ramírez Driver) S/P sclerotherapy of varicose veins ?Z98.890 - Other specified postprocedural states (ICD-10) ?Z86.79 - Personal history of other diseases of the circulatory system (ICD- 10) Status post laser ablation of incompetent vein ?Z98.890 - Other specified postprocedural states (ICD-10) Status post laser ablation of incompetent vein ?Z98.890 - Other specified postprocedural states (ICD-10) History of carpal tunnel surgery ?Z98.890 - Other specified postprocedural states (ICD-10) History of arthroscopy of left shoulder ?Z98.890 - Other specified postprocedural states (ICD-10) H/O: hysterectomy ?Z90.710 - Acquired absence of both cervix and uterus (ICD-10) Family History (Updated 04/13/24 @ 13:42 by Ramírez Driver) Mother Family history of diabetes mellitus Family history of hypertension Varicose veins of bilateral lower extremities with pain Social History (Updated 04/13/24 @ 13:43 by Ramírez Driver) Within the past year, how often did you have a drink containing alcohol: never Score interpretation: A score less than 3 is consistent with normal alcohol consumption. Smoking status: Never smoker Non-prescribed substance use: denies use Meds Home Medications and Allergies Home Medications ?Medication ?Instructions ?Recorded ?Confirmed ?Type diclofenac potassium 04/13/24 History empagliflozin 25 mg tablet 25 mg PO QAM 04/13/24 04/13/24 History (Jardiance) furosemide 20 mg tablet 20 mg PO DAILY 04/13/24 04/13/24 History glimepiride 4 mg tablet 4 mg PO DAILY 04/13/24 04/13/24 History levothyroxine 125 mcg capsule 125 mcg PO DAILY 04/13/24 04/13/24 History levothyroxine 137 mcg tablet 137 mcg PO DAILY 04/13/24 04/13/24 History (Euthyrox) metformin 500 mg tablet,extended 500 mg PO DAILY 04/13/24 04/13/24 History release 24 hr metoprolol tartrate 50 mg tablet 25 mg PO DAILY 04/13/24 04/13/24 History pantoprazole 40 mg tablet,delayed 40 mg PO DAILY 04/13/24 04/13/24 History release (Protonix) sitagliptin phosphate 100 mg 100 mg PO DAILY 04/13/24 04/13/24 History tablet (Januvia) rivaroxaban 15 mg tablet (Xarelto) 15 mg PO BID 08/03/24 08/03/24 History Allergies Allergy/AdvReac Type Severity Reaction Status Date / Time penicillamine Allergy Intermediate Rash Verified 04/13/24 13:46 Exam Narrative Exam Narrative: INazario MD personally performed the services described in this documentation, as scribed by Kezia Le RDMS in my presence and it is both accurate and complete. I, Kezia Le RDMS, am scribing for, and in the presence of, Dr. Musa Perez and in the presence of the patient. Constitutional Documenting provider has reviewed patient's vital signs: yes Common normals: oriented x3 Nutritional appearance: overweight Cardio Peripheral pulses: posterior tibial pulses present and dorsalis pedis pulses present Extremity Common normals: normal capillary refill General: edema Right lower extremity: lower leg Right lower leg: inspection and palpation Left lower extremity: lower leg Left lower leg: inspection and palpation Neuro Common normals: oriented x3 Results Imaging Venous US: Radiologist's impression: Chemically induced thrombus in multiple varicose veins in right leg. Thrombus extends into one of the PTVs prox to mid lower leg. Nazario Reza MD personally performed the services described in this documentation, as scribed by Kezia Le RDMS in my presence and it is both accurate and complete. Kezia Reza RDMS, am scribing for, and in the presence of, Dr. Musa Perez and in the presence of the patient. Assessment and Plan Assessment and Plan (1) Phlebitis and thrombophlebitis of superficial vessels of right lower extremity: Plan Plan is for patient to start on Xarelto 15mg BID for 21 days and to return for right leg follow up ultrasound in 2 weeks. Patient to return for sclerotherapy on 08/14/24. Nazario Reza MD personally performed the services described in this documentation, as scribed by Kezia Le RDMS in my presence and it is both accurate and complete. Kezia Reza RDMS am scribing for, and in the presence of, Dr. Musa Perez and in the presence of the patient.
--- NOTE | 2024-08-03 14:58 | VEIN_ITS ---
Patient Name: QUINN AGUILAR MR#: [id number] : 1970 Exam Date: 08/03/2024 Ordering Doctor: DR RAMESH GEORGE M.D. RADIOLOGY REPORT PROCEDURE: [facility] - OFFICE VISIT FOLLOW UP [facility] PROGRESS NOTES: The patient reports improvement in leg symptoms. There has been interval reduction in varicosities. The patient has followed our recommendations to walk 20-30 minutes once or twice per day since the procedure. Physical exam demonstrates decrease in varicosities of the leg. Persistent spider veins are identified along the legs bilaterally. Review of the ultrasound performed the same day demonstrates occlusive thrombus extending throughout the treated vein(s), see separate report, consistent with a successful ablation. Short segment of deep vein thrombus within the proximal to mid posterior tibial vein. The patient expressed a desire to proceed with treatment of superficial spider veins and reticular veins. The patient was informed that treatment was a process and would require approximately 2 procedures/sessions. [facility] IM[facility]ION: 1. Successful ablation of the right leg treated branch saphenous vein(s). 2. Right posterior tibial vein short segment of deep vein thrombus. 3. Persistent spider veins. PLAN: 1. Sclerotherapy of bilateral lower extremity spider veins. 2. Patient will be placed on Xarelto 15 mg twice a day for 21 days with follow-up ultrasound in 2 weeks for treatment of posterior tibial vein deep vein thrombus. Nurse notes, history and physical were reviewed and confirmed, see attached forms. The nurse was present throughout the physical exam and consultation Dictated by: Ramesh George M.D. on 08/03/2024 at 15:53 Approved by: Ramesh George M.D. on 08/03/2024 at 15:55
--- NOTE | 2024-08-03 14:58 | VEIN_ITS ---
Patient Name: QUINN AGUILAR MR#: [id number] : 1970 Exam Date: 08/03/2024 Ordering Doctor: DR RAMESH PEREZ M.D. RADIOLOGY REPORT PROCEDURE: VC EXT VENOUS RT LMTD COMPARISON: [facility] EXT VENOUS RT LMTD, 07/01/2024. INDICATIONS: I80.01 - Phlebitis and thrombophlebitis of superficial veins right leg TECHNIQUE: Lower extremity watt scale and Duplex Doppler evaluation of the deep venous system from the inguinal ligament through the calf veins. FINDINGS: REGION: Right lower extremity. THROMBI: Positive for DVT. Chemically induced thrombus in multiple varicose veins. Thrombus extends into prox to mid PTV. COMPRESSIBILITY: Non-compressible segments corresponding to thrombus FLOW: Areas of no flow corresponding to thrombus OTHER: Patent varicose vein proximal posterior calf measures 4.0mm with 0.5s reflux. CONCLUSION: 1. Successful post ablation occlusion of right leg treated branch saphenous varicosities. 2. Short segment of deep vein thrombus within the proximal to mid posterior tibial vein. Dictated by: Ramesh Perez M.D. on 08/03/2024 at 15:21 Approved by: Ramesh Perez M.D. on 08/03/2024 at 15:53
--- OUTSIDE RECORDS SUMMARY | 2024-08-03 15:18 | XMS_ITS | CCD ---
Author Organization [facility] Care Team Providers Care Fur Scraper Name Role Phone PHYSICIAN, DEFAULT Unavailable Unavailable [...] Acetaminophen / oxyCODONE Drug Allergy 10-19-2016 [facility] Repository (1 source) Penicillins Drug allergy (disorder) 01-09-2013 [facility] Repository Problems Active Problems Problem Classification [...] : DR SEFERINO MENDOZA . Admission #: [id number] Family : Order #: [id number] CLICK HERE TO VIEW EXAM RADIOLOGY REPORT [...] Treatments None Family Cancers None LOCATION: [facility] BREAST COMPOSITION: Scattered areas fibroglandular density. FINDINGS: [...] M.D. on 01/30/2023 at 13:47 Normal [facility] INSULINon 01-08-2023 Insulin 11.3 uIU/mL Normal 2.6-24.9 [facility] Comment on above: Performed By: #### C [facility] #### [facility] [address] [place] [address] Dr. Dona Turner CBC AUTO DIFFon 01-07-2023 BASO # 0.1 103/ul Normal 0.0-0.1 [facility] Comment on above: Performed By: #### C VDT[facility] #### [facility] [address] [place] [address] Dr. Dona Turner Basophils/100 WBC (Bld) 1.2 % Normal 0.2-2.0 [facility] Comment on above: Performed By: #### C VDT[facility] #### [facility] [address] [place] [address] Dr. Dona Turner EO # 0.1 103/ul Normal 0.0-0.7 [facility] Comment on above: Performed By: #### C VDT[facility] #### [facility] [address] [place] [address] Dr. Dona Turner Eosinophils/100 WBC (Bld) 2.0 % Normal 0.9-7.0 [facility] Comment on above: Performed By: #### C VDT[facility] #### [facility] [address] [place] [address] Dr. Dona Turner Erythrocyte distribution width (RBC) [Ratio] 14.5 % Normal 11.0-15.0 [facility] Comment on above: Performed By: #### C [facility] #### [facility] [address] [place] [address] Dr. Dona Turner Hematocrit (Bld) [Volume fraction] 45.1 % Normal 36.0-48.0 [facility] Comment on above: Performed By: #### C [facility] #### [facility] [address] [place] [address] Dr. Dona Turner Hemoglobin (Bld) [Mass/Vol] 14.1 g/dL Normal 12.0-16.0 [facility] Comment on above: Performed By: #### C [facility] #### [facility] [address] [place] [address] Dr. Dona Turner IG # 0.02 10e3/ul Normal 0.00-0.03 [facility] Comment on above: Performed By: #### C V[facility] #### [facility] [address] [address] [address] Dona Turner IG % 0.4 % Normal 0.0-0.5 [facility] Comment on above: Performed By: #### C [facility] #### [facility] [address] [address] [address] Dona Turner LYMPH # 1.3 103/ul Normal 1.2-3.8 [facility] Comment on above: Performed By: #### C [facility] #### [facility] [address] [address] [address] Dona Turner Lymphocytes/100 WBC (Bld) 26.4 % Normal 20.5-60.0 [facility] Comment on above: Performed By: #### C [facility] #### [facility] [address] [place] [address] Dr. Dona Turner MANUAL DIFF REQ NO Normal [facility] Comment on above: Performed By: #### C V[facility] #### [facility] [address] [place] [address] Dr. Dona Turner MCH (RBC) [Entitic mass] 25.0 pg Critically low 26.7-34.0 [facility] Comment on above: Performed By: #### C [facility] #### [facility] [address] [place] [address] Dr. Dona Turner MCHC (RBC) [Mass/Vol] 31.3 g/dL Normal 29.9-35.2 [facility] Comment on above: Performed By: #### C [facility] #### [facility] [address] [place] [address] Dr. Dona Turner MCV (RBC) [Entitic vol] 80.0 fL Critically low 81.0-99.0 [facility] Comment on above: Performed By: #### C [facility] #### [facility] [address] [place] [address] Dr. Dona Turner MONO # 0.4 103/ul Normal 0.3-0.8 [facility] Comment on above: Performed By: #### C V[facility] #### [facility] [address] [place] [address] Dr. Dona Turner Monocytes/100 WBC (Bld) 7.7 % Normal 1.7-12.0 [facility] Comment on above: Performed By: #### C [facility] #### [facility] [address] [place] [address] Dr. Dona Turner NEUT # 3.1 103/ul Normal 1.4-6.5 [facility] Comment on above: Performed By: #### C V[facility] #### [facility] [address] [place] [address] Dr. Dona Turner Neutrophils/100 WBC (Bld) 62.3 % Normal 43.0-75.0 [facility] Comment on above: Performed By: #### C [facility] #### [facility] [address] [place] [address] Dr. Dona Turner Platelet mean volume (Bld) [Entitic vol] 10.7 fL Normal 9.5-13.5 [facility] Comment on above: Performed By: #### C [facility] #### [facility] [address] [place] [address] Dr. Dona Turner PLT 257 103/ul Normal 150-450 [facility] Comment on above: Performed By: #### C [facility] #### [facility] [address] [place] [address] Dr. Dona Turner RBC 5.64 106/ul Critically high 4.20-5.40 [facility] Comment on above: Performed By: #### C V[facility] #### [facility] [address] [place] [address] Dr. Dona Turner WBC 5.0 103/ul Normal 4.0-11.0 [facility] Comment on above: Performed By: #### C [facility] #### [facility] [address] [place] [address] Dr. Dona Turner FREE THYROXINE INDEX T7on FTI 3.78 Normal 1.30-4.50 [facility] Comment on above: Performed By: #### L IPID, TSH, T7, CMP #### [facility] [address] [address] [address] Dona Turner T3U 35.0 % Normal 30.0-39.0 [facility] Comment on above: Performed By: #### L IPID, TSH, T7, CMP #### [facility] [address] [address] [address] Dona Turner T4 [Mass/Vol] 10.80 ug/dL Normal 4.80-13.90 [facility] Comment on above: Performed By: #### L IPID, TSH, T7, CMP #### [facility] [address] [address] [address] Dona Turner GLYCOHEMOGLOBIN A1Con 2022 ADA RECOMMENDATION SEE BELOW Normal [facility] Comment on above: Result Comment: ADA RECOMMENDED LIMIT 4.0 - 6.0 ADA THERAPEUTIC TARGET < 7.0 ACTION SUGGESTED > 7.0 Performed By: #### C VDT[facility] #### [facility] [address] [address] [address] Dona Turner Glucose [Mass/Vol] 160 mg/dL Normal [facility] Comment on above: Performed By: #### C [facility] #### [facility] [address] [address] [address] Dona Turner HbA1c (Bld) [Mass fraction] 7.2 % Critically high 4.5-6.2 [facility] Comment on above: Performed By: #### C [facility] #### [facility] [address] [address] [address] Dona Turner IRONon 01-07-2023 Iron [Mass/Vol] 50.0 ug/dL Normal 50.0-170.0 [facility] Comment on above: Performed By: #### I NSULIN #### [facility] [address] [place] [address] Dr. Dona Turner LIPID PROFILEon 01-07-2023 CHOL-HDL RATIO NORM SEE BELOW Normal [facility] Comment on above: Result Comment: 3.3 - 4.4 LOW RISK 4.4 - 7.1 AVERAGE RISK 7.1 - 11.0 MODERATE RISK >11.0 HIGH RISK Performed By: #### L IPID, TSH, T7, CMP #### [facility] [address] [place] [address] Dr. Dona Turner Cholesterol [Mass/Vol] 162 mg/dL Normal <=200 [facility] Comment on above: Performed By: #### L IPID, TSH, T7, CMP #### [facility] [address] [address] [address] Dona Turner Cholesterol in HDL [Mass/Vol] 33 mg/dL Critically low 40-60 [facility] Comment on above: Performed By: #### L IPID, TSH, T7, CMP #### [facility] [address] [place] [address] Dr. Dona Turner Cholesterol in LDL [Mass/Vol] 100.4 mg/dL Normal [facility] Comment on above: Performed By: #### L IPID, TSH, T7, CMP #### [facility] [address] [place] [address] Dr. Dona Turner Cholesterol.total/Chol esterol in HDL [Mass ratio] 4.9 {ratio} Normal [facility] Comment on above: Performed By: #### L IPID, TSH, T7, CMP #### [facility] [address] [place] [address] Dr. Dona Turner HDL NORMAL > or = 60 mg/dl - LOW CARDIOVASCULAR RISK <40 mg/dl - HIGH CARDIOVASCULAR RISK Normal [facility] Comment on above: Performed By: #### L IPID, TSH, T7, CMP #### [facility] [address] [place] [address] Dr. Dona Turner LDL CALC NORMAL SEE BELOW Normal [facility] Comment on above: Result Comment: <100 mg/dl OPTIMAL 100 - 129 mg/dl NEAR OR ABOVE OPTIMAL 130 - 159 mg/dl BORDERLINE HIGH 160 - 189 mg/dl HIGH >190 mg/dl VERY HIGH Performed By: #### L IPID, TSH, T7, CMP #### [facility] [address] [place] [address] Dr. Dona Turner Triglyceride [Mass/Vol] 143 mg/dL Normal <=150 [facility] Comment on above: Performed By: #### L IPID, TSH, T7, CMP #### [facility] [address] [address] [address] Dona Turner VLDL CALC 28.6 mg/dL Normal [facility] Comment on above: Performed By: #### L IPID, TSH, T7, CMP #### [facility] [address] [address] [address] Dona Turner PROF 14(COMP METB)on 023 Albumin [Mass/Vol] 3.8 g/dL Normal 3.4-5.0 [facility] Comment on above: Performed By: #### L IPID, TSH, T7, CMP #### [facility] [address] [place] [address] Dr. Dona Turner Albumin/Globulin [Mass ratio] 1.0 {ratio} Normal [facility] Comment on above: Performed By: #### L IPID, TSH, T7, CMP #### [facility] [address] [place] [address] Dr. Dona Turner ALP [Catalytic activity/Vol] 59 U/L Normal 46-116 [facility] Comment on above: Performed By: #### L IPID, TSH, T7, CMP #### [facility] [address] [place] [address] Dr. Dona Turner ALT [Catalytic activity/Vol] 43 U/L Normal 14-59 [facility] Comment on above: Performed By: #### L IPID, TSH, T7, CMP #### [facility] [address] [address] [address] Dona Turner Anion gap [Moles/Vol] 11.5 mmol/L Normal [facility] Comment on above: Performed By: #### L IPID, TSH, T7, CMP #### [facility] [address] [place] [address] Dr. Dona Turner AST [Catalytic activity/Vol] 19 U/L Normal 15-37 [facility] Comment on above: Performed By: #### L IPID, TSH, T7, CMP #### [facility] [address] [place] [address] Dr. Dona Turner Bilirubin [Mass/Vol] 0.4 mg/dL Normal 0.2-1.0 [facility] Comment on above: Performed By: #### L IPID, TSH, T7, CMP #### [facility] [address] [place] [address] Dr. Dona Turner Calcium [Mass/Vol] 9.1 mg/dL Normal 8.5-10.1 [facility] Comment on above: Performed By: #### L IPID, TSH, T7, CMP #### [facility] [address] [place] [address] Dr. Dona Turner Chloride [Moles/Vol] 107 mmol/L Normal 98-107 [facility] Comment on above: Performed By: #### L IPID, TSH, T7, CMP #### [facility] [address] [place] [address] Dr. Dona Turner CO2 [Moles/Vol] 28.5 mmol/L Normal 21.0-32.0 [facility] Comment on above: Performed By: #### L IPID, TSH, T7, CMP #### [facility] [address] [place] [address] Dr. Dona Turner Creatinine [Mass/Vol] 0.66 mg/dL Normal 0.55-1.02 [facility] Comment on above: Performed By: #### L IPID, TSH, T7, CMP #### [facility] [address] [place] [address] Dr. Dona Turner EGFR-AF EAST [place] >60 Normal >=60 [facility] Comment on above: Performed By: #### L IPID, TSH, T7, CMP #### [facility] [address] [place] [address] Dr. Dona Turner EGFR-NON AF [place] >60 Normal >=60 [facility] Comment on above: Performed By: #### L IPID, TSH, T7, CMP #### [facility] [address] [place] [address] Dr. Dona Turner Globulin (S) [Mass/Vol] 3.8 g/dL Normal [facility] Comment on above: Performed By: #### L IPID, TSH, T7, CMP #### [facility] [address] [address] [address] Dona Turner Glucose [Mass/Vol] 112 mg/dL Critically high 74-106 [facility] Comment on above: Performed By: #### L IPID, TSH, T7, CMP #### [facility] [address] [address] [address] Dona Turner Potassium [Moles/Vol] 4.0 mmol/L Normal 3.5-5.1 [facility] Comment on above: Performed By: #### L IPID, TSH, T7, CMP #### [facility] [address] [place] [address] Dr. Dona Turner Protein [Mass/Vol] 7.6 g/dL Normal 6.4-8.2 [facility] Comment on above: Performed By: #### L IPID, TSH, T7, CMP #### [facility] [address] [place] [address] Dr. Dona Turner Sodium [Moles/Vol] 143 mmol/L Normal 136-145 [facility] Comment on above: Performed By: #### L IPID, TSH, T7, CMP #### [facility] [address] [place] [address] Dr. Dona Turner Urea nitrogen [Mass/Vol] 11.0 mg/dL Normal 7.0-18.0 [facility] Comment on above: Performed By: #### L IPID, TSH, T7, CMP #### [facility] [address] [place] [address] Dr. Dona Turner Urea nitrogen/Creatinine [Mass ratio] 16.7 mg/mg Normal [facility] Comment on above: Performed By: #### L IPID, TSH, T7, CMP #### [facility] [address] [place] [address] Dr. Dona Turner TSHon 01-07-2023 TSH 0.350 uIU/mL Critically low 0.358-3.740 [facility] Comment on above: Performed By: #### L IPID, TSH, T7, CMP #### [facility] [address] [place] [address] Dr. Dona Turner VITAMIN D 25 OHon 01-07-2023 VIT D 25-OH 52.4 ng/mL Normal [facility] Comment on above: Performed By: #### I NSULIN #### [facility] [address] [place] [address] Dr. Dona Turner VIT D RANGES SEE BELOW Normal [facility] Comment on above: Result Comment: <20 ng/mL Vit D deficient 20 - <30 ng/mL Vit D insufficient 30 - 100 ng/mL Vit D sufficient >100 ng/mL Potential Toxicity Performed By: #### I NSULIN #### [facility] [address] [place] [address] Dr. Dona Turner LIPID PROFILEon 10-13-2022 CHOL-HDL RATIO NORM SEE BELOW Normal [facility] Comment on above: Result Comment: 3.3 - 4.4 LOW RISK 4.4 - 7.1 AVERAGE RISK 7.1 - 11.0 MODERATE RISK >11.0 HIGH RISK Performed By: #### C VDTBH #### [facility] [address] [place] [address] Dr. Dona Turner Cholesterol [Mass/Vol] 136 mg/dL Normal <=200 Th [facility] Comment on above: Performed By: #### C VDTBH #### [facility] [address] [place] [address] Dr. Dona Turner Cholesterol in HDL [Mass/Vol] 33 mg/dL Critically low 40-60 [facility] Comment on above: Performed By: #### C VDT[facility] #### [facility] [address] [place] [address] Dr. Dona Turner Cholesterol in LDL [Mass/Vol] 76.4 mg/dL Normal [facility] Comment on above: Performed By: #### C VDTBH #### [facility] [address] [place] [address] Dr. Dona Turner Cholesterol.total/Chol esterol in HDL [Mass ratio] 4.1 {ratio} Normal [facility] Comment on above: Performed By: #### C VDTBH #### [facility] [address] [address] [address] Dona Turner HDL NORMAL > or = 60 mg/dl - LOW CARDIOVASCULAR RISK <40 mg/dl - HIGH CARDIOVASCULAR RISK Normal [facility] Comment on above: Performed By: #### C VDTBH #### [facility] [address] [address] [address] Dona Turner LDL CALC NORMAL SEE BELOW Normal [facility] Comment on above: Result Comment: <100 mg/dl OPTIMAL 100 - 129 mg/dl NEAR OR ABOVE OPTIMAL 130 - 159 mg/dl BORDERLINE HIGH 160 - 189 mg/dl HIGH >190 mg/dl VERY HIGH Performed By: #### C VDTBH #### [facility] [address] [place] [address] Dr. Dona Turner Triglyceride [Mass/Vol] 133 mg/dL Normal <=150 [facility] Comment on above: Performed By: #### C VDTBH #### [facility] [address] [place] [address] Dr. Dona Turner VLDL CALC 26.6 mg/dL Normal [facility] Comment on above: Performed By: #### C VDTBH #### [facility] [address] [place] [address] Dr. Dona Turner LIVER PROFILEon 10-13-2022 Albumin [Mass/Vol] 3.6 g/dL Normal 3.4-5.0 [facility] Comment on above: Performed By: #### I NSULIN #### [facility] [address] [place] [address] Dr. Dona Turner Albumin/Globulin [Mass ratio] 1.1 {ratio} Normal [facility] Comment on above: Performed By: #### I NSULIN #### [facility] [address] [place] [address] Dr. Dona Turner ALP [Catalytic activity/Vol] 62 U/L Normal 46-116 [facility] Comment on above: Performed By: #### I NSULIN #### [facility] [address] [address] [address] Dona Turner ALT [Catalytic activity/Vol] 28 U/L Normal 14-59 [facility] Comment on above: Performed By: #### I NSULIN #### [facility] [address] [address] [address] Dona Turner AST [Catalytic activity/Vol] 16 U/L Normal 15-37 [facility] Comment on above: Performed By: #### I NSULIN #### [facility] [address] [address] [address] Dona Turner BILI, CONJUGATED 0.1 mg/dL Normal 0.0-0.2 [facility] Comment on above: Performed By: #### I NSULIN #### [facility] [address] [place] [address] Dr. Dona Turner Bilirubin [Mass/Vol] 0.5 mg/dL Normal 0.2-1.0 [facility] Comment on above: Performed By: #### I NSULIN #### [facility] [address] [place] [address] Dr. Dona Turner Globulin (S) [Mass/Vol] 3.4 g/dL Normal [facility] Comment on above: Performed By: #### I NSULIN #### [facility] [address] [place] [address] Dr. Dona Turner Protein [Mass/Vol] 7.0 g/dL Normal 6.4-8.2 [facility] Comment on above: Performed By: #### I NSULIN #### [facility] [address] [place] [address] Dr. Dona Turner BETH by IFAon 07-19-2022 Antinuclear Antibodies, IFA Negative Normal [facility] Comment on above: Result Comment: Nega tive <1:80 Borderline 1:80 Positive >1:80 ICAP nomenclature: AC-0 For more information about Hep-2 cell patterns use ANApatterns.org, the official website for the International Consensus on Antinuclear Antibody (BETH) Patterns (ICAP). Performed By: #### A NAIFA #### [facility] [address] [place] [address] Dr. Dona Turner ANTISTREPTOLYSIN O AB (ASO)o n 07-14-2022 Antistreptolysin O Ab 25.3 IU/mL Normal 0.0-200.0 [facility] Comment on above: Performed By: #### I NSULIN #### [facility] [address] [place] [address] Dr. Dona Turner RHEUMATOID FACTORon 07-14-20 RA Latex Turbid. 19.2 IU/mL Critically high <14.0 [facility] Comment on above: Performed By: #### L IPID, TSH, T7, CMP #### [facility] [address] [place] [address] Dr. Dona Turner CBC AUTO DIFFon 07-13-2022 BASO # 0.1 103/ul Normal 0.0-0.1 [facility] Comment on above: Performed By: #### C VDTBH #### [facility] [address] [place] [address] Dr. Dona Turner Basophils/100 WBC (Bld) 0.8 % Normal 0.2-2.0 [facility] Comment on above: Performed By: #### C VDTBH #### [facility] [address] [place] [address] Dr. Dona Turner EO # 0.1 103/ul Normal 0.0-0.7 [facility] Comment on above: Performed By: #### C VDTBH #### [facility] [address] [place] [address] Dr. Dona Turner Eosinophils/100 WBC (Bld) 1.0 % Normal 0.9-7.0 [facility] Comment on above: Performed By: #### C VDTBH #### [facility] [address] [place] [address] Dr. Dona Turner Erythrocyte distribution width (RBC) [Ratio] 14.3 % Normal 11.0-15.0 [facility] Comment on above: Performed By: #### C VDTBH #### [facility] [address] [place] [address] Dr. Dona Turner Hematocrit (Bld) [Volume fraction] 44.8 % Normal 36.0-48.0 [facility] Comment on above: Performed By: #### C VDTBH #### [facility] [address] [place] [address] Dr. Dona Turner Hemoglobin (Bld) [Mass/Vol] 14.4 g/dL Normal 12.0-16.0 [facility] Comment on above: Performed By: #### C VDTBH #### [facility] [address] [place] [address] Dr. Dona Turner IG # 0.03 10e3/ul Normal 0.00-0.03 [facility] Comment on above: Performed By: #### C VDTBH #### [facility] [address] [place] [address] Dr. Dona Turner IG % 0.3 % Normal 0.0-0.5 [facility] Comment on above: Performed By: #### C VDTBH #### [facility] [address] [place] [address] Dr. Dona Turner LYMPH # 1.9 103/ul Normal 1.2-3.8 [facility] Comment on above: Performed By: #### C VDTBH #### [facility] [address] [place] [address] Dr. Dona Turner Lymphocytes/100 WBC (Bld) 20.8 % Normal 20.5-60.0 [facility] Comment on above: Performed By: #### C VDTBH #### [facility] [address] [place] [address] Dr. Dona Turner MANUAL DIFF REQ NO Normal [facility] Comment on above: Performed By: #### C VDTBH #### [facility] [address] [place] [address] Dr. Dona Turner MCH (RBC) [Entitic mass] 25.5 pg Critically low 26.7-34.0 [facility] Comment on above: Performed By: #### C VDTBH #### [facility] [address] [place] [address] Dr. Dona Turner MCHC (RBC) [Mass/Vol] 32.1 g/dL Normal 29.9-35.2 [facility] Comment on above: Performed By: #### C VDTBH #### [facility] [address] [place] [address] Dr. Dona Turner MCV (RBC) [Entitic vol] 79.3 fL Critically low 81.0-99.0 [facility] Comment on above: Performed By: #### C VDTBH #### [facility] [address] [place] [address] Dr. Dona Turner MONO # 0.8 103/ul Normal 0.3-0.8 [facility] Comment on above: Performed By: #### C VDTBH #### [facility] [address] [place] [address] Dr. Dona Turner Monocytes/100 WBC (Bld) 8.5 % Normal 1.7-12.0 [facility] Comment on above: Performed By: #### C VDTBH #### [facility] [address] [place] [address] Dr. Dona Turner NEUT # 6.4 103/ul Normal 1.4-6.5 [facility] Comment on above: Performed By: #### C VDTBH #### [facility] [address] [place] [address] Dr. Dona Turner Neutrophils/100 WBC (Bld) 68.6 % Normal 43.0-75.0 [facility] Comment on above: Performed By: #### C VDTBH #### [facility] [address] [place] [address] Dr. Dona Turner Platelet mean volume (Bld) [Entitic vol] 10.5 fL Normal 9.5-13.5 [facility] Comment on above: Performed By: #### C VDTBH #### [facility] [address] [place] [address] Dr. Dona Turner PLT 290 103/ul Normal 150-450 [facility] Comment on above: Performed By: #### C VDTBH #### [facility] [address] [address] [address] Dona Turner RBC 5.65 106/ul Critically high 4.20-5.40 [facility] Comment on above: Performed By: #### C VDTBH #### [facility] [address] [place] [address] Dr. Dona Turner WBC 9.3 103/ul Normal 4.0-11.0 [facility] Comment on above: Performed By: #### C VDTBH #### [facility] [address] [place] [address] Dr. Dona Turner CRPon 07-13-2022 CRP [Mass/Vol] mg/L Normal <=1.0 [facility] Comment on above: Performed By: #### I NSULIN #### [facility] [address] [place] [address] Dr. Dona Turner SED RATE WESTERGRENon 2021 SED RATE 47 mm/hr Critically high <=30 [facility] Comment on above: Performed By: #### S EDR #### [facility] [address] [place] [address] Dr. Dona Turner URIC ACID SERUMon 07-13-2022 Urate [Mass/Vol] 3.2 mg/dL Normal 2.6-6.0 [facility] Comment on above: Performed By: #### I NSULIN #### [facility] [address] [place] [address] Dr. Dona Turner INSULINon 07-10-2022 Insulin 11.5 uIU/mL Normal 2.6-24.9 [facility] Comment on above: Performed By: #### I NSULIN #### [facility] [address] [place] [address] Dr. Dona Turner CBC AUTO DIFFon 07-09-2022 BASO # 0.1 103/ul Normal 0.0-0.1 [facility] Comment on above: Performed By: #### C BC #### [facility] [address] [place] [address] Dr. Dona Turner Basophils/100 WBC (Bld) 0.8 % Normal 0.2-2.0 [facility] Comment on above: Performed By: #### C BC #### [facility] [address] [place] [address] Dr. Dona Turner EO # 0.1 103/ul Normal 0.0-0.7 [facility] Comment on above: Performed By: #### C BC #### [facility] [address] [place] [address] Dr. Dona Turner Eosinophils/100 WBC (Bld) 0.7 % Critically low 0.9-7.0 [facility] Comment on above: Performed By: #### C BC #### [facility] [address] [place] [address] Dr. Dona Turner Erythrocyte distribution width (RBC) [Ratio] 14.5 % Normal 11.0-15.0 [facility] Comment on above: Performed By: #### C BC #### [facility] [address] [place] [address] Dr. Dona Turner Hematocrit (Bld) [Volume fraction] 44.7 % Normal 36.0-48.0 [facility] Comment on above: Performed By: #### C BC #### [facility] [address] [place] [address] Dr. Dona Turner Hemoglobin (Bld) [Mass/Vol] 14.5 g/dL Normal 12.0-16.0 [facility] Comment on above: Performed By: #### C BC #### [facility] [address] [place] [address] Dr. Dona Turner IG # 0.04 10e3/ul Critically high 0.00-0.03 [facility] Comment on above: Performed By: #### C BC #### [facility] [address] [place] [address] Dr. Dona Turner IG % 0.4 % Normal 0.0-0.5 [facility] Comment on above: Performed By: #### C BC #### [facility] [address] [place] [address] Dr. Dona Turner LYMPH # 1.6 103/ul Normal 1.2-3.8 [facility] Comment on above: Performed By: #### C BC #### [facility] [address] [address] [address] Dona Turner Lymphocytes/100 WBC (Bld) 17.7 % Critically low 20.5-60.0 [facility] Comment on above: Performed By: #### C BC #### [facility] [address] [address] [address] Dona Turner MANUAL DIFF REQ NO Normal [facility] Comment on above: Performed By: #### C BC #### [facility] [address] [address] [address] Dona Turner MCH (RBC) [Entitic mass] 25.9 pg Critically low 26.7-34.0 [facility] Comment on above: Performed By: #### C BC #### [facility] [address] [place] [address] Dr. Dona Turner MCHC (RBC) [Mass/Vol] 32.4 g/dL Normal 29.9-35.2 [facility] Comment on above: Performed By: #### C BC #### [facility] [address] [place] [address] Dr. Dona Turner MCV (RBC) [Entitic vol] 79.8 fL Critically low 81.0-99.0 [facility] Comment on above: Performed By: #### C BC #### [facility] [address] [place] [address] Dr. Dona Turner MONO # 0.6 103/ul Normal 0.3-0.8 [facility] Comment on above: Performed By: #### C BC #### [facility] [address] [place] [address] Dr. Dona Turner Monocytes/100 WBC (Bld) 6.9 % Normal 1.7-12.0 [facility] Comment on above: Performed By: #### C BC #### [facility] [address] [place] [address] Dr. Dona Turner NEUT # 6.6 103/ul Critically high 1.4-6.5 [facility] Comment on above: Performed By: #### C BC #### [facility] [address] [place] [address] Dr. Dona Turner Neutrophils/100 WBC (Bld) 73.5 % Normal 43.0-75.0 [facility] Comment on above: Performed By: #### C BC #### [facility] [address] [place] [address] Dr. Dona Turner Platelet mean volume (Bld) [Entitic vol] 11.1 fL Normal 9.5-13.5 [facility] Comment on above: Performed By: #### C BC #### [facility] [address] [place] [address] Dr. Dona Turner PLT 256 103/ul Normal 150-450 [facility] Comment on above: Performed By: #### C BC #### [facility] [address] [place] [address] Dr. Dona Turner RBC 5.60 106/ul Critically high 4.20-5.40 [facility] Comment on above: Performed By: #### C BC #### [facility] [address] [place] [address] Dr. Dona Turner WBC 8.9 103/ul Normal 4.0-11.0 [facility] Comment on above: Performed By: #### C BC #### [facility] [address] [place] [address] Dr. Dona Turner FREE THYROXINE INDEX T7on FTI 3.66 Normal 1.30-4.50 [facility] Comment on above: Performed By: #### C VDTBH #### [facility] [address] [place] [address] Dr. Dona Turner T3U 37.0 % Normal 30.0-39.0 [facility] Comment on above: Performed By: #### C VDTBH #### [facility] [address] [place] [address] Dr. Dona Turner T4 [Mass/Vol] 9.90 ug/dL Normal 4.80-13.90 [facility] Comment on above: Performed By: #### C VDTBH #### [facility] [address] [address] [address] Dona Turner GLYCOHEMOGLOBIN A1Con 2021 ADA RECOMMENDATION SEE BELOW Normal [facility] Comment on above: Result Comment: ADA RECOMMENDED LIMIT 4.0 - 6.0 ADA THERAPEUTIC TARGET < 7.0 ACTION SUGGESTED > 7.0 Performed By: #### A 1C #### [facility] [address] [place] [address] Dr. Dona Turner Glucose [Mass/Vol] 183 mg/dL Normal [facility] Comment on above: Performed By: #### A 1C #### [facility] [address] [place] [address] Dr. Dona Turner HbA1c (Bld) [Mass fraction] 8.0 % Critically high 4.5-6.2 [facility] Comment on above: Performed By: #### A 1C #### [facility] [address] [place] [address] Dr. Dona Turner IRONon 07-09-2022 Iron [Mass/Vol] 56.0 ug/dL Normal 50.0-170.0 [facility] Comment on above: Performed By: #### I NSULIN #### [facility] [address] [place] [address] Dr. Dona Turner LIPID PROFILEon 07-09-2022 CHOL-HDL RATIO NORM SEE BELOW Normal [facility] Comment on above: Result Comment: 3.3 - 4.4 LOW RISK 4.4 - 7.1 AVERAGE RISK 7.1 - 11.0 MODERATE RISK >11.0 HIGH RISK Performed By: #### C VDTBH #### [facility] [address] [place] [address] Dr. Dona Turner Cholesterol [Mass/Vol] 228 mg/dL Critically high <=200 [facility] Comment on above: Performed By: #### C VDTBH #### [facility] [address] [place] [address] Dr. Dona Turner Cholesterol in HDL [Mass/Vol] 37 mg/dL Critically low 40-60 [facility] Comment on above: Performed By: #### C VDTBH #### [facility] [address] [address] [address] Dona Turner Cholesterol in LDL [Mass/Vol] 163.6 mg/dL Normal [facility] Comment on above: Performed By: #### C VDTBH #### [facility] [address] [address] [address] Dona Turner Cholesterol.total/Chol esterol in HDL [Mass ratio] 6.2 {ratio} Normal [facility] Comment on above: Performed By: #### C VDTBH #### [facility] [address] [address] [address] Dona Turner HDL NORMAL > or = 60 mg/dl - LOW CARDIOVASCULAR RISK <40 mg/dl - HIGH CARDIOVASCULAR RISK Normal [facility] Comment on above: Performed By: #### C VDTBH #### [facility] [address] [place] [address] Dr. Dona Turner LDL CALC NORMAL SEE BELOW Normal [facility] Comment on above: Result Comment: <100 mg/dl OPTIMAL 100 - 129 mg/dl NEAR OR ABOVE OPTIMAL 130 - 159 mg/dl BORDERLINE HIGH 160 - 189 mg/dl HIGH >190 mg/dl VERY HIGH Performed By: #### C VDTBH #### [facility] [address] [place] [address] Dr. Dona Turner Triglyceride [Mass/Vol] 137 mg/dL Normal <=150 [facility] Comment on above: Performed By: #### C VDTBH #### [facility] [address] [place] [address] Dr. Dona Turner VLDL CALC 27.4 mg/dL Normal [facility] Comment on above: Performed By: #### C VDTBH #### [facility] [address] [place] [address] Dr. Dona Turner PROF 14(COMP METB)on 022 Albumin [Mass/Vol] 3.8 g/dL Normal 3.4-5.0 [facility] Comment on above: Performed By: #### C VDTBH #### [facility] [address] [place] [address] Dr. Dona Turner Albumin/Globulin [Mass ratio] 1.0 {ratio} Normal [facility] Comment on above: Performed By: #### C VDTBH #### [facility] [address] [place] [address] Dr. Dona Turner ALP [Catalytic activity/Vol] 57 U/L Normal 46-116 [facility] Comment on above: Performed By: #### C VDTBH #### [facility] [address] [place] [address] Dr. Dona Turner ALT [Catalytic activity/Vol] 24 U/L Normal 14-59 [facility] Comment on above: Performed By: #### C VDTBH #### [facility] [address] [place] [address] Dr. Dona Turner Anion gap [Moles/Vol] 9.6 mmol/L Normal [facility] Comment on above: Performed By: #### C VDTBH #### [facility] [address] [place] [address] Dr. Dona Turner AST [Catalytic activity/Vol] 15 U/L Normal 15-37 [facility] Comment on above: Performed By: #### C VDTBH #### [facility] [address] [place] [address] Dr. Dona Turner Bilirubin [Mass/Vol] 0.5 mg/dL Normal 0.2-1.0 [facility] Comment on above: Performed By: #### C VDTBH #### [facility] [address] [place] [address] Dr. Dona Turner Calcium [Mass/Vol] 9.3 mg/dL Normal 8.5-10.1 [facility] Comment on above: Performed By: #### C VDTBH #### [facility] [address] [place] [address] Dr. Dona Turner Chloride [Moles/Vol] 103 mmol/L Normal 98-107 [facility] Comment on above: Performed By: #### C VDTBH #### [facility] [address] [place] [address] Dr. Dona Turner CO2 [Moles/Vol] 29.5 mmol/L Normal 21.0-32.0 [facility] Comment on above: Performed By: #### C VDTBH #### [facility] [address] [place] [address] Dr. Dona Turner Creatinine [Mass/Vol] 0.61 mg/dL Normal 0.55-1.02 [facility] Comment on above: Performed By: #### C VDTBH #### [facility] [address] [address] [address] Dona Turner EGFR-AF [place]AST [place] >60 Normal >=60 [facility] Comment on above: Performed By: #### C VDTBH #### [facility] [address] [place] [address] Dr. Dona Turner EGFR-NON AF [place] >60 Normal >=60 [facility] Comment on above: Performed By: #### C VDTBH #### [facility] [address] [place] [address] Dr. Dona Turner Globulin (S) [Mass/Vol] 3.8 g/dL Normal [facility] Comment on above: Performed By: #### C VDTBH #### [facility] [address] [place] [address] Dr. Dona Turner Glucose [Mass/Vol] 104 mg/dL Normal 74-106 [facility] Comment on above: Performed By: #### C VDTBH #### [facility] [address] [place] [address] Dr. Dona Turner Potassium [Moles/Vol] 4.1 mmol/L Normal 3.5-5.1 [facility] Comment on above: Performed By: #### C VDTBH #### [facility] [address] [place] [address] Dr. Dona Turner Protein [Mass/Vol] 7.6 g/dL Normal 6.4-8.2 [facility] Comment on above: Performed By: #### C VDTBH #### [facility] [address] [place] [address] Dr. Dona Turner Sodium [Moles/Vol] 138 mmol/L Normal 136-145 [facility] Comment on above: Performed By: #### C VDTBH #### [facility] [address] [place] [address] Dr. Dona Turner Urea nitrogen [Mass/Vol] 14.0 mg/dL Normal 7.0-18.0 [facility] Comment on above: Performed By: #### C VDTBH #### [facility] [address] [place] [address] Dr. Dona Turner Urea nitrogen/Creatinine [Mass ratio] 23.0 mg/mg Normal [facility] Comment on above: Performed By: #### C VDTBH #### [facility] [address] [place] [address] Dr. Dona Turner TSHon 07-09-2022 TSH 0.324 uIU/mL Critically low 0.358-3.740 [facility] Comment on above: Performed By: #### C VDTBH #### [facility] [address] [place] [address] Dr. Dona Turner VITAMIN D 25 OHon 07-09-2022 VIT D 25-OH 52.6 ng/mL Normal [facility] Comment on above: Performed By: #### I NSULIN #### [facility] [address] [place] [address] Dr. Dona Turner VIT D RANGES SEE BELOW Normal [facility] Comment on above: Result Comment: <20 ng/mL Vit D deficient 20 - <30 ng/mL Vit D insufficient 30 - 100 ng/mL Vit D sufficient >100 ng/mL Potential Toxicity Performed By: #### I NSULIN #### [facility] [address] [place] [address] Dr. Dona Turner [facility]19 [facility]on 04-02 SARS-CoV-2 (COVID-19) RNA JEWEL+probe Ql (Unsp spec) Not detected Normal NOT DETECTED [facility] Comment on above: Result Comment: This test is not yet approved or cleared by the [place] FDA. When there are no FDA-approved or cleared tests available, and other criteria are met, FDA can make tests available under an emergency access mechanism called an Emergency Use Authorization (EUA). The EUA for this test is supported by the [place] of Health and Human Service's (HHS's) declaration [...] consistent with SARS-CoV-2. Performed By: #### C [facility] #### [facility] [address] [place] [address] Dr. Dona Turner Coding Summary.on 09-12-2018 Coding Summary. CODING DATE: 09/12/2018 [facility] STATUS: Home (Routine DC) PAYOR: Loreto [...] Cuellar Date Saved: 09/12/2018 03:25 pm Normal [facility] Main OR Intraoperative Recor don 09-09-2018 Main OR Intraoperative Record IntraOp Document Type FTURO Summary Primary Physician: David ORTIZ MD Finalized Date/Time: 09/09/18 12:32:44 Pt. Name: IAN BRIGGS /Sex: 1970 Female Med Rec #: [id number] Physician: David ORTIZ MD Financial #: [id number] Pt. Type: O Room/Bed: / Admit/Disch: 09/09/18 09:49:59 - Institution: Case Times FTURO Entry 1 Patient Times In Room 09/09/18 12:19:00 Out Room 09/09/18 12:33:00 Procedure Times Start 09/09/18 12:22:00 Stop 09/09/18 12:26:00 Anesthesia Times Last Modified By: Lilliana RN, RADHIKAOR, Pearl Hoffmann 09/09/18 12:32:32 Case Attendance FTURO Entry 1 Entry 2 Entry 3 Case Attendee David ORTIZ MD FELLED SEAM OPERATOR, Alannah Tijerina RN, CNOR, Pearl Hoffmann Role Performed Surgeon - Primary Scrub - Primary Pullman Conductor - Primary Time In 09/09/18 12:20:00 09/09/18 [...] David ORTIZ MD, Verified (If Participants [place] FELLED SEAM OPERATOR, Alannah, Applicable) GIUSEPPE Tijerina RN, Lou Ann [...] Tijerina RN, Lou Ann 09/09/18 12:32 Normal [facility] Main OR Preoperative Recordo n 09-09-2018 Main OR Preoperative Record Holding Area Document Type FTURO Summary Primary Physician: David ORTIZ MD Finalized Date/Time: 09/09/18 12:22:07 Pt. Name: IAN BRIGGS/Sex: 1970 Female Med Rec #: [id number] Physician: David ORTIZ MD Financial #: [id number] Pt. Type: O Room/Bed: / Admit/Disch: 09/09/18 [...] Complaints of Pain: No Skin Integrity Intact, Glendo, Warm, & Dry Vitals - EU Blood Pressure 141/78 Pulse 57 bpm Respirations 16 br/min SPO2 Additional None RN Reviewed Yes Specimens Collected Last Modified By: GIUSEPPE Tijerina RN, Lou Ann 09/09/18 12:22:05 Finalized By: GIUSEPPE Tijerina RN, Lou Ann Document Signatures Signed By: Racheal Bernabe 09/09/18 11:43 GIUSEPPE Tijerina RN, Lou Ann 09/09/18 12:22 Normal [facility] Operative Reporton 9 Operative Report Patient: IAN [...] urine. The Urethra was dilated to: 30 Sudanese w/ sounds. Devices Implanted: None. Removal: Cystoscope is removed, The patient tolerated it well. Postoperative Information Discharge: Patient is discharged home with antibiotic coverage, Follow up arranged. she will do timed/double voids. try ditropan xl 10mgqd f/u 3 months with pvr bladder scan....?pessary. Normal [facility] Comment on above: Result Comment: Elec tronically Signed By: ANGEL SWANSON, David Leija.br\Date and Time Signed: 09/09/18 12:39 EST Encounters Encounter Date Encounter Type Care Provider Facility Start: [facility]06[facility] [place] Start: 01-29-2023 End: 01-30-[address] SEFERINO MENDOZA . Facility:[facility] Start: 01-07-2023 End: 01-08-[address] SEFERINO MENDOZA . Facility:[facility] Start: 10-13-2022 End: 10-14-[address] SEFERINO MENDOZA . Facility:[facility] Start: 07-14-2022 Encounter for genera l adult medical examination without abnormal findings DR SEFERINO MENDOZA . [facility] Start: 07-13-2022 End: 07-14-[address] SEFERINO [...] Start: 01-29-2018 End: 01-30-2018 Ambulatory DEFAULT PHYSICIAN Facility:[facility] Procedures Date Procedure Procedure Detail Performing Clinician Start: 07-06-2024 Computerized ophthal raf imaging retina Que Fernando Shawna Payers Date Payer Category Payer Unknown [id number] 1970 Unknown [id number] 2.16.84 [id number] 1970 Unknown [id number] 2.16.84 [id number] 1970 Unknown [id number] 2.16.84 [id number] 1970 Unknown [id number] 2.16.84 [id number] 1970 Unknown [id number] 2.16.84 [id number] 1970 Unknown [id number] 2.16.84 [id number] 1970 Unknown [id number] 2.16.84 [id number] 1970 Unknown [id number] 2.16.84 [id number] 1970 Unknown [id number] 2.16.84 [id number] 1961 Unknown [id number] Unknown Clinical Note 07-03-2022 Note Date & [...] NAZARIO PEREZ Date: 2022-07-03 10:07 [facility] Clinical Note 07-03-2022 Note Date & [...] NAZARIO PEREZ Date: 2022-07-03 10:07 [facility] Summary Purpose Family History No Family History Records FoundNo Family History Records FoundNo Family History Records FoundNo Family History Records Found Advance Directives No Advanced Directives Records FoundNo Advanced Directives Records FoundNo Advanced Directives Records FoundNo Advanced Directives Records Found Additional Source Comments INFORMATION SOURCE (unrecogn ized section and content) DATE CREATED AUTHOR 02/19/2018 [facility] DATE CREATED AUTHOR AUTHOR'S ORGANIZ ATION 05/23/2019 [facility] DATE CREATED AUTHOR AUTHOR'S ORGANIZ ATION 02/08/2023 [facility] DATE CREATED AUTHOR AUTHOR'S ORGANIZ ATION 07/09/2024 [facility] I nstitute FOR RECORDS PERTAINING TO [...] BE BASED ON THE PRIMARY CLINICAL RECORDS. [employer] provides no warranty or guarantee of the accuracy or completeness of information in this document.
--- NOTE | 2024-08-03 15:39 | P.DS_ITS ---
Discharge Plan Discharge Disposition: Home, Self-Care Outpatient Diagnostics: [facility] Facility EST LMTD (Routine) Timeframe: 3 Weeks Facility: [facility] - Location[facility] Ordered By: Nazario Perez VC INJ Sclerosing SOLMULT Vein (Routine) Timeframe: 3 Weeks Facility: [facility] - Location: [facility] Ordered By: Nazario Perez VC EXT Venous RT LMTD (Routine) Timeframe: 3 Weeks Facility: [facility] - Location: [facility] Ordered By: Nazario Perez Follow Up Appointments: 08/17/24 Plan of Treatment: Sclerotherapy bialteral legs Start on Xarelto 15mg BID for 21 days Follow up right leg ultrasound Print Language: Lebanese Discharge Date/Time: 08/03/24 15:43
== END 2024-08-03 15:43 | disposition home or self-care (01) ==
PROVIDERS: PCP Radiology Diagnostic Radiology; Visit Provider Radiology Diagnostic Radiology
DX: I80.01 Phlebitis and thrombophlebitis of superficial vessels of right lower extremity (principal)
CPT/HCPCS: 93971; G0463

== ENCOUNTER 2024-08-14 07:48 | Outpatient (OUT) | payer BC, SELFPAY ==
--- NOTE | 2024-08-13 11:05 | VEINCLINIC_ITS ---
Vital Signs 08/14/24 08:22 BP 124/72 BP Location Right Brachial BP Position Sitting BP Cuff Size Adult BP Source Manual Cuff Respiration 18 Pulse 85 Pulse Source Monitor Pulse Oximetry (%) 99 Oxygen Delivery Method Room Air Comment The patient's blood pressure is elevated. Varicose Veins Patient in today for sclerotherapy Thomas Reza MD personally performed the services described in this documentation, as scribed by Ramírez Driver RN in my presence and it is both accurate and complete. IRamírez RN, am scribing for, and in the presence of, Dr. Thomas Shearer and in the presence of the patient. thigh: bilateral (symptoms equal bilaterally), knee: bilateral, calf: bilateral, ankle: bilateral and hayward: bilateral aching, burning, cramping, dull, sharp and tender 8 2 years Worsened in recent months: Yes standing, sitting and walking analgesics (Tylenol), elevating extremities, compression stockings and exercise Reports muscle spasms of leg, fatigue, heaviness, limb pain, edema and leg edema History of lower extremity trauma: No Superficial thrombophlebitis: Yes Family history of varicose veins: yes Has patient had previous lower extremity venous surgery: No Patient has previously received the following treatment(s) for lower extremity varicose veins: Reports none Does patient have a history of : yes Does patient intend to have future pregnancies: no Has patient had lower extremity venous scan with relux testing: No Support hose used: Yes Problems walking or doing physical activity: Yes How does it affect you: awakens her from sleep, often has to stop and elevate feet/legs Do you walk much: Yes Do you stand much: Yes Review of Systems ROS Narrative Thomas Reza MD personally performed the services described in this documentation, as scribed by Ramírez Driver RN in my presence and it is both accurate and complete. Ramírez Reza RN, am scribing for, and in the presence of, Dr. Thomas Shearer and in the presence of the patient. Status of ROS 10 or more systems reviewed and unremark able except as noted in history and below Cardiovascular Reports: edema Integumentary/Breast Reports: itching Neurological Reports: weakness in extremities [facility] Medical History (Updated 08/03/24 @ 14:57 by Kezia Le) Phlebitis and thrombophlebitis of superficial vessels of right lower extremity ?I80.01 - Phlebitis and thrombophlebitis of superficial vessels of right lower extremity (ICD-10) Superficial phlebitis of right leg ?I80.01 - Phlebitis and thrombophlebitis of superficial vessels of right lower extremity (ICD-10) 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 ?I80.01 - Phlebitis and thrombophlebitis of superficial vessels of right lower extremity (ICD-10) Phlebitis and thrombophlebitis of superficial vessels of left lower extremity ?I80.02 - Phlebitis and thrombophlebitis of superficial vessels of left lower extremity (ICD-10) Varicose veins of bilateral lower extremities with pain ?I83.813 - Varicose veins of bilateral lower extremities with pain (ICD-10) Carpal tunnel syndrome ?G56.00 - Carpal tunnel syndrome, unspecified upper limb (ICD-10) Edema ?R60.9 - Edema, unspecified (ICD-10) Hypercholesteremia ?E78.00 - Pure hypercholesterolemia, unspecified (ICD-10) Hypothyroid ?E03.9 - Hypothyroidism, unspecified (ICD-10) Diabetes ?E11.9 - Type 2 diabetes mellitus without complications (ICD-10) Hypertension ?I10 - Essential (primary) hypertension (ICD-10) Deep vein thrombosis ?I82.409 - Acute embolism and thrombosis of unspecified deep veins of unspecified lower extremity (ICD-10) Surgical History (Updated 08/14/24 @ 08:23 by Ramírez Driver) S/P sclerotherapy of varicose veins ?Z98.890 - Other specified postprocedural states (ICD-10) ?Z86.79 - Personal history of other diseases of the circulatory system (ICD- 10) S/P sclerotherapy of varicose veins ?Z98.890 - Other specified postprocedural states (ICD-10) ?Z86.79 - Personal history of other diseases of the circulatory system (ICD- 10) Status post laser ablation of incompetent vein ?Z98.890 - Other specified postprocedural states (ICD-10) Status post laser ablation of incompetent vein ?Z98.890 - Other specified postprocedural states (ICD-10) History of carpal tunnel surgery ?Z98.890 - Other specified postprocedural states (ICD-10) History of arthroscopy of left shoulder ?Z98.890 - Other specified postprocedural states (ICD-10) H/O: hysterectomy ?Z90.710 - Acquired absence of both cervix and uterus (ICD-10) Family History (Updated 04/13/24 @ 13:42 by Ramírez Driver) Mother Family history of diabetes mellitus Family history of hypertension Varicose veins of bilateral lower extremities with pain Social History (Updated 04/13/24 @ 13:43 by Ramírez Driver) Within the past year, how often did you have a drink containing alcohol: never Score interpretation: A score less than 3 is consistent with normal alcohol consumption. Smoking status: Never smoker Non-prescribed substance use: denies use Meds Home Medications and Allergies Home Medications ?Medication ?Instructions ?Recorded ?Confirmed ?Type diclofenac potassium 04/13/24 History empagliflozin 25 mg tablet 25 mg PO QAM 04/13/24 04/13/24 History (Jardiance) furosemide 20 mg tablet 20 mg PO DAILY 04/13/24 04/13/24 History glimepiride 4 mg tablet 4 mg PO DAILY 04/13/24 04/13/24 History levothyroxine 125 mcg capsule 125 mcg PO DAILY 04/13/24 04/13/24 History levothyroxine 137 mcg tablet 137 mcg PO DAILY 04/13/24 04/13/24 History (Euthyrox) metformin 500 mg tablet,extended 500 mg PO DAILY 04/13/24 04/13/24 History release 24 hr metoprolol tartrate 50 mg tablet 25 mg PO DAILY 04/13/24 04/13/24 History pantoprazole 40 mg tablet,delayed 40 mg PO DAILY 04/13/24 04/13/24 History release (Protonix) sitagliptin phosphate 100 mg 100 mg PO DAILY 04/13/24 04/13/24 History tablet (Januvia) rivaroxaban 15 mg tablet (Xarelto) 15 mg PO BID 08/03/24 08/03/24 History Allergies Allergy/AdvReac Type Severity Reaction Status Date / Time penicillamine Allergy Intermediate Rash Verified 04/13/24 13:46 Exam Narrative Exam Narrative: Thomas Reza MD personally performed the services described in this documentation, as scribed by Ramírez Driver RN in my presence and it is both accurate and complete. I, Ramírez Driver RN, am scribing for, and in the presence of, Dr. Thomas Shearer and in the presence of the patient. Constitutional Documenting provider has reviewed patient's vital signs: yes Common normals: oriented x3 Nutritional appearance: overweight Cardio Peripheral pulses: posterior tibial pulses present and dorsalis pedis pulses present Extremity Common normals: normal capillary refill General: edema Right lower extremity: lower leg Right lower leg: inspection and palpation Left lower extremity: lower leg Left lower leg: inspection and palpation Neuro Common normals: oriented x3 Assessment and Plan Assessment and Plan (1) Varicose veins of bilateral lower extremities with pain: Plan further sclerotherapy Thomas Reza MD personally performed the services described in this documentation, as scribed by Ramírez Driver RN in my presence and it is both accurate and complete. IRamírez RN, am scribing for, and in the presence of, Dr. Thomas Shearer and in the presence of the patient. Procedures Procedure Instructions Procedures sclerotherapy: Risks and benefits of the procedure were discussed at length and informed written consent was obtained.? Time-out procedure was performed and the correct patient and procedure were confirmed.? Staff present during time-out: Ramírez Driver RN and Thomas Shearer MD.? Patient prepped and procedure performed in usual sterile fashion. Injections performed by and Ramírez Driver RN Sclerosing Agent:?? 4cc 0.5% Polidocanol Site Injected: left leg Number of Injections: 24 Anesthesia: Supercooled air The patient tolerated the procedure well without complication.? Hemostasis was obtained and thigh-high compression stocking was applied by patient.? Instructed patient to wear stocking for at least 96 hours and sleep with it and only remove for showering.? Will wear stocking for 2 weeks.? The patient verbalizes understanding and states they will comply.? Patient was given post-procedure instructions. Patient was discharged in good condition.? Scheduled to undergo additional injection sclerotherapy on 08/21/2024. Thomas Reza MD personally performed the services described in this documentation, as scribed by Ramírez Driver RN in my presence and it is both accurate and complete. Ramírez Reza RN, am scribing for, and in the presence of, Dr. Thomas Shearer and in the presence of the patient.
--- NOTE | 2024-08-13 11:08 | P.DS_ITS ---
Discharge Plan Discharge Disposition: Home, Self-Care Outpatient Diagnostics: VC INJ Sclerosing SOLMULT Vein (Routine) Timeframe: 2 Weeks Facility: [facility] - Location: [facility] Ordered By: Thomas Shearer Follow Up Appointments: 08/21/2024 Plan of Treatment: additional sclerotherapy Patient Instructions: Polidocanol (By injection) Print Language: Panamanian Discharge Date/Time: 08/14/24 08:24
--- NOTE | 2024-08-14 07:49 | VEIN_ITS ---
[address] [address] Patient Name: QUINN AGUILAR MRN: [id number] date: 1970 Sex: F Assigned Patient Location: [facility] Current Patient Location: Accession/Order Number: [id number] Exam Date: 08/14/2024 07:50 Report Date: 08/14/2024 08:56 At the request of: RAMESH GEORGE Procedure: VC INJ Sclerosing SOLMULT Vein EXAMINATION: VC INJ Sclerosing SOLMULT Vein HISTORY: I83.813 - Varicose veins of bilateral lower extremities w... COMPARISON: No relevant comparison available. TECHNIQUE: The risks and benefits of the procedure were explained at length to the patient and informed written consent was obtained. Ramírez Driver was present and assisted. The procedure was performed under sterile technique. The patient's leg was wrapped with Coban and postprocedural verbal and written instructions provided. SCLEROSANT: 4 cc, 0.5% polidocanol VEIN(S) INJECTED: 24 veins in the left leg VISUALIZATION: Ultrasound was not used to visualize the sclerosant ANESTHESIA: Supercooled air COMPLICATIONS: None VEIN/VC INJ Sclerosing SOLMULT Vein IMPRESSION: Technically successful sclerotherapy as described Electronically authenticated by: YULIANA RANDALL Date: 08/14/2024 08:56
--- OUTSIDE RECORDS SUMMARY | 2024-08-14 07:51 | XMS_ITS | CCD ---
Author Organization [facility] Care Team Providers Care Hair Boiler Name Role Phone PHYSICIAN, DEFAULT Unavailable Unavailable [...] Acetaminophen / oxyCODONE Drug Allergy 10-19-2016 [facility] Repository (1 source) Penicillins Drug allergy (disorder) 01-09-2013 [place] Repository Problems Active Problems Problem Classification Problem [...] : DR SEFERINO MENDOZA . Admission #: [id number] Family : Order #: [id number] CLICK HERE TO VIEW EXAM RADIOLOGY REPORT [...] Treatments None Family Cancers None LOCATION: [facility] BREAST COMPOSITION: Scattered areas fibroglandular [...] M.D. on 01/30/2023 at 13:47 Normal [facility] INSULINon 01-08-2023 Insulin 11.3 uIU/mL Normal 2.6-24.9 [facility] Comment on above: Performed By: #### C [facility] #### [facility] [address] [place] [address] Dr. Dona Turner CBC AUTO DIFFon 01-07-2023 BASO # 0.1 103/ul Normal 0.0-0.1 [place] Comment on above: Performed By: #### C [facility] #### [facility] [address] [place] [address] Dr. Dona Turner Basophils/100 WBC (Bld) 1.2 % Normal 0.2-2.0 [facility] Comment on above: Performed By: #### C [facility] #### [facility] [address] [place] [address] Dr. Dona Turner EO # 0.1 103/ul Normal 0.0-0.7 [place] Comment on above: Performed By: #### C [facility] #### [facility] [address] [place] [address] Dr. Dona Turner Eosinophils/100 WBC (Bld) 2.0 % Normal 0.9-7.0 [place] Comment on above: Performed By: #### C [facility] #### [facility] [address] [place] [address] Dr. Dona Turner Erythrocyte distribution width (RBC) [Ratio] 14.5 % Normal 11.0-15.0 [place] Comment on above: Performed By: #### C [facility] #### [facility] [address] [place] [address] Dr. Dona Turner Hematocrit (Bld) [Volume fraction] 45.1 % Normal 36.0-48.0 [place] Comment on above: Performed By: #### C [facility] #### [facility] [address] [place] [address] Dr. Dona Turner Hemoglobin (Bld) [Mass/Vol] 14.1 g/dL Normal 12.0-16.0 [facility] Comment on above: Performed By: #### C [facility] #### [facility] [address] [place] [address] Dr. Dona Turner IG # 0.02 10e3/ul Normal 0.00-0.03 [facility] Comment on above: Performed By: #### C [facility] #### [facility] [address] [address] [address] Dona Turner IG % 0.4 % Normal 0.0-0.5 [place] Comment on above: Performed By: #### C [facility] #### [facility] [address] [address] [address] Dona Turner LYMPH # 1.3 103/ul Normal 1.2-3.8 [place] Comment on above: Performed By: #### C [facility] #### [facility] [address] [address] [address] Dona Turner Lymphocytes/100 WBC (Bld) 26.4 % Normal 20.5-60.0 [place] Comment on above: Performed By: #### C [facility] #### [facility] [address] [place] [address] Dr. Dona Turner MANUAL DIFF REQ NO Normal [facility] Comment on above: Performed By: #### C V[facility] #### [facility] [address] [place] [address] Dr. Dona Turner MCH (RBC) [Entitic mass] 25.0 pg Critically low 26.7-34.0 [place] Comment on above: Performed By: #### C [facility] #### [facility] [address] [place] [address] Dr. Dona Turner MCHC (RBC) [Mass/Vol] 31.3 g/dL Normal 29.9-35.2 [place] Comment on above: Performed By: #### C [facility] #### [facility] [address] [place] [address] Dr. Dona Turner MCV (RBC) [Entitic vol] 80.0 fL Critically low 81.0-99.0 [place] Comment on above: Performed By: #### C [facility] #### [facility] [address] [place] [address] Dr. Dona Turner MONO # 0.4 103/ul Normal 0.3-0.8 [place] Comment on above: Performed By: #### C [facility] #### [facility] [address] [place] [address] Dr. Dona Turner Monocytes/100 WBC (Bld) 7.7 % Normal 1.7-12.0 [place] Comment on above: Performed By: #### C [facility] #### [facility] [address] [place] [address] Dr. Dona Turner NEUT # 3.1 103/ul Normal 1.4-6.5 [place] Comment on above: Performed By: #### C [facility] #### [facility] [address] [place] [address] Dr. Dona Turner Neutrophils/100 WBC (Bld) 62.3 % Normal 43.0-75.0 [place] Comment on above: Performed By: #### C [facility] #### [facility] [address] [place] [address] Dr. Dona Turner Platelet mean volume (Bld) [Entitic vol] 10.7 fL Normal 9.5-13.5 [place] Comment on above: Performed By: #### C [facility] #### [facility] [address] [place] [address] Dr. Dona Turner PLT 257 103/ul Normal 150-450 [place] Comment on above: Performed By: #### C [facility] #### [facility] [address] [place] [address] Dr. Dona Turner RBC 5.64 106/ul Critically high 4.20-5.40 [facility] Comment on above: Performed By: #### C [facility] #### [facility] [address] [place] [address] Dr. Dona Turner WBC 5.0 103/ul Normal 4.0-11.0 [facility] Comment on above: Performed By: #### C [facility] #### [facility] [address] [place] [address] Dr. Dona Turner FREE THYROXINE INDEX T7on FTI 3.78 Normal 1.30-4.50 [place] Comment on above: Performed By: #### L IPID, TSH, T7, CMP #### [facility] [address] [address] [address] Dona Turner T3U 35.0 % Normal 30.0-39.0 [place] Comment on above: Performed By: #### L IPID, TSH, T7, CMP #### [facility] [address] [address] [address] Dona Turner T4 [Mass/Vol] 10.80 ug/dL Normal 4.80-13.90 [facility] Comment on above: Performed By: #### L IPID, TSH, T7, CMP #### [facility] [address] [address] [address] Dona Turner GLYCOHEMOGLOBIN A1Con 2022 ADA RECOMMENDATION SEE BELOW Normal [facility] Comment on above: Result Comment: ADA RECOMMENDED LIMIT 4.0 - 6.0 ADA THERAPEUTIC TARGET < 7.0 ACTION SUGGESTED > 7.0 Performed By: #### C [facility] #### [facility] [address] [address] [address] Dona Turner Glucose [Mass/Vol] 160 mg/dL Normal [facility] Comment on above: Performed By: #### C V[facility] #### [facility] [address] [address] [address] Dona Turner HbA1c (Bld) [Mass fraction] 7.2 % Critically high 4.5-6.2 [place] Comment on above: Performed By: #### C [facility] #### [facility] [address] [address] [address] Dona Turner IRONon 01-07-2023 Iron [Mass/Vol] 50.0 ug/dL Normal 50.0-170.0 [facility] Comment on above: Performed By: #### I NSULIN #### [facility] [address] [place] [address] Dr. Dona Turner LIPID PROFILEon 01-07-2023 CHOL-HDL RATIO NORM SEE BELOW Normal [facility] Comment on above: Result Comment: 3.3 - 4.4 LOW RISK 4.4 - 7.1 AVERAGE RISK 7.1 - 11.0 MODERATE RISK >11.0 HIGH RISK Performed By: #### L IPID, TSH, T7, CMP #### [facility] [address] [place] [address] Dr. Dona Turner Cholesterol [Mass/Vol] 162 mg/dL Normal <=200 [facility] Comment on above: Performed By: #### L IPID, TSH, T7, CMP #### [facility] [address] [address] [address] Dona Turner Cholesterol in HDL [Mass/Vol] 33 mg/dL Critically low 40-60 [place] Comment on above: Performed By: #### L IPID, TSH, T7, CMP #### [facility] [address] [place] [address] Dr. Dona Turner Cholesterol in LDL [Mass/Vol] 100.4 mg/dL Normal [place] Comment on above: Performed By: #### L IPID, TSH, T7, CMP #### [facility] [address] [place] [address] Dr. Dona Turner Cholesterol.total/Chol esterol in HDL [Mass ratio] 4.9 {ratio} Normal [place] Comment on above: Performed By: #### L IPID, TSH, T7, CMP #### [facility] [address] [place] [address] Dr. Dona Turner HDL NORMAL > or = 60 mg/dl - LOW CARDIOVASCULAR RISK <40 mg/dl - HIGH CARDIOVASCULAR RISK Normal [place] Comment on above: Performed By: #### L IPID, TSH, T7, CMP #### [facility] [address] [place] [address] Dr. Dona Turner LDL CALC NORMAL SEE BELOW Normal [facility] Comment on above: Result Comment: <100 mg/dl OPTIMAL 100 - 129 mg/dl NEAR OR ABOVE OPTIMAL 130 - 159 mg/dl BORDERLINE HIGH 160 - 189 mg/dl HIGH >190 mg/dl VERY HIGH Performed By: #### L IPID, TSH, T7, CMP #### [facility] [address] [place] [address] Dr. Dona Turner Triglyceride [Mass/Vol] 143 mg/dL Normal <=150 [place] Comment on above: Performed By: #### L IPID, TSH, T7, CMP #### [facility] [address] [address] [address] Dona Turner VLDL CALC 28.6 mg/dL Normal [place] Comment on above: Performed By: #### L IPID, TSH, T7, CMP #### [facility] [address] [address] [address] Dona Turner PROF 14(COMP METB)on 023 Albumin [Mass/Vol] 3.8 g/dL Normal 3.4-5.0 [facility] Comment on above: Performed By: #### L IPID, TSH, T7, CMP #### [facility] [address] [place] [address] Dr. Dona Turner Albumin/Globulin [Mass ratio] 1.0 {ratio} Normal [place] Comment on above: Performed By: #### L IPID, TSH, T7, CMP #### [facility] [address] [place] [address] Dr. Dona Turner ALP [Catalytic activity/Vol] 59 U/L Normal 46-116 [place] Comment on above: Performed By: #### L IPID, TSH, T7, CMP #### [facility] [address] [place] [address] Dr. Dona Turner ALT [Catalytic activity/Vol] 43 U/L Normal 14-59 [place] Comment on above: Performed By: #### L IPID, TSH, T7, CMP #### [facility] [address] [address] [address] Dona Turner Anion gap [Moles/Vol] 11.5 mmol/L Normal [facility] Comment on above: Performed By: #### L IPID, TSH, T7, CMP #### [facility] [address] [place] [address] Dr. Dona Turner AST [Catalytic activity/Vol] 19 U/L Normal 15-37 [place] Comment on above: Performed By: #### L IPID, TSH, T7, CMP #### [facility] [address] [place] [address] Dr. Dona Turner Bilirubin [Mass/Vol] 0.4 mg/dL Normal 0.2-1.0 [place] Comment on above: Performed By: #### L IPID, TSH, T7, CMP #### [facility] [address] [place] [address] Dr. Dona Turner Calcium [Mass/Vol] 9.1 mg/dL Normal 8.5-10.1 [facility] Comment on above: Performed By: #### L IPID, TSH, T7, CMP #### [facility] [address] [place] [address] Dr. Dona Turner Chloride [Moles/Vol] 107 mmol/L Normal 98-107 [place] Comment on above: Performed By: #### L IPID, TSH, T7, CMP #### [facility] [address] [place] [address] Dr. Dona Turner CO2 [Moles/Vol] 28.5 mmol/L Normal 21.0-32.0 [facility] Comment on above: Performed By: #### L IPID, TSH, T7, CMP #### [facility] [address] [place] [address] Dr. Dona Turner Creatinine [Mass/Vol] 0.66 mg/dL Normal 0.55-1.02 [place] Comment on above: Performed By: #### L IPID, TSH, T7, CMP #### [facility] [address] [place] [address] Dr. Dona Turner EGFR-AF PUERTO RICAN >60 Normal >=60 [facility] Comment on above: Performed By: #### L IPID, TSH, T7, CMP #### [facility] [address] [place] [address] Dr. Dona Turner EGFR-NON AF PUERTO RICAN >60 Normal >=60 [place] Comment on above: Performed By: #### L IPID, TSH, T7, CMP #### [facility] [address] [place] [address] Dr. Dona Turner Globulin (S) [Mass/Vol] 3.8 g/dL Normal [place] Comment on above: Performed By: #### L IPID, TSH, T7, CMP #### [facility] [address] [address] [address] Dona Turner Glucose [Mass/Vol] 112 mg/dL Critically high 74-106 T [facility] Comment on above: Performed By: #### L IPID, TSH, T7, CMP #### [facility] [address] [address] [address] Dona Turner Potassium [Moles/Vol] 4.0 mmol/L Normal 3.5-5.1 [place] Comment on above: Performed By: #### L IPID, TSH, T7, CMP #### [facility] [address] [place] [address] Dr. Dona Turner Protein [Mass/Vol] 7.6 g/dL Normal 6.4-8.2 [facility] Comment on above: Performed By: #### L IPID, TSH, T7, CMP #### [facility] [address] [place] [address] Dr. Dona Turner Sodium [Moles/Vol] 143 mmol/L Normal 136-145 [facility] Comment on above: Performed By: #### L IPID, TSH, T7, CMP #### [facility] [address] [place] [address] Dr. Dona Turner Urea nitrogen [Mass/Vol] 11.0 mg/dL Normal 7.0-18.0 [place] Comment on above: Performed By: #### L IPID, TSH, T7, CMP #### [facility] [address] [place] [address] Dr. Dona Turner Urea nitrogen/Creatinine [Mass ratio] 16.7 mg/mg Normal [place] Comment on above: Performed By: #### L IPID, TSH, T7, CMP #### [facility] [address] [place] [address] Dr. Dona Turner TSHon 01-07-2023 TSH 0.350 uIU/mL Critically low 0.358-3.740 [facility] Comment on above: Performed By: #### L IPID, TSH, T7, CMP #### [facility] [address] [place] [address] Dr. Dona Turner VITAMIN D 25 OHon 01-07-2023 VIT D 25-OH 52.4 ng/mL Normal [place] Comment on above: Performed By: #### I NSULIN #### [facility] [address] [place] [address] Dr. Dona Turner VIT D RANGES SEE BELOW Normal [place] Comment on above: Result Comment: <20 ng/mL Vit D deficient 20 - <30 ng/mL Vit D insufficient 30 - 100 ng/mL Vit D sufficient >100 ng/mL Potential Toxicity Performed By: #### I NSULIN #### [facility] [address] [place] [address] Dr. Dona Turner LIPID PROFILEon 10-13-2022 CHOL-HDL RATIO NORM SEE BELOW Normal [facility] Comment on above: Result Comment: 3.3 - 4.4 LOW RISK 4.4 - 7.1 AVERAGE RISK 7.1 - 11.0 MODERATE RISK >11.0 HIGH RISK Performed By: #### C [facility]DT[facility] #### [facility] [address] [place] [address] Dr. Dona Turner Cholesterol [Mass/Vol] 136 mg/dL Normal <=200 Th [facility] Comment on above: Performed By: #### C [facility] #### [facility] [address] [place] [address] Dr. Dona Turner Cholesterol in HDL [Mass/Vol] 33 mg/dL Critically low 40-60 [place] Comment on above: Performed By: #### C [facility] #### [facility] [address] [place] [address] Dr. Dona Turner Cholesterol in LDL [Mass/Vol] 76.4 mg/dL Normal [place] Comment on above: Performed By: #### C [facility] #### [facility] [address] [place] [address] Dr. Dona Turner Cholesterol.total/Chol esterol in HDL [Mass ratio] 4.1 {ratio} Normal [place] Comment on above: Performed By: #### C VDT[facility] #### [facility] [address] [address] [address] Dona Turner HDL NORMAL > or = 60 mg/dl - LOW CARDIOVASCULAR RISK <40 mg/dl - HIGH CARDIOVASCULAR RISK Normal [place] Comment on above: Performed By: #### C VDT[facility] #### [facility] [address] [address] [address] Dona Turner LDL CALC NORMAL SEE BELOW Normal [facility] Comment on above: Result Comment: <100 mg/dl OPTIMAL 100 - 129 mg/dl NEAR OR ABOVE OPTIMAL 130 - 159 mg/dl BORDERLINE HIGH 160 - 189 mg/dl HIGH >190 mg/dl VERY HIGH Performed By: #### C VDTBH #### [facility] [address] [place] [address] Dr. Dona Turner Triglyceride [Mass/Vol] 133 mg/dL Normal <=150 [place] Comment on above: Performed By: #### C VDT[facility] #### [facility] [address] [place] [address] Dr. Dona Turner VLDL CALC 26.6 mg/dL Normal [place] Comment on above: Performed By: #### C VDT[facility] #### [facility] [address] [place] [address] Dr. Dona Turner LIVER PROFILEon 10-13-2022 Albumin [Mass/Vol] 3.6 g/dL Normal 3.4-5.0 [facility] Comment on above: Performed By: #### I NSULIN #### [facility] [address] [place] [address] Dr. Dona Turner Albumin/Globulin [Mass ratio] 1.1 {ratio} Normal [place] Comment on above: Performed By: #### I NSULIN #### [facility] [address] [place] [address] Dr. Dona Turner ALP [Catalytic activity/Vol] 62 U/L Normal 46-116 [place] Comment on above: Performed By: #### I NSULIN #### [facility] [address] [address] [address] Dona Turner ALT [Catalytic activity/Vol] 28 U/L Normal 14-59 [place] Comment on above: Performed By: #### I NSULIN #### [facility] [address] [address] [address] Dona Turner AST [Catalytic activity/Vol] 16 U/L Normal 15-37 [place] Comment on above: Performed By: #### I NSULIN #### [facility] [address] [address] [address] Dona Turner BILI, CONJUGATED 0.1 mg/dL Normal 0.0-0.2 [facility] Comment on above: Performed By: #### I NSULIN #### [facility] [address] [place] [address] Dr. Dona Turner Bilirubin [Mass/Vol] 0.5 mg/dL Normal 0.2-1.0 [place] Comment on above: Performed By: #### I NSULIN #### [facility] [address] [place] [address] Dr. Dona Turner Globulin (S) [Mass/Vol] 3.4 g/dL Normal [place] Comment on above: Performed By: #### I NSULIN #### [facility] [address] [place] [address] Dr. Dona Turner Protein [Mass/Vol] 7.0 g/dL Normal 6.4-8.2 [facility] Comment on above: Performed By: #### I NSULIN #### [facility] [address] [place] [address] Dr. Dona Turner BETH by IFAon 07-19-2022 Antinuclear Antibodies, IFA Negative Normal [place] Comment on above: Result Comment: Nega tive <1:80 Borderline 1:80 Positive >1:80 ICAP nomenclature: AC-0 For more information about Hep-2 cell patterns use ANApatterns.org, the official website for the International Consensus on Antinuclear Antibody (BETH) Patterns (ICAP). Performed By: #### A NAIFA #### [facility] [address] [place] [address] Dr. Dona Turner ANTISTREPTOLYSIN O AB (ASO)o n 07-14-2022 Antistreptolysin O Ab 25.3 IU/mL Normal 0.0-200.0 [place] Comment on above: Performed By: #### I NSULIN #### [facility] [address] [place] [address] Dr. Dona Turner RHEUMATOID FACTORon 07-14-20 RA Latex Turbid. 19.2 IU/mL Critically high <14.0 [place] Comment on above: Performed By: #### L IPID, TSH, T7, CMP #### [facility] [address] [place] [address] Dr. Dona Turner CBC AUTO DIFFon 07-13-2022 BASO # 0.1 103/ul Normal 0.0-0.1 [place] Comment on above: Performed By: #### C VDTBH #### [facility] [address] [place] [address] Dr. Dona Turner Basophils/100 WBC (Bld) 0.8 % Normal 0.2-2.0 [place] Comment on above: Performed By: #### C VDTBH #### [facility] [address] [place] [address] Dr. Dona Turner EO # 0.1 103/ul Normal 0.0-0.7 [place] Comment on above: Performed By: #### C VDTBH #### [facility] [address] [place] [address] Dr. Dona Turner Eosinophils/100 WBC (Bld) 1.0 % Normal 0.9-7.0 [facility] Comment on above: Performed By: #### C VDTBH #### [facility] [address] [place] [address] Dr. Dona Turner Erythrocyte distribution width (RBC) [Ratio] 14.3 % Normal 11.0-15.0 [place] Comment on above: Performed By: #### C VDTBH #### [facility] [address] [place] [address] Dr. Dona Turner Hematocrit (Bld) [Volume fraction] 44.8 % Normal 36.0-48.0 [place] Comment on above: Performed By: #### C VDTBH #### [facility] [address] [place] [address] Dr. Dona Turner Hemoglobin (Bld) [Mass/Vol] 14.4 g/dL Normal 12.0-16.0 [place] Comment on above: Performed By: #### C VDTBH #### [facility] [address] [place] [address] Dr. Dona Turner IG # 0.03 10e3/ul Normal 0.00-0.03 [place] Comment on above: Performed By: #### C VDTBH #### [facility] [address] [place] [address] Dr. Dona Turner IG % 0.3 % Normal 0.0-0.5 [place] Comment on above: Performed By: #### C VDTBH #### [facility] [address] [place] [address] Dr. Dona Turner LYMPH # 1.9 103/ul Normal 1.2-3.8 [place] Comment on above: Performed By: #### C VDTBH #### [facility] [address] [place] [address] Dr. Dona Turner Lymphocytes/100 WBC (Bld) 20.8 % Normal 20.5-60.0 [place] Comment on above: Performed By: #### C VDTBH #### [facility] [address] [place] [address] Dr. Dona Turner MANUAL DIFF REQ NO Normal [facility] Comment on above: Performed By: #### C VDTBH #### [facility] [address] [place] [address] Dr. Dona Turner MCH (RBC) [Entitic mass] 25.5 pg Critically low 26.7-34.0 [place] Comment on above: Performed By: #### C VDTBH #### [facility] [address] [place] [address] Dr. Dona Turner MCHC (RBC) [Mass/Vol] 32.1 g/dL Normal 29.9-35.2 [facility] Comment on above: Performed By: #### C VDTBH #### [facility] [address] [place] [address] Dr. Dona Turner MCV (RBC) [Entitic vol] 79.3 fL Critically low 81.0-99.0 [facility] [facility] Comment on above: Performed By: #### C VDTBH #### [facility] [address] [place] [address] Dr. Dona Turner MONO # 0.8 103/ul Normal 0.3-0.8 [facility] Comment on above: Performed By: #### C VDTBH #### [facility] [address] [place] [address] Dr. Dona Turner Monocytes/100 WBC (Bld) 8.5 % Normal 1.7-12.0 [facility] Comment on above: Performed By: #### C VDTBH #### [facility] [address] [place] [address] Dr. Dona Turner NEUT # 6.4 103/ul Normal 1.4-6.5 [facility] Comment on above: Performed By: #### C VDTBH #### [facility] [address] [place] [address] Dr. Dona Turner Neutrophils/100 WBC (Bld) 68.6 % Normal 43.0-75.0 [facility] Comment on above: Performed By: #### C VDTBH #### [facility] [address] [place] [address] Dr. Dona Turner Platelet mean volume (Bld) [Entitic vol] 10.5 fL Normal 9.5-13.5 [facility] Comment on above: Performed By: #### C VDTBH #### [facility] [address] [place] [address] Dr. Dona Turner PLT 290 103/ul Normal 150-450 [facility] Comment on above: Performed By: #### C VDTBH #### [facility] [address] [address] [address] Dona Turner RBC 5.65 106/ul Critically high 4.20-5.40 The [facility] Comment on above: Performed By: #### C VDTBH #### [facility] [address] [place] [address] Dr. Dona Turner WBC 9.3 103/ul Normal 4.0-11.0 [facility] Comment on above: Performed By: #### C VDTBH #### [facility] [address] [place] [address] Dr. Dona Turner CRPon 07-13-2022 CRP [Mass/Vol] mg/L Normal <=1.0 [facility] Comment on above: Performed By: #### I NSULIN #### [facility] [address] [place] [address] Dr. Dona Turner SED RATE WESTERGRENon 2021 SED RATE 47 mm/hr Critically high <=30 [facility] Comment on above: Performed By: #### S EDR #### [facility] [address] [place] [address] Dr. Dona Turner URIC ACID SERUMon 07-13-2022 Urate [Mass/Vol] 3.2 mg/dL Normal 2.6-6.0 [facility] Comment on above: Performed By: #### I NSULIN #### [facility] [address] [place] [address] Dr. Dona Turner INSULINon 07-10-2022 Insulin 11.5 uIU/mL Normal 2.6-24.9 [facility] Comment on above: Performed By: #### I NSULIN #### [facility] [address] [place] [address] Dr. Dona Turner CBC AUTO DIFFon 07-09-2022 BASO # 0.1 103/ul Normal 0.0-0.1 [facility] Comment on above: Performed By: #### C BC #### [facility] [address] [place] [address] Dr. Dona Turner Basophils/100 WBC (Bld) 0.8 % Normal 0.2-2.0 [facility] Comment on above: Performed By: #### C BC #### [facility] [address] [place] [address] Dr. Dona Turner EO # 0.1 103/ul Normal 0.0-0.7 [place] Comment on above: Performed By: #### C BC #### [facility] [address] [place] [address] Dr. Dona Turner Eosinophils/100 WBC (Bld) 0.7 % Critically low 0.9-7.0 [place] Comment on above: Performed By: #### C BC #### [facility] [address] [place] [address] Dr. Dona Turner Erythrocyte distribution width (RBC) [Ratio] 14.5 % Normal 11.0-15.0 [place] Comment on above: Performed By: #### C BC #### [facility] [address] [place] [address] Dr. Dona Turner Hematocrit (Bld) [Volume fraction] 44.7 % Normal 36.0-48.0 [place] Comment on above: Performed By: #### C BC #### [facility] [address] [place] [address] Dr. Dona Turner Hemoglobin (Bld) [Mass/Vol] 14.5 g/dL Normal 12.0-16.0 [place] Comment on above: Performed By: #### C BC #### [facility] [address] [place] [address] Dr. Dona Turner IG # 0.04 10e3/ul Critically high 0.00-0.03 [facility] Comment on above: Performed By: #### C BC #### [facility] [address] [place] [address] Dr. Dona Turner IG % 0.4 % Normal 0.0-0.5 [place] Comment on above: Performed By: #### C BC #### [facility] [address] [place] [address] Dr. Dona Turner LYMPH # 1.6 103/ul Normal 1.2-3.8 [place] Comment on above: Performed By: #### C BC #### [facility] [address] [address] [address] Dona Turner Lymphocytes/100 WBC (Bld) 17.7 % Critically low 20.5-60.0 [place] Comment on above: Performed By: #### C BC #### [facility] [address] [address] [address] Dona Turner MANUAL DIFF REQ NO Normal [facility] Comment on above: Performed By: #### C BC #### [facility] [address] [address] [address] Dona Turner MCH (RBC) [Entitic mass] 25.9 pg Critically low 26.7-34.0 [place] Comment on above: Performed By: #### C BC #### [facility] [address] [place] [address] Dr. Dona Turner MCHC (RBC) [Mass/Vol] 32.4 g/dL Normal 29.9-35.2 [place] Comment on above: Performed By: #### C BC #### [facility] [address] [place] [address] Dr. Dona Turner MCV (RBC) [Entitic vol] 79.8 fL Critically low 81.0-99.0 [place] Comment on above: Performed By: #### C BC #### [facility] [address] [place] [address] Dr. Dona Turner MONO # 0.6 103/ul Normal 0.3-0.8 [facility] Comment on above: Performed By: #### C BC #### [facility] [address] [place] [address] Dr. Dona Turner Monocytes/100 WBC (Bld) 6.9 % Normal 1.7-12.0 [facility] Comment on above: Performed By: #### C BC #### [facility] [address] [place] [address] Dr. Dona Turner NEUT # 6.6 103/ul Critically high 1.4-6.5 [facility] Comment on above: Performed By: #### C BC #### [facility] [address] [place] [address] Dr. Dona Turner Neutrophils/100 WBC (Bld) 73.5 % Normal 43.0-75.0 [place] Comment on above: Performed By: #### C BC #### [facility] [address] [place] [address] Dr. Dona Turner Platelet mean volume (Bld) [Entitic vol] 11.1 fL Normal 9.5-13.5 [place] Comment on above: Performed By: #### C BC #### [facility] [address] [place] [address] Dr. Dona Turner PLT 256 103/ul Normal 150-450 [place] Comment on above: Performed By: #### C BC #### [facility] [address] [place] [address] Dr. Dona Turner RBC 5.60 106/ul Critically high 4.20-5.40 [facility] Comment on above: Performed By: #### C BC #### [facility] [address] [place] [address] Dr. Dona Turner WBC 8.9 103/ul Normal 4.0-11.0 [place] Comment on above: Performed By: #### C BC #### [facility] [address] [place] [address] Dr. Dona Turner FREE THYROXINE INDEX T7on FTI 3.66 Normal 1.30-4.50 [place] Comment on above: Performed By: #### C VDTBH #### [facility] [address] [place] [address] Dr. Dona Turner T3U 37.0 % Normal 30.0-39.0 [facility] Comment on above: Performed By: #### C VDTBH #### [facility] [address] [place] [address] Dr. Dona Turner T4 [Mass/Vol] 9.90 ug/dL Normal 4.80-13.90 [facility] Comment on above: Performed By: #### C VDTBH #### [facility] [address] [address] [address] Dona Turner GLYCOHEMOGLOBIN A1Con 2021 ADA RECOMMENDATION SEE BELOW Normal [facility] Comment on above: Result Comment: ADA RECOMMENDED LIMIT 4.0 - 6.0 ADA THERAPEUTIC TARGET < 7.0 ACTION SUGGESTED > 7.0 Performed By: #### A 1C #### [facility] [address] [place] [address] Dr. Dona Turner Glucose [Mass/Vol] 183 mg/dL Normal [facility] Comment on above: Performed By: #### A 1C #### [facility] [address] [place] [address] Dr. Dona Turner HbA1c (Bld) [Mass fraction] 8.0 % Critically high 4.5-6.2 [place] Comment on above: Performed By: #### A 1C #### [facility] [address] [place] [address] Dr. Dona Turner IRONon 07-09-2022 Iron [Mass/Vol] 56.0 ug/dL Normal 50.0-170.0 [facility] Comment on above: Performed By: #### I NSULIN #### [facility] [address] [place] [address] Dr. Dona Turner LIPID PROFILEon 07-09-2022 CHOL-HDL RATIO NORM SEE BELOW Normal [facility] Comment on above: Result Comment: 3.3 - 4.4 LOW RISK 4.4 - 7.1 AVERAGE RISK 7.1 - 11.0 MODERATE RISK >11.0 HIGH RISK Performed By: #### C VDTBH #### [facility] [address] [place] [address] Dr. Dona Turner Cholesterol [Mass/Vol] 228 mg/dL Critically high <=200 [place] Comment on above: Performed By: #### C VDTBH #### [facility] [address] [place] [address] Dr. Dona Turner Cholesterol in HDL [Mass/Vol] 37 mg/dL Critically low 40-60 [place] Comment on above: Performed By: #### C VDTBH #### [facility] [address] [address] [address] Dona Turner Cholesterol in LDL [Mass/Vol] 163.6 mg/dL Normal [place] Comment on above: Performed By: #### C VDTBH #### [facility] [address] [address] [address] Dona Turner Cholesterol.total/Chol esterol in HDL [Mass ratio] 6.2 {ratio} Normal [place] Comment on above: Performed By: #### C VDTBH #### [facility] [address] [address] [address] Dona Turner HDL NORMAL > or = 60 mg/dl - LOW CARDIOVASCULAR RISK <40 mg/dl - HIGH CARDIOVASCULAR RISK Normal [place] Comment on above: Performed By: #### C VDTBH #### [facility] [address] [place] [address] Dr. Dona Turner LDL CALC NORMAL SEE BELOW Normal [facility] Comment on above: Result Comment: <100 mg/dl OPTIMAL 100 - 129 mg/dl NEAR OR ABOVE OPTIMAL 130 - 159 mg/dl BORDERLINE HIGH 160 - 189 mg/dl HIGH >190 mg/dl VERY HIGH Performed By: #### C VDTBH #### [facility] [address] [place] [address] Dr. Dona Turner Triglyceride [Mass/Vol] 137 mg/dL Normal <=150 [place] Comment on above: Performed By: #### C VDTBH #### [facility] [address] [place] [address] Dr. Dona Turner VLDL CALC 27.4 mg/dL Normal [place] Comment on above: Performed By: #### C VDTBH #### [facility] [address] [place] [address] Dr. Dona Turner PROF 14(COMP METB)on 022 Albumin [Mass/Vol] 3.8 g/dL Normal 3.4-5.0 [facility] Comment on above: Performed By: #### C VDTBH #### [facility] [address] [place] [address] Dr. Dona Turner Albumin/Globulin [Mass ratio] 1.0 {ratio} Normal [place] Comment on above: Performed By: #### C VDTBH #### [facility] [address] [place] [address] Dr. Dona Turner ALP [Catalytic activity/Vol] 57 U/L Normal 46-116 [place] Comment on above: Performed By: #### C VDTBH #### [facility] [address] [place] [address] Dr. Dona Turner ALT [Catalytic activity/Vol] 24 U/L Normal 14-59 [place] Comment on above: Performed By: #### C VDTBH #### [facility] [address] [place] [address] Dr. Dona Turner Anion gap [Moles/Vol] 9.6 mmol/L Normal [place] Comment on above: Performed By: #### C VDTBH #### [facility] [address] [place] [address] Dr. Dona Turner AST [Catalytic activity/Vol] 15 U/L Normal 15-37 [place] Comment on above: Performed By: #### C VDTBH #### [facility] [address] [place] [address] Dr. Dona Turner Bilirubin [Mass/Vol] 0.5 mg/dL Normal 0.2-1.0 [place] Comment on above: Performed By: #### C VDTBH #### [facility] [address] [place] [address] Dr. Dona Turner Calcium [Mass/Vol] 9.3 mg/dL Normal 8.5-10.1 [facility] Comment on above: Performed By: #### C VDTBH #### [facility] [address] [place] [address] Dr. Dona Turner Chloride [Moles/Vol] 103 mmol/L Normal 98-107 [place] Comment on above: Performed By: #### C VDTBH #### [facility] [address] [place] [address] Dr. Dona Turner CO2 [Moles/Vol] 29.5 mmol/L Normal 21.0-32.0 [facility] Comment on above: Performed By: #### C VDTBH #### [facility] [address] [place] [address] Dr. Dona Turner Creatinine [Mass/Vol] 0.61 mg/dL Normal 0.55-1.02 [place] Comment on above: Performed By: #### C VDTBH #### [facility] [address] [address] [address] Dona Turner EGFR-AF PUERTO RICAN >60 Normal >=60 [facility] Comment on above: Performed By: #### C VDTBH #### [facility] [address] [place] [address] Dr. Dona Turner EGFR-NON AF PUERTO RICAN >60 Normal >=60 [place] Comment on above: Performed By: #### C VDTBH #### [facility] [address] [place] [address] Dr. Dona Turner Globulin (S) [Mass/Vol] 3.8 g/dL Normal [place] Comment on above: Performed By: #### C VDTBH #### [facility] [address] [place] [address] Dr. Dona Turner Glucose [Mass/Vol] 104 mg/dL Normal 74-106 [facility] Comment on above: Performed By: #### C VDTBH #### [facility] [address] [place] [address] Dr. Dona Turner Potassium [Moles/Vol] 4.1 mmol/L Normal 3.5-5.1 [facility] Comment on above: Performed By: #### C VDTBH #### [facility] [address] [place] [address] Dr. Dona Turner Protein [Mass/Vol] 7.6 g/dL Normal 6.4-8.2 [facility] Comment on above: Performed By: #### C VDTBH #### [facility] [address] [place] [address] Dr. Dona Turner Sodium [Moles/Vol] 138 mmol/L Normal 136-145 [facility] Comment on above: Performed By: #### C VDTBH #### [facility] [address] [place] [address] Dr. Dona Turner Urea nitrogen [Mass/Vol] 14.0 mg/dL Normal 7.0-18.0 [place] Comment on above: Performed By: #### C VDTBH #### [facility] [address] [place] [address] Dr. Dona Turner Urea nitrogen/Creatinine [Mass ratio] 23.0 mg/mg Normal [place] Comment on above: Performed By: #### C VDTBH #### [facility] [address] [place] [address] Dr. Dona Turner TSHon 07-09-2022 TSH 0.324 uIU/mL Critically low 0.358-3.740 [facility] Comment on above: Performed By: #### C VDTBH #### [facility] [address] [place] [address] Dr. Dona Turner VITAMIN D 25 OHon 07-09-2022 VIT D 25-OH 52.6 ng/mL Normal [place] Comment on above: Performed By: #### I NSULIN #### [facility] [address] [place] [address] Dr. Dona Turner VIT D RANGES SEE BELOW Normal [place] Comment on above: Result Comment: <20 ng/mL Vit D deficient 20 - <30 ng/mL Vit D insufficient 30 - 100 ng/mL Vit D sufficient >100 ng/mL Potential Toxicity Performed By: #### I NSULIN #### [facility] [address] [place] [address] Dr. Dona Turner [facility]02 SARS-CoV-2 (COVID-19) RNA JEWEL+probe Ql (Unsp spec) Not detected Normal NOT DETECTED [place] Comment on above: Result Comment: This test is not yet approved or cleared by the [place] FDA. When there are no FDA-approved or cleared tests available, and other criteria are met, FDA can make tests available under an emergency access mechanism called an Emergency Use Authorization (EUA). The EUA for this test is supported by the Plate Conditioner of Health and Human Service's (HHS's) declaration [...] consistent with SARS-CoV-2. Performed By: #### C [facility] #### [facility] [address] [place] [address] Dr. Dona Turner Coding Summary.on 09-12-2018 Coding Summary. CODING DATE: 09/12/2018 [facility] STATUS: Home (Routine DC) [...] Cuellar Date Saved: 09/12/2018 03:25 pm Normal [facility] Main OR Intraoperative Recor don 09-09-2018 Main OR Intraoperative Record IntraOp Document Type FTURO Summary Primary Physician: David ORTIZ MD Finalized Date/Time: 09/09/18 12:32:44 Pt. Name: IAN BRIGGS /Sex: 1970 Female Med Rec #: [id number] Physician: David ORTIZ MD Financial #: [id number] Pt. Type: O Room/Bed: / Admit/Disch: 09/09/18 09:49:59 - Institution: Case Times FTURO Entry 1 Patient Times In Room 09/09/18 12:19:00 Out Room 09/09/18 12:33:00 Procedure Times Start 09/09/18 12:22:00 Stop 09/09/18 12:26:00 Anesthesia Times Last Modified By: Lilliana RN, RADHIKAOR, Pearl Hoffmann 09/09/18 12:32:32 Case Attendance FTURO Entry 1 Entry 2 Entry 3 Case Attendee David ORTIZ MD TIRE BUILDER OPERATOR, Alannah Tijerina RN, CNOR, Pearl Hoffmann Role Performed Surgeon - Primary Scrub - Primary Convention Manager - Primary Time In 09/09/18 12:20:00 [...] David ORTIZ MD, Verified (If Participants [place] TIRE BUILDER OPERATOR, Alannah, Applicable) GIUSEPPE Tijerina RN, Lou [...] Tijerina RN, Lou Ann 09/09/18 12:32 Normal [facility] Main [place] Preoperative Recordo n 09-09-2018 Main OR Preoperative Record Holding Area Document Type FTURO Summary Primary Physician: David ORTIZ MD Finalized Date/Time: 09/09/18 12:22:07 Pt. Name: IAN BRIGGS/Sex: 1970 Female Med Rec #: [id number] Physician: David ORTIZ MD Financial #: [id number] Pt. Type: O Room/Bed: / Admit/Disch: 09/09/18 [...] Complaints of Pain: No Skin Integrity Intact, [place], Warm, & Dry Vitals - EU Blood Pressure 141/78 Pulse 57 bpm Respirations 16 br/min SPO2 Additional None RN Reviewed Yes Specimens Collected Last Modified By: GIUSEPPE Tijerina RN, Lou Ann 09/09/18 12:22:05 Finalized By: GIUSEPPE Tijerina RN, Lou Ann Document Signatures Signed By: Racheal Bernabe 09/09/18 11:43 GIUSEPPE Tijerina RN, Lou Ann 09/09/18 12:22 Normal [facility] Operative Reporton 9 Operative Report Patient: IAN [...] urine. The Urethra was dilated to: 30 Latvian w/ sounds. Devices Implanted: None. Removal: Cystoscope is removed, The patient tolerated it well. Postoperative Information Discharge: Patient is discharged home with antibiotic coverage, Follow up arranged. she will do timed/double voids. try ditropan xl 10mgqd f/u 3 months with pvr bladder scan....?pessary. Normal [facility] Comment on above: Result Comment: Elec tronically Signed By: ANGEL SWANSON, David Leija.br\Date and Time Signed: 09/09/18 12:39 EST Encounters Encounter Date Encounter Type Care Provider Facility Start: [facility]06[facility]20[facility] [place] Start: 01-29-2023 End: 01-30-[address] SEFERINO MENDOZA . Facility:[facility] Start: 01-07-2023 End: 01-08-[address] SEFERINO MENDOZA . Facility:[facility] Start: 10-13-2022 End: 10-14-[address] SEFERINO MENDOZA . Facility:[facility] Start: 07-14-2022 Encounter for genera l adult medical examination without abnormal findings DR SEFERINO MENDOZA . [facility] Start: 07-13-2022 End: 07-14-2022 ambulatory [...] Start: 01-29-2018 End: 01-30-2018 Ambulatory DEFAULT PHYSICIAN Facility:[facility] Procedures Date Procedure Procedure Detail Performing Clinician Start: 07-06-2024 Computerized ophthal raf imaging retina Que Fernando Shawna Payers Date Payer Category Payer Unknown [id number] 1970 Unknown [id number] 2.16.84 [id number] 1970 Unknown [id number] 2.16.84 [id number] 1970 Unknown [id number] 2.16.84 [id number] 1970 Unknown [id number] 2.16.84 [id number] 1970 Unknown [id number] 2.16.84 [id number] 1970 Unknown [id number] 2.16.84 [id number] 1970 Unknown [id number] 2.16.84 [id number] 1970 Unknown [id number] 2.16.84 [id number] 1970 Unknown [id number] 2.16.84 [id number] 1961 Unknown [id number] Unknown Clinical Note 07-03-2022 Note Date & [...] authenticated by: NAZARIO PEREZ Date: 2022-07-03 10:07 [place] Clinical Note 07-03-2022 Note Date & Type [...] authenticated by: NAZARIO PEREZ Date: 2022-07-03 10:07 [place] Summary Purpose Family History No Family History Records FoundNo Family History Records FoundNo Family History Records FoundNo Family History Records Found Advance Directives No Advanced Directives Records FoundNo Advanced Directives Records FoundNo Advanced Directives Records FoundNo Advanced Directives Records Found Additional Source Comments INFORMATION SOURCE (unrecogn ized section and content) DATE CREATED AUTHOR 02/19/2018 [facility] DATE CREATED AUTHOR AUTHOR'S ORGANIZ ATION 05/23/2019 [facility] DATE CREATED AUTHOR AUTHOR'S ORGANIZ ATION 02/08/2023 [facility] DATE CREATED AUTHOR AUTHOR'S ORGANIZ ATION 07/09/2024 [facility] I nstitute FOR RECORDS PERTAINING TO [...] BE BASED ON THE PRIMARY CLINICAL RECORDS. [employer] provides no warranty or guarantee of the accuracy or completeness of information in this document.
[2024-08-14 08:22] VITALS: BP 124/72; PULSE 85; O2SAT 99
== END 2024-08-14 08:24 | disposition home or self-care (01) ==
LOC: VC 07:48
PROVIDERS: PCP Radiology Diagnostic Radiology; Visit Provider Radiology Diagnostic Radiology
DX: I83.813 Varicose veins of bilateral lower extremities with pain (principal)
CPT/HCPCS: 36471

== ENCOUNTER 2024-08-19 15:01 | Outpatient (OUT) | payer BC, SELFPAY ==
--- NOTE | 2024-08-19 15:01 | VEIN_ITS ---
Patient Name: QUINN AGUILAR MR#: [id number] : 1970 Exam Date: 08/19/2024 Ordering Doctor: DR RAMESH PEREZ M.D. RADIOLOGY REPORT PROCEDURE: VC EXT VENOUS RT LMTD COMPARISON: VC EXT VENOUS RT LMTD, 08/03/2024. INDICATIONS: I83.813 - Varicose veins of bilateral lower extremities with pain TECHNIQUE: Lower extremity watt scale and Duplex Doppler evaluation of the deep venous system from the inguinal ligament through the calf veins. FINDINGS: REGION: Right lower extremity. THROMBI: Positive for DVT. Thrombus in prox-mid PTV approximately 9 cm from popliteal vein. Appears stable. COMPRESSIBILITY: Non-compressible segments corresponding to thrombus FLOW: Areas of no flow corresponding to thrombus OTHER: CONCLUSION: 1. Persistent short segment of deep vein thrombus within posterior tibial vein; slightly smaller than previously seen. Dictated by: Ramesh Perez M.D. on 08/19/2024 at 15:32 Approved by: Ramesh Perez M.D. on 08/19/2024 at 15:57
--- NOTE | 2024-08-19 15:01 | VEIN_ITS ---
Patient Name: QUINN AGUILAR MR#: [id number] : 1970 Exam Date: 08/19/2024 Ordering Doctor: DR RAMESH GEORGE M.D. RADIOLOGY REPORT PROCEDURE: [facility] EST L[facility] - OFFICE VISIT FOLLOW UP COMPARISON: [facility] LMT[facility], 08/03/2024. PROGRESS NOTES: The patient reports improvement in leg symptoms. Patient is on blood thinner for right posterior tibial vein thrombus and describes having several nose bleeds recently. Physical exam demonstrates decrease in varicosities of the leg. Persistent spider veins are identified along the right leg. Review of the ultrasound performed the same day demonstrates occlusive thrombus extending throughout the treated vein(s), see separate report, consistent with a successful ablation. Persistent short segment of thrombus within right posterior tibial vein; but slightly smaller than previously seen. The patient expressed a desire to proceed with treatment of right leg spider veins. The patient was informed that treatment was a process and would require approximately 1 procedure/session. VEIN/[facility] EST LMTD IMPRESSION: 1. Persistent right posterior tibial vein thrombus although slightly smaller than previously seen. This is felt to be stable. Given patient's recent nose bleeds, Xarelto will be discontinued. PLAN: Right leg sclerotherapy. Nurse notes, history and physical were reviewed and confirmed, see attached forms. The nurse was present throughout the physical exam and consultation Dictated by: Ramesh George M.D. on 08/19/2024 at 15:57 Approved by: Ramesh George M.D. on 08/19/2024 at 16:00
--- OUTSIDE RECORDS SUMMARY | 2024-08-19 15:23 | XMS_ITS | CCD ---
Author Organization [facility] Care Team Providers Care Psychiatric Orderly Name Role Phone PHYSICIAN, DEFAULT Unavailable Unavailable [...] Acetaminophen / oxyCODONE Drug Allergy 10-19-2016 [facility] Repository (1 source) Penicillins Drug allergy (disorder) 01-09-2013 [facility] Repository Problems Active Problems Problem Classification [...] : DR SEFERINO MENDOZA . Admission #: [id number] Family : Order #: [id number] CLICK HERE TO VIEW EXAM RADIOLOGY REPORT [...] Treatments None Family Cancers None LOCATION: [facility] BREAST COMPOSITION: Scattered areas fibroglandular density. [...] M.D. on 01/30/2023 at 13:47 Normal [facility] INSULINon 01-08-2023 Insulin 11.3 uIU/mL Normal 2.6-24.9 [facility] Comment on above: Performed By: #### C FOR[facility] #### [facility] [address] [place] [address] Dr. Dona Turner CBC AUTO DIFFon 01-07-2023 BASO # 0.1 103/ul Normal 0.0-0.1 [facility] Comment on above: Performed By: #### C VDTBH #### [facility] [address] [place] [address] Dr. Dona Turner Basophils/100 WBC (Bld) 1.2 % Normal 0.2-2.0 [facility] Comment on above: Performed By: #### C VDTBH #### [facility] [address] [place] [address] Dr. Dona Turner EO # 0.1 103/ul Normal 0.0-0.7 [facility] Comment on above: Performed By: #### C VDTBH #### [facility] [address] [place] [address] Dr. Dona Turner Eosinophils/100 WBC (Bld) 2.0 % Normal 0.9-7.0 [facility] Comment on above: Performed By: #### C VDTBH #### [facility] [address] [place] [address] Dr. Dona Turner Erythrocyte distribution width (RBC) [Ratio] 14.5 % Normal 11.0-15.0 [facility] Comment on above: Performed By: #### C VDTBH #### [facility] [address] [place] [address] Dr. Dona Turner Hematocrit (Bld) [Volume fraction] 45.1 % Normal 36.0-48.0 [facility] Comment on above: Performed By: #### C VDTBH #### [facility] [address] [place] [address] Dr. Dona Turner Hemoglobin (Bld) [Mass/Vol] 14.1 g/dL Normal 12.0-16.0 [facility] Comment on above: Performed By: #### C VDTBH #### [facility] [address] [place] [address] Dr. Dona Turner IG # 0.02 10e3/ul Normal 0.00-0.03 [facility] Comment on above: Performed By: #### C VDTBH #### [facility] [address] [address] [address] Dona Turner IG % 0.4 % Normal 0.0-0.5 [facility] Comment on above: Performed By: #### C VDTBH #### [facility] [address] [address] [address] Dona Turner LYMPH # 1.3 103/ul Normal 1.2-3.8 [facility] Comment on above: Performed By: #### C VDTBH #### [facility] [address] [address] [address] Dona Turner Lymphocytes/100 WBC (Bld) 26.4 % Normal 20.5-60.0 [facility] Comment on above: Performed By: #### C VDTBH #### [facility] [address] [place] [address] Dr. Dona Turner MANUAL DIFF REQ NO Normal [facility] Comment on above: Performed By: #### C VDTBH #### [facility] [address] [place] [address] Dr. Dona Turner MCH (RBC) [Entitic mass] 25.0 pg Critically low 26.7-34.0 [facility] Comment on above: Performed By: #### C VDTBH #### [facility] [address] [place] [address] Dr. Dona Turner MCHC (RBC) [Mass/Vol] 31.3 g/dL Normal 29.9-35.2 [facility] Comment on above: Performed By: #### C VDTBH #### [facility] [address] [place] [address] Dr. Dona Turner MCV (RBC) [Entitic vol] 80.0 fL Critically low 81.0-99.0 [facility] Comment on above: Performed By: #### C VDTBH #### [facility] [address] [place] [address] Dr. Dona Turner MONO # 0.4 103/ul Normal 0.3-0.8 [facility] Comment on above: Performed By: #### C VDTBH #### [facility] [address] [place] [address] Dr. Dona Turner Monocytes/100 WBC (Bld) 7.7 % Normal 1.7-12.0 [facility] Comment on above: Performed By: #### C VDTBH #### [facility] [address] [place] [address] Dr. Dona Turner NEUT # 3.1 103/ul Normal 1.4-6.5 [facility] Comment on above: Performed By: #### C VDTBH #### [facility] [address] [place] [address] Dr. Dona Turner Neutrophils/100 WBC (Bld) 62.3 % Normal 43.0-75.0 [facility] Comment on above: Performed By: #### C VDTBH #### [facility] [address] [place] [address] Dr. Dona Turner Platelet mean volume (Bld) [Entitic vol] 10.7 fL Normal 9.5-13.5 [facility] Comment on above: Performed By: #### C VDTBH #### [facility] [address] [place] [address] Dr. Dona Turner PLT 257 103/ul Normal 150-450 [facility] Comment on above: Performed By: #### C VDTBH #### [facility] [address] [place] [address] Dr. Dona Turner RBC 5.64 106/ul Critically high 4.20-5.40 [facility] Comment on above: Performed By: #### C VDTBH #### [facility] [address] [place] [address] Dr. Dona Turner WBC 5.0 103/ul Normal 4.0-11.0 [facility] Comment on above: Performed By: #### C VDTBH #### [facility] [address] [place] [address] Dr. Dona Turner FREE THYROXINE INDEX T7on FTI 3.78 Normal 1.30-4.50 [facility] Comment on above: Performed By: #### L IPID, TSH, T7, CMP #### [facility] [address] [address] [address] Dona Turner T3U 35.0 % Normal 30.0-39.0 [facility] Comment on above: Performed By: #### L IPID, TSH, T7, CMP #### [facility] [address] [address] [address] Dona Turner T4 [Mass/Vol] 10.80 ug/dL Normal 4.80-13.90 [facility] Comment on above: Performed By: #### L IPID, TSH, T7, CMP #### [facility] [address] [address] [address] Dona Turner GLYCOHEMOGLOBIN A1Con 2022 ADA RECOMMENDATION SEE BELOW Normal [facility] Comment on above: Result Comment: ADA RECOMMENDED LIMIT 4.0 - 6.0 ADA THERAPEUTIC TARGET < 7.0 ACTION SUGGESTED > 7.0 Performed By: #### C VDTBH #### [facility] [address] [address] [address] Dona Turner Glucose [Mass/Vol] 160 mg/dL Normal [facility] Comment on above: Performed By: #### C VDTBH #### [facility] [address] [address] [address] Dona Turner HbA1c (Bld) [Mass fraction] 7.2 % Critically high 4.5-6.2 [facility] Comment on above: Performed By: #### C VDTBH #### [facility] [address] [address] [address] Dona Turner IRONon 01-07-2023 Iron [Mass/Vol] 50.0 ug/dL Normal 50.0-170.0 [facility] Comment on above: Performed By: #### I NSULIN #### [facility] [address] [place] [address] Dr. Dona Turner LIPID PROFILEon 01-07-2023 CHOL-HDL RATIO NORM SEE BELOW Normal [facility] Comment on above: Result Comment: 3.3 - 4.4 LOW RISK 4.4 - 7.1 AVERAGE RISK 7.1 - 11.0 MODERATE RISK >11.0 HIGH RISK Performed By: #### L IPID, TSH, T7, CMP #### [facility] [address] [place] [address] Dr. Dona Turner Cholesterol [Mass/Vol] 162 mg/dL Normal <=200 [facility] Comment on above: Performed By: #### L IPID, TSH, T7, CMP #### [facility] [address] [address] [address] Dona Turner Cholesterol in HDL [Mass/Vol] 33 mg/dL Critically low 40-60 [facility] Comment on above: Performed By: #### L IPID, TSH, T7, CMP #### [facility] [address] [place] [address] Dr. Dona Turner Cholesterol in LDL [Mass/Vol] 100.4 mg/dL Normal [facility] Comment on above: Performed By: #### L IPID, TSH, T7, CMP #### [facility] [address] [place] [address] Dr. Dona Turner Cholesterol.total/Chol esterol in HDL [Mass ratio] 4.9 {ratio} Normal [facility] Comment on above: Performed By: #### L IPID, TSH, T7, CMP #### [facility] [address] [place] [address] Dr. Dona Turner HDL NORMAL > or = 60 mg/dl - LOW CARDIOVASCULAR RISK <40 mg/dl - HIGH CARDIOVASCULAR RISK Normal [facility] Comment on above: Performed By: #### L IPID, TSH, T7, CMP #### [facility] [address] [place] [address] Dr. Dona Turner LDL CALC NORMAL SEE BELOW Normal [facility] Comment on above: Result Comment: <100 mg/dl OPTIMAL 100 - 129 mg/dl NEAR OR ABOVE OPTIMAL 130 - 159 mg/dl BORDERLINE HIGH 160 - 189 mg/dl HIGH >190 mg/dl VERY HIGH Performed By: #### L IPID, TSH, T7, CMP #### [facility] [address] [place] [address] Dr. Dona Turner Triglyceride [Mass/Vol] 143 mg/dL Normal <=150 [facility] Comment on above: Performed By: #### L IPID, TSH, T7, CMP #### [facility] [address] [address] [address] Dona Turner VLDL CALC 28.6 mg/dL Normal [facility] Comment on above: Performed By: #### L IPID, TSH, T7, CMP #### [facility] [address] [address] [address] Dona Turner PROF 14(COMP METB)on 023 Albumin [Mass/Vol] 3.8 g/dL Normal 3.4-5.0 [facility] Comment on above: Performed By: #### L IPID, TSH, T7, CMP #### [facility] [address] [place] [address] Dr. Dona Turner Albumin/Globulin [Mass ratio] 1.0 {ratio} Normal [facility] Comment on above: Performed By: #### L IPID, TSH, T7, CMP #### [facility] [address] [place] [address] Dr. Dona Turner ALP [Catalytic activity/Vol] 59 U/L Normal 46-116 [facility] Comment on above: Performed By: #### L IPID, TSH, T7, CMP #### [facility] [address] [place] [address] Dr. Dona Turner ALT [Catalytic activity/Vol] 43 U/L Normal 14-59 [facility] Comment on above: Performed By: #### L IPID, TSH, T7, CMP #### [facility] [address] [address] [address] Dona Turner Anion gap [Moles/Vol] 11.5 mmol/L Normal [facility] Comment on above: Performed By: #### L IPID, TSH, T7, CMP #### [facility] [address] [place] [address] Dr. Dona Turner AST [Catalytic activity/Vol] 19 U/L Normal 15-37 [facility] Comment on above: Performed By: #### L IPID, TSH, T7, CMP #### [facility] [address] [place] [address] Dr. Dona Turner Bilirubin [Mass/Vol] 0.4 mg/dL Normal 0.2-1.0 [facility] Comment on above: Performed By: #### L IPID, TSH, T7, CMP #### [facility] [address] [place] [address] Dr. Dona Turner Calcium [Mass/Vol] 9.1 mg/dL Normal 8.5-10.1 [facility] Comment on above: Performed By: #### L IPID, TSH, T7, CMP #### [facility] [address] [place] [address] Dr. Dona Turner Chloride [Moles/Vol] 107 mmol/L Normal 98-107 [facility] Comment on above: Performed By: #### L IPID, TSH, T7, CMP #### [facility] [address] [place] [address] Dr. Dona Turner CO2 [Moles/Vol] 28.5 mmol/L Normal 21.0-32.0 [facility] Comment on above: Performed By: #### L IPID, TSH, T7, CMP #### [facility] [address] [place] [address] Dr. Dona Turner Creatinine [Mass/Vol] 0.66 mg/dL Normal 0.55-1.02 [facility] Comment on above: Performed By: #### L IPID, TSH, T7, CMP #### [facility] [address] [place] [address] Dr. Dona Turner EGFR-AF ZIMBABWEAN >60 Normal >=60 [facility] Comment on above: Performed By: #### L IPID, TSH, T7, CMP #### [facility] [address] [place] [address] Dr. Dona Turner EGFR-NON AF ZIMBABWEAN >60 Normal >=60 [facility] Comment on above: Performed By: #### L IPID, TSH, T7, CMP #### [facility] [address] [place] [address] Dr. Dona Turner Globulin (S) [Mass/Vol] 3.8 g/dL Normal [facility] Comment on above: Performed By: #### L IPID, TSH, T7, CMP #### [facility] [address] [address] [address] Dona Turner Glucose [Mass/Vol] 112 mg/dL Critically high 74-106 [facility] Comment on above: Performed By: #### L IPID, TSH, T7, CMP #### [facility] [address] [address] [address] Dona Turner Potassium [Moles/Vol] 4.0 mmol/L Normal 3.5-5.1 [facility] Comment on above: Performed By: #### L IPID, TSH, T7, CMP #### [facility] [address] [place] [address] Dr. Dona Turner Protein [Mass/Vol] 7.6 g/dL Normal 6.4-8.2 [facility] Comment on above: Performed By: #### L IPID, TSH, T7, CMP #### [facility] [address] [place] [address] Dr. Dona Turner Sodium [Moles/Vol] 143 mmol/L Normal 136-145 [facility] Comment on above: Performed By: #### L IPID, TSH, T7, CMP #### [facility] [address] [place] [address] Dr. Dona Turner Urea nitrogen [Mass/Vol] 11.0 mg/dL Normal 7.0-18.0 [facility] Comment on above: Performed By: #### L IPID, TSH, T7, CMP #### [facility] [address] [place] [address] Dr. Dona Turner Urea nitrogen/Creatinine [Mass ratio] 16.7 mg/mg Normal [facility] Comment on above: Performed By: #### L IPID, TSH, T7, CMP #### [facility] [address] [place] [address] Dr. Dona Turner TSHon 01-07-2023 TSH 0.350 uIU/mL Critically low 0.358-3.740 [facility] Comment on above: Performed By: #### L IPID, TSH, T7, CMP #### [facility] [address] [place] [address] Dr. Dona Turner VITAMIN D 25 OHon 01-07-2023 VIT D 25-OH 52.4 ng/mL Normal [facility] Comment on above: Performed By: #### I NSULIN #### [facility] [address] [place] [address] Dr. Dona Turner VIT D RANGES SEE BELOW Normal [facility] Comment on above: Result Comment: <20 ng/mL Vit D deficient 20 - <30 ng/mL Vit D insufficient 30 - 100 ng/mL Vit D sufficient >100 ng/mL Potential Toxicity Performed By: #### I NSULIN #### [facility] [address] [place] [address] Dr. Dona Turner LIPID PROFILEon 10-13-2022 CHOL-HDL RATIO NORM SEE BELOW Normal [facility] Comment on above: Result Comment: 3.3 - 4.4 LOW RISK 4.4 - 7.1 AVERAGE RISK 7.1 - 11.0 MODERATE RISK >11.0 HIGH RISK Performed By: #### C VDTBH #### [facility] [address] [place] [address] Dr. Dona Turner Cholesterol [Mass/Vol] 136 mg/dL Normal <=200 [facility] Comment on above: Performed By: #### C VDTBH #### [facility] [address] [place] [address] Dr. Dona Turner Cholesterol in HDL [Mass/Vol] 33 mg/dL Critically low 40-60 [facility] Comment on above: Performed By: #### C VDTBH #### [facility] [address] [place] [address] Dr. Dona Turner Cholesterol in LDL [Mass/Vol] 76.4 mg/dL Normal [facility] Comment on above: Performed By: #### C VDTBH #### [facility] [address] [place] [address] Dr. Dona Turner Cholesterol.total/Chol esterol in HDL [Mass ratio] 4.1 {ratio} Normal [facility] Comment on above: Performed By: #### C VDTBH #### [facility] [address] [address] [address] Dona Turner HDL NORMAL > or = 60 mg/dl - LOW CARDIOVASCULAR RISK <40 mg/dl - HIGH CARDIOVASCULAR RISK Normal [facility] Comment on above: Performed By: #### C VDTBH #### [facility] [address] [address] [address] Dona Turner LDL CALC NORMAL SEE BELOW Normal [facility] Comment on above: Result Comment: <100 mg/dl OPTIMAL 100 - 129 mg/dl NEAR OR ABOVE OPTIMAL 130 - 159 mg/dl BORDERLINE HIGH 160 - 189 mg/dl HIGH >190 mg/dl VERY HIGH Performed By: #### C VDTBH #### [facility] [address] [place] [address] Dr. Dona Turner Triglyceride [Mass/Vol] 133 mg/dL Normal <=150 [facility] Comment on above: Performed By: #### C VDTBH #### [facility] [address] [place] [address] Dr. Dona Turner VLDL CALC 26.6 mg/dL Normal [facility] Comment on above: Performed By: #### C VDTBH #### [facility] [address] [place] [address] Dr. Dona Turner LIVER PROFILEon 10-13-2022 Albumin [Mass/Vol] 3.6 g/dL Normal 3.4-5.0 [facility] Comment on above: Performed By: #### I NSULIN #### [facility] [address] [place] [address] Dr. Dona Turner Albumin/Globulin [Mass ratio] 1.1 {ratio} Normal [facility] Comment on above: Performed By: #### I NSULIN #### [facility] [address] [place] [address] Dr. Dona Turner ALP [Catalytic activity/Vol] 62 U/L Normal 46-116 [facility] Comment on above: Performed By: #### I NSULIN #### [facility] [address] [address] [address] Dona Turner ALT [Catalytic activity/Vol] 28 U/L Normal 14-59 [facility] Comment on above: Performed By: #### I NSULIN #### [facility] [address] [address] [address] Dona Turner AST [Catalytic activity/Vol] 16 U/L Normal 15-37 [facility] Comment on above: Performed By: #### I NSULIN #### [facility] [address] [address] [address] Dona Turner BILI, CONJUGATED 0.1 mg/dL Normal 0.0-0.2 [facility] Comment on above: Performed By: #### I NSULIN #### [facility] [address] [place] [address] Dr. Dona Turner Bilirubin [Mass/Vol] 0.5 mg/dL Normal 0.2-1.0 [facility] Comment on above: Performed By: #### I NSULIN #### [facility] [address] [place] [address] Dr. Dona Turner Globulin (S) [Mass/Vol] 3.4 g/dL Normal [facility] Comment on above: Performed By: #### I NSULIN #### [facility] [address] [place] [address] Dr. Dona Turner Protein [Mass/Vol] 7.0 g/dL Normal 6.4-8.2 [facility] Comment on above: Performed By: #### I NSULIN #### [facility] [address] [place] [address] Dr. Dona Turner BETH by IFAon 07-19-2022 Antinuclear Antibodies, IFA Negative Normal [facility] Comment on above: Result Comment: Nega tive <1:80 Borderline 1:80 Positive >1:80 ICAP nomenclature: AC-0 For more information about Hep-2 cell patterns use ANApatterns.org, the official website for the International Consensus on Antinuclear Antibody (BETH) Patterns (ICAP). Performed By: #### A NAIFA #### [facility] [address] [place] [address] Dr. Dona Turner ANTISTREPTOLYSIN O AB (ASO)o n 07-14-2022 Antistreptolysin O Ab 25.3 IU/mL Normal 0.0-200.0 [facility] Comment on above: Performed By: #### I NSULIN #### [facility] [address] [place] [address] Dr. Dona Turner RHEUMATOID FACTORon 07-14-20 RA Latex Turbid. 19.2 IU/mL Critically high <14.0 [facility] Comment on above: Performed By: #### L IPID, TSH, T7, CMP #### [facility] [address] [place] [address] Dr. Dona Turner CBC AUTO DIFFon 07-13-2022 BASO # 0.1 103/ul Normal 0.0-0.1 [facility] Comment on above: Performed By: #### C VDTBH #### [facility] [address] [place] [address] Dr. Dona Turner Basophils/100 WBC (Bld) 0.8 % Normal 0.2-2.0 [facility] Comment on above: Performed By: #### C VDTBH #### [facility] [address] [place] [address] Dr. Dona Turner EO # 0.1 103/ul Normal 0.0-0.7 [facility] Comment on above: Performed By: #### C VDTBH #### [facility] [address] [place] [address] Dr. Dona Turner Eosinophils/100 WBC (Bld) 1.0 % Normal 0.9-7.0 [facility] Comment on above: Performed By: #### C VDTBH #### [facility] [address] [place] [address] Dr. Dona Turner Erythrocyte distribution width (RBC) [Ratio] 14.3 % Normal 11.0-15.0 [facility] Comment on above: Performed By: #### C VDTBH #### [facility] [address] [place] [address] Dr. Dona Turner Hematocrit (Bld) [Volume fraction] 44.8 % Normal 36.0-48.0 [facility] Comment on above: Performed By: #### C VDTBH #### [facility] [address] [place] [address] Dr. Dona Turner Hemoglobin (Bld) [Mass/Vol] 14.4 g/dL Normal 12.0-16.0 [facility] Comment on above: Performed By: #### C VDTBH #### [facility] [address] [place] [address] Dr. Dona Turner IG # 0.03 10e3/ul Normal 0.00-0.03 [facility] Comment on above: Performed By: #### C VDTBH #### [facility] [address] [place] [address] Dr. Dona Turner IG % 0.3 % Normal 0.0-0.5 [facility] Comment on above: Performed By: #### C VDTBH #### [facility] [address] [place] [address] Dr. Dona Turner LYMPH # 1.9 103/ul Normal 1.2-3.8 [facility] Comment on above: Performed By: #### C VDTBH #### [facility] [address] [place] [address] Dr. Dona Turner Lymphocytes/100 WBC (Bld) 20.8 % Normal 20.5-60.0 [facility] Comment on above: Performed By: #### C VDTBH #### [facility] [address] [place] [address] Dr. Dona Turner MANUAL DIFF REQ NO Normal [facility] Comment on above: Performed By: #### C VDTBH #### [facility] [address] [place] [address] Dr. Dona Turner MCH (RBC) [Entitic mass] 25.5 pg Critically low 26.7-34.0 [facility] Comment on above: Performed By: #### C VDTBH #### [facility] [address] [place] [address] Dr. Dona Turner MCHC (RBC) [Mass/Vol] 32.1 g/dL Normal 29.9-35.2 [facility] Comment on above: Performed By: #### C VDTBH #### [facility] [address] [place] [address] Dr. Dona Turner MCV (RBC) [Entitic vol] 79.3 fL Critically low 81.0-99.0 [facility] Comment on above: Performed By: #### C VDTBH #### [facility] [address] [place] [address] Dr. Dona Turner MONO # 0.8 103/ul Normal 0.3-0.8 [facility] Comment on above: Performed By: #### C VDTBH #### [facility] [address] [place] [address] Dr. Dona Turner Monocytes/100 WBC (Bld) 8.5 % Normal 1.7-12.0 [facility] Comment on above: Performed By: #### C VDTBH #### [facility] [address] [place] [address] Dr. Dona Turner NEUT # 6.4 103/ul Normal 1.4-6.5 [facility] Comment on above: Performed By: #### C VDTBH #### [facility] [address] [place] [address] Dr. Dona Turner Neutrophils/100 WBC (Bld) 68.6 % Normal 43.0-75.0 [facility] Comment on above: Performed By: #### C VDTBH #### [facility] [address] [place] [address] Dr. Dona Turner Platelet mean volume (Bld) [Entitic vol] 10.5 fL Normal 9.5-13.5 [facility] Comment on above: Performed By: #### C VDTBH #### [facility] [address] [place] [address] Dr. Dona Tunrer PLT 290 103/ul Normal 150-450 [facility] Comment on above: Performed By: #### C VDTBH #### [facility] [address] [address] [address] Dona Turner RBC 5.65 106/ul Critically high 4.20-5.40 The [facility] Comment on above: Performed By: #### C VDTBH #### [facility] [address] [place] [address] Dr. Dona Turner WBC 9.3 103/ul Normal 4.0-11.0 [facility] Comment on above: Performed By: #### C VDTBH #### [facility] [address] [place] [address] Dr. Dona Turner CRPon 07-13-2022 CRP [Mass/Vol] mg/L Normal <=1.0 The [facility] Comment on above: Performed By: #### I NSULIN #### [facility] [address] [place] [address] Dr. Dona Turner SED RATE WESTERGRENon 2021 SED RATE 47 mm/hr Critically high <=30 [facility] Comment on above: Performed By: #### S EDR #### [facility] [address] [place] [address] Dr. Dona Turner URIC ACID SERUMon 07-13-2022 Urate [Mass/Vol] 3.2 mg/dL Normal 2.6-6.0 [facility] Comment on above: Performed By: #### I NSULIN #### [facility] [address] [place] [address] Dr. Dona Turner INSULINon 07-10-2022 Insulin 11.5 uIU/mL Normal 2.6-24.9 [facility] Comment on above: Performed By: #### I NSULIN #### [facility] [address] [place] [address] Dr. Dona Turner CBC AUTO DIFFon 07-09-2022 BASO # 0.1 103/ul Normal 0.0-0.1 [facility] Comment on above: Performed By: #### C BC #### [facility] [address] [place] [address] Dr. Dona Turner Basophils/100 WBC (Bld) 0.8 % Normal 0.2-2.0 The [facility] Comment on above: Performed By: #### C BC #### [facility] [address] [place] [address] Dr. Dona Turner EO # 0.1 103/ul Normal 0.0-0.7 [facility] Comment on above: Performed By: #### C BC #### [facility] [address] [place] [address] Dr. Dona Turner Eosinophils/100 WBC (Bld) 0.7 % Critically low 0.9-7.0 [facility] Comment on above: Performed By: #### C BC #### [facility] [address] [place] [address] Dr. Dona Turner Erythrocyte distribution width (RBC) [Ratio] 14.5 % Normal 11.0-15.0 [facility] Comment on above: Performed By: #### C BC #### [facility] [address] [place] [address] Dr. Dona Turner Hematocrit (Bld) [Volume fraction] 44.7 % Normal 36.0-48.0 [facility] Comment on above: Performed By: #### C BC #### [facility] [address] [place] [address] Dr. Dona Turner Hemoglobin (Bld) [Mass/Vol] 14.5 g/dL Normal 12.0-16.0 [facility] Comment on above: Performed By: #### C BC #### [facility] [address] [place] [address] Dr. Dona Turner IG # 0.04 10e3/ul Critically high 0.00-0.03 [facility] Comment on above: Performed By: #### C BC #### [facility] [address] [place] [address] Dr. Dona Turner IG % 0.4 % Normal 0.0-0.5 [facility] Comment on above: Performed By: #### C BC #### [facility] [address] [place] [address] Dr. Dona Turner LYMPH # 1.6 103/ul Normal 1.2-3.8 [facility] Comment on above: Performed By: #### C BC #### [facility] [address] [address] [address] Dona Turner Lymphocytes/100 WBC (Bld) 17.7 % Critically low 20.5-60.0 [facility] Comment on above: Performed By: #### C BC #### [facility] [address] [address] [address] Dona Turner MANUAL DIFF REQ NO Normal [facility] Comment on above: Performed By: #### C BC #### [facility] [address] [address] [address] Dona Turner MCH (RBC) [Entitic mass] 25.9 pg Critically low 26.7-34.0 [facility] Comment on above: Performed By: #### C BC #### [facility] [address] [place] [address] Dr. Dona Turner MCHC (RBC) [Mass/Vol] 32.4 g/dL Normal 29.9-35.2 [facility] Comment on above: Performed By: #### C BC #### [facility] [address] [place] [address] Dr. Dona Turner MCV (RBC) [Entitic vol] 79.8 fL Critically low 81.0-99.0 [facility] Comment on above: Performed By: #### C BC #### [facility] [address] [place] [address] Dr. Dona Turner MONO # 0.6 103/ul Normal 0.3-0.8 [facility] Comment on above: Performed By: #### C BC #### [facility] [address] [place] [address] Dr. Doan Turner Monocytes/100 WBC (Bld) 6.9 % Normal 1.7-12.0 [facility] Comment on above: Performed By: #### C BC #### [facility] [address] [place] [address] Dr. Dona Turner NEUT # 6.6 103/ul Critically high 1.4-6.5 [facility] Comment on above: Performed By: #### C BC #### [facility] [address] [place] [address] Dr. Dona Turner Neutrophils/100 WBC (Bld) 73.5 % Normal 43.0-75.0 [facility] Comment on above: Performed By: #### C BC #### [facility] [address] [place] [address] Dr. Dona Turner Platelet mean volume (Bld) [Entitic vol] 11.1 fL Normal 9.5-13.5 [facility] Comment on above: Performed By: #### C BC #### [facility] [address] [place] [address] Dr. Dona Turner PLT 256 103/ul Normal 150-450 [facility] Comment on above: Performed By: #### C BC #### [facility] [address] [place] [address] Dr. Dona Turner RBC 5.60 106/ul Critically high 4.20-5.40 [facility] Comment on above: Performed By: #### C BC #### [facility] [address] [place] [address] Dr. Dona Turner WBC 8.9 103/ul Normal 4.0-11.0 [facility] Comment on above: Performed By: #### C BC #### [facility] [address] [place] [address] Dr. Dona Turner FREE THYROXINE INDEX T7on FTI 3.66 Normal 1.30-4.50 [facility] Comment on above: Performed By: #### C VDTBH #### [facility] [address] [place] [address] Dr. Dona Turner T3U 37.0 % Normal 30.0-39.0 [facility] Comment on above: Performed By: #### C VDTBH #### [facility] [address] [place] [address] Dr. Dona Turner T4 [Mass/Vol] 9.90 ug/dL Normal 4.80-13.90 [facility] Comment on above: Performed By: #### C VDTBH #### [facility] [address] [address] [address] Dona Turner GLYCOHEMOGLOBIN A1Con 2021 ADA RECOMMENDATION SEE BELOW Normal [facility] Comment on above: Result Comment: ADA RECOMMENDED LIMIT 4.0 - 6.0 ADA THERAPEUTIC TARGET < 7.0 ACTION SUGGESTED > 7.0 Performed By: #### A 1C #### [facility] [address] [place] [address] Dr. Dona Turner Glucose [Mass/Vol] 183 mg/dL Normal [facility] Comment on above: Performed By: #### A 1C #### [facility] [address] [place] [address] Dr. Dona Turner HbA1c (Bld) [Mass fraction] 8.0 % Critically high 4.5-6.2 [facility] Comment on above: Performed By: #### A 1C #### [facility] [address] [place] [address] Dr. Dona Turner IRONon 07-09-2022 Iron [Mass/Vol] 56.0 ug/dL Normal 50.0-170.0 [facility] Comment on above: Performed By: #### I NSULIN #### [facility] [address] [place] [address] Dr. Dona Turner LIPID PROFILEon 07-09-2022 CHOL-HDL RATIO NORM SEE BELOW Normal [facility] Comment on above: Result Comment: 3.3 - 4.4 LOW RISK 4.4 - 7.1 AVERAGE RISK 7.1 - 11.0 MODERATE RISK >11.0 HIGH RISK Performed By: #### C VDTBH #### [facility] [address] [place] [address] Dr. Dona Turner Cholesterol [Mass/Vol] 228 mg/dL Critically high <=200 [facility] Comment on above: Performed By: #### C VDTBH #### [facility] [address] [place] [address] Dr. Dona Turner Cholesterol in HDL [Mass/Vol] 37 mg/dL Critically low 40-60 [facility] Comment on above: Performed By: #### C VDTBH #### [facility] [address] [address] [address] Dona Turner Cholesterol in LDL [Mass/Vol] 163.6 mg/dL Normal [facility] Comment on above: Performed By: #### C VDTBH #### [facility] [address] [address] [address] Dona Turner Cholesterol.total/Chol esterol in HDL [Mass ratio] 6.2 {ratio} Normal [facility] Comment on above: Performed By: #### C VDTBH #### [facility] [address] [address] [address] Dona Turner HDL NORMAL > or = 60 mg/dl - LOW CARDIOVASCULAR RISK <40 mg/dl - HIGH CARDIOVASCULAR RISK Normal [facility] Comment on above: Performed By: #### C VDTBH #### [facility] [address] [place] [address] Dr. Dona Turner LDL CALC NORMAL SEE BELOW Normal [facility] Comment on above: Result Comment: <100 mg/dl OPTIMAL 100 - 129 mg/dl NEAR OR ABOVE OPTIMAL 130 - 159 mg/dl BORDERLINE HIGH 160 - 189 mg/dl HIGH >190 mg/dl VERY HIGH Performed By: #### C VDTBH #### [facility] [address] [place] [address] Dr. Dona Turner Triglyceride [Mass/Vol] 137 mg/dL Normal <=150 [facility] Comment on above: Performed By: #### C VDTBH #### [facility] [address] [place] [address] Dr. Dona Turner VLDL CALC 27.4 mg/dL Normal [facility] Comment on above: Performed By: #### C VDTBH #### [facility] [address] [place] [address] Dr. Dona Turner PROF 14(COMP METB)on 022 Albumin [Mass/Vol] 3.8 g/dL Normal 3.4-5.0 [facility] Comment on above: Performed By: #### C VDTBH #### [facility] [address] [place] [address] Dr. Dona Turner Albumin/Globulin [Mass ratio] 1.0 {ratio} Normal [facility] Comment on above: Performed By: #### C VDTBH #### [facility] [address] [place] [address] Dr. Dona Turner ALP [Catalytic activity/Vol] 57 U/L Normal 46-116 [facility] Comment on above: Performed By: #### C VDTBH #### [facility] [address] [place] [address] Dr. Dona Turner ALT [Catalytic activity/Vol] 24 U/L Normal 14-59 [facility] Comment on above: Performed By: #### C VDTBH #### [facility] [address] [place] [address] Dr. Dona Turner Anion gap [Moles/Vol] 9.6 mmol/L Normal [facility] Comment on above: Performed By: #### C VDTBH #### [facility] [address] [place] [address] Dr. Dona Turner AST [Catalytic activity/Vol] 15 U/L Normal 15-37 [facility] Comment on above: Performed By: #### C VDTBH #### [facility] [address] [place] [address] Dr. Dona Turner Bilirubin [Mass/Vol] 0.5 mg/dL Normal 0.2-1.0 [facility] Comment on above: Performed By: #### C VDTBH #### [facility] [address] [place] [address] Dr. Dona Turner Calcium [Mass/Vol] 9.3 mg/dL Normal 8.5-10.1 [facility] Comment on above: Performed By: #### C VDTBH #### [facility] [address] [place] [address] Dr. Dona Turner Chloride [Moles/Vol] 103 mmol/L Normal 98-107 [facility] Comment on above: Performed By: #### C VDTBH #### [facility] [address] [place] [address] Dr. Dona Turner CO2 [Moles/Vol] 29.5 mmol/L Normal 21.0-32.0 [facility] Comment on above: Performed By: #### C VDTBH #### [facility] [address] [place] [address] Dr. Dona Turner Creatinine [Mass/Vol] 0.61 mg/dL Normal 0.55-1.02 [facility] Comment on above: Performed By: #### C VDTBH #### [facility] [address] [address] [address] Dona Turner EGFR-AF ZIMBABWEAN >60 Normal >=60 [facility] Comment on above: Performed By: #### C VDTBH #### [facility] [address] [place] [address] Dr. Dona Turner EGFR-NON AF ZIMBABWEAN >60 Normal >=60 [facility] Comment on above: Performed By: #### C VDTBH #### [facility] [address] [place] [address] Dr. Dona Turner Globulin (S) [Mass/Vol] 3.8 g/dL Normal [facility] Comment on above: Performed By: #### C VDTBH #### [facility] [address] [place] [address] Dr. Dona Turner Glucose [Mass/Vol] 104 mg/dL Normal 74-106 [facility] Comment on above: Performed By: #### C VDTBH #### [facility] [address] [place] [address] Dr. Dona Turner Potassium [Moles/Vol] 4.1 mmol/L Normal 3.5-5.1 [facility] Comment on above: Performed By: #### C VDTBH #### [facility] [address] [place] [address] Dr. oDna Turner Protein [Mass/Vol] 7.6 g/dL Normal 6.4-8.2 [facility] Comment on above: Performed By: #### C VDTBH #### [facility] [address] [place] [address] Dr. Dona Turner Sodium [Moles/Vol] 138 mmol/L Normal 136-145 [facility] Comment on above: Performed By: #### C VDTBH #### [facility] [address] [place] [address] Dr. Dona Turner Urea nitrogen [Mass/Vol] 14.0 mg/dL Normal 7.0-18.0 [facility] Comment on above: Performed By: #### C VDTBH #### [facility] [address] [place] [address] Dr. Dona Turner Urea nitrogen/Creatinine [Mass ratio] 23.0 mg/mg Normal [facility] Comment on above: Performed By: #### C VDTBH #### [facility] [address] [place] [address] Dr. Dona Turner TSHon 07-09-2022 TSH 0.324 uIU/mL Critically low 0.358-3.740 [facility] Comment on above: Performed By: #### C VDTBH #### [facility] [address] [place] [address] Dr. Dona Turner VITAMIN D 25 OHon 07-09-2022 VIT D 25-OH 52.6 ng/mL Normal [facility] Comment on above: Performed By: #### I NSULIN #### [facility] [address] [place] [address] Dr. Dona Turner VIT D RANGES SEE BELOW Normal [facility] Comment on above: Result Comment: <20 ng/mL Vit D deficient 20 - <30 ng/mL Vit D insufficient 30 - 100 ng/mL Vit D sufficient >100 ng/mL Potential Toxicity Performed By: #### I NSULIN #### [facility] [address] [place] [address] Dr. Dona Turner [facility]-02 SARS-CoV-2 (COVID-19) RNA JEWEL+probe Ql (Unsp spec) Not detected Normal NOT DETECTED [facility] Comment on above: Result Comment: This test is not yet approved or cleared by the [place] FDA. When there are no FDA-approved or cleared tests available, and other criteria are met, FDA can make tests available under an emergency access mechanism called an Emergency Use Authorization (EUA). The EUA for this test is supported by the [place] Supervisor of Health and Human Service's (HHS's) declaration [...] with SARS-CoV-2. Performed By: #### C [facility] #### [facility] [address] [place] [address] Dr. Dona Turner Coding Summary.on 09-12-2018 Coding Summary. CODING DATE: 09/12/2018 [facility] STATUS: Home (Routine DC) PAYOR: Loreto APC [...] Cuellar Date Saved: 09/12/2018 03:25 pm Normal [facility] Main OR Intraoperative Recor don 09-09-2018 Main OR Intraoperative Record IntraOp Document Type FTURO Summary Primary Physician: David ORTIZ MD Finalized Date/Time: 09/09/18 12:32:44 Pt. Name: IAN BRIGGS /Sex: 1970 Female Med Rec #: [id number] Physician: David ORTIZ MD Financial #: [id number] Pt. Type: O Room/Bed: / Admit/Disch: 09/09/18 09:49:59 - Institution: Case Times FTURO Entry 1 Patient Times In Room 09/09/18 12:19:00 Out Room 09/09/18 12:33:00 Procedure Times Start 09/09/18 12:22:00 Stop 09/09/18 12:26:00 Anesthesia Times Last Modified By: Lilliana RN, RADHIKAOR, Pearl Hoffmann 09/09/18 12:32:32 Case Attendance FTURO Entry 1 Entry 2 Entry 3 Case Attendee David ORTIZ MD PROFILE TRIMMER, Alannah Tijerina RN, CNOR, Pearl Hoffmann Role Performed Surgeon - Primary Scrub - Primary Senior Firewall Engineer - Primary Time In 09/09/18 12:20:00 [...] David ORTIZ MD, Verified (If Participants [place] PROFILE TRIMMER, Alannah, Applicable) GIUSEPPE Tjierina RN, Lou Ann Time Out Complete 09/09/18 [...] Tijerina RN, Lou Ann 09/09/18 12:32 Normal [facility] Main OR Preoperative Recordo n 09-09-2018 Main OR Preoperative Record Holding Area Document Type FTURO Summary Primary Physician: David ORTIZ MD Finalized Date/Time: 09/09/18 12:22:07 Pt. Name: IAN BRIGGS/Sex: 1970 Female Med Rec #: [id number] Physician: David ORTIZ MD Financial #: [id number] Pt. Type: O Room/Bed: / Admit/Disch: 09/09/18 [...] Complaints of Pain: No Skin Integrity Intact, [place], Warm, & Dry Vitals - EU Blood Pressure 141/78 Pulse 57 bpm Respirations 16 br/min SPO2 Additional None RN Reviewed Yes Specimens Collected Last Modified By: GIUSEPPE Tijerina RN, Lou Ann 09/09/18 12:22:05 Finalized By: GIUSEPPE Tijerina RN, Lou Ann Document Signatures Signed By: Racheal Bernabe 09/09/18 11:43 GIUSEPPE Tijerina RN, Lou Ann 09/09/18 12:22 Normal [facility] Operative Reporton 9 Operative Report Patient: [...] urine. The Urethra was dilated to: 30 Irish w/ sounds. Devices Implanted: None. Removal: Cystoscope is removed, The patient tolerated it well. Postoperative Information Discharge: Patient is discharged home with antibiotic coverage, Follow up arranged. she will do timed/double voids. try ditropan xl 10mgqd f/u 3 months with pvr bladder scan....?pessary. Normal [facility] Comment on above: Result Comment: Elec tronically Signed By: ANGEL SWANSON, David Leija.br\Date and Time Signed: 09/09/18 12:39 EST Encounters Encounter Date Encounter Type Care Provider Facility Start: [facility]06[facility]2024 [facility] Start: 01-29-2023 End: 01-30-[address] SEFERINO MENDOZA . Facility:[facility] Start: 01-07-2023 End: 01-08-[address] SEFERINO MENDOZA . Facility:[facility] Start: 10-13-2022 End: 10-14-[address] SEFERINO MENDOZA . Facility:[facility] Start: 07-14-2022 Encounter for genera l adult medical examination without abnormal findings DR SEFERINO MENDOZA . [facility] Start: 07-13-2022 End: 07-14-[address] [...] Start: 01-29-2018 End: 01-30-2018 Ambulatory DEFAULT PHYSICIAN Facility:[facility] Procedures Date Procedure Procedure Detail Performing Clinician Start: 07-06-2024 Computerized ophthal raf imaging retina Que Fernando Shawna Payers Date Payer Category Payer Unknown [id number] 1970 Unknown [id number] 2.16.84 [id number] 1970 Unknown [id number] 2.16.84 [id number] 1970 Unknown [id number] 2.16.84 [id number] 1970 Unknown [id number] 2.16.84 [id number] 1970 Unknown [id number] 2.16.84 [id number] 1970 Unknown [id number] 2.16.84 [id number] 1970 Unknown [id number] 2.16.84 [id number] 1970 Unknown [id number] 2.16.84 [id number] 1970 Unknown [id number] 2.16.84 [id number] 1961 Unknown [id number] Unknown Clinical Note 07-03-2022 Note Date & [...] by: NAZARIO PEREZ Date: 2022-07-03 10:07 [facility] Clinical Note 07-03-2022 Note Date & [...] by: NAZARIO PEREZ Date: 2022-07-03 10:07 [facility] Summary Purpose Family History No Family History Records FoundNo Family History Records FoundNo Family History Records FoundNo Family History Records Found Advance Directives No Advanced Directives Records FoundNo Advanced Directives Records FoundNo Advanced Directives Records FoundNo Advanced Directives Records Found Additional Source Comments INFORMATION SOURCE (unrecogn ized section and content) DATE CREATED AUTHOR 02/19/2018 [facility] DATE CREATED AUTHOR AUTHOR'S ORGANIZ ATION 05/23/2019 [facility] DATE CREATED AUTHOR AUTHOR'S ORGANIZ ATION 02/08/2023 [facility] DATE CREATED AUTHOR AUTHOR'S ORGANIZ ATION 07/09/2024 [facility] I nstitute FOR RECORDS PERTAINING TO [...] BE BASED ON THE PRIMARY CLINICAL RECORDS. [email or web address] provides no warranty or guarantee of the accuracy or completeness of information in this document.
[2024-08-19 15:34] VITALS: BMI 36.3
--- NOTE | 2024-08-19 15:34 | VEINCLINIC_ITS ---
Vital Signs 08/19/24 15:34 Height 5 ft 2 in Weight 90 kg BMI 36.3 Varicose Veins Patient in today for follow up ultrasound of right lower extremity for follow up on thrombus in right PTV. Nazario Reza MD personally performed the services described in this documentation, as scribed by Kezia Le RDMS in my presence and it is both accurate and complete. I, Kezia Le RDMS, am scribing for, and in the presence of, Dr. Nazario Perez and in the presence of the patient. thigh: bilateral (symptoms equal bilaterally), knee: bilateral, calf: bilateral, ankle: bilateral and hayward: bilateral aching, burning, cramping, dull, sharp and tender 8 2 years Worsened in recent months: Yes standing, sitting and walking analgesics (Tylenol), elevating extremities, compression stockings and exercise Reports muscle spasms of leg, fatigue, heaviness, limb pain, edema and leg edema History of lower extremity trauma: No Superficial thrombophlebitis: Yes Family history of varicose veins: yes Has patient had previous lower extremity venous surgery: No Patient has previously received the following treatment(s) for lower extremity varicose veins: Reports none Does patient have a history of : yes Does patient intend to have future pregnancies: no Has patient had lower extremity venous scan with relux testing: No Support hose used: Yes Problems walking or doing physical activity: Yes How does it affect you: awakens her from sleep, often has to stop and elevate feet/legs Do you walk much: Yes Do you stand much: Yes Review of Systems ROS Narrative I, Nazario Perez MD personally performed the services described in this documentation, as scribed by Kezia Le RDMS in my presence and it is both accurate and complete. I, Kezia Le RDMS, am scribing for, and in the presence of, Dr. Nazario Perez and in the presence of the patient. Status of ROS 10 or more systems reviewed and unremark able except as noted in history and below Cardiovascular Reports: edema Integumentary/Breast Reports: itching Neurological Reports: weakness in extremities [facility] Medical History (Updated 08/03/24 @ 14:57 by Kezia Le) Phlebitis and thrombophlebitis of superficial vessels of right lower extremity ?I80.01 - Phlebitis and thrombophlebitis of superficial vessels of right lower extremity (ICD-10) Superficial phlebitis of right leg ?I80.01 - Phlebitis and thrombophlebitis of superficial vessels of right lower extremity (ICD-10) 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 ?I80.01 - Phlebitis and thrombophlebitis of superficial vessels of right lower extremity (ICD-10) Phlebitis and thrombophlebitis of superficial vessels of left lower extremity ?I80.02 - Phlebitis and thrombophlebitis of superficial vessels of left lower extremity (ICD-10) Varicose veins of bilateral lower extremities with pain ?I83.813 - Varicose veins of bilateral lower extremities with pain (ICD-10) Carpal tunnel syndrome ?G56.00 - Carpal tunnel syndrome, unspecified upper limb (ICD-10) Edema ?R60.9 - Edema, unspecified (ICD-10) Hypercholesteremia ?E78.00 - Pure hypercholesterolemia, unspecified (ICD-10) Hypothyroid ?E03.9 - Hypothyroidism, unspecified (ICD-10) Diabetes ?E11.9 - Type 2 diabetes mellitus without complications (ICD-10) Hypertension ?I10 - Essential (primary) hypertension (ICD-10) Deep vein thrombosis ?I82.409 - Acute embolism and thrombosis of unspecified deep veins of unspecified lower extremity (ICD-10) Surgical History (Updated 08/14/24 @ 08:23 by Ramírez Driver) S/P sclerotherapy of varicose veins ?Z98.890 - Other specified postprocedural states (ICD-10) ?Z86.79 - Personal history of other diseases of the circulatory system (ICD- 10) S/P sclerotherapy of varicose veins ?Z98.890 - Other specified postprocedural states (ICD-10) ?Z86.79 - Personal history of other diseases of the circulatory system (ICD- 10) Status post laser ablation of incompetent vein ?Z98.890 - Other specified postprocedural states (ICD-10) Status post laser ablation of incompetent vein ?Z98.890 - Other specified postprocedural states (ICD-10) History of carpal tunnel surgery ?Z98.890 - Other specified postprocedural states (ICD-10) History of arthroscopy of left shoulder ?Z98.890 - Other specified postprocedural states (ICD-10) H/O: hysterectomy ?Z90.710 - Acquired absence of both cervix and uterus (ICD-10) Family History (Updated 04/13/24 @ 13:42 by Ramírez Driver) Mother Family history of diabetes mellitus Family history of hypertension Varicose veins of bilateral lower extremities with pain Social History (Updated 04/13/24 @ 13:43 by Ramírez Driver) Within the past year, how often did you have a drink containing alcohol: never Score interpretation: A score less than 3 is consistent with normal alcohol consumption. Smoking status: Never smoker Non-prescribed substance use: denies use Meds Home Medications and Allergies Home Medications ?Medication ?Instructions ?Recorded ?Confirmed ?Type diclofenac potassium 04/13/24 History empagliflozin 25 mg tablet 25 mg PO QAM 04/13/24 04/13/24 History (Jardiance) furosemide 20 mg tablet 20 mg PO DAILY 04/13/24 04/13/24 History glimepiride 4 mg tablet 4 mg PO DAILY 04/13/24 04/13/24 History levothyroxine 125 mcg capsule 125 mcg PO DAILY 04/13/24 04/13/24 History levothyroxine 137 mcg tablet 137 mcg PO DAILY 04/13/24 04/13/24 History (Euthyrox) metformin 500 mg tablet,extended 500 mg PO DAILY 04/13/24 04/13/24 History release 24 hr metoprolol tartrate 50 mg tablet 25 mg PO DAILY 04/13/24 04/13/24 History pantoprazole 40 mg tablet,delayed 40 mg PO DAILY 04/13/24 04/13/24 History release (Protonix) sitagliptin phosphate 100 mg 100 mg PO DAILY 04/13/24 04/13/24 History tablet (Januvia) Allergies Allergy/AdvReac Type Severity Reaction Status Date / Time penicillamine Allergy Intermediate Rash Verified 04/13/24 13:46 Exam Narrative Exam Narrative: Patient has been having multiple nose bleeds for the past few weeks since starting Xarelto. Nazario Reza MD personally performed the services described in this documentation, as scribed by Kezia Le RDMS in my presence and it is both accurate and complete. IKezia RDMS, am scribing for, and in the presence of, Dr. Nazario Perez and in the presence of the patient. Constitutional Documenting provider has reviewed patient's vital signs: yes Common normals: oriented x3 Nutritional appearance: overweight Cardio Peripheral pulses: posterior tibial pulses present and dorsalis pedis pulses present Extremity Common normals: normal capillary refill General: edema Right lower extremity: lower leg Right lower leg: inspection and palpation Left lower extremity: lower leg Left lower leg: inspection and palpation Neuro Common normals: oriented x3 Results Imaging Venous US: Radiologist's impression: Thrombus in right PTV appears stable at this time. Nazario Reza MD personally performed the services described in this documentation, as scribed by Kezia Le RDMS in my presence and it is both accurate and complete. Kezia Reza RDMS, am scribing for, and in the presence of, Dr. Nazario Perez and in the presence of the patient. Assessment and Plan Assessment and Plan (1) Phlebitis and thrombophlebitis of superficial vessels of right lower extremity: (2) Varicose veins of bilateral lower extremities with pain: Plan Plan is for patient to discontinue Xarelto and will return for sclerotherapy on 08/21/24. Nazario Reza MD personally performed the services described in this documentation, as scribed by Kezia Le RDMS in my presence and it is both accurate and complete. Kezia Reza RDMS, am scribing for, and in the presence of, Dr. Nazario Perez and in the presence of the patient.
--- NOTE | 2024-08-19 15:39 | W.VEIN ---
Discharge Plan Discharge Disposition: Home, Self-Care Outpatient Diagnostics: [facility] INJ Sclerosing SOLMULT Vein (Routine) Timeframe: 2 Weeks Facility: [facility] - Location: Vein Center Ordered By: Nazario Perez Follow Up Appointments: 08/21/24 Plan of Treatment: sclerotherapy of right leg Print Language: Austrian Discharge Date/Time: 08/19/24 15:40
== END 2024-08-19 15:40 | disposition home or self-care (01) ==
PROVIDERS: PCP Radiology Diagnostic Radiology; Visit Provider Radiology Diagnostic Radiology
DX: I83.813 Varicose veins of bilateral lower extremities with pain (principal)
CPT/HCPCS: 93971; G0463

== ENCOUNTER 2024-08-21 08:52 | Outpatient (OUT) | payer BC, SELFPAY ==
--- NOTE | 2024-08-20 13:23 | VEINCLINIC_ITS ---
Varicose Veins Patient in this day for sclerotherapy Thomas Reza MD personally performed the services described in this docum entation, as scribed by Ramírez Driver RN in my presence and it is both accurate and complete. IRamírez RN, am scribing for, and in the presence of, Dr. Thomas Shearer and in the presence of the patient. thigh: bilateral (symptoms equal bilaterally), knee: bilateral, calf: bilateral, ankle: bilateral and hayward: bilateral aching, burning, cramping, dull, sharp and tender 8 2 years Worsened in recent months: Yes standing, sitting and walking analgesics (Tylenol), elevating extremities, compression stockings and exercise Reports muscle spasms of leg, fatigue, heaviness, limb pain, edema and leg edema History of lower extremity trauma: No Superficial thrombophlebitis: Yes Family history of varicose veins: yes Has patient had previous lower extremity venous surgery: No Patient has previously received the following treatment(s) for lower extremity varicose veins: Reports none Does patient have a history of : yes Does patient intend to have future pregnancies: no Has patient had lower extremity venous scan with relux testing: No Support hose used: Yes Problems walking or doing physical activity: Yes How does it affect you: awakens her from sleep, often has to stop and elevate feet/legs Do you walk much: Yes Do you stand much: Yes Review of Systems ROS Narrative Thomas Reza MD personally performed the services described in this documentation, as scribed by Ramírez Driver RN in my presence and it is both accurate and complete. Ramírez Reza RN, am scribing for, and in the presence of, Dr. Thomas Shearer and in the presence of the patient. Status of ROS 10 or more systems reviewed and unremark able except as noted in history and below Cardiovascular Reports: edema Integumentary/Breast Reports: itching Neurological Reports: weakness in extremities [facility] Medical History (Updated 08/03/24 @ 14:57 by Kezia Le) Phlebitis and thrombophlebitis of superficial vessels of right lower extremity ?I80.01 - Phlebitis and thrombophlebitis of superficial vessels of right lower extremity (ICD-10) Superficial phlebitis of right leg ?I80.01 - Phlebitis and thrombophlebitis of superficial vessels of right lower extremity (ICD-10) 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 ?I80.01 - Phlebitis and thrombophlebitis of superficial vessels of right lower extremity (ICD-10) Phlebitis and thrombophlebitis of superficial vessels of left lower extremity ?I80.02 - Phlebitis and thrombophlebitis of superficial vessels of left lower extremity (ICD-10) Varicose veins of bilateral lower extremities with pain ?I83.813 - Varicose veins of bilateral lower extremities with pain (ICD-10) Carpal tunnel syndrome ?G56.00 - Carpal tunnel syndrome, unspecified upper limb (ICD-10) Edema ?R60.9 - Edema, unspecified (ICD-10) Hypercholesteremia ?E78.00 - Pure hypercholesterolemia, unspecified (ICD-10) Hypothyroid ?E03.9 - Hypothyroidism, unspecified (ICD-10) Diabetes ?E11.9 - Type 2 diabetes mellitus without complications (ICD-10) Hypertension ?I10 - Essential (primary) hypertension (ICD-10) Deep vein thrombosis ?I82.409 - Acute embolism and thrombosis of unspecified deep veins of unspecified lower extremity (ICD-10) Surgical History (Updated 08/14/24 @ 08:23 by Ramírez Driver) S/P sclerotherapy of varicose veins ?Z98.890 - Other specified postprocedural states (ICD-10) ?Z86.79 - Personal history of other diseases of the circulatory system (ICD- 10) S/P sclerotherapy of varicose veins ?Z98.890 - Other specified postprocedural states (ICD-10) ?Z86.79 - Personal history of other diseases of the circulatory system (ICD- 10) Status post laser ablation of incompetent vein ?Z98.890 - Other specified postprocedural states (ICD-10) Status post laser ablation of incompetent vein ?Z98.890 - Other specified postprocedural states (ICD-10) History of carpal tunnel surgery ?Z98.890 - Other specified postprocedural states (ICD-10) History of arthroscopy of left shoulder ?Z98.890 - Other specified postprocedural states (ICD-10) H/O: hysterectomy ?Z90.710 - Acquired absence of both cervix and uterus (ICD-10) Family History (Updated 08/12/24 @ 13:42 by Ramírez Driver) Mother Family history of diabetes mellitus Family history of hypertension Varicose veins of bilateral lower extremities with pain Social History (Updated 04/13/24 @ 13:43 by Ramírez Driver) Within the past year, how often did you have a drink containing alcohol: never Score interpretation: A score less than 3 is consistent with normal alcohol consumption. Smoking status: Never smoker Non-prescribed substance use: denies use Meds Home Medications and Allergies Home Medications ?Medication ?Instructions ?Recorded ?Confirmed ?Type diclofenac potassium 04/13/24 History empagliflozin 25 mg tablet 25 mg PO QAM 04/13/24 04/13/24 History (Jardiance) furosemide 20 mg tablet 20 mg PO DAILY 04/13/24 04/13/24 History glimepiride 4 mg tablet 4 mg PO DAILY 04/13/24 04/13/24 History levothyroxine 125 mcg capsule 125 mcg PO DAILY 04/13/24 04/13/24 History levothyroxine 137 mcg tablet 137 mcg PO DAILY 04/13/24 04/13/24 History (Euthyrox) metformin 500 mg tablet,extended 500 mg PO DAILY 04/13/24 04/13/24 History release 24 hr metoprolol tartrate 50 mg tablet 25 mg PO DAILY 04/13/24 04/13/24 History pantoprazole 40 mg tablet,delayed 40 mg PO DAILY 04/13/24 04/13/24 History release (Protonix) sitagliptin phosphate 100 mg 100 mg PO DAILY 04/13/24 04/13/24 History tablet (Januvia) Allergies Allergy/AdvReac Type Severity Reaction Status Date / Time penicillamine Allergy Intermediate Rash Verified 04/13/24 13:46 Exam Narrative Exam Narrative: Thomas Reza MD personally performed the services described in this documentation, as scribed by Ramírez Driver RN in my presence and it is both accurate and complete. Ramírez Reza RN, am scribing for, and in the presence of, Dr. Thomas Shearer and in the presence of the patient. Constitutional Documenting provider has reviewed patient's vital signs: yes Common normals: oriented x3 Nutritional appearance: overweight Cardio Peripheral pulses: posterior tibial pulses present and dorsalis pedis pulses present Extremity Common normals: normal capillary refill General: edema Right lower extremity: lower leg Right lower leg: inspection and palpation Left lower extremity: lower leg Left lower leg: inspection and palpation Neuro Common normals: oriented x3 Assessment and Plan Assessment and Plan (1) Varicose veins of bilateral lower extremities with pain: Plan Patient to f/u in future as necessary. Thomas Reza MD personally performed the services described in this documentation, as scribed by Ramírez Driver RN in my presence and it is both accurate and complete. IRamírez RN, am scribing for, and in the presence of, Dr. Thomas Shearer and in the presence of the patient. Procedures Procedure Instructions Procedures sclerotherapy: Risks and benefits of the procedure were discussed at length and informed written consent was obtained.? Time-out procedure was performed and the correct patient and procedure were confirmed.? Staff present during time-out: Ramírez Driver RN and Thomas Shearer MD.? Patient prepped and procedure performed in usual sterile fashion. Injections performed by and Ramírez Driver RN Sclerosing Agent:?? 4cc 0.5% Polidocanol Site Injected: right leg Number of Injections: 16 Anesthesia: Supercooled air The patient tolerated the procedure well without complication.? Hemostasis was obtained and thigh-high compression stocking was applied by patient.? Instructed patient to wear stocking for at least 96 hours and sleep with it and only remove for showering.? Will wear stocking for 2 weeks.? The patient verbalizes understanding and states they will comply.? Patient was given post-procedure instructions. Patient was discharged in good condition.? Plan of care complete at this time. Patient to f/u in future as necessary. Thomas Reza MD personally performed the services described in this documentation, as scribed by Ramírez Driver RN in my presence and it is both accurate and complete. Ramírez Reza RN, am scribing for, and in the presence of, Dr. Thomas Shearer and in the presence of the patient.
--- NOTE | 2024-08-20 13:31 | P.DS_ITS ---
Discharge Plan Discharge Disposition: Home, Self-Care Outpatient Diagnostics: VC INJ Sclerosing SOLMULT Vein (Routine) Timeframe: 2 Weeks Facility: [facility] - Location: Vein Center Ordered By: Thomas Shearer Plan of Treatment: Patient to f/u in future as necessary Patient Instructions: Polidocanol (By injection) Print Language: Mongolian Discharge Date/Time: 08/21/24 12:27
--- NOTE | 2024-08-21 08:54 | VEIN_ITS ---
[address] [address] Patient Name: QUINN AGUILAR MRN: [id number] date: 1970 Sex: F Assigned Patient Location: [facility] Current Patient Location: Accession/Order Number: [id number] Exam Date: 08/21/2024 09:00 Report Date: 08/21/2024 11:09 At the request of: YULIANA RANDALL Procedure: VC INJ Sclerosing SOLMULT Vein EXAMINATION: VC INJ Sclerosing SOLMULT Vein HISTORY: I83.813 - Varicose veins of bilateral lower extremities w... COMPARISON: No relevant comparison available. TECHNIQUE: The risks and benefits of the procedure were explained at length to the patient and informed written consent was obtained. Ramírez Driver was present and assisted. The procedure was performed under sterile technique. The patient's leg was wrapped with Coban and postprocedural verbal and written instructions provided. SCLEROSANT: 2 cc, 0.5% polidocanol VEIN(S) INJECTED: 16 veins in the right leg VISUALIZATION: Ultrasound was not used to visualize the sclerosant ANESTHESIA: Supercooled air COMPLICATIONS: None VEIN/VC INJ Sclerosing SOLMULT Vein IMPRESSION: Technically successful sclerotherapy as described Electronically authenticated by: YULIANA RANDALL Date: 08/21/2024 11:09
--- OUTSIDE RECORDS SUMMARY | 2024-08-21 08:56 | XMS_ITS | CCD ---
Author Organization [facility] Care Team Providers Care Senior Energy Consultant Name Role Phone PHYSICIAN, DEFAULT Unavailable Unavailable [...] Acetaminophen / oxyCODONE Drug Allergy 10-19-2016 [facility] Repository (1 source) Penicillins Drug allergy (disorder) 01-09-2013 [facility] Repository Problems Active Problems Problem [...] : DR SEFERINO MENDOZA . Admission #: [id number] Family : Order #: [id number] CLICK HERE TO VIEW EXAM RADIOLOGY REPORT [...] Treatments None Family Cancers None LOCATION: [facility] BREAST COMPOSITION: Scattered areas fibroglandular density. [...] M.D. on 01/30/2023 at 13:47 Normal [facility] INSULINon 01-08-2023 Insulin 11.3 uIU/mL Normal 2.6-24.9 [facility] Comment on above: Performed By: #### C [facility] #### [facility] [address] [place] [address] Dr. Dona Turner CBC AUTO DIFFon 01-07-2023 BASO # 0.1 103/ul Normal 0.0-0.1 [facility] Comment on above: Performed By: #### C VDT[facility] #### [facility] [address] [place] [address] Dr. Dona Turner Basophils/100 WBC (Bld) 1.2 % Normal 0.2-2.0 [facility] Comment on above: Performed By: #### C VDT[facility] #### [facility] [address] [place] [address] Dr. Dona Turner EO # 0.1 103/ul Normal 0.0-0.7 [facility] Comment on above: Performed By: #### C VDT[facility] #### [facility] [address] [place] [address] Dr. Dona Turner Eosinophils/100 WBC (Bld) 2.0 % Normal 0.9-7.0 [facility] Comment on above: Performed By: #### C VDT[facility] #### [facility] [address] [place] [address] Dr. Dona Turner Erythrocyte distribution width (RBC) [Ratio] 14.5 % Normal 11.0-15.0 [facility] Comment on above: Performed By: #### C V[facility] #### [facility] [address] [place] [address] Dr. Dona Turner Hematocrit (Bld) [Volume fraction] 45.1 % Normal 36.0-48.0 [facility] Comment on above: Performed By: #### C V[facility] #### [facility] [address] [place] [address] Dr. Dona Turner Hemoglobin (Bld) [Mass/Vol] 14.1 g/dL Normal 12.0-16.0 [facility] Comment on above: Performed By: #### C [facility] #### [facility] [address] [place] [address] Dr. Dona Turner IG # 0.02 10e3/ul Normal 0.00-0.03 [facility] Comment on above: Performed By: #### C [facility] #### [facility] [address] [address] [address] Dona Turner IG % 0.4 % Normal 0.0-0.5 [facility] Comment on above: Performed By: #### C V[facility] #### [facility] [address] [address] [address] Dona Turner LYMPH # 1.3 103/ul Normal 1.2-3.8 [facility] Comment on above: Performed By: #### C V[facility] #### [facility] [address] [address] [address] Dona Turner Lymphocytes/100 WBC (Bld) 26.4 % Normal 20.5-60.0 [facility] Comment on above: Performed By: #### C VDT[facility] #### [facility] [address] [place] [address] Dr. Dona Turner MANUAL DIFF REQ NO Normal [facility] Comment on above: Performed By: #### C VDT[facility] #### [facility] [address] [place] [address] Dr. Dona Turner MCH (RBC) [Entitic mass] 25.0 pg Critically low 26.7-34.0 [facility] Comment on above: Performed By: #### C V[facility] #### [facility] [address] [place] [address] Dr. Dona Turner MCHC (RBC) [Mass/Vol] 31.3 g/dL Normal 29.9-35.2 [facility] Comment on above: Performed By: #### C V[facility] #### [facility] [address] [place] [address] Dr. Dona Turner MCV (RBC) [Entitic vol] 80.0 fL Critically low 81.0-99.0 [facility] Comment on above: Performed By: #### C VDT[facility] #### [facility] [address] [place] [address] Dr. Dona Turner MONO # 0.4 103/ul Normal 0.3-0.8 [facility] Comment on above: Performed By: #### C V[facility] #### [facility] [address] [place] [address] Dr. Dona Turner Monocytes/100 WBC (Bld) 7.7 % Normal 1.7-12.0 [facility] Comment on above: Performed By: #### C V[facility] #### [facility] [address] [place] [address] Dr. Dona Turner NEUT # 3.1 103/ul Normal 1.4-6.5 [facility] Comment on above: Performed By: #### C VDT[facility] #### [facility] [address] [place] [address] Dr. Dona Turner Neutrophils/100 WBC (Bld) 62.3 % Normal 43.0-75.0 [facility] Comment on above: Performed By: #### C VDT[facility] #### [facility] [address] [place] [address] Dr. Dona Turner Platelet mean volume (Bld) [Entitic vol] 10.7 fL Normal 9.5-13.5 [facility] Comment on above: Performed By: #### C VDT[facility] #### [facility] [address] [place] [address] Dr. Dona Turner PLT 257 103/ul Normal 150-450 [facility] Comment on above: Performed By: #### C [facility] #### [facility] [address] [place] [address] Dr. Dona Turner RBC 5.64 106/ul Critically high 4.20-5.40 [facility] Comment on above: Performed By: #### C V[facility] #### [facility] [address] [place] [address] Dr. Dona Turner WBC 5.0 103/ul Normal 4.0-11.0 [facility] Comment on above: Performed By: #### C [facility] #### [facility] [address] [place] [address] Dr. Dona Turner FREE THYROXINE INDEX T7on FTI 3.78 Normal 1.30-4.50 [facility] Comment on above: Performed By: #### L IPID, TSH, T7, CMP #### [facility] [address] [address] [address] Dona Turner T3U 35.0 % Normal 30.0-39.0 [facility] Comment on above: Performed By: #### L IPID, TSH, T7, CMP #### [facility] [address] [address] [address] Dona Turner T4 [Mass/Vol] 10.80 ug/dL Normal 4.80-13.90 [facility] Comment on above: Performed By: #### L IPID, TSH, T7, CMP #### [facility] [address] [address] [address] Dona Turner GLYCOHEMOGLOBIN A1Con 2022 ADA RECOMMENDATION SEE BELOW Normal [facility] Comment on above: Result Comment: ADA RECOMMENDED LIMIT 4.0 - 6.0 ADA THERAPEUTIC TARGET < 7.0 ACTION SUGGESTED > 7.0 Performed By: #### C VDT[facility] #### [facility] [address] [address] [address] Dona Turner Glucose [Mass/Vol] 160 mg/dL Normal [facility] Comment on above: Performed By: #### C V[facility] #### [facility] [address] [address] [address] Dona Turner HbA1c (Bld) [Mass fraction] 7.2 % Critically high 4.5-6.2 [facility] Comment on above: Performed By: #### C V[facility] #### [facility] [address] [address] [address] Dona Turner IRONon 01-07-2023 Iron [Mass/Vol] 50.0 ug/dL Normal 50.0-170.0 [facility] Comment on above: Performed By: #### I NSULIN #### [facility] [address] [place] [address] Dr. Dona uTrner LIPID PROFILEon 01-07-2023 CHOL-HDL RATIO NORM SEE BELOW Normal [facility] Comment on above: Result Comment: 3.3 - 4.4 LOW RISK 4.4 - 7.1 AVERAGE RISK 7.1 - 11.0 MODERATE RISK >11.0 HIGH RISK Performed By: #### L IPID, TSH, T7, CMP #### [facility] [address] [place] [address] Dr. Dona Turner Cholesterol [Mass/Vol] 162 mg/dL Normal <=200 Th [facility] Comment on above: Performed By: #### L IPID, TSH, T7, CMP #### [facility] [address] [address] [address] Dona Turner Cholesterol in HDL [Mass/Vol] 33 mg/dL Critically low 40-60 [facility] Comment on above: Performed By: #### L IPID, TSH, T7, CMP #### [facility] [address] [place] [address] Dr. Dona Turner Cholesterol in LDL [Mass/Vol] 100.4 mg/dL Normal [facility] Comment on above: Performed By: #### L IPID, TSH, T7, CMP #### [facility] [address] [place] [address] Dr. Dona Turner Cholesterol.total/Chol esterol in HDL [Mass ratio] 4.9 {ratio} Normal [facility] Comment on above: Performed By: #### L IPID, TSH, T7, CMP #### [facility] [address] [place] [address] Dr. Dona Turner HDL NORMAL > or = 60 mg/dl - LOW CARDIOVASCULAR RISK <40 mg/dl - HIGH CARDIOVASCULAR RISK Normal [facility] Comment on above: Performed By: #### L IPID, TSH, T7, CMP #### [facility] [address] [place] [address] Dr. Dona Turner LDL CALC NORMAL SEE BELOW Normal [facility] Comment on above: Result Comment: <100 mg/dl OPTIMAL 100 - 129 mg/dl NEAR OR ABOVE OPTIMAL 130 - 159 mg/dl BORDERLINE HIGH 160 - 189 mg/dl HIGH >190 mg/dl VERY HIGH Performed By: #### L IPID, TSH, T7, CMP #### [facility] [address] [place] [address] Dr. Dona Turner Triglyceride [Mass/Vol] 143 mg/dL Normal <=150 [facility] Comment on above: Performed By: #### L IPID, TSH, T7, CMP #### [facility] [address] [address] [address] Dona Turner VLDL CALC 28.6 mg/dL Normal [facility] Comment on above: Performed By: #### L IPID, TSH, T7, CMP #### [facility] [address] [address] [address] Dona Turner PROF 14(COMP METB)on 023 Albumin [Mass/Vol] 3.8 g/dL Normal 3.4-5.0 [facility] Comment on above: Performed By: #### L IPID, TSH, T7, CMP #### [facility] [address] [place] [address] Dr. Dona Turner Albumin/Globulin [Mass ratio] 1.0 {ratio} Normal [facility] Comment on above: Performed By: #### L IPID, TSH, T7, CMP #### [facility] [address] [place] [address] Dr. Dona Turner ALP [Catalytic activity/Vol] 59 U/L Normal 46-116 [facility] Comment on above: Performed By: #### L IPID, TSH, T7, CMP #### [facility] [address] [place] [address] Dr. Dona Turner ALT [Catalytic activity/Vol] 43 U/L Normal 14-59 [facility] Comment on above: Performed By: #### L IPID, TSH, T7, CMP #### [facility] [address] [address] [address] Dona Turner Anion gap [Moles/Vol] 11.5 mmol/L Normal [facility] Comment on above: Performed By: #### L IPID, TSH, T7, CMP #### [facility] [address] [place] [address] Dr. Dona Turner AST [Catalytic activity/Vol] 19 U/L Normal 15-37 [facility] Comment on above: Performed By: #### L IPID, TSH, T7, CMP #### [facility] [address] [place] [address] Dr. Dona Turner Bilirubin [Mass/Vol] 0.4 mg/dL Normal 0.2-1.0 [facility] Comment on above: Performed By: #### L IPID, TSH, T7, CMP #### [facility] [address] [place] [address] Dr. Dona Turner Calcium [Mass/Vol] 9.1 mg/dL Normal 8.5-10.1 [facility] Comment on above: Performed By: #### L IPID, TSH, T7, CMP #### [facility] [address] [place] [address] Dr. Dona Turner Chloride [Moles/Vol] 107 mmol/L Normal 98-107 [facility] Comment on above: Performed By: #### L IPID, TSH, T7, CMP #### [facility] [address] [place] [address] Dr. Dona Turner CO2 [Moles/Vol] 28.5 mmol/L Normal 21.0-32.0 [facility] Comment on above: Performed By: #### L IPID, TSH, T7, CMP #### [facility] [address] [place] [address] Dr. Dona Turner Creatinine [Mass/Vol] 0.66 mg/dL Normal 0.55-1.02 [facility] Comment on above: Performed By: #### L IPID, TSH, T7, CMP #### [facility] [address] [place] [address] Dr. Dona Turner EGFR-AF SWISS >60 Normal >=60 [facility] Comment on above: Performed By: #### L IPID, TSH, T7, CMP #### [facility] [address] [place] [address] Dr. Dona Turner EGFR-NON AF SWISS >60 Normal >=60 [facility] Comment on above: Performed By: #### L IPID, TSH, T7, CMP #### [facility] [address] [place] [address] Dr. Dona Turner Globulin (S) [Mass/Vol] 3.8 g/dL Normal [facility] Comment on above: Performed By: #### L IPID, TSH, T7, CMP #### [facility] [address] [address] [address] Dona Turner Glucose [Mass/Vol] 112 mg/dL Critically high 74-106 T [facility] Comment on above: Performed By: #### L IPID, TSH, T7, CMP #### [facility] [address] [address] [address] Dona Turner Potassium [Moles/Vol] 4.0 mmol/L Normal 3.5-5.1 [facility] Comment on above: Performed By: #### L IPID, TSH, T7, CMP #### [facility] [address] [place] [address] Dr. Dona Turner Protein [Mass/Vol] 7.6 g/dL Normal 6.4-8.2 [facility] Comment on above: Performed By: #### L IPID, TSH, T7, CMP #### [facility] [address] [place] [address] Dr. Dona Turner Sodium [Moles/Vol] 143 mmol/L Normal 136-145 [facility] Comment on above: Performed By: #### L IPID, TSH, T7, CMP #### [facility] [address] [place] [address] Dr. Dona Turner Urea nitrogen [Mass/Vol] 11.0 mg/dL Normal 7.0-18.0 [facility] Comment on above: Performed By: #### L IPID, TSH, T7, CMP #### [facility] [address] [place] [address] Dr. Dona Turner Urea nitrogen/Creatinine [Mass ratio] 16.7 mg/mg Normal [facility] Comment on above: Performed By: #### L IPID, TSH, T7, CMP #### [facility] [address] [place] [address] Dr. Dona Turner TSHon 01-07-2023 TSH 0.350 uIU/mL Critically low 0.358-3.740 [facility] Comment on above: Performed By: #### L IPID, TSH, T7, CMP #### [facility] [address] [place] [address] Dr. Dona Turner VITAMIN D 25 OHon 01-07-2023 VIT D 25-OH 52.4 ng/mL Normal [facility] Comment on above: Performed By: #### I NSULIN #### [facility] [address] [place] [address] Dr. Dona Turner VIT D RANGES SEE BELOW Normal [facility] Comment on above: Result Comment: <20 ng/mL Vit D deficient 20 - <30 ng/mL Vit D insufficient 30 - 100 ng/mL Vit D sufficient >100 ng/mL Potential Toxicity Performed By: #### I NSULIN #### [facility] [address] [place] [address] Dr. Dona Turner LIPID PROFILEon 10-13-2022 CHOL-HDL RATIO NORM SEE BELOW Normal [facility] Comment on above: Result Comment: 3.3 - 4.4 LOW RISK 4.4 - 7.1 AVERAGE RISK 7.1 - 11.0 MODERATE RISK >11.0 HIGH RISK Performed By: #### C VDTBH #### [facility] [address] [place] [address] Dr. Dona Turner Cholesterol [Mass/Vol] 136 mg/dL Normal <=200 Th [facility] Comment on above: Performed By: #### C VDTBH #### [facility] [address] [place] [address] Dr. Dona Turner Cholesterol in HDL [Mass/Vol] 33 mg/dL Critically low 40-60 [facility] Comment on above: Performed By: #### C VDTBH #### [facility] [address] [place] [address] Dr. Dona Turner Cholesterol in LDL [Mass/Vol] 76.4 mg/dL Normal [facility] Comment on above: Performed By: #### C VDT[facility] #### [facility] [address] [place] [address] Dr. Dona Turner Cholesterol.total/Chol esterol in HDL [Mass ratio] 4.1 {ratio} Normal [facility] Comment on above: Performed By: #### C VDTBH #### [facility] [address] [address] [address] Dona Turner HDL NORMAL > or = 60 mg/dl - LOW CARDIOVASCULAR RISK <40 mg/dl - HIGH CARDIOVASCULAR RISK Normal [facility] Comment on above: Performed By: #### C VDTBH #### [facility] [address] [address] [address] Dona Turner LDL CALC NORMAL SEE BELOW Normal [facility] Comment on above: Result Comment: <100 mg/dl OPTIMAL 100 - 129 mg/dl NEAR OR ABOVE OPTIMAL 130 - 159 mg/dl BORDERLINE HIGH 160 - 189 mg/dl HIGH >190 mg/dl VERY HIGH Performed By: #### C VDTBH #### [facility] [address] [place] [address] Dr. Dona Turner Triglyceride [Mass/Vol] 133 mg/dL Normal <=150 [facility] Comment on above: Performed By: #### C VDTBH #### [facility] [address] [place] [address] Dr. Dona Turner VLDL CALC 26.6 mg/dL Normal [facility] Comment on above: Performed By: #### C VDTBH #### [facility] [address] [place] [address] Dr. Dona Turner LIVER PROFILEon 10-13-2022 Albumin [Mass/Vol] 3.6 g/dL Normal 3.4-5.0 [facility] Comment on above: Performed By: #### I NSULIN #### [facility] [address] [place] [address] Dr. Dona Turner Albumin/Globulin [Mass ratio] 1.1 {ratio} Normal [facility] Comment on above: Performed By: #### I NSULIN #### [facility] [address] [place] [address] Dr. Dona Turner ALP [Catalytic activity/Vol] 62 U/L Normal 46-116 [facility] Comment on above: Performed By: #### I NSULIN #### [facility] [address] [address] [address] Dona Turner ALT [Catalytic activity/Vol] 28 U/L Normal 14-59 [facility] Comment on above: Performed By: #### I NSULIN #### [facility] [address] [address] [address] Dona Turner AST [Catalytic activity/Vol] 16 U/L Normal 15-37 [facility] Comment on above: Performed By: #### I NSULIN #### [facility] [address] [address] [address] Dona Turner BILI, CONJUGATED 0.1 mg/dL Normal 0.0-0.2 [facility] Comment on above: Performed By: #### I NSULIN #### [facility] [address] [place] [address] Dr. Dona Turner Bilirubin [Mass/Vol] 0.5 mg/dL Normal 0.2-1.0 [facility] Comment on above: Performed By: #### I NSULIN #### [facility] [address] [place] [address] Dr. Dona Turner Globulin (S) [Mass/Vol] 3.4 g/dL Normal [facility] Comment on above: Performed By: #### I NSULIN #### [facility] [address] [place] [address] Dr. Dona Turner Protein [Mass/Vol] 7.0 g/dL Normal 6.4-8.2 [facility] Comment on above: Performed By: #### I NSULIN #### [facility] [address] [place] [address] Dr. Dona Turner BETH by IFAon 07-19-2022 Antinuclear Antibodies, IFA Negative Normal [facility] Comment on above: Result Comment: Nega tive <1:80 Borderline 1:80 Positive >1:80 ICAP nomenclature: AC-0 For more information about Hep-2 cell patterns use ANApatterns.org, the official website for the International Consensus on Antinuclear Antibody (BETH) Patterns (ICAP). Performed By: #### A NAIFA #### [facility] [address] [place] [address] Dr. Dona Turner ANTISTREPTOLYSIN O AB (ASO)o n 07-14-2022 Antistreptolysin O Ab 25.3 IU/mL Normal 0.0-200.0 [facility] Comment on above: Performed By: #### I NSULIN #### [facility] [address] [place] [address] Dr. Dona Turner RHEUMATOID FACTORon 07-14-20 RA Latex Turbid. 19.2 IU/mL Critically high <14.0 [facility] Comment on above: Performed By: #### L IPID, TSH, T7, CMP #### [facility] [address] [place] [address] Dr. Dona Turner CBC AUTO DIFFon 07-13-2022 BASO # 0.1 103/ul Normal 0.0-0.1 [facility] Comment on above: Performed By: #### C VDTBH #### [facility] [address] [place] [address] Dr. Dona Turner Basophils/100 WBC (Bld) 0.8 % Normal 0.2-2.0 [facility] Comment on above: Performed By: #### C VDTBH #### [facility] [address] [place] [address] Dr. Dona Turner EO # 0.1 103/ul Normal 0.0-0.7 [facility] Comment on above: Performed By: #### C VDTBH #### [facility] [address] [place] [address] Dr. Dona Turner Eosinophils/100 WBC (Bld) 1.0 % Normal 0.9-7.0 [facility] Comment on above: Performed By: #### C VDTBH #### [facility] [address] [place] [address] Dr. Dona Turner Erythrocyte distribution width (RBC) [Ratio] 14.3 % Normal 11.0-15.0 [facility] Comment on above: Performed By: #### C VDTBH #### [facility] [address] [place] [address] Dr. Dona Turner Hematocrit (Bld) [Volume fraction] 44.8 % Normal 36.0-48.0 [facility] Comment on above: Performed By: #### C VDTBH #### [facility] [address] [place] [address] Dr. Dona Turner Hemoglobin (Bld) [Mass/Vol] 14.4 g/dL Normal 12.0-16.0 [facility] Comment on above: Performed By: #### C VDTBH #### [facility] [address] [place] [address] Dr. Dona Turner IG # 0.03 10e3/ul Normal 0.00-0.03 [facility] Comment on above: Performed By: #### C VDTBH #### [facility] [address] [place] [address] Dr. Dona Turner IG % 0.3 % Normal 0.0-0.5 [facility] Comment on above: Performed By: #### C VDTBH #### [facility] [address] [place] [address] Dr. Dona Turner LYMPH # 1.9 103/ul Normal 1.2-3.8 [facility] Comment on above: Performed By: #### C VDTBH #### [facility] [address] [place] [address] Dr. Dona Turner Lymphocytes/100 WBC (Bld) 20.8 % Normal 20.5-60.0 [facility] Comment on above: Performed By: #### C VDTBH #### [facility] [address] [place] [address] Dr. Dona Turner MANUAL DIFF REQ NO Normal [facility] Comment on above: Performed By: #### C VDTBH #### [facility] [address] [place] [address] Dr. Dona Turner MCH (RBC) [Entitic mass] 25.5 pg Critically low 26.7-34.0 [facility] Comment on above: Performed By: #### C VDTBH #### [facility] [address] [place] [address] Dr. Dona Turner MCHC (RBC) [Mass/Vol] 32.1 g/dL Normal 29.9-35.2 [facility] Comment on above: Performed By: #### C VDTBH #### [facility] [address] [place] [address] Dr. Dona Turner MCV (RBC) [Entitic vol] 79.3 fL Critically low 81.0-99.0 [facility] Comment on above: Performed By: #### C VDTBH #### [facility] [address] [place] [address] Dr. Dona Turner MONO # 0.8 103/ul Normal 0.3-0.8 [facility] Comment on above: Performed By: #### C VDTBH #### [facility] [address] [place] [address] Dr. Dona Turner Monocytes/100 WBC (Bld) 8.5 % Normal 1.7-12.0 [facility] Comment on above: Performed By: #### C VDTBH #### [facility] [address] [place] [address] Dr. Dona Turner NEUT # 6.4 103/ul Normal 1.4-6.5 [facility] Comment on above: Performed By: #### C VDTBH #### [facility] [address] [place] [address] Dr. Dona Turner Neutrophils/100 WBC (Bld) 68.6 % Normal 43.0-75.0 [facility] Comment on above: Performed By: #### C VDTBH #### [facility] [address] [place] [address] Dr. Dona Turner Platelet mean volume (Bld) [Entitic vol] 10.5 fL Normal 9.5-13.5 [facility] Comment on above: Performed By: #### C VDTBH #### [facility] [address] [place] [address] Dr. Dona Turner PLT 290 103/ul Normal 150-450 [facility] Comment on above: Performed By: #### C VDTBH #### [facility] [address] [address] [address] Dona Turner RBC 5.65 106/ul Critically high 4.20-5.40 [facility] Comment on above: Performed By: #### C VDTBH #### [facility] [address] [place] [address] Dr. Dona Turner WBC 9.3 103/ul Normal 4.0-11.0 [facility] Comment on above: Performed By: #### C VDTBH #### [facility] [address] [place] [address] Dr. Dona Turner CRPon 07-13-2022 CRP [Mass/Vol] mg/L Normal <=1.0 [facility] Comment on above: Performed By: #### I NSULIN #### [facility] [address] [place] [address] Dr. Dona Turner SED RATE WESTERGRENon 2021 SED RATE 47 mm/hr Critically high <=30 [facility] Comment on above: Performed By: #### S EDR #### [facility] [address] [place] [address] Dr. Dona Turner URIC ACID SERUMon 07-13-2022 Urate [Mass/Vol] 3.2 mg/dL Normal 2.6-6.0 [facility] Comment on above: Performed By: #### I NSULIN #### [facility] [address] [place] [address] Dr. Dona Turner INSULINon 07-10-2022 Insulin 11.5 uIU/mL Normal 2.6-24.9 [facility] Comment on above: Performed By: #### I NSULIN #### [facility] [address] [place] [address] Dr. Dona Turner CBC AUTO DIFFon 07-09-2022 BASO # 0.1 103/ul Normal 0.0-0.1 [facility] Comment on above: Performed By: #### C BC #### [facility] [address] [place] [address] Dr. Dona Turner Basophils/100 WBC (Bld) 0.8 % Normal 0.2-2.0 [facility] Comment on above: Performed By: #### C BC #### [facility] [address] [place] [address] Dr. Dona Turner EO # 0.1 103/ul Normal 0.0-0.7 [facility] Comment on above: Performed By: #### C BC #### [facility] [address] [place] [address] Dr. Dona Turner Eosinophils/100 WBC (Bld) 0.7 % Critically low 0.9-7.0 [facility] Comment on above: Performed By: #### C BC #### [facility] [address] [place] [address] Dr. Dona Turner Erythrocyte distribution width (RBC) [Ratio] 14.5 % Normal 11.0-15.0 [facility] Comment on above: Performed By: #### C BC #### [facility] [address] [place] [address] Dr. Dona Turner Hematocrit (Bld) [Volume fraction] 44.7 % Normal 36.0-48.0 [facility] Comment on above: Performed By: #### C BC #### [facility] [address] [place] [address] Dr. Dona Turner Hemoglobin (Bld) [Mass/Vol] 14.5 g/dL Normal 12.0-16.0 [facility] Comment on above: Performed By: #### C BC #### [facility] [address] [place] [address] Dr. Dona Turner IG # 0.04 10e3/ul Critically high 0.00-0.03 [facility] Comment on above: Performed By: #### C BC #### [facility] [address] [place] [address] Dr. Dona Turner IG % 0.4 % Normal 0.0-0.5 [facility] Comment on above: Performed By: #### C BC #### [facility] [address] [place] [address] Dr. Dona Turner LYMPH # 1.6 103/ul Normal 1.2-3.8 [facility] Comment on above: Performed By: #### C BC #### [facility] [address] [address] [address] Dona Turner Lymphocytes/100 WBC (Bld) 17.7 % Critically low 20.5-60.0 [facility] Comment on above: Performed By: #### C BC #### [facility] [address] [address] [address] Dona Turner MANUAL DIFF REQ NO Normal [facility] Comment on above: Performed By: #### C BC #### [facility] [address] [address] [address] Dona Turner MCH (RBC) [Entitic mass] 25.9 pg Critically low 26.7-34.0 [facility] Comment on above: Performed By: #### C BC #### [facility] [address] [place] [address] Dr. Dona Turner MCHC (RBC) [Mass/Vol] 32.4 g/dL Normal 29.9-35.2 [facility] Comment on above: Performed By: #### C BC #### [facility] [address] [place] [address] Dr. Dona Turner MCV (RBC) [Entitic vol] 79.8 fL Critically low 81.0-99.0 [facility] Comment on above: Performed By: #### C BC #### [facility] [address] [place] [address] Dr. Dona Turner MONO # 0.6 103/ul Normal 0.3-0.8 [facility] Comment on above: Performed By: #### C BC #### [facility] [address] [place] [address] Dr. Dona Turner Monocytes/100 WBC (Bld) 6.9 % Normal 1.7-12.0 [facility] Comment on above: Performed By: #### C BC #### [facility] [address] [place] [address] Dr. Dona Turner NEUT # 6.6 103/ul Critically high 1.4-6.5 [facility] Comment on above: Performed By: #### C BC #### [facility] [address] [place] [address] Dr. Dona Turner Neutrophils/100 WBC (Bld) 73.5 % Normal 43.0-75.0 [facility] Comment on above: Performed By: #### C BC #### [facility] [address] [place] [address] Dr. Dona Turner Platelet mean volume (Bld) [Entitic vol] 11.1 fL Normal 9.5-13.5 [facility] Comment on above: Performed By: #### C BC #### [facility] [address] [place] [address] Dr. Dona Turner PLT 256 103/ul Normal 150-450 [facility] Comment on above: Performed By: #### C BC #### [facility] [address] [place] [address] Dr. Dona Turner RBC 5.60 106/ul Critically high 4.20-5.40 [facility] Comment on above: Performed By: #### C BC #### [facility] [address] [place] [address] Dr. Dona Turner WBC 8.9 103/ul Normal 4.0-11.0 [facility] Comment on above: Performed By: #### C BC #### [facility] [address] [place] [address] Dr. Dona Turner FREE THYROXINE INDEX T7on FTI 3.66 Normal 1.30-4.50 [facility] Comment on above: Performed By: #### C VDTBH #### [facility] [address] [place] [address] Dr. Dona Turner T3U 37.0 % Normal 30.0-39.0 [facility] Comment on above: Performed By: #### C VDTBH #### [facility] [address] [place] [address] Dr. Dona Turner T4 [Mass/Vol] 9.90 ug/dL Normal 4.80-13.90 [facility] Comment on above: Performed By: #### C VDTBH #### [facility] [address] [address] [address] Dona Turner GLYCOHEMOGLOBIN A1Con 2021 ADA RECOMMENDATION SEE BELOW Normal [facility] Comment on above: Result Comment: ADA RECOMMENDED LIMIT 4.0 - 6.0 ADA THERAPEUTIC TARGET < 7.0 ACTION SUGGESTED > 7.0 Performed By: #### A 1C #### [facility] [address] [place] [address] Dr. Dona Turner Glucose [Mass/Vol] 183 mg/dL Normal [facility] Comment on above: Performed By: #### A 1C #### [facility] [address] [place] [address] Dr. Dona Turner HbA1c (Bld) [Mass fraction] 8.0 % Critically high 4.5-6.2 [facility] Comment on above: Performed By: #### A 1C #### [facility] [address] [place] [address] Dr. Dona Turner IRONon 07-09-2022 Iron [Mass/Vol] 56.0 ug/dL Normal 50.0-170.0 [facility] Comment on above: Performed By: #### I NSULIN #### [facility] [address] [place] [address] Dr. Dona Turner LIPID PROFILEon 07-09-2022 CHOL-HDL RATIO NORM SEE BELOW Normal [facility] Comment on above: Result Comment: 3.3 - 4.4 LOW RISK 4.4 - 7.1 AVERAGE RISK 7.1 - 11.0 MODERATE RISK >11.0 HIGH RISK Performed By: #### C VDTBH #### [facility] [address] [place] [address] Dr. Dona Turner Cholesterol [Mass/Vol] 228 mg/dL Critically high <=200 [facility] Comment on above: Performed By: #### C VDTBH #### [facility] [address] [place] [address] Dr. Dona Turner Cholesterol in HDL [Mass/Vol] 37 mg/dL Critically low 40-60 [facility] Comment on above: Performed By: #### C VDTBH #### [facility] [address] [address] [address] Dona Turner Cholesterol in LDL [Mass/Vol] 163.6 mg/dL Normal [facility] Comment on above: Performed By: #### C VDTBH #### [facility] [address] [address] [address] Dona Turner Cholesterol.total/Chol esterol in HDL [Mass ratio] 6.2 {ratio} Normal [facility] Comment on above: Performed By: #### C VDTBH #### [facility] [address] [address] [address] Dona Turner HDL NORMAL > or = 60 mg/dl - LOW CARDIOVASCULAR RISK <40 mg/dl - HIGH CARDIOVASCULAR RISK Normal [facility] Comment on above: Performed By: #### C VDTBH #### [facility] [address] [place] [address] Dr. Dona Turner LDL CALC NORMAL SEE BELOW Normal [facility] Comment on above: Result Comment: <100 mg/dl OPTIMAL 100 - 129 mg/dl NEAR OR ABOVE OPTIMAL 130 - 159 mg/dl BORDERLINE HIGH 160 - 189 mg/dl HIGH >190 mg/dl VERY HIGH Performed By: #### C VDTBH #### [facility] [address] [place] [address] Dr. Dona Turner Triglyceride [Mass/Vol] 137 mg/dL Normal <=150 [facility] Comment on above: Performed By: #### C VDTBH #### [facility] [address] [place] [address] Dr. Dona Turner VLDL CALC 27.4 mg/dL Normal [facility] Comment on above: Performed By: #### C VDTBH #### [facility] [address] [place] [address] Dr. Dona Turner PROF 14(COMP METB)on 022 Albumin [Mass/Vol] 3.8 g/dL Normal 3.4-5.0 [facility] Comment on above: Performed By: #### C VDTBH #### [facility] [address] [place] [address] Dr. Dona Turner Albumin/Globulin [Mass ratio] 1.0 {ratio} Normal [facility] Comment on above: Performed By: #### C VDTBH #### [facility] [address] [place] [address] Dr. Dona Turner ALP [Catalytic activity/Vol] 57 U/L Normal 46-116 [facility] Comment on above: Performed By: #### C VDTBH #### [facility] [address] [place] [address] Dr. Dona Turner ALT [Catalytic activity/Vol] 24 U/L Normal 14-59 [facility] Comment on above: Performed By: #### C VDTBH #### [facility] [address] [place] [address] Dr. Dona Turner Anion gap [Moles/Vol] 9.6 mmol/L Normal [facility] Comment on above: Performed By: #### C VDTBH #### [facility] [address] [place] [address] Dr. Dona Turner AST [Catalytic activity/Vol] 15 U/L Normal 15-37 [facility] Comment on above: Performed By: #### C VDTBH #### [facility] [address] [place] [address] Dr. Dona Turner Bilirubin [Mass/Vol] 0.5 mg/dL Normal 0.2-1.0 [facility] Comment on above: Performed By: #### C VDTBH #### [facility] [address] [place] [address] Dr. Dona Turner Calcium [Mass/Vol] 9.3 mg/dL Normal 8.5-10.1 [facility] Comment on above: Performed By: #### C VDTBH #### [facility] [address] [place] [address] Dr. Dona Turner Chloride [Moles/Vol] 103 mmol/L Normal 98-107 [facility] Comment on above: Performed By: #### C VDTBH #### [facility] [address] [place] [address] Dr. Dona Turner CO2 [Moles/Vol] 29.5 mmol/L Normal 21.0-32.0 [facility] Comment on above: Performed By: #### C VDTBH #### [facility] [address] [place] [address] Dr. Dona Turner Creatinine [Mass/Vol] 0.61 mg/dL Normal 0.55-1.02 [facility] Comment on above: Performed By: #### C VDTBH #### [facility] [address] [address] [address] Dona Turner EGFR-AF SWISS >60 Normal >=60 [facility] Comment on above: Performed By: #### C VDTBH #### [facility] [address] [place] [address] Dr. Dona Turner EGFR-NON AF SWISS >60 Normal >=60 [facility] Comment on above: Performed By: #### C VDTBH #### [facility] [address] [place] [address] Dr. Dona Turner Globulin (S) [Mass/Vol] 3.8 g/dL Normal [facility] Comment on above: Performed By: #### C VDTBH #### [facility] [address] [place] [address] Dr. Dona Turner Glucose [Mass/Vol] 104 mg/dL Normal 74-106 [facility] Comment on above: Performed By: #### C VDTBH #### [facility] [address] [place] [address] Dr. Dona Turner Potassium [Moles/Vol] 4.1 mmol/L Normal 3.5-5.1 [facility] Comment on above: Performed By: #### C VDTBH #### [facility] [address] [place] [address] Dr. Dona Turner Protein [Mass/Vol] 7.6 g/dL Normal 6.4-8.2 [facility] Comment on above: Performed By: #### C VDTBH #### [facility] [address] [place] [address] Dr. Dona Turner Sodium [Moles/Vol] 138 mmol/L Normal 136-145 [facility] Comment on above: Performed By: #### C VDTBH #### [facility] [address] [place] [address] Dr. Dona Turner Urea nitrogen [Mass/Vol] 14.0 mg/dL Normal 7.0-18.0 [facility] Comment on above: Performed By: #### C VDTBH #### [facility] [address] [place] [address] Dr. Dona Turner Urea nitrogen/Creatinine [Mass ratio] 23.0 mg/mg Normal [facility] Comment on above: Performed By: #### C VDTBH #### [facility] [address] [place] [address] Dr. Dona Turner TSHon 07-09-2022 TSH 0.324 uIU/mL Critically low 0.358-3.740 [facility] Comment on above: Performed By: #### C VDTBH #### [facility] [address] [place] [address] Dr. Dona Turner VITAMIN D 25 OHon 07-09-2022 VIT D 25-OH 52.6 ng/mL Normal [facility] Comment on above: Performed By: #### I NSULIN #### [facility] [address] [place] [address] Dr. Dona Turner VIT D RANGES SEE BELOW Normal [facility] Comment on above: Result Comment: <20 ng/mL Vit D deficient 20 - <30 ng/mL Vit D insufficient 30 - 100 ng/mL Vit D sufficient >100 ng/mL Potential Toxicity Performed By: #### I NSULIN #### [facility] [address] [place] [address] Dr. Dona Turner [facility] 04-02 SARS-CoV-2 (COVID-19) RNA JEWEL+probe Ql (Unsp spec) Not detected Normal NOT DETECTED [facility] Comment on above: Result Comment: This test is not yet approved or cleared by the [place] FDA. When there are no FDA-approved or cleared tests available, and other criteria are met, FDA can make tests available under an emergency access mechanism called an Emergency Use Authorization (EUA). The EUA for this test is supported by the [place] Senior Research Scientist of Health and Human Service's (HHS's) declaration [...] consistent with SARS-CoV-2. Performed By: #### C [facility] #### [facility] [address] [place] [address] Dr. Dona Turner Coding Summary.on 09-12-2018 Coding Summary. CODING DATE: 09/12/2018 [facility] STATUS: Home (Routine DC) PAYOR: Loreto [...] Cuellar Date Saved: 09/12/2018 03:25 pm Normal [facility] Main OR Intraoperative Recor don 09-09-2018 Main OR Intraoperative Record IntraOp Document Type FTURO Summary Primary Physician: David ORTIZ MD Finalized Date/Time: 09/09/18 12:32:44 Pt. Name: IAN BRIGGS /Sex: 1970 Female Med Rec #: [id number] Physician: David ORTIZ MD Financial #: [id number] Pt. Type: O Room/Bed: / Admit/Disch: 09/09/18 09:49:59 - Institution: Case Times FTURO Entry 1 Patient Times In Room 09/09/18 12:19:00 Out Room 09/09/18 12:33:00 Procedure Times Start 09/09/18 12:22:00 Stop 09/09/18 12:26:00 Anesthesia Times Last Modified By: Lilliana RN, RADHIKAOR, Pearl Hoffmann 09/09/18 12:32:32 Case Attendance FTURO Entry 1 Entry 2 Entry 3 Case Attendee David ORTIZ MD ASH HANDLER, Alannah Tijerina RN, CNOR, Pearl Hoffmann Role Performed Surgeon - Primary Scrub - Primary Cash Van Salesperson - Primary Time In 09/09/18 12:20:00 09/09/18 [...] David ORTIZ MD, Verified (If Participants [place] ASH HANDLER, Alannah, Applicable) GIUSEPPE Tijerina RN, Lou Ann [...] Tijerina RN, Lou Ann 09/09/18 12:32 Normal [facility] Main OR Preoperative Recordo n 09-09-2018 Main OR Preoperative Record Holding Area Document Type FTURO Summary Primary Physician: David ORTIZ MD Finalized Date/Time: 09/09/18 12:22:07 Pt. Name: IAN BRIGGS/Sex: 1970 Female Med Rec #: [id number] Physician: David ORTIZ MD Financial #: [id number] Pt. Type: O Room/Bed: / Admit/Disch: 09/09/18 [...] Complaints of Pain: No Skin Integrity Intact, Sweetser, Warm, & Dry Vitals - EU Blood Pressure 141/78 Pulse 57 bpm Respirations 16 br/min SPO2 Additional None RN Reviewed Yes Specimens Collected Last Modified By: GIUSEPPE Tijerina RN, Lou Ann 09/09/18 12:22:05 Finalized By: GIUSEPPE Tijerina RN, Lou Ann Document Signatures Signed By: Racheal Bernabe 09/09/18 11:43 GIUSEPPE Tijerina RN, Lou Ann 09/09/18 12:22 Normal [facility] Operative Reporton 9 Operative Report Patient: [...] urine. The Urethra was dilated to: 30 Urdu w/ sounds. Devices Implanted: None. Removal: Cystoscope is removed, The patient tolerated it well. Postoperative Information Discharge: Patient is discharged home with antibiotic coverage, Follow up arranged. she will do timed/double voids. try ditropan xl 10mgqd f/u 3 months with pvr bladder scan....?pessary. Normal [facility] Comment on above: Result Comment: Elec tronically Signed By: ANGEL SWANSON, David Leija.br\Date and Time Signed: 09/09/18 12:39 EST Encounters Encounter Date Encounter Type Care Provider Facility Start[facility] Start: 01-29-2023 End: 01-30-[address] SEFERINO MENDOAZ . Facility[facility] Start: 01-07-2023 End: 01-08-[address] SEFERINO MENDOZA . Facility[facility] Start: 10-13-2022 End: 10-14-[address] SEFERINO MENDOZA . Facility[facility] Start: 07-14-2022 Encounter for genera l adult medical examination without abnormal findings DR SEFERINO MENDOZA . [facility] Start: 07-13-2022 End: 07-14-[address] SEFERINO MENDOZA . Facility:[facility] Start: 07-09-2022 End: 07-10-[address] SEFERINO MENDOZA . Facility:[facility] Start: 07-09-2022 End: 07-10-2022 Encounter for general adult medical examination without abnormal findings DR SEFERINO MENDOZA . Facility:[facility] Start: 07-04-2022 End: 07-14-[address] SEFERINO MENDOZA . Facility:[facility] Start: 07-03-2022 End: 07-04-[address] SEFERION MENDOZA . Facility:[facility] Start: 04-18-2022 End: 04-18-[address] SEFERINO MENDOZA . Facility: Start: 01-29-2018 End: 01-30-2018 Ambulatory DEFAULT PHYSICIAN Facility:[facility] Procedures Date Procedure Procedure Detail Performing Clinician Start: 07-06-2024 Computerized ophthal raf imaging retina Que Fernando Shawna Payers Date Payer Category Payer Unknown [id number] 1970 Unknown [id number] 1970 Unknown [id number] 2.16.84 [id number] 1970 Unknown [id number] [id number] 1970 Unknown [id number] 2.16.84 [id number] 1970 Unknown [id number] 2.16.84 [id number] 1970 Unknown [id number] 2.16.84 [id number] 1970 Unknown [id number] 2.16.84 [id number] 1968 Unknown [id number] [id number] 1968 Unknown [id number] [id number] 1959 Unknown [id number] Unknown Clinical Note 07-03-2022 Note Date & [...] authenticated by: NAZARIO PEREZ Date: 2022-07-03 10:07 [facility] Clinical Note 07-03-2022 Note Date [...] authenticated by: NAZARIO PEREZ Date: 2022-07-03 10:07 [facility] Summary Purpose Family History No Family History Records FoundNo Family History Records FoundNo Family History Records FoundNo Family History Records Found Advance Directives No Advanced Directives Records FoundNo Advanced Directives Records FoundNo Advanced Directives Records FoundNo Advanced Directives Records Found Additional Source Comments INFORMATION SOURCE (unrecogn ized section and content) DATE CREATED AUTHOR 02/19/2018 [facility] DATE CREATED AUTHOR AUTHOR'S ORGANIZ ATION 05/23/2019 [facility] DATE CREATED AUTHOR AUTHOR'S ORGANIZ ATION 02/08/2023 [facility] DATE CREATED AUTHOR AUTHOR'S ORGANIZ ATION 07/09/2024 [facility] I nstitute FOR RECORDS PERTAINING TO [...] BE BASED ON THE PRIMARY CLINICAL RECORDS. [email or web address] provides no warranty or guarantee of the accuracy or completeness of information in this document.
== END 2024-08-21 12:27 | disposition home or self-care (01) ==
LOC: VC 08:52
PROVIDERS: PCP Radiology Diagnostic Radiology; Visit Provider Radiology Diagnostic Radiology
DX: I83.813 Varicose veins of bilateral lower extremities with pain (principal)
CPT/HCPCS: 36471

== ENCOUNTER 2025-01-18 06:58 | Outpatient (OUT) | payer BC, SELFPAY ==
--- OUTSIDE RECORDS SUMMARY | 2025-01-18 07:02 | XMS_ITS | CCD ---
Author Organization [facility] Team Providers Care Node Js Developer Name Role Phone PHYSICIAN, DEFAULT Unavailable Unavailable [...] [employer] Unavailable Que Perez Attending Unavailable Thomas Hughes Referring Unavailable Allergies Allergy Classification Reported Allergen(s) Allergy Type Date of Onset Reaction(s) Facility (1 source) Acetaminophen / oxyCODONE Drug Allergy 10-19-2016 The [facility] Repository (1 source) Penicillins Drug allergy (disorder) 01-09-2013 The [facility] Repository Problems Active Problems Problem Classification Problem [...] IN RIGHT HAND] Onset: 07-03-2022 Episodic Other eye disorders (1 source) Dry eye syndrome of bilateral lacrimal glands; Translations: [Dry eyes, bilateral] Onset: 07-06-2024 Episodic Other non-traumatic joint disorders (4 sources) [...] : DR SEFERINO MENDOZA . Admission #: [id number] Family : Order #: [id number] CLICK HERE TO VIEW EXAM RADIOLOGY REPORT [...] Treatments None Family Cancers None LOCATION: The [facility] BREAST COMPOSITION: Scattered areas fibroglandular density. FINDINGS: [...] M.D. on 01/30/2023 at 13:47 Normal The [facility] INSULINon 01-08-2023 Insulin 11.3 uIU/mL Normal 2.6-24.9 The [facility] Comment on above: Performed By: #### C VDTB #### [facility] [address] [place] [address] Dr. Dona Turner CBC AUTO DIFFon 01-07-2023 BASO # 0.1 103/ul Normal 0.0-0.1 [facility] Comment on above: Performed By: #### C VDTBH #### [facility] [address] [place] [address] Dr. Dona Turner Basophils/100 WBC (Bld) 1.2 % Normal 0.2-2.0 [facility] Comment on above: Performed By: #### C VDTBH #### [facility] [address] [place] [address] Dr. Dona Turner EO # 0.1 103/ul Normal 0.0-0.7 [facility] Comment on above: Performed By: #### C VDTBH #### [facility] [address] [place] [address] Dr. Dona Turner Eosinophils/100 WBC (Bld) 2.0 % Normal 0.9-7.0 [facility] Comment on above: Performed By: #### C VDTBH #### [facility] [address] [place] [address] Dr. Dona Turner Erythrocyte distribution width (RBC) [Ratio] 14.5 % Normal 11.0-15.0 [facility] Comment on above: Performed By: #### C VDTBH #### [facility] [address] [place] [address] Dr. Dona Turner Hematocrit (Bld) [Volume fraction] 45.1 % Normal 36.0-48.0 [facility] Comment on above: Performed By: #### C VDTBH #### [facility] [address] [place] [address] Dr. Dona Turner Hemoglobin (Bld) [Mass/Vol] 14.1 g/dL Normal 12.0-16.0 The [facility] Comment on above: Performed By: #### C VDTBH #### [facility] [address] [place] [address] Dr. Dona Turner IG # 0.02 10e3/ul Normal 0.00-0.03 [facility] Comment on above: Performed By: #### C VDTBH #### [facility] [address] [address] [address] Dona Turner IG % 0.4 % Normal 0.0-0.5 [facility] Comment on above: Performed By: #### C VDTBH #### [facility] [address] [address] [address] Dona Turner LYMPH # 1.3 103/ul Normal 1.2-3.8 [facility] Comment on above: Performed By: #### C VDTBH #### [facility] [address] [address] [address] Dona Turner Lymphocytes/100 WBC (Bld) 26.4 % Normal 20.5-60.0 [facility] Comment on above: Performed By: #### C VDTBH #### [facility] [address] [place] [address] Dr. Dona Turner MANUAL DIFF REQ NO Normal [facility] Comment on above: Performed By: #### C VDTBH #### [facility] [address] [place] [address] Dr. Dona Turner MCH (RBC) [Entitic mass] 25.0 pg Critically low 26.7-34.0 [facility] Comment on above: Performed By: #### C VDTBH #### [facility] [address] [place] [address] Dr. Dona Turner MCHC (RBC) [Mass/Vol] 31.3 g/dL Normal 29.9-35.2 The [facility] Comment on above: Performed By: #### C VDTBH #### [facility] [address] [place] [address] Dr. Dona Turner MCV (RBC) [Entitic vol] 80.0 fL Critically low 81.0-99.0 [facility] Comment on above: Performed By: #### C VDTBH #### [facility] [address] [place] [address] Dr. Dona Turner MONO # 0.4 103/ul Normal 0.3-0.8 [facility] Comment on above: Performed By: #### C VDTBH #### [facility] [address] [place] [address] Dr. Dona Turner Monocytes/100 WBC (Bld) 7.7 % Normal 1.7-12.0 [facility] Comment on above: Performed By: #### C VDTBH #### [facility] [address] [place] [address] Dr. Dona Turner NEUT # 3.1 103/ul Normal 1.4-6.5 [facility] Comment on above: Performed By: #### C VDTBH #### [facility] [address] [place] [address] Dr. Dona Turner Neutrophils/100 WBC (Bld) 62.3 % Normal 43.0-75.0 [facility] Comment on above: Performed By: #### C VDTBH #### [facility] [address] [place] [address] Dr. Dona Turner Platelet mean volume (Bld) [Entitic vol] 10.7 fL Normal 9.5-13.5 [facility] Comment on above: Performed By: #### C VDTBH #### [facility] [address] [place] [address] Dr. Dona Turner PLT 257 103/ul Normal 150-450 [facility] Comment on above: Performed By: #### C VDTBH #### [facility] [address] [place] [address] Dr. Dona Turner RBC 5.64 106/ul Critically high 4.20-5.40 [facility] Comment on above: Performed By: #### C VDTBH #### [facility] [address] [place] [address] Dr. Dona Turner WBC 5.0 103/ul Normal 4.0-11.0 The [facility] Comment on above: Performed By: #### C VDTBH #### [facility] [address] [place] [address] Dr. Dona Turner FREE THYROXINE INDEX T7on FTI 3.78 Normal 1.30-4.50 [facility] Comment on above: Performed By: #### L IPID, TSH, T7, CMP #### [facility] [address] [address] [address] Dona Turner T3U 35.0 % Normal 30.0-39.0 [facility] Comment on above: Performed By: #### L IPID, TSH, T7, CMP #### [facility] [address] [address] [address] Dona Turner T4 [Mass/Vol] 10.80 ug/dL Normal 4.80-13.90 [facility] Comment on above: Performed By: #### L IPID, TSH, T7, CMP #### [facility] [address] [address] [address] Dona Turner GLYCOHEMOGLOBIN A1Con 2022 ADA RECOMMENDATION SEE BELOW Normal [facility] Comment on above: Result Comment: ADA RECOMMENDED LIMIT 4.0 - 6.0 ADA THERAPEUTIC TARGET < 7.0 ACTION SUGGESTED > 7.0 Performed By: #### C VDTBH #### [facility] [address] [place] [address] Dr. Dona Turner Glucose [Mass/Vol] 160 mg/dL Normal [facility] Comment on above: Performed By: #### C VDTBH #### [facility] [address] [address] [address] Dona Turner HbA1c (Bld) [Mass fraction] 7.2 % Critically high 4.5-6.2 [facility] Comment on above: Performed By: #### C VDTBH #### [facility] [address] [place] [address] Dr. Dona Turner IRONon 01-07-2023 Iron [Mass/Vol] 50.0 ug/dL Normal 50.0-170.0 [facility] Comment on above: Performed By: #### I NSULIN #### [facility] [address] [place] [address] Dr. Dona Turner LIPID PROFILEon 01-07-2023 CHOL-HDL RATIO NORM SEE BELOW Normal [facility] Comment on above: Result Comment: 3.3 - 4.4 LOW RISK 4.4 - 7.1 AVERAGE RISK 7.1 - 11.0 MODERATE RISK >11.0 HIGH RISK Performed By: #### L IPID, TSH, T7, CMP #### [facility] [address] [place] [address] Dr. Dona Turner Cholesterol [Mass/Vol] 162 mg/dL Normal <=200 Th e [facility] Comment on above: Performed By: #### L IPID, TSH, T7, CMP #### [facility] [address] [place] [address] Dr. Dona Turner Cholesterol in HDL [Mass/Vol] 33 mg/dL Critically low 40-60 [facility] Comment on above: Performed By: #### L IPID, TSH, T7, CMP #### [facility] [address] [place] [address] Dr. Dona Turner Cholesterol in LDL [Mass/Vol] 100.4 mg/dL Normal [facility] Comment on above: Performed By: #### L IPID, TSH, T7, CMP #### [facility] [address] [place] [address] Dr. Dona Turner Cholesterol.total/Chol esterol in HDL [Mass ratio] 4.9 {ratio} Normal [facility] Comment on above: Performed By: #### L IPID, TSH, T7, CMP #### [facility] [address] [place] [address] Dr. Dona Turner HDL NORMAL > or = 60 mg/dl - LOW CARDIOVASCULAR RISK <40 mg/dl - HIGH CARDIOVASCULAR RISK Normal [facility] Comment on above: Performed By: #### L IPID, TSH, T7, CMP #### [facility] [address] [place] [address] Dr. Dona Turner LDL CALC NORMAL SEE BELOW Normal [facility] Comment on above: Result Comment: <100 mg/dl OPTIMAL 100 - 129 mg/dl NEAR OR ABOVE OPTIMAL 130 - 159 mg/dl BORDERLINE HIGH 160 - 189 mg/dl HIGH >190 mg/dl VERY HIGH Performed By: #### L IPID, TSH, T7, CMP #### [facility] [address] [place] [address] Dr. Dona Turner Triglyceride [Mass/Vol] 143 mg/dL Normal <=150 [facility] Comment on above: Performed By: #### L IPID, TSH, T7, CMP #### [facility] [address] [address] [address] Dona Turner VLDL CALC 28.6 mg/dL Normal [facility] Comment on above: Performed By: #### L IPID, TSH, T7, CMP #### [facility] [address] [place] [address] Dr. Dona Turner PROF 14(COMP METB)on 023 Albumin [Mass/Vol] 3.8 g/dL Normal 3.4-5.0 [facility] Comment on above: Performed By: #### L IPID, TSH, T7, CMP #### [facility] [address] [place] [address] Dr. Dona Turner Albumin/Globulin [Mass ratio] 1.0 {ratio} Normal [facility] Comment on above: Performed By: #### L IPID, TSH, T7, CMP #### [facility] [address] [place] [address] Dr. Dona Turner ALP [Catalytic activity/Vol] 59 U/L Normal 46-116 [facility] Comment on above: Performed By: #### L IPID, TSH, T7, CMP #### [facility] [address] [place] [address] Dr. Dona Turner ALT [Catalytic activity/Vol] 43 U/L Normal 14-59 [facility] Comment on above: Performed By: #### L IPID, TSH, T7, CMP #### [facility] [address] [place] [address] Dr. Dona Turner Anion gap [Moles/Vol] 11.5 mmol/L Normal [facility] Comment on above: Performed By: #### L IPID, TSH, T7, CMP #### [facility] [address] [place] [address] Dr. Dona Turner AST [Catalytic activity/Vol] 19 U/L Normal 15-37 [facility] Comment on above: Performed By: #### L IPID, TSH, T7, CMP #### [facility] [address] [place] [address] Dr. Dona Turner Bilirubin [Mass/Vol] 0.4 mg/dL Normal 0.2-1.0 [facility] Comment on above: Performed By: #### L IPID, TSH, T7, CMP #### [facility] [address] [place] [address] Dr. Dona Turner Calcium [Mass/Vol] 9.1 mg/dL Normal 8.5-10.1 [facility] Comment on above: Performed By: #### L IPID, TSH, T7, CMP #### [facility] [address] [place] [address] Dr. Dona Turner Chloride [Moles/Vol] 107 mmol/L Normal 98-107 [facility] Comment on above: Performed By: #### L IPID, TSH, T7, CMP #### [facility] [address] [place] [address] Dr. Dona Turner CO2 [Moles/Vol] 28.5 mmol/L Normal 21.0-32.0 [facility] Comment on above: Performed By: #### L IPID, TSH, T7, CMP #### [facility] [address] [place] [address] Dr. Dona Turner Creatinine [Mass/Vol] 0.66 mg/dL Normal 0.55-1.02 [facility] Comment on above: Performed By: #### L IPID, TSH, T7, CMP #### [facility] [address] [place] [address] Dr. Dona Turner EGFR-AF AFGHAN >60 Normal >=60 [facility] Comment on above: Performed By: #### L IPID, TSH, T7, CMP #### [facility] [address] [place] [address] Dr. Dona Turner EGFR-NON AF AFGHAN >60 Normal >=60 [facility] Comment on above: Performed By: #### L IPID, TSH, T7, CMP #### [facility] [address] [place] [address] Dr. Dona Turner Globulin (S) [Mass/Vol] 3.8 g/dL Normal [facility] Comment on above: Performed By: #### L IPID, TSH, T7, CMP #### [facility] [address] [address] [address] Dona Turner Glucose [Mass/Vol] 112 mg/dL Critically high 74-106 T [facility] Comment on above: Performed By: #### L IPID, TSH, T7, CMP #### [facility] [address] [address] [address] Dona Turner Potassium [Moles/Vol] 4.0 mmol/L Normal 3.5-5.1 [facility] Comment on above: Performed By: #### L IPID, TSH, T7, CMP #### [facility] [address] [place] [address] Dr. Dona Turner Protein [Mass/Vol] 7.6 g/dL Normal 6.4-8.2 [facility] Comment on above: Performed By: #### L IPID, TSH, T7, CMP #### [facility] [address] [address] [address] Dona Turner Sodium [Moles/Vol] 143 mmol/L Normal 136-145 [facility] Comment on above: Performed By: #### L IPID, TSH, T7, CMP #### [facility] [address] [place] [address] Dr. Dona Turner Urea nitrogen [Mass/Vol] 11.0 mg/dL Normal 7.0-18.0 [facility] Comment on above: Performed By: #### L IPID, TSH, T7, CMP #### [facility] [address] [place] [address] Dr. Dona Turner Urea nitrogen/Creatinine [Mass ratio] 16.7 mg/mg Normal [facility] Comment on above: Performed By: #### L IPID, TSH, T7, CMP #### [facility] [address] [address] [address] Dona Turner TSHon 01-07-2023 TSH 0.350 uIU/mL Critically low 0.358-3.740 [facility] Comment on above: Performed By: #### L IPID, TSH, T7, CMP #### [facility] [address] [place] [address] Dr. Dona Turner VITAMIN D 25 OHon 01-07-2023 VIT D 25-OH 52.4 ng/mL Normal [facility] Comment on above: Performed By: #### I NSULIN #### [facility] [address] [place] [address] Dr. Dona Turner VIT D RANGES SEE BELOW Normal [facility] Comment on above: Result Comment: <20 ng/mL Vit D deficient 20 - <30 ng/mL Vit D insufficient 30 - 100 ng/mL Vit D sufficient >100 ng/mL Potential Toxicity Performed By: #### I NSULIN #### [facility] [address] [place] [address] Dr. Dona Turner LIPID PROFILEon 10-13-2022 CHOL-HDL RATIO NORM SEE BELOW Normal [facility] Comment on above: Result Comment: 3.3 - 4.4 LOW RISK 4.4 - 7.1 AVERAGE RISK 7.1 - 11.0 MODERATE RISK >11.0 HIGH RISK Performed By: #### C VDTBH #### [facility] [address] [place] [address] Dr. Dona Turner Cholesterol [Mass/Vol] 136 mg/dL Normal <=200 [facility] Comment on above: Performed By: #### C VDTBH #### [facility] [address] [place] [address] Dr. Dona Turner Cholesterol in HDL [Mass/Vol] 33 mg/dL Critically low 40-60 [facility] Comment on above: Performed By: #### C VDTBH #### [facility] [address] [place] [address] Dr. Dona Turner Cholesterol in LDL [Mass/Vol] 76.4 mg/dL Normal [facility] Comment on above: Performed By: #### C VDTBH #### [facility] [address] [place] [address] Dr. Dona Turner Cholesterol.total/Chol esterol in HDL [Mass ratio] 4.1 {ratio} Normal [facility] Comment on above: Performed By: #### C VDTBH #### [facility] [address] [address] [address] Dona Turner HDL NORMAL > or = 60 mg/dl - LOW CARDIOVASCULAR RISK <40 mg/dl - HIGH CARDIOVASCULAR RISK Normal [facility] Comment on above: Performed By: #### C VDTBH #### [facility] [address] [place] [address] Dr. Dona Turner LDL CALC NORMAL SEE BELOW Normal [facility] Comment on above: Result Comment: <100 mg/dl OPTIMAL 100 - 129 mg/dl NEAR OR ABOVE OPTIMAL 130 - 159 mg/dl BORDERLINE HIGH 160 - 189 mg/dl HIGH >190 mg/dl VERY HIGH Performed By: #### C VDTBH #### [facility] [address] [place] [address] Dr. Dona Turner Triglyceride [Mass/Vol] 133 mg/dL Normal <=150 [facility] Comment on above: Performed By: #### C VDTBH #### [facility] [address] [place] [address] Dr. Dona Turner VLDL CALC 26.6 mg/dL Normal [facility] Comment on above: Performed By: #### C VDTBH #### [facility] [address] [place] [address] Dr. Dona Turner LIVER PROFILEon 10-13-2022 Albumin [Mass/Vol] 3.6 g/dL Normal 3.4-5.0 [facility] Comment on above: Performed By: #### I NSULIN #### [facility] [address] [place] [address] Dr. Dona Turner Albumin/Globulin [Mass ratio] 1.1 {ratio} Normal [facility] Comment on above: Performed By: #### I NSULIN #### [facility] [address] [place] [address] Dr. Dona Turner ALP [Catalytic activity/Vol] 62 U/L Normal 46-116 [facility] Comment on above: Performed By: #### I NSULIN #### [facility] [address] [address] [address] Dona Turner ALT [Catalytic activity/Vol] 28 U/L Normal 14-59 [facility] Comment on above: Performed By: #### I NSULIN #### [facility] [address] [address] [address] Dona Turner AST [Catalytic activity/Vol] 16 U/L Normal 15-37 [facility] Comment on above: Performed By: #### I NSULIN #### [facility] [address] [address] [address] Dona Turner BILI, CONJUGATED 0.1 mg/dL Normal 0.0-0.2 [facility] Comment on above: Performed By: #### I NSULIN #### [facility] [address] [place] [address] Dr. Dona Turner Bilirubin [Mass/Vol] 0.5 mg/dL Normal 0.2-1.0 [facility] Comment on above: Performed By: #### I NSULIN #### [facility] [address] [place] [address] Dr. Dona Turner Globulin (S) [Mass/Vol] 3.4 g/dL Normal [facility] Comment on above: Performed By: #### I NSULIN #### [facility] [address] [place] [address] Dr. Dona Turner Protein [Mass/Vol] 7.0 g/dL Normal 6.4-8.2 [facility] Comment on above: Performed By: #### I NSULIN #### [facility] [address] [place] [address] Dr. Dona Turner BETH by IFAon 07-19-2022 Antinuclear Antibodies, IFA Negative Normal [facility] Comment on above: Result Comment: Nega tive <1:80 Borderline 1:80 Positive >1:80 ICAP nomenclature: AC-0 For more information about Hep-2 cell patterns use ANApatterns.org, the official website for the International Consensus on Antinuclear Antibody (BETH) Patterns (ICAP). Performed By: #### A NAIFA #### [facility] [address] [place] [address] Dr. Dona Turner ANTISTREPTOLYSIN O AB (ASO)o n 07-14-2022 Antistreptolysin O Ab 25.3 IU/mL Normal 0.0-200.0 [facility] Comment on above: Performed By: #### I NSULIN #### [facility] [address] [place] [address] Dr. Dona Turner RHEUMATOID FACTORon 07-14-20 RA Latex Turbid. 19.2 IU/mL Critically high <14.0 The [facility] Comment on above: Performed By: #### L IPID, TSH, T7, CMP #### [facility] [address] [place] [address] Dr. Dona Turner CBC AUTO DIFFon 07-13-2022 BASO # 0.1 103/ul Normal 0.0-0.1 [facility] Comment on above: Performed By: #### C VDTBH #### [facility] [address] [place] [address] Dr. Dona Turner Basophils/100 WBC (Bld) 0.8 % Normal 0.2-2.0 [facility] Comment on above: Performed By: #### C VDTBH #### [facility] [address] [place] [address] Dr. Dona Turner EO # 0.1 103/ul Normal 0.0-0.7 [facility] Comment on above: Performed By: #### C VDTBH #### [facility] [address] [place] [address] Dr. Dona Turner Eosinophils/100 WBC (Bld) 1.0 % Normal 0.9-7.0 The [facility] Comment on above: Performed By: #### C VDTBH #### [facility] [address] [place] [address] Dr. Dona Turner Erythrocyte distribution width (RBC) [Ratio] 14.3 % Normal 11.0-15.0 [facility] Comment on above: Performed By: #### C VDTBH #### [facility] [address] [place] [address] Dr. Dona Turner Hematocrit (Bld) [Volume fraction] 44.8 % Normal 36.0-48.0 [facility] Comment on above: Performed By: #### C VDTBH #### [facility] [address] [place] [address] Dr. Dona Turner Hemoglobin (Bld) [Mass/Vol] 14.4 g/dL Normal 12.0-16.0 [facility] Comment on above: Performed By: #### C VDTBH #### [facility] [address] [place] [address] Dr. Dona Turnre IG # 0.03 10e3/ul Normal 0.00-0.03 [facility] Comment on above: Performed By: #### C VDTBH #### [facility] [address] [place] [address] Dr. Dona Turner IG % 0.3 % Normal 0.0-0.5 [facility] Comment on above: Performed By: #### C VDTBH #### [facility] [address] [place] [address] Dr. Dona Turner LYMPH # 1.9 103/ul Normal 1.2-3.8 [facility] Comment on above: Performed By: #### C VDTBH #### [facility] [address] [place] [address] Dr. Dona Turner Lymphocytes/100 WBC (Bld) 20.8 % Normal 20.5-60.0 [facility] Comment on above: Performed By: #### C VDTBH #### [facility] [address] [place] [address] Dr. Dona Turner MANUAL DIFF REQ NO Normal [facility] Comment on above: Performed By: #### C VDTBH #### [facility] [address] [place] [address] Dr. oDna Turner MCH (RBC) [Entitic mass] 25.5 pg Critically low 26.7-34.0 [facility] Comment on above: Performed By: #### C VDTBH #### [facility] [address] [place] [address] Dr. Dona Turner MCHC (RBC) [Mass/Vol] 32.1 g/dL Normal 29.9-35.2 The [facility] Comment on above: Performed By: #### C VDTBH #### [facility] [address] [place] [address] Dr. Dona Turner MCV (RBC) [Entitic vol] 79.3 fL Critically low 81.0-99.0 The [facility] Comment on above: Performed By: #### C VDTBH #### [facility] [address] [place] [address] Dr. Dona Turner MONO # 0.8 103/ul Normal 0.3-0.8 The [facility] Comment on above: Performed By: #### C VDTBH #### [facility] [address] [place] [address] Dr. Dona Turner Monocytes/100 WBC (Bld) 8.5 % Normal 1.7-12.0 [facility] Comment on above: Performed By: #### C VDTBH #### [facility] [address] [place] [address] Dr. Dona Turner NEUT # 6.4 103/ul Normal 1.4-6.5 The [facility] Comment on above: Performed By: #### C VDTBH #### [facility] [address] [place] [address] Dr. Dona Turner Neutrophils/100 WBC (Bld) 68.6 % Normal 43.0-75.0 The [facility] Comment on above: Performed By: #### C VDTBH #### [facility] [address] [place] [address] Dr. Dona Turner Platelet mean volume (Bld) [Entitic vol] 10.5 fL Normal 9.5-13.5 The [facility] Comment on above: Performed By: #### C VDTBH #### [facility] [address] [place] [address] Dr. Dona Turner PLT 290 103/ul Normal 150-450 The [facility] Comment on above: Performed By: #### C VDTBH #### [facility] [address] [place] [address] Dr. Dona Turner RBC 5.65 106/ul Critically high 4.20-5.40 The [facility] Comment on above: Performed By: #### C VDTBH #### [facility] [address] [address] [address] Dona Turner WBC 9.3 103/ul Normal 4.0-11.0 The [facility] Comment on above: Performed By: #### C VDTBH #### [facility] [address] [address] [address] Dona Turner CRPon 07-13-2022 CRP [Mass/Vol] mg/L Normal <=1.0 The [facility] Comment on above: Performed By: #### I NSULIN #### [facility] [address] [place] [address] Dr. Dona Turner [facility] SED RATE 47 mm/hr Critically high <=30 [facility] Comment on above: Performed By: #### S EDR #### [facility] [address] [place] [address] Dr. Dona Turner URIC ACID SERUMon 07-13-2022 Urate [Mass/Vol] 3.2 mg/dL Normal 2.6-6.0 The [facility] Comment on above: Performed By: #### I NSULIN #### [facility] [address] [place] [address] Dr. Dona Turner INSULINon 07-10-2022 Insulin 11.5 uIU/mL Normal 2.6-24.9 The [facility] Comment on above: Performed By: #### I NSULIN #### [facility] [address] [place] [address] Dr. Dona Turner CBC AUTO DIFFon 07-09-2022 BASO # 0.1 103/ul Normal 0.0-0.1 [facility] Comment on above: Performed By: #### C BC #### [facility] [address] [place] [address] Dr. Dona Turner Basophils/100 WBC (Bld) 0.8 % Normal 0.2-2.0 The [facility] Comment on above: Performed By: #### C BC #### [facility] [address] [address] [address] Dona Turner EO # 0.1 103/ul Normal 0.0-0.7 [facility] Comment on above: Performed By: #### C BC #### [facility] [address] [place] [address] Dr. Dona Turner Eosinophils/100 WBC (Bld) 0.7 % Critically low 0.9-7.0 [facility] Comment on above: Performed By: #### C BC #### [facility] [address] [place] [address] Dr. Dona Turner Erythrocyte distribution width (RBC) [Ratio] 14.5 % Normal 11.0-15.0 [facility] Comment on above: Performed By: #### C BC #### [facility] [address] [place] [address] Dr. Dona Turner Hematocrit (Bld) [Volume fraction] 44.7 % Normal 36.0-48.0 [facility] Comment on above: Performed By: #### C BC #### [facility] [address] [place] [address] Dr. Dona Turner Hemoglobin (Bld) [Mass/Vol] 14.5 g/dL Normal 12.0-16.0 [facility] Comment on above: Performed By: #### C BC #### [facility] [address] [place] [address] Dr. Dona Turner IG # 0.04 10e3/ul Critically high 0.00-0.03 [facility] Comment on above: Performed By: #### C BC #### [facility] [address] [place] [address] Dr. Dona Turner IG % 0.4 % Normal 0.0-0.5 [facility] Comment on above: Performed By: #### C BC #### [facility] [address] [place] [address] Dr. Dona Turner LYMPH # 1.6 103/ul Normal 1.2-3.8 [facility] Comment on above: Performed By: #### C BC #### [facility] [address] [address] [address] Dona Turner Lymphocytes/100 WBC (Bld) 17.7 % Critically low 20.5-60.0 [facility] Comment on above: Performed By: #### C BC #### [facility] [address] [place] [address] Dr. Dona Turner MANUAL DIFF REQ NO Normal [facility] Comment on above: Performed By: #### C BC #### [facility] [address] [address] [address] Dona Turner MCH (RBC) [Entitic mass] 25.9 pg Critically low 26.7-34.0 [facility] Comment on above: Performed By: #### C BC #### [facility] [address] [place] [address] Dr. Dona Turner MCHC (RBC) [Mass/Vol] 32.4 g/dL Normal 29.9-35.2 [facility] Comment on above: Performed By: #### C BC #### [facility] [address] [place] [address] Dr. Dona Turner MCV (RBC) [Entitic vol] 79.8 fL Critically low 81.0-99.0 [facility] Comment on above: Performed By: #### C BC #### [facility] [address] [place] [address] Dr. Dona Turner MONO # 0.6 103/ul Normal 0.3-0.8 The [facility] Comment on above: Performed By: #### C BC #### [facility] [address] [place] [address] Dr. Dona Turner Monocytes/100 WBC (Bld) 6.9 % Normal 1.7-12.0 The [facility] Comment on above: Performed By: #### C BC #### [facility] [address] [place] [address] Dr. Dona Turner NEUT # 6.6 103/ul Critically high 1.4-6.5 [facility] Comment on above: Performed By: #### C BC #### [facility] [address] [place] [address] Dr. Dona Turner Neutrophils/100 WBC (Bld) 73.5 % Normal 43.0-75.0 [facility] Comment on above: Performed By: #### C BC #### [facility] [address] [place] [address] Dr. Dona Turner Platelet mean volume (Bld) [Entitic vol] 11.1 fL Normal 9.5-13.5 [facility] Comment on above: Performed By: #### C BC #### [facility] [address] [place] [address] Dr. Dona Turner PLT 256 103/ul Normal 150-450 [facility] Comment on above: Performed By: #### C BC #### [facility] [address] [place] [address] Dr. Dona Turner RBC 5.60 106/ul Critically high 4.20-5.40 The [facility] Comment on above: Performed By: #### C BC #### [facility] [address] [place] [address] Dr. Dona Turner WBC 8.9 103/ul Normal 4.0-11.0 [facility] Comment on above: Performed By: #### C BC #### [facility] [address] [place] [address] Dr. Dona Turner FREE THYROXINE INDEX T7on FTI 3.66 Normal 1.30-4.50 [facility] Comment on above: Performed By: #### C VDTBH #### [facility] [address] [place] [address] Dr. Dona Turner T3U 37.0 % Normal 30.0-39.0 The [facility] Comment on above: Performed By: #### C VDTBH #### [facility] [address] [place] [address] Dr. Dona Turner T4 [Mass/Vol] 9.90 ug/dL Normal 4.80-13.90 [facility] Comment on above: Performed By: #### C VDTBH #### [facility] [address] [address] [address] Dona Turner GLYCOHEMOGLOBIN A1Con 2021 ADA RECOMMENDATION SEE BELOW Normal [facility] Comment on above: Result Comment: ADA RECOMMENDED LIMIT 4.0 - 6.0 ADA THERAPEUTIC TARGET < 7.0 ACTION SUGGESTED > 7.0 Performed By: #### A 1C #### [facility] [address] [address] [address] Dona Turner Glucose [Mass/Vol] 183 mg/dL Normal [facility] Comment on above: Performed By: #### A 1C #### [facility] [address] [place] [address] Dr. oDna Turner HbA1c (Bld) [Mass fraction] 8.0 % Critically high 4.5-6.2 [facility] Comment on above: Performed By: #### A 1C #### [facility] [address] [place] [address] Dr. Dona Turner IRONon 07-09-2022 Iron [Mass/Vol] 56.0 ug/dL Normal 50.0-170.0 [facility] Comment on above: Performed By: #### I NSULIN #### [facility] [address] [place] [address] Dr. Dona Turner LIPID PROFILEon 07-09-2022 CHOL-HDL RATIO NORM SEE BELOW Normal [facility] Comment on above: Result Comment: 3.3 - 4.4 LOW RISK 4.4 - 7.1 AVERAGE RISK 7.1 - 11.0 MODERATE RISK >11.0 HIGH RISK Performed By: #### C VDTBH #### [facility] [address] [place] [address] Dr. Dona Turner Cholesterol [Mass/Vol] 228 mg/dL Critically high <=200 [facility] Comment on above: Performed By: #### C VDTBH #### [facility] [address] [place] [address] Dr. Dona Turner Cholesterol in HDL [Mass/Vol] 37 mg/dL Critically low 40-60 [facility] Comment on above: Performed By: #### C VDTBH #### [facility] [address] [address] [address] Dona Turner Cholesterol in LDL [Mass/Vol] 163.6 mg/dL Normal [facility] Comment on above: Performed By: #### C VDTBH #### [facility] [address] [address] [address] Dona Turner Cholesterol.total/Chol esterol in HDL [Mass ratio] 6.2 {ratio} Normal [facility] Comment on above: Performed By: #### C VDTBH #### [facility] [address] [address] [address] Dona Turner HDL NORMAL > or = 60 mg/dl - LOW CARDIOVASCULAR RISK <40 mg/dl - HIGH CARDIOVASCULAR RISK Normal [facility] Comment on above: Performed By: #### C VDTBH #### [facility] [address] [place] [address] Dr. Dona Turner LDL CALC NORMAL SEE BELOW Normal [facility] Comment on above: Result Comment: <100 mg/dl OPTIMAL 100 - 129 mg/dl NEAR OR ABOVE OPTIMAL 130 - 159 mg/dl BORDERLINE HIGH 160 - 189 mg/dl HIGH >190 mg/dl VERY HIGH Performed By: #### C VDTBH #### [facility] [address] [place] [address] Dr. Dona Turner Triglyceride [Mass/Vol] 137 mg/dL Normal <=150 [facility] Comment on above: Performed By: #### C VDTBH #### [facility] [address] [address] [address] Dona Turner VLDL CALC 27.4 mg/dL Normal [facility] Comment on above: Performed By: #### C VDTBH #### [facility] [address] [address] [address] Dona Turner PROF 14(COMP METB)on 022 Albumin [Mass/Vol] 3.8 g/dL Normal 3.4-5.0 [facility] Comment on above: Performed By: #### C VDTBH #### [facility] [address] [place] [address] Dr. Dona Turner Albumin/Globulin [Mass ratio] 1.0 {ratio} Normal [facility] Comment on above: Performed By: #### C VDTBH #### [facility] [address] [place] [address] Dr. Dona Turner ALP [Catalytic activity/Vol] 57 U/L Normal 46-116 [facility] Comment on above: Performed By: #### C VDTBH #### [facility] [address] [place] [address] Dr. Dona Turner ALT [Catalytic activity/Vol] 24 U/L Normal 14-59 [facility] Comment on above: Performed By: #### C VDTBH #### [facility] [address] [place] [address] Dr. Dona Turner Anion gap [Moles/Vol] 9.6 mmol/L Normal [facility] Comment on above: Performed By: #### C VDTBH #### [facility] [address] [place] [address] Dr. Dona Turner AST [Catalytic activity/Vol] 15 U/L Normal 15-37 [facility] Comment on above: Performed By: #### C VDTBH #### [facility] [address] [place] [address] Dr. Dona Turner Bilirubin [Mass/Vol] 0.5 mg/dL Normal 0.2-1.0 [facility] Comment on above: Performed By: #### C VDTBH #### [facility] [address] [place] [address] Dr. Dona Turner Calcium [Mass/Vol] 9.3 mg/dL Normal 8.5-10.1 [facility] Comment on above: Performed By: #### C VDTBH #### [facility] [address] [place] [address] Dr. Dona Turner Chloride [Moles/Vol] 103 mmol/L Normal 98-107 [facility] Comment on above: Performed By: #### C VDTBH #### [facility] [address] [place] [address] Dr. Dona Turner CO2 [Moles/Vol] 29.5 mmol/L Normal 21.0-32.0 [facility] Comment on above: Performed By: #### C VDTBH #### [facility] [address] [place] [address] Dr. Dona Turner Creatinine [Mass/Vol] 0.61 mg/dL Normal 0.55-1.02 [facility] Comment on above: Performed By: #### C VDTBH #### [facility] [address] [address] [address] Dona Turner EGFR-AF AFGHAN >60 Normal >=60 [facility] Comment on above: Performed By: #### C VDTBH #### [facility] [address] [place] [address] Dr. Dona Turner EGFR-NON AF AFGHAN >60 Normal >=60 [facility] Comment on above: Performed By: #### C VDTBH #### [facility] [address] [place] [address] Dr. Dona Turner Globulin (S) [Mass/Vol] 3.8 g/dL Normal [facility] Comment on above: Performed By: #### C VDTBH #### [facility] [address] [place] [address] Dr. Dona Turner Glucose [Mass/Vol] 104 mg/dL Normal 74-106 [facility] Comment on above: Performed By: #### C VDTBH #### [facility] [address] [place] [address] Dr. Dona Turner Potassium [Moles/Vol] 4.1 mmol/L Normal 3.5-5.1 The [facility] Comment on above: Performed By: #### C VDTBH #### [facility] [address] [place] [address] Dr. Dona Turner Protein [Mass/Vol] 7.6 g/dL Normal 6.4-8.2 [facility] Comment on above: Performed By: #### C VDTBH #### [facility] [address] [place] [address] Dr. Dona Turner Sodium [Moles/Vol] 138 mmol/L Normal 136-145 [facility] Comment on above: Performed By: #### C VDTBH #### [facility] [address] [place] [address] Dr. Dona Turner Urea nitrogen [Mass/Vol] 14.0 mg/dL Normal 7.0-18.0 [facility] Comment on above: Performed By: #### C VDTBH #### [facility] [address] [place] [address] Dr. Dona Turner Urea nitrogen/Creatinine [Mass ratio] 23.0 mg/mg Normal [facility] Comment on above: Performed By: #### C VDTBH #### [facility] [address] [place] [address] Dr. Dona Turnre TSHon 07-09-2022 TSH 0.324 uIU/mL Critically low 0.358-3.740 [facility] Comment on above: Performed By: #### C VDTBH #### [facility] [address] [place] [address] Dr. Dona Turner VITAMIN D 25 OHon 07-09-2022 VIT D 25-OH 52.6 ng/mL Normal [facility] Comment on above: Performed By: #### I NSULIN #### [facility] [address] [place] [address] Dr. Dona Turner VIT D RANGES SEE BELOW Normal [facility] Comment on above: Result Comment: <20 ng/mL Vit D deficient 20 - <30 ng/mL Vit D insufficient 30 - 100 ng/mL Vit D sufficient >100 ng/mL Potential Toxicity Performed By: #### I NSULIN #### [facility] [address] [place] [address] Dr. Dona Turner [facility]02 SARS-CoV-2 (COVID-19) RNA JEWEL+probe Ql (Unsp spec) Not detected Normal NOT DETECTED [facility] Comment on above: Result Comment: This test is not yet approved or cleared by the [place] FDA. When there are no FDA-approved or cleared tests available, and other criteria are met, FDA can make tests available under an emergency access mechanism called an Emergency Use Authorization (EUA). The EUA for this test is supported by the [place] of Health and Human Service's (HHS's) declaration [...] consistent with SARS-CoV-2. Performed By: #### C [facility] #### [facility] [address] [place] [address] Dr. Dona Turner Coding Summary.on 09-12-2018 Coding Summary. CODING DATE: 09/12/2018 [facility] STATUS: Home (Routine DC) PAYOR: Loreto APC [...] Cuellar Date Saved: 09/12/2018 03:25 pm Normal [facility] Main OR Intraoperative Recor don 09-09-2018 Main OR Intraoperative Record IntraOp Document Type FTURO Summary Primary Physician: David ORTIZ MD Finalized Date/Time: 09/09/18 12:32:44 Pt. Name: IAN BRIGGS /Sex: 1970 Female Med Rec #: [id number] Physician: David ORTIZ MD Financial #: [id number] Pt. Type: O Room/Bed: / Admit/Disch: 09/09/18 09:49:59 - Institution: Case Times FTURO Entry 1 Patient Times In Room 09/09/18 12:19:00 Out Room 09/09/18 12:33:00 Procedure Times Start 09/09/18 12:22:00 Stop 09/09/18 12:26:00 Anesthesia Times Last Modified By: Lilliana LINDO, RADHIKAOR, Pearl Hoffmann 09/09/18 12:32:32 Case Attendance FTURO Entry 1 Entry 2 Entry 3 Case Attendee David ORTIZ MD LANDSCAPING MANAGER, Alannah Tijerina RN, CNOR, Pearl Hoffmann Role Performed Surgeon - Primary Scrub - Primary Frontend Engineer - Primary Time In 09/09/18 12:20:00 [...] 2 - Clean-Contaminated Last Modified By: Lilliana LINDO, RADHIKAOR, Pearl Hoffmann 09/09/18 12:30:52 General Case [...] David ORTIZ MD, Verified (If Participants [place] LANDSCAPING MANAGER, Alannah, Applicable) GIUSEPPE Tijerina RN, Lou Ann [...] Tijerina RN, Lou Ann 09/09/18 12:32 Normal [facility] Main OR Preoperative Recordo n 09-09-2018 Main OR Preoperative Record Holding Area Document Type FTURO Summary Primary Physician: David ORTIZ MD Finalized Date/Time: 09/09/18 12:22:07 Pt. Name: IAN BRIGGS/Sex: 1970 Female Med Rec #: [id number] Physician: David ORTIZ MD Financial #: [id number] Pt. Type: O Room/Bed: / Admit/Disch: 09/09/18 [...] Complaints of Pain: No Skin Integrity Intact, [place], Warm, & Dry Vitals - EU Blood Pressure 141/78 Pulse 57 bpm Respirations 16 br/min SPO2 Additional None RN Reviewed Yes Specimens Collected Last Modified By: GIUSEPPE Tijerina RN, Lou Ann 09/09/18 12:22:05 Finalized By: GIUSEPPE Tijerina RN, Lou Ann Document Signatures Signed By: Racheal Bernabe 09/09/18 11:43 GIUSEPPE Tijerina RN, Lou Ann 09/09/18 12:22 Normal [facility] Operative Reporton 9 Operative Report Patient: [...] urine. The Urethra was dilated to: 30 Lao w/ sounds. Devices Implanted: None. Removal: Cystoscope is removed, The patient tolerated it well. Postoperative Information Discharge: Patient is discharged home with antibiotic coverage, Follow up arranged. she will do timed/double voids. try ditropan xl 10mgqd f/u 3 months with pvr bladder scan....?pessary. Normal [facility] Comment on above: Result Comment: Elec tronically Signed By: ANGEL SWANSON, David Leija.br\Date and Time Signed: 09/09/18 12:39 EST Encounters Encounter Date Encounter Type Care Provider Facility Start: 07-06-2024 [facility] Start: 01-29-2023 End: 01-30-[address] SEFERINO MENDOZA . Facility:[facility] Start: 01-07-2023 End: 01-08-[address] SEFERINO MENDOZA . Facility:[facility] Start: 10-13-2022 End: 10-14-[address] SEFERINO MENDOZA . Facility:[facility] Start: 07-14-2022 Encounter for genera l adult medical examination without abnormal findings DR SEFERINO MENDOZA . [facility] Start: 07-13-2022 End: 07-14-[address] SEFERINO [...] Start: 01-29-2018 End: 01-30-2018 Ambulatory DEFAULT PHYSICIAN Facility:[facility] Procedures Date Procedure Procedure Detail Performing Clinician Start: 07-06-2024 Computerized ophthal raf imaging retina Que Fernando Shawna Payers Date Payer Category Payer Unknown [id number] 1970 Unknown [id number] 2.16.84 [id number] 1970 Unknown [id number] 2.16.84 [id number] 1970 Unknown [id number] 2.16.84 [id number] 1970 Unknown [id number] 2.16.84 [id number] 1970 Unknown [id number] 2.16.84 [id number] 1968 Unknown [id number] 2.16.84 [id number] 1970 Unknown [id number] 2.16.84 [id number] 1970 Unknown [id number] 2.16.84 [id number] 1970 Unknown [id number] 2.16.84 [id number] 1961 Unknown [id number] Unknown Clinical Note 07-03-2022 Note Date & [...] authenticated by: NAZARIO PEREZ Date: 2022-07-03 10:07 [facility] Clinical Note 07-03-2022 Note Date & [...] authenticated by: NAZARIO PEREZ Date: 2022-07-03 10:07 [facility] Summary Purpose Family History No Family History Records FoundNo Family History Records FoundNo Family History Records FoundNo Family History Records Found Advance Directives No Advanced Directives Records FoundNo Advanced Directives Records FoundNo Advanced Directives Records FoundNo Advanced Directives Records Found Additional Source Comments INFORMATION SOURCE (unrecogn ized section and content) DATE CREATED AUTHOR 02/19/2018 [facility] DATE CREATED AUTHOR AUTHOR'S ORGANIZ ATION 05/23/2019 [facility] DATE CREATED AUTHOR AUTHOR'S ORGANIZ ATION 02/08/2023 [facility] DATE CREATED AUTHOR AUTHOR'S ORGANIZ ATION 10/10/2024 [facility] nstitute FOR RECORDS PERTAINING TO PATIENTS WHO [...] BE BASED ON THE PRIMARY CLINICAL RECORDS. [employer] provides no warranty or guarantee of the accuracy or completeness of information in this document.
[2025-01-18 07:32] LABS: Basophils Absolute Auto 0.1 10^3/uL (0.0-0.1); Eosinophils Absolute Auto 0.1 10^3/uL (0.0-0.7); Eosinophils Percent Auto 2.6 % (0.9-7.0); Hemoglobin 12.4 g/dL (12.0-16.0); Immature Granulocytes Abs Auto 0.01 10^3/uL (0.00-0.03); Immature Granulocytes Pct Auto 0.2 % (0.0-0.5); Lymphocytes Absolute Auto 1.7 10^3/uL (1.2-3.8); Lymphocytes Percent Auto 32.7 % (20.5-60.0); Mean Corpuscular HGB Conc 32.6 g/dL (29.9-35.2); Mean Corpuscular Hemoglobin 26.3 pg (26.7-34.0); Mean Corpuscular Volume 80.7 fL (81.0-99.0); Mean Platelet Volume 10.8 fL (9.5-13.5); Monocytes Absolute Auto 0.4 10^3/uL (0.3-0.8); Monocytes Percent Auto 8.3 % (1.7-12.0); Neutrophils Absolute Auto 2.8 10^3/uL (1.4-6.5); Neutrophils Percent Auto 55.2 % (43.0-75.0); Platelet Count 213 10^3/uL (150-450); Red Blood Count 4.71 10^6/uL (4.20-5.40); Red Cell Distribution Width 13.2 % (11.0-15.0); White Blood Count 5.1 10^3/uL (4.0-11.0)
[2025-01-18 07:56] LABS: Alanine Aminotransferase 32 U/L (14-59); Albumin Globulin Ratio 1.1; Albumin Level 3.4 g/dL (3.4-5.0); Alkaline Phosphatase 69 U/L (46-116); Anion Gap 11.8; Aspartate Amino Transferase 14 U/L (15-37); BUN Creatinine Ratio 15.9; Bilirubin Total 0.5 mg/dL (0.2-1.0); Carbon Dioxide 28.1 mmol/L (21.0-32.0); Chloride 106 mmol/L (98-107); Cholesterol 124 mg/dL (<=200); Estimated GFR (African America >60 (>=60 mL/min/1.73m^2); Estimated GFR (Non-African Ame >60 (>=60 mL/min/1.73m^2); Free T3 3.35 pg/mL (2.18-3.98); Globulin 3.2 g/dL; Glucose 185 mg/dL (74-106); HDL Cholesterol 31 mg/dL (40-60); Potassium 3.9 mmol/L (3.5-5.1); Sodium 142 mmol/L (136-145); Thyroid Stimulating Hormone 0.074 uIU/mL (0.358-3.740); Total Protein 6.6 g/dL (6.4-8.2); Triglycerides 220 mg/dL (<=150)
[2025-01-18 09:09] LABS: Glycohemoglobin A1C 9.6 % (4.5-6.2)
[2025-01-18 09:10] LABS: Estimated Average Glucose 229 mg/dL
[2025-01-18 16:29] LABS: Internal Control Within Normal Limits; Occult Blood Negative
== END 2025-01-18 06:59 | disposition home or self-care (01) ==
LOC: LAB 06:59
PROVIDERS: PCP Family Medicine; Visit Provider Family Medicine
DX: E03.9 Hypothyroidism, unspecified (principal); I10 Essential (primary) hypertension; M25.50 Pain in unspecified joint; E11.319 Type 2 diabetes mellitus with unspecified diabetic retinopathy without macular edema; E11.40 Type 2 diabetes mellitus with diabetic neuropathy, unspecified; K21.9 Gastro-esophageal reflux disease without esophagitis; Z12.12 Encounter for screening for malignant neoplasm of rectum; D64.9 Anemia, unspecified
CPT/HCPCS: 36415; 80053; 80061; 83036; 83540; 84436; 84443; 84481; 85025; G0328

== ENCOUNTER 2025-02-04 15:33 | Outpatient (OUT) | payer BC, SELFPAY ==
--- OUTSIDE RECORDS SUMMARY | 2025-01-18 08:53 | XMS_ITS ---
Author Organization [facility] [place] Address [address] [place] [address] Care Team Providers Care Cycle Liaison Name Role Phone Angel Ahmadi Primary Care Provider REASON FOR VISIT review labs- Medications Medication SIG (Take, Route, Frequency, Duration) Notes Start Date End Date Status Ferrous Sulfate 325 (65 Fe) MG 1 tablet Orally twice daily for 30 days 01/18/2025 Active Encounters Encounter Location Date Provider Diagnosis [facility] [address] [place] [address] 01/18/2025 Angel Ahmadi Hypertension I10 Assessments Encounter Date Diagnosis (ICD Code) Assessment Notes Treatment Notes Treatment Clinical Notes Section Notes 01/18/2025 Hypertension (ICD-10 - I10) Plan Of Treatment Medication Medication Name Sig Start Date Stop Date Notes Ferrous Sulfate 325 (65 Fe) MG 1 tablet Orally twice daily for 30 days 01/18/2025 Ozempic (0.25 or 0.5 MG/DOSE) 2 MG/3ML 0.25 mg Subcutaneous weekly 01/14/2025 Next Appt Details Provider Name:Angel Wise Emmanuelceasar, 03:30:00 PM, [address] [place], [address], Progress Notes * Ian BRIGGS LDOB:1970 (54 yo F)Acc No.[id number]:01/18/2025 Patient: Ian MENDIETA :1970 A ge:54 Y S ex:Female Address:[address] [place] [address], [id number] * Refills Start Ferrous Sulfate Tablet, 325 (65 Fe) MG, Orally, 60 Tablet, 1 tablet, twice daily, 30 days, Refills=11 Stop Ozempic (0.25 or 0.5 MG/DOSE) Solution Pen-injector, 2 MG/3ML, Subcutaneous, 0.25 mg, weekly * true * Date: Generated for Edna sandoval/Jerson/Florismitting on: 0 02/04/2025 03:36 PM EDT
--- OUTSIDE RECORDS SUMMARY | 2025-01-19 12:21 | XMS_ITS ---
Author Organization [facility] [place] Address [address] [place] [address] Care Team Providers Care Body Repairer Name Role Phone Angel Ahmadi Primary Care Provider [phone] REASON FOR VISIT Jardiance Medications Medication SIG (Take, Route, Fr equency, Duration) Notes Start Date End Date Status Jardiance 10 MG 1 tablet Orally Once a day for 30 days 01/19/2025 Active Encounters Encounter Location Date Provider Diagnosis [facility] [address] [place] [address] 01/19/2025 Angel Ahmadi Plan Of Treatment Medication Medication Name Sig Start Date Stop Date Notes Jardiance 10 MG 1 tablet Orally Once a day for 30 days Next Appt Details Provider Name:Angel Frandy Ahmadi, 03:30:00 PM, [address] [place], [address], Progress Notes * Ian BRIGGS LDOB:1970 (54 yo F)Acc No.[id number]:01/19/2025 Patient: Ganesh MENDIETAtunde Perales :1970 A ge:54 Y S ex:Female Address:[address] [place] [address], [phone] * Refills Start Jardiance Tablet, 10 MG, Orally, 30, 1 tablet, Once a day, 30 days, Refills=11 * true * Date: Generated for Edna sandoval/Jerson/Noamitting on: 0 02/04/2025 03:35 PM EDT
--- NOTE | 2025-02-04 | MM_ITS ---
Patient Name: QUINN AGUILAR MR#: [id number] : 1970 Exam Date: 02/04/2025 Ordering Doctor: DR SEFERINO MENDOZA . RADIOLOGY REPORT PROCEDURE: MM TOMOSYNTHESIS SCREENING BI COMPARISON: MM TOMOSYNTHESIS SCREENING BI, 02/04/2024. MG MAMM SCREEN 3D PORSHA CAD, 01/29/2023. MG MAMM SCREEN 3D PORSHA CAD, 01/25/2022. MG MAMM PORSHA SCRN W CAD DIG, 10/05/2013. INDICATIONS: SCREENING Calculator Name NCI Breast Cancer Risk Assessment Tool 5 Year Breast Cancer Risk 1.10% Lifetime Breast Cancer Risk 7.20% Personal Breast Cancer No Personal Ovarian Cancer No Treatments None Family Cancers None LOCATION: [facility] BREAST COMPOSITION: There are scattered areas of fibroglandular density. FINDINGS: RIGHT BREAST: No significant suspicious finding. Benign-appearing lymph nodes are noted. LEFT BREAST: No significant suspicious finding. Benign-appearing lymph nodes are noted . DIAGNOSTIC CATEGORY 1--NEGATIVE. RECOMMENDATIONS: ROUTINE MAMMOGRAM AND CLINICAL EVALUATION IN 12 MONTHS. PLEASE NOTE: A NORMAL MAMMOGRAM DOES NOT EXCLUDE THE POSSIBILITY OF BREAST CANCER. A CLINICALLY SUSPICIOUS PALPABLE LUMP SHOULD BE BIOPSIED. Dictated by: Tucker Goldman MD on 02/04/2025 at 16:49 Approved by: Tucker Goldman MD on 02/04/2025 at 16:59
--- OUTSIDE RECORDS SUMMARY | 2025-02-04 15:35 | XMS_ITS | Patient Health Record ---
Author Organization [facility] in [place] Address [address] [place] [address] Care Team Providers Care Interactive Media Director Name Role Phone Angel Mendoza Primary Care Provider SEFERINO MENDOZA Unavailable [phone] Marilyn Kuhn Unavailable [phone] Allergies Allergen (clinical drug ingredient) Drug/Non Drug Allergy documented on EMR Reaction Allergy Type Onset Date Status penicillin G Penicillin G Sodium rash Drug Allergy Active Penicillin Unknown Drug Allergy Active Results Component Value Reference Range Notes UA (Urinalysis, Dipstix only - w/o micro) Reviewed date:01/18/2025 12:56:08 PM Interpretation: Performing Lab: Notes/Report: COLOR yellow Yellow - Alannah - CLARITY clear Clear - Clear GLUCOSE +++ 0 - 133 MG/DL BILIRUBIN - NEG - NEG MG/DL SPECIFIC GRAVITY 1.020 1.001 - 1.035 KETONES - NEG - NEG MG/DL BLOOD, UR trace PH, UR 5 5 - 9 UROBILNOGEN - 0.2 - 1 MG/DL NITRITE - NEG - NEG ESTERASE (VERN) + NEG - NEG MG/DL MM tomosynthesis screening B I Reviewed date:02/06/2024 03:04:23 PM Interpretation: Performing Lab: Notes/Report: Source Facility: [facility]-[address] [place] [address] [place] [address] Mammography Report Signed Patient: IAN BRIGGS MR#: [id number] : 1970 Acct:[id number] Age/Sex: 53 / F ADM Date: 02/04/24 Loc: MAMMO Attending Dr: Seferino Mendoza M.D. Ordering Physician: Seferino Mendoza M.D. Results: Date of Service: 02/04/24 Follow Up: Procedure(s): MM tomosynthesis screening BI Accession Number(s): [id number] cc: Seferino Mendoza M.D. Patient Name: IAN BRIGGS MR#: [id number] : 1970 Exam Date: 02/04/2024 Ordering Doctor: DR Seferino Mendoza . RADIOLOGY REPORT PROCEDURE: MM TOMOSYNTHESIS SCREENING BI COMPARISON: MG MAMM SCREEN 3D PORSHA CAD, 01/29/2023. MG MAMM SCREEN 3D PORSHA CAD, 01/25/2022. MG MAMM SCREEN 3D PORSHA CAD, 01/24/2021. MG MAMM PORSHA SCRN W CAD DIG, 10/05/2013. INDICATIONS: Screening mammogram Calculator Name NCI Breast Cancer Risk Assessment Tool 5 Year Breast Cancer Risk 1.10% Lifetime Breast Cancer Risk 7.40% Personal Breast Cancer No Personal Ovarian Cancer No Treatments None Family Cancers None LOCATION: [facility] BREAST COMPOSITION: There are scattered areas of fibroglandular density. FINDINGS: DIAGNOSTIC CATEGORY 1--NEGATIVE. RIGHT [...] BIOPSIED. Dictated by: Nazario Perez M.D. on 02/06/2024 at 14:04 Approved by: Nazario Perez M.D. on 02/06/2024 at 14:18 Dictated By: Nazario Perez M.D. Signed By: 02/06/24 1419 DD/ 1419 TD/TT: Food Server: [place] [address] Mammography Report Signed Patient: IAN BRIGGS MR#: [id number] : 1970 Acct:[id number] Age/Sex: 53 / F ADM Date: 02/04/24 Loc: MAMMO Attending Dr: Janneth Mendoza M.D. Ordering Physician: Seferino Mendoza M.D. Results: Date of Service: 02/04/24 Follow Up: Procedure(s): MM tomosynthesis screening BI Accession Number(s): [id number] cc: Seferino Mendoza M.D. Patient Name: IAN BRIGGS MR#: [id number] : 1970 Exam Date: 02/04/2024 Ordering Doctor: DR Seferino Mendoza . RADIOLOGY REPORT PROCEDURE: MM TOMOSYNTHESIS SCREENING BI COMPARISON: MG MAMM SCREEN 3D PORSHA CAD, 01/29/2023. MG MAMM SCREEN 3D PORSHA CAD, 01/25/2022. MG M AMM SCREEN 3D PORSHA CAD, 01/24/2021. MG MAMM PORSHA SCRN W CAD DIG, 10/05/2013. INDICATIONS: Screeni ng mammogram Calculator Name NCI Breast Cancer Risk Assessment Tool 5 Year Breast Cancer Risk 1.10% Lifetime Breast Canc er Risk 7.40% Personal Breast Canc er No Personal Ovarian Can cer No Treatments None Family Cancers None LOCATION: [facility] BREAST COMPOSITION: There are scattered areas of fibroglandular density. FINDINGS: DIAGNOSTIC CATEGORY 1--NEGATIVE. RIGHT BREAST: No significant suspicious finding. No significant change has occurred. LEFT BREAST: No significant suspicious finding. No significant change has occurred. RECOMMENDATIONS: ROUTINE MAMMOGRAM AN D CLINICAL EVALUATION IN 12 MONTHS. PLEASE NOTE: A ILA L MAMMOGRAM DOES NOT EXCLUDE THE POSSIBILITY OF BREAST CANCER. A CLINICALLY SUSPICIOUS PALPABLE LUMP SHOULD BE BIOPSIED. Dictated by: Nazario Perez M.D. on 02/06/2024 at 14:04 Approved by: Nazario Perez M.D. on 02/06/2024 at 14:18 Dictated By: Nazario Perez M.D. Signed By: 02/06/24 1419 DD/ 1419 TD/TT: Food Server: EXT Venous Reflux PORSHA LMT D Reviewed date:04/14/2024 08:55:08 PM Interpretation: Performing Lab: Notes/Report: Source Facility: [place] [address] [place] [id number] Vein Report Signed Patient: IAN BRIGGS MR#: [id number] : 1970 Acct:[id number] Age/Sex: 54 / F ADM Date: 04/13/24 Loc: RAD Attending Dr: Seferino Mendoza M.D. Ordering Physician: Seferino Mendoza M.D. Date of Service: 04/13/24 Procedure(s): VC EXT Venous Reflux PORSHA LMTD Accession Number(s): [id number] cc: Seferino Mendoza M.D. Patient Name: IAN BRIGGS MR#: [id number] : 1970 Exam Date: 04/13/2024 Ordering Doctor: DR Seferino Mendoza . CORRECTION Corrected on: 04/14/2024; change brain to vein in the impression RADIOLOGY REPORT PROCEDURE: VC EXT VENOUS REFLUX PORSHA LMTD COMPARISON: None. INDICATIONS: Edema R60.0 TECHNIQUE: Duplex imaging of the lower extremity to assess the deep and superficial venous system for the presence of deep or superficial venous incompetence and to document the location and severity of disease. The study includes evaluation of the great saphenous vein (GSV), anterior accessory saphenous vein (AASV) and small saphenous vein (SSV). Patient scanned in reverse Trendelenburg and standing. FINDINGS: RIGHT LOWER EXTREMITY: Saphenofemoral Junction Reflux: Yes 10.7mm 1.8 sec GSV: Diam (mm) Reflux/ Time (sec) Proximal Thigh 8.6 Yes 3.9 Mid Thigh 4.3 Yes 0.5 Distal Thigh 5.7 Yes 1.1 Prox Calf 4.7 Yes 0.3 Mid Calf 3.8 Yes 0.5 Saphenopopliteal Junction Reflux: 2.7mm Yes 0.3 SSV: Proximal Calf 3.3 No Mid Calf 3.5 No AASV: Proximal Thigh 5.9 No Mid Thigh 3.7 Yes 0.3 Distal Thigh Thrombi: No acute or chronic thrombus. Compressibility: Normal. Flow: No significant deep venous reflux. Preforator: Dist/medial lower leg 3.7 mm with 0.3s of reflux. Mid medial calf 2.8 mm with 0.6s reflux. Tech Note: Complex fluid collection popliteal fossa measures 4.7 x 2.6 x 1.7 cm. Incompetent varicose vein medial knee measures 3.6 mm with 0.7s reflux. Varicose vein mid medial thigh measures 5.2 mm with 0.7s reflux. Varicose vein mid medial calf measures 4.0 mm with 1.1s reflux. LEFT LOWER EXTREMITY: Saphenofemoral Junction Reflux: Yes 10.8 mm 1.5 sec GSV: Diam (mm) Reflux/Time (sec) Proximal Thigh 8.9 Yes 0.8 Mid Thigh 5.4 Yes 4.3 Distal Thigh 5.8 Yes 4.8 Prox Calf 4.0 Yes 1.9 Mid Calf 4.2 Yes 1.3 Saphenopopliteal Junction Relux: 5.5 mm Yes 0.9 SSV: Proximal Calf 3.9 No Mid Calf 3.3 No AASV: Proximal Thigh 6.4 Yes 0.4 Mid Thigh 5.3 Yes 1.0 Distal Thigh Thrombi: No acute or chronic thrombus. Compressibility: Normal. Flow: Severe reflux in popliteal vein. Clinic Office Assistant: Dist/medial lower leg 2.4 mm without reflux. Mid posterior calf 3.7 mm with 4.8s reflux. Tech Note: Incompetent varicose vein proximal medial calf measures 5.0 mm with 3.5s reflux. Varicose vein mid medial thigh off of GSV measures 4.3 mm with 0.5s reflux. CONCLUSION: 1. Moderate to severe bilateral great saphenous vein venous insufficiency with saphenofemoral junction reflux and dilatation 2. Severe deep vein reflux left popliteal vein 3. Bilateral incompetent varicose veins Dictated by: Thomas Shearer MD on 04/13/2024 at 14:53 Approved by: Thomas Shearer MD on 04/13/2024 at 15:27 Dictated by: Thomas Shearer MD on 04/14/2024 at 15:09 Approved by: Thomas Shearer MD on 04/14/2024 at 15:09 Dictated By: Thomas Shearer M.D. Signed By: 04/14/24 1510 DD/ 1509 TD/TT: Food Server: The [address] [address] Vein Report Signed Patient: IAN BRIGGS MR#: [id number] : 1970 Acct:[id number] Age/Sex: 54 / F ADM Date: 04/13/24 Loc: RAD Attending Dr: Janneth Mendoza M.D. Ordering Physician: Seferino Mendoza M.D. Date of Service: 04/13/24 Procedure(s): VC EXT Venous Reflux PORSHA LMTD Accession Number(s): [id number] cc: Seferino Mendoza M.D. Patient Name: IAN BRIGGS MR#: [id number] : 1970 Exam Date: 04/13/2024 Ordering Doctor: DR Seferino Mendoza . CORRECTION Corrected on: 024; change brain to vein in the impression RADIOLOGY REPORT PROCEDURE: VC EXT VE NOUS REFLUX PORSHA LMTD COMPARISON: None. INDICATIONS: Edema R60.0 TECHNIQUE: Duplex imaging of the lower extremity to assess the deep and superficial venous system for the presence of deep or superficial venous incompetence and to document the location and severity of disease. The study includes evaluation of the great saphenous vein (GSV), anterior accessory saphenous vein (AASV ) and small saphenous vein (SSV). Patient scanned in reverse Trendelenbur g and standing. FINDINGS: RIGHT LOWER EXTREMITY: Saphenofemoral Junct ion Reflux: Yes 10.7mm 1.8 sec GSV: Diam (mm) Reflu x/ Time (sec) Proximal Thigh 8.6 Y es 3.9 Mid Thigh 4.3 Yes 0.5 Distal Thigh 5.7 Yes 1.1 Prox Calf 4.7 Yes 0.3 Mid Calf 3.8 Yes 0.5 Saphenopopliteal Junction Reflux: 2.7mm Yes 0.3 SSV: Proximal Calf 3.3 No Mid Calf 3.5 No AASV: Proximal Thigh 5.9 No Mid Thigh 3.7 Yes 0.3 Distal Thigh Thrombi: No acute or chronic thrombus. Compressibility: Normal. Flow: No significant deep venous reflux. Preforator: Dist/medial lower le g 3.7 mm with 0.3s of reflux. Mid medial calf 2.8 mm with 0.6s reflux. Tech Note: Complex f luid collection popliteal fossa measures 4.7 x 2.6 x 1.7 cm. Incompetent vari cose vein medial knee measures 3.6 mm with 0.7s reflux. Varicose vein mid me dial thigh measures 5.2 mm with 0.7s reflux. Varicose vein mid medial calf honey ures 4.0 mm with 1.1s reflux. LEFT LOWER EXTREMITY: Saphenofemoral Junct ion Reflux: Yes 10.8 mm 1.5 sec GSV: Diam (mm) Reflux/Time (sec) Proximal Thigh 8.9 Y es 0.8 Mid Thigh 5.4 Yes 4.3 Distal Thigh 5.8 Yes 4.8 Prox Calf 4.0 Yes 1.9 Mid Calf 4.2 Yes 1.3 Saphenopopliteal Junction Relux: 5.5 mm Yes 0.9 SSV: Proximal Calf 3.9 No Mid Calf 3.3 No AASV: Proximal Thigh 6.4 Y es 0.4 Mid Thigh 5.3 Yes 1.0 Distal Thigh Thrombi: No acute or chronic thrombus. Compressibility: Normal. Flow: Severe reflux in popliteal vein. Clinic Office Assistant: Dist/medial lower le g 2.4 mm without reflux. Mid posterior calf 3.7 mm with 4.8s reflux. Tech Note: Incompete nt varicose vein proximal medial calf measures 5.0 mm with 3.5s reflux. Varicos e vein mid medial thigh off of GSV measures 4.3 mm with 0.5s reflux. CONCLUSION: 1. Moderate to sever e bilateral great saphenous vein venous insufficiency with saphenofemoral junct ion reflux and dilatation 2. Severe deep vein reflux left popliteal vein 3. Bilateral incompe tent varicose veins Dictated by: Thomas zafar MD on 04/13/2024 at 14:53 Approved by: Thomas zafar MD on 04/13/2024 at 15:27 Dictated by: Thomas zafar MD on 04/14/2024 at 15:09 Approved by: Thomas zafar MD on 04/14/2024 at 15:09 Dictated By: René Shearer M.D. Signed By: 04/14/24 1510 DD/ 1509 TD/TT: Food Server: DAMIAN harrell RT min 2V Reviewed date:04/15/2024 07:19:17 PM Interpretation: Performing Lab: Notes/Report: Source Facility: [facility]-[address] [place] [address] [place] [address] XRay Report Signed Patient: IAN BRIGGS MR#: [id number] : 1970 Acct:[id number] Age/Sex: 54 / F ADM Date: 04/13/24 Loc: RAD Attending Dr: Seferino Mendoza M.D. Ordering Physician: Seferino Mendoza M.D. Date of Service: 04/13/24 Procedure(s): XR shoulder RT min 2V Accession Number(s): [id number] cc: Seferino Mendoza M.D. [address] [address] Patient Name: IAN BRIGGS MRN: [id number] date: 1970 Sex: F Assigned Patient Location: [facility] Current Patient Location: [facility] Accession/Order Number: [id number] Exam Date: 04/13/2024 10:00 Report Date: 04/15/2024 06:29 At the request of: SEFERINO MENDOZA Procedure: XR shoulder RT min 2V PROCEDURE: XR shoulder RT min 2V HISTORY: Arthralgia M25.50 COMPARISON: None. FINDINGS: BONES:Mild degenerative changes of the acromioclavicular joint. Unremarkable humeral head, scapula, and glenohumeral joint. SOFT TISSUES:No visible soft tissue swelling. EFFUSION:None visible. OTHER: Negative. XR/XR shoulder RT min 2V IMPRESSION: 1. No acute or suspicious bone abnormality. 2. Mild degenerative changes of the acromioclavicular joint. Electronically authenticated by: NAZARIO PEREZ Date: 04/15/2024 06:29 Dictated By: Nazario Perez M.D. Signed By: 04/15/2432 DD/ TD/TT: Food Server: The [address] [address] XRay Report Signed Patient: IAN BRIGGS MR#: [id number] : 1970 Acct:[id number] Age/Sex: 54 / F ADM Date: 04/13/24 Loc: RAD Attending Dr: Janneth Mendoza M.D. Ordering Physician: Seferino Mendoza M.D. Date of Service: 04/13/24 Procedure(s): XR shoulder RT min 2V Accession Number(s): [id number] cc: Seferino Mendoza M.D. [place] [address] Patient Name: IAN BRIGGS MRN: [id number] date: 1970 Sex: F Assigned Patient Location: [facility] Current Patient Location: RAD Accession/Order Numb er: [id number] Exam Date: 04/13/2024 10:00 Report Date: 04/15/2024 06:29 At the request of: SEFERINO MENDOZA Procedure: XR should er RT min 2V PROCEDURE: XR should er RT min 2V HISTORY: Arthralgia M25.50 COMPARISON: None. FINDINGS: BONES:Mild degenerat akash changes of the acromioclavicular joint. Unremarkable humeral head, scapul a, and glenohumeral joint. SOFT TISSUES:No visi ble soft tissue swelling. EFFUSION:None visible. OTHER: Negative. X R/XR shoulder RT min 2V IMPRESSION: 1. No acute or suspicious bone abnormality. 2. Mild degenerative changes of the acromioclavicular joint. Electronically authenticated by: NAZARIO PEREZ Date: 04/15/2024 06:29 Dictated By: Nazario Perez M.D. Signed By: 04/15/2432 DD/ TD/TT: Food Server: Facility EST Comprehensiv e Reviewed date:05/21/2024 04:40:46 PM Interpretation: Performing Lab: Notes/Report: Source Facility: [place] [address] Vein Report Signed Patient: IAN BRIGGS MR#: [id number] : 1970 Acct:[id number] Age/Sex: 54 / F ADM Date: 05/21/24 Loc: Attending Dr: Seferino Mendoza M.D. Ordering Physician: Hoy,Seferino M.D. Date of Service: 05/21/24 Procedure(s): [facility] EST Comprehensive Accession Number(s): [id number] cc: Sefernio Mendoza M.D. Patient Name: IAN BRIGGS MR#: [id number] : 1970 Exam Date: 05/21/2024 Ordering Doctor: DR SEFERINO MENDOZA . RADIOLOGY REPORT PROCEDURE: [facility] COMPREHENSIVE VEIN CENTER - OFFICE VISIT INITIAL COMPARISON: None. PROGRESS NOTES: 54-year-old female who presents from her primary care physician Dr. Herrmann with bilateral leg edema and pain present for approximately 5-10 years but significantly increasing in the past 3 months. The patient reports several episodes of deep vein thrombus in the left leg more than 10 years ago for which she was temporarily placed on a blood thinner. The patient is no longer on a blood thinner. The patient has worn compression stockings for over 5 years. The patient's symptoms are exacerbated by prolonged sitting and standing and are only partially relieved by rest, leg elevation and over the counter Tylenol. The patient denies any signs and symptoms to suggest arterial ischemia. The patient describes a family history significant for diabetes hypertension and varicose veins. Past medical history is significant for lower extremity edema, varicose veins, hypercholesterolemia, hyperthyroidism, diabetes, hypertension. Past surgical history is significant for left shoulder arthroscope, carpal tunnel central in hysterectomy The patient does not drink alcohol. The patient has never smoked. No illicit drug use. No history of deep venous thrombus or pulmonary embolus. See separate history and physical for medication list. No prior treatment for varicose or spider veins. Nursing notes were reviewed. After history and physical exam I discussed at length the pathophysiology of venous hypertension and possible treatments, therapies and strategies available. We discussed at length the importance of elevating the lower extremities above the level of the heart, increased physical activity and compression stocking use. We discussed conservative treatment with compression stockings. Surgical and the interventions including ligation stripping and phlebectomy. I informed the patient that her symptoms were likely multifactorial and that treatment likely would resolve an improvement but not complete resolution of her swelling. Ultrasound venous reflux study performed April 13, 2024 was discussed at length with the patient. The report demonstrates moderate right and severe left great saphenous vein venous insufficiency with dilatation and saphenofemoral junction reflux. Bilateral incompetent varicose veins PHYSICAL EXAM: The right leg demonstrates moderate scattered varicose, reticular and spider veins. No hemosiderin staining . Mild to moderate subcutaneous edema. No active ulceration The left leg demonstrates moderate scattered varicose, reticular and spider veins. No hemosiderin staining. Mild to moderate subcutaneous edema. No active ulceration. Both thighs, legs and feet were symmetrically warm to the touch. Good posterior tibial and dorsalis pedis pulses were present bilaterally. VEIN/VC Facility EST Comprehensive IMPRESSION: 1. Bilateral great saphenous vein venous insufficiency with dilatation and saphenofemoral junction reflux 2. Moderate bilateral lower extremity varicose veins 3. Mild to moderate bilateral lower extremity subcutaneous edema 4. No definite flow significant arterial disease 5. CEAP: C3, Ep, As, Pr PLAN: 1. Endovenous laser ablation of the left great saphenous vein followed by the right great saphenous vein 2. Micro foam chemical ablation bilateral incompetent varicose veins 3. Injection sclerotherapy of reticular and spider veins 4. Long-term use of bilateral thigh-high or knee high 20-30 mm compression stockings 5. Leg elevation and increased physical activity for symptomatic relief Nurse notes, history and physical were reviewed and confirmed, see attached forms. The nurse was present throughout the physical exam and consultation Dictated by: Thomas Shearer MD on 05/21/2024 at 15:24 Approved by: Thomas Shearer MD on 05/21/2024 at 15:33 Dictated By: Thomas Shearer M.D. Signed By: 05/21/24 1535 DD/ 1534 TD/TT: Food Server: [place] [address] Vein Report Signed Patient: IAN BRIGGS MR#: [id number] : 1970 Acct:[id number] Age/Sex: 54 / F ADM Date: 05/21/24 Loc: Attending Dr: Janneth Mendoza M.D. Ordering Physician: Seferino Mendoaz M.D. Date of Service: 05/21/24 Procedure(s): VC Facility EST Comprehensive Accession Number(s): [id number] cc: Seferino Mendoza M.D. Patient Name: IAN BRIGGS MR#: [id number] : 1970 Exam Date: 05/21/2024 Ordering Doctor: DR SEFERINO MENDOZA . RADIOLOGY REPORT PROCEDURE: [facility] COMPREHENSIVE VEIN CENTER - OFFICE VISIT INITIAL COMPARISON: None. 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 Herrmann with bilateral leg e julia and pain present for approximately 5-10 years but significantly increa sing in the past 3 months. The patient reports several episodes of deep vei n thrombus in the left leg more than 10 years ago for which she was temporarily placed on a blood thinner. The patient is no longer on a blood thinner. The patient has worn compression stockings for over 5 years. The patient's symptoms are exacerbated by prolonged sitting and standing and are onl y partially relieved by rest, leg elevation and over the counter Tylenol. The patient denies any signs and symptoms to suggest arterial ischemia. The patient describe s a family history significant for diabetes hypertension and varicose veins. Past medical history is significant for lower extremity edema, varicose vein s, hypercholesterolemia, hyperthyroidism, diabetes, hypertension. Past surgical history is significant for left shoulder arthroscope, carpal tunnel central in hysterectomy The patient does not drink alcohol. The patient has never smoked. No illicit drug use. No history of deep venous thrombus or pulmonary embolus. See separate history and physical for medication list. No prior treatment for varicose or spider veins. Nursing notes were reviewed. After history and physical exam I discussed at length the pathophysiology of venous hypertension and possible treatments, therapies and strategies available. We discus sed at length the importance of elevating the lower extremities above th e level of the heart, increased physical activity and compression stocking use. We discussed conservative treatment with compression stocking s. Surgical and the interventions including ligation stripping and phlebectomy. I informed the patient that her symptoms were likely multifactoria l and that treatment likely would resolve an improvement but not complete resolution of her swelling. Ultrasound venous re flux study performed April 13, 2024 was discussed at length with the matthew ent. The report demonstrates moderate right and severe left great saphenous vein venous insufficiency with dilatation and saphenofemoral junct ion reflux. Bilateral incompetent varicose veins PHYSICAL EXAM: The right leg demonstrates moderate scattered varicose, reticular and spider veins. No hemosideri n staining . Mild to moderate subcutaneous edema. No active ulceration The left leg demonstrates moderate scattered varicose, reticular and spider veins. No hemosideri n staining. Mild to moderate subcutaneous edema. No active ulceration. Both thighs, legs an d feet were symmetrically warm to the touch. Good posterior tibial and dorsalis pedis pulses were present bilaterally. VEIN/VC Facility EST Comprehensive IMPRESSION: 1. Bilateral great saphenous vein venous insufficiency with dilatation and saphenofemoral junct ion reflux 2. Moderate bilatera l lower extremity varicose veins 3. Mild to moderate bilateral lower extremity subcutaneous edema 4. No definite flow significant arterial disease 5. CEAP: C3, Ep, As, Pr PLAN: 1. Endovenous laser ablation of the left great saphenous vein followed by the right great saphenou s vein 2. Micro foam chemic al ablation bilateral incompetent varicose veins 3. Injection sclerotherapy of reticular and spider veins 4. Long-term use of bilateral thigh-high or knee high 20-30 mm compression stockings 5. Leg elevation and increased physical activity for symptomatic relief Nurse notes, history and physical were reviewed and confirmed, see attached forms. The nurse was presen t throughout the physical exam and consultation Dictated by: Thomas zafar MD on 05/21/2024 at 15:24 Approved by: Thomas zafar MD on 05/21/2024 at 15:33 Dictated By: René Shearer M.D. Signed By: 05/21/24 1535 DD/ 1534 TD/TT: Food Server: CBC AUTO DIFF Reviewed date:01/18/2025 12:56:08 PM Interpretation: Performing Lab: Notes/Report: [facility] , White Blood Count 5.1 4.0-11.0 10 3/uL Red Blood Count 4.71 4.20-5.40 10 6/uL Hemoglobin 12.4 12.0-16.0 g/dL Hematocrit 38.0 36.0-48.0 % Mean Corpuscular Volume 80.7 81.0-99.0 fL Mean Corpuscular Hemoglobin 26.3 26.7-34.0 pg Mean Corpuscular HGB Conc 32.6 29.9-35.2 g/dL Red Cell Distribution Width 13.2 11.0-15.0 % Platelet Count 213 150-450 10 3/uL Mean Platelet Volume 10.8 9.5-13.5 fL Neutrophils Percent Auto 55.2 43.0-75.0 % Lymphocytes Percent Auto 32.7 20.5-60.0 % Monocytes Percent Auto 8.3 1.7-12.0 % Eosinophils Percent Auto 2.6 0.9-7.0 % Basophils Percent Auto 1.0 0.2-2.0 % Immature Granulocytes Pct Auto 0.2 0.0-0.5 % Neutrophils Absolute Auto 2.8 1.4-6.5 10 3/uL Lymphocytes Absolute Auto 1.7 1.2-3.8 10 3/uL Monocytes Absolute Auto 0.4 0.3-0.8 10 3/uL Eosinophils Absolute Auto 0.1 0.0-0.7 10 3/uL Basophils Absolute Auto 0.1 0.0-0.1 10 3/uL Immature Granulocytes Abs Auto 0.01 0.00-0.03 10 3/uL Performing Lab: see note ML - [facility] FREE T3 Reviewed date:01/18/2025 12:56:08 PM Interpretation: Performing Lab: Notes/Report: [facility] Free T3 3.35 2.18-3.98 pg/mL Performing Lab: see note ML - [facility] GLYCOHEMOGLOBIN A1C Reviewed date:01/18/2025 12:56:08 PM Interpretation: Performing Lab: Notes/Report: [facility] , Glycohemoglobin A1C 9.6 4.5-6.2 % ADA RECOMMENDED LIMIT 4.0 - 6.0 ADA THERAPEUTIC TARGET < 7.0 ACTION SUGGESTED > 7.0 Estimated Average Glucose 229 Performing Lab: see note ML - [facility] IRON Reviewed date:01/18/2025 12:56:08 PM Interpretation: Performing Lab: Notes/Report: [facility] , Iron 33.0 50.0-170.0 ug/dL Performing Lab: see note ML - [facility] LB LIPID PROFILE Reviewed date:01/18/2025 12:56:08 PM Interpretation: Performing Lab: Notes/Report: [facility] , Triglycerides 220 <=150 mg/dL Cholesterol 124 <=200 mg/dL HDL Cholesterol 31 40-60 mg/dL > or =60 mg/dl - LOW CARDIOVASCULAR RISK <40 mg/dl - HIGH CARDIOVASCULAR RISK LDL Cholesterol Calculated 49.0 <100 mg/dl OPTIMAL 100-129 mg/dl NEAR OR ABOVE OPTIMAL 130-159 mg/dl BORDERLINE HIGH 160-189 mg/dl HIGH >190 mg/dl VERY HIGH VLDL CHOLESTEROL 44.0 Chol HDL Ratio 4.0 3.3 - 4.4 LOW RISK 4.4 - 7.1 AVERAGE RISK 7.1 - 11.0 MODERATE RISK >11.0 HIGH RISK Performing Lab: see note ML - [facility] LB PROF 14(COMP METB) Reviewed date:01/18/2025 12:56:08 PM Interpretation: Performing Lab: Notes/Report: [facility] , Sodium 142 136-145 mmol/L Potassium 3.9 3.5-5.1 mmol/L Chloride 106 98-107 mmol/L Carbon Dioxide 28.1 21.0-32.0 mmol/L Anion Gap 11.8 Glucose 185 74-106 mg/dL Blood Urea Nitrogen 11.0 7.0-18.0 mg/dL Creatinine 0.69 0.55-1.02 mg/dL Estimated GFR ( Ros >60 >=60 mL/min/1.73m 2 Estimated GFR (Non- Oanh >60 >=60 mL/min/1.73m 2 BUN Creatinine Ratio 15.9 Calcium 9.0 8.5-10.1 mg/dL Bilirubin Total 0.5 0.2-1.0 mg/dL Aspartate Amino Transferase 14 15-37 U/L Alanine Aminotransferase 32 14-59 U/L Alkaline Phosphatase 69 46-116 U/L Total Protein 6.6 6.4-8.2 g/dL Albumin Level 3.4 3.4-5.0 g/dL Globulin 3.2 Albumin Globulin Ratio 1.1 Performing Lab: see note ML - [facility] LB T4 Reviewed date:01/18/2025 12:56:08 PM Interpretation: Performing Lab: Notes/Report: [facility] , T4 Thyroxine 8.40 4.80-13.90 ug/dL Performing Lab: see note ML - [facility] LB TSH Reviewed date:01/18/2025 12:56:08 PM Interpretation: Performing Lab: Notes/Report: [facility] , Thyroid Stimulating Hormone 0.074 0.358-3.740 uIU/mL Performing Lab: see note ML - [facility] LB Occult Blood* Reviewed date:01/18/2025 07:03:44 PM Interpretation: Performing Lab: Notes/Report: [facility] , Occult Blood Negative Performing Lab: see note ML - [facility] LB Reason For Referral Diagnosis 1 Venous reflux (I87.2 ) Referral Organization [facility] Medicine Referring Provider First Name Angel Referring Provider Last Name Galdino Referring Provider Speciality [facility] terry Referred Provider Thomas Shearer Referred Provider Specialty Vascular Rishi lauryn General Notes Emi De La Cruz 04/28/2024 11:12:46 AM >Please call patient after 3pm at her request. Referral Priority Routine Medications Medication SIG (Take, Route, Frequency, Duration) Notes Start Date End Date Status Jardiance 10 MG 1 tablet Orally Once a day for 30 days 01/19/2025 Active metFORMIN HCl ER 500 MG TAKE 2 TABLETS B Y MOUTH EVERY MORNING AND 2 TABLETS IN THE EVENING for 90 Active Ferrous Sulfate 325 (65 Fe) MG 1 tablet Orally twice daily for 30 days 01/18/2025 Active Metoprolol Tartrate 50 MG TAKE 1 TABLET BY MOUTH TWICE A DAY *STOP DILTIAZEM* for 30 Active Cefdinir 300 MG 2 capsule Orally onc e a day for 10 days 01/14/2025 Active Furosemide 20 MG 1 tablet Orally Once a day for 30 day(s) PRN Active Simvastatin 20 MG TAKE 1 TABLET BY VANITA TH EVERY DAY AT NIGHT for 90 Active Diclofenac Sodium 75 MG TAKE 1 TABLET BY MOUTH TWICE A DAY for 30 PRN Active Pantoprazole Sodium 40 MG TAKE 1 TABLET BY MOUTH EVERY DAY IN THE EVENING for 30 PRN Active OneTouch Ultra - USE TO TEST BLOOD LUIS GAR DAILY for 25 Active Glucose Meter Test - as directed In Vitro Active Vitamin D3 50 MCG (1999 UT) 1 capsule Or ally Once a day Active Glimepiride 4 MG TAKE 1 TABLET BY VANITA TH TWICE A DAY for 90 days Active Triamcinolone Acetonide 0.1 % 1 application to oral lesion Mouth/Throat Twice a day for 30 PRN 07/05/2023 Active Levothyroxine Sodium 137 MCG TAKE 1 TABLET BY MOUTH EVERY OTHER DAY ON EVEN DAYS for 90 Active Lancets 30G - use 1 lancet DX: E11 .9 once Daily for 90 days Active Meclizine HCl 25 MG 1 tablet as needed O rally QID PRN 04/23/2023 Active Levothyroxine Sodium 125 MCG TAKE 1 TABLET BY MOUTH ON THE ODD DAYS AND 137 MCG ON EVEN DAYS for 90 Active Immunizations Vaccine Route Administration Date Status Comme nts Flu, Fluarix (76620) 6 mos and older, single-dose syringe IM Intramuscular 07/10/2024 Administered Flu, Flucelvax (4907-3069) (89516) 6 mos and older, single-dose syringe IM Intramuscular 06/20/2023 Administered Social History Tobacco Use: Social History Observation Description Date Details (start date - stop date) Former Smoker NA - NA Tobacco Use/Smoking Question Answer Notes Patient is a former smoker Alcohol Screen (Audit-C) Question Answer Notes Did you have a drink containing alcohol in the p ast year? No Points 0 Interpretation Negative AUDIT-C (Standard) Question Answer Notes Did you have a drink containing alcohol in the p ast year? 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; former smoker , 3 children; takes care 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; former smoker , 3 children; takes care 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; former smoker , 3 children; takes care 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; former smoker , 3 children; takes care 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; former smoker , 3 children; takes care 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; former smoker , 3 children; takes care 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; former 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 , 3 children; takes care 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; former smoker , 3 children; takes care 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 Problems Problem Type SNOMED Code ICD Code Onset Dates Problem Status W/U Status Risk Notes Problem Overweight (438279254) Overweight (E66.3) Active confirmed Problem Retinal hemorrhage (97189938) Retinal hemorrhage, bilateral (H35.63) Active confirmed Problem 098860731 Fatty (change of ) liver, not elsewhere classified (K76.0) Active confirmed Problem Pain in right hand (230602580507425) Pain in right hand (M79.641) Active confirmed Problem 832496989 Fibromyalgia (M79.7) Active confirmed Problem Right upper quadrant pain (152174081) Right upper quadrant pain (R10.11) Active confirmed Problem Chest pain (16687204) Chest pain (R07.9) Active confirmed Problem Hypertension (96047547) Hypertension (I10) Active confirmed Problem Rheumatoid arthritis (19544325) Rheumatoid arthritis (M06.9) Active confirmed Problem Gastroesophageal reflux disease (604342105) GERD (gastroesophageal reflux disease) (K21.9) Active confirmed Problem Hypothyroidism (20558964) Hypothyroidism (E03.9) Active confirmed Problem Anxiety (08795034) Anxiety (F41.9) Active confi rmed Problem Edema (23806696) Edema (R60.9) Active confirmed Problem Eczema (39382481) Eczema (L30.9) Active confirm ed Problem Hip pain (91768110) Hip pain (M25.559) Active c onfirmed Problem Vitamin D deficiency (95218745) Vitamin D deficiency (E55.9) Active confirmed Problem Nausea (819768203) Nausea (R11.0) Active confir med Problem Calcaneal spur (05148702) Heel spur (M77.30) Active confirmed Problem Acute sinusitis (65255720) Acute sinusitis (J01.90) Active confirmed Problem Arthralgia (45201291) Arthralgia (M25.50) Active confirmed Problem Acute bronchitis (73731261) Acute bronchitis (J20.9) Active confirmed Problem Well adult (725518415) Well adult (Z00.00) Active confirmed Problem Radial styloid tenosynovitis (97436012) De Quervain's tenosynovitis (M65.4) Active confirmed Problem Impingement syndrome of shoulder (689929886) Impingement syndrome, shoulder, left (M75.42) Active confirmed Problem Alopecia (07133130) Alopecia (L65.9) Active con firmed Problem Plantar fasciitis (125890519) Plantar fasciitis (M72.2) Active confirmed Problem Varicose veins of both lower limbs (27307633542048292) Varicose veins of both lower extremities (I83.93) Active confirmed Problem Diabetic retinopathy (8455286) Diabetic retinopathy (E11.319) Active confirmed Problem Degeneration of cervical intervertebral disc (87826055) Degenerative cervical disc (M50.30) Active confirmed Problem Menometrorrhagia (527834128) Menometrorrhagia (N92.1) Active confirmed Problem Paroxysmal supraventricular tachycardia (disorder) (10440580) Paroxysmal SVT (supraventricular tachycardia) (I47.1) Active confirmed Problem Acute diarrhea (126333913) Acute diarrhea (R19.7) Active confirmed Problem Fibrocystic breast changes (04863678) Fibrocystic breast disease (N60.19) Active confirmed Problem Internal derangement of knee (77886777) Internal derangement of knee (M23.90) Active confirmed Problem 130424604 Rheumatoid arthritis involving multiple sites with positive rheumatoid factor (M05.79) Active confirmed Problem Chronic vertigo (74700668142517) Chronic vertigo (R42) Active confirmed Problem Peripheral venous insufficiency (13528881) Venous insufficiency of both lower extremities (I87.2) Active confirmed Problem Diabetic peripheral neuropathy associated with type 2 diabetes mellitus (9349312181593) Type 2 diabetes, controlled, 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) Active confirmed Problem Peripheral venous insufficiency (02066027) Venous reflux (I87.2) Active confirmed Problem Peripheral vertigo (88358784) Vertigo, peripheral (H81.399) Active confirmed Problem Mild nonproliferative retinopathy due to type 2 diabetes mellitus (681869272616569) Type 2 diabetes mellitus with mild nonproliferative diabetic retinopathy without macular edema, bilateral (E11.3293) Active confirmed Problem Deep vein phlebitis and thrombophlebitis of lower extremity, unspecified laterality (I80.209) Active confirmed Problem COVID-19 (944231546) COVID-19 (U07.1) Active confirmed Problem Low back pain (809518241) Low back pain, unspecified (M54.50) Active confirmed Vital Signs Blood pressure diastolic 86 mm Hg 01/14/2025 Height 63 in 01/14/2025 Blood pressure systolic 128 mm Hg 01/14/2025 Weight 215.6 lbs 01/14/2025 BMI 38.19 kg/m2 01/14/2025 Encounters Encounter Location Date Provider Diagnosis [address] [address] 04/09/2024 Angel Mendoza Hypertension I10 ; Hypothyroidism E03.9 ; Arthralgia M25.50 ; Type 2 diabetes, controlled, with peripheral neuropathy E11.40 and Edema R60.9 [facility] [address] [place] [address] 07/10/2024 Angel Mendoza Encounter for immunization Z23 ; Diabetic retinopathy E11.319 ; Hypertension I10 ; Low back pain, unspecified M54.50 ; Edema R60.9 and GERD (gastroesophageal reflux disease) K21.9 [facility] [address] [place] [address] 10/08/2024 Angel Mendoza Hypertension I10 ; Hypothyroidism E03.9 ; Diabetic retinopathy E11.319 and GERD (gastroesophageal reflux disease) K21.9 [facility] [address] [place] [address] 01/14/2025 Angel Mendoza Hypertension I10 ; Hypothyroidism E03.9 ; Arthralgia M25.50 ; Diabetic retinopathy E11.319 ; Type 2 diabetes, controlled, with peripheral neuropathy E11.40 and GERD (gastroesophageal reflux disease) K21.9 [facility] [address] [place] [address] 11/24/2024 Marilyn Kuhn Dysuria R30.0 [facility] [address] [place] [address] 02/06/2024 SEFERINO MENDOZA [facility] [address] [place] [place] [address] 04/13/2024 Angel Mendoza [facility] [address] [place] [place] [address] 04/14/2024 Angel Mendoza [facility] [address] [place] [address] 04/15/2024 Angel Mendoza [facility] [address] [place] [address] 04/20/2024 Angel Mendoza [facility] [address] [place] [place] [address] 04/28/2024 Angel Mendoza Venous reflux I87.2 [facility] [address] [place] [address] 05/21/2024 Angel Mendoza [facility] [address] [place] [address] 06/30/2024 Marilyn Kuhn [facility] [address] [place] [address] 11/30/2024 Angel Mendoza [facility] [address] [place] [address] 01/18/2025 Angel Mendoza Hypertension I10 [facility] [address] [place] [address] 01/19/2025 Angel Mendoza Assessments Encounter Date Diagnosis (ICD Code) Assessment Notes Treatment Notes Treatment Clinical Notes Section Notes 04/09/2024 Hypertension (ICD-10 - I10) 04/09/2024 Hypothyroidism (ICD-10 - E03.9) 07/10/2024 Encounter for immunization (ICD-10 - Z23) 07/10/2024 Diabetic retinopathy (ICD-10 - E11.319) 10/08/2024 Hypertension (ICD-10 - I10) 10/08/2024 Hypothyroidism (ICD-10 - E03.9) 01/14/2025 Hypertension (ICD-10 - I10) 11/24/2024 Dysuria (ICD-10 - R30.0) if sx do not clear up or return needs make fu apt, pt voices understanding blood on tp from UTI? continue to monitor 04/28/2024 Venous reflux (ICD-10 - I87.2) 01/18/2025 Hypertension (ICD-10 - I10) 01/14/2025 Hypothyroidism (ICD-10 - E03.9) 10/08/2024 Diabetic retinopathy (ICD-10 - E11.319) 07/10/2024 Hypertension (ICD-10 - I10) 04/09/2024 Arthralgia (ICD-10 - M25.50) 04/09/2024 Type 2 diabetes, controlled, with peripheral neuropathy (ICD-10 - E11.40) 07/10/2024 Low back pain, unspecified (ICD-10 - M54.50) 10/08/2024 GERD (gastroesophageal reflux disease) (ICD-10 - K21.9) 01/14/2025 Arthralgia (ICD-10 - M25.50) 01/14/2025 Diabetic retinopathy (ICD-10 - E11.319) sugare eleveated depsite 2 meds - needs ozempic 07/10/2024 Edema (ICD-10 - R60.9) 04/09/2024 Edema (ICD-10 - R60.9) 07/10/2024 GERD (gastroesophageal reflux disease) (ICD-10 - K21.9) 01/14/2025 Type 2 diabetes, controlled, with peripheral neuropathy (ICD-10 - E11.40) 01/14/2025 GERD (gastroesophageal reflux disease) (ICD-10 - K21.9) 11/24/2024 Other questionable vaginal, rectal bleeding if returns needs to make fu apt Plan Of Treatment Pending Test Test Name Order Date CMP (COMPLETE METABOLIC PANEL) 4 UA (URINALYSIS, COMPLETE) 11/24/2024 HEMOGLOBIN A1C (GLYCO) 01/14/2025 HEMOGLOBIN A1C (GLYCO) 01/09/2024 IRON, TOTAL 01/09/2024 IRON, TOTAL 01/14/2025 LIPID PANEL (CHOL/TRIG/HDL/LDL) 01/09/20 24 LIPID PANEL (CHOL/TRIG/HDL/LDL) 01/15/20 25 CBC WITH DIFF 01/09/2024 Urine Culture 11/24/2024 STOOL OCCULT BLOOD 01/14/2025 STOOL OCCULT BLOOD 01/09/2024 US ABD 04/03/2023 US PELVIS 01/02/2023 VC VENOUS REFLUX PORSHA LMT 04/09/2024 XR SHOULDER RT 2V or > 04/09/2024 THYROID PANEL (T4/TSH/FREE T3) 4 THYROID PANEL (T4/TSH/FREE T3) 5 CMP (COMP MET MADRIGAL) w/eGFR CKD-EPI 2024 CBC WITH DIFF 01/14/2025 Next Appt Details Provider Name:Angel Mendoza, 03:30:00 PM, [address] [place], [address], Insurance Providers Payer Name Payer Address Payer Phone Subscriber Number Group Number Insured Name Patient Relationship to Insured Coverage Start Date Coverage End Date [employer] [address] [place] [phone] [id number] Ian Briggs Self - patient is the insured Medical (General) History Medical History History ICD Code hx of migraine headaches hypertension hx of pneumonia thyroid disease diabetes hx of blood clots Pain in right hand M79.641 Overweight E66.3 De Quervain's tenosynovitis M65.4 Acute sinusitis J01.90 COVID-19 U07.1 Well adult Z00.00 Acute diarrhea R19.7 Acute bronchitis J20.9 Fibromyalgia M79.7 Rheumatoid arthritis M06.9 Nausea R11.0 Vitamin D deficiency E55.9 Diabetic retinopathy E11.319 Vertigo, peripheral H81.399 Chest pain R07.9 Type 2 diabetes, controlled, with periph eral neuropathy E11.40 Type 2 diabetes mellitus wit h mild nonproliferative diabetic retinopathy without macular edema, bilateral E11.3293 Internal derangement of knee M23.90 Impingement syndrome, shoulder, left M75 .42 Degenerative cervical disc M50.30 Retinal hemorrhage, bilateral H35.63 Hip pain M25.559 Low back pain, unspecified M54.50 Hypothyroidism E03.9 Eczema L30.9 Deep vein phlebitis and thro mbophlebitis of lower extremity, unspecified laterality I80.209 Alopecia L65.9 Paroxysmal SVT (supraventricular tachyca rdia) I47.1 Chronic vertigo R42 Fibrocystic breast disease N60.19 Menometrorrhagia N92.1 Hypertension I10 Anxiety F41.9 Arthralgia M25.50 Plantar fasciitis M72.2 Heel spur M77.30 moderate to severe bilateral great saphenous vein insufficiency with saphenofemoral reflux and dilation severe deep vein reflux left popliteal v ein bilateral incompetent varicose veins Surgical History Surgery Date(Month/Year) Laser treatments in legs for blockage- B LE cyst around bladder 09/09/2018 left shoulder surgery x 2 2015/2016 hysterectomy
== END 2025-02-04 15:34 | disposition home or self-care (01) ==
LOC: MAMMO 15:34
PROVIDERS: PCP Family Medicine; Visit Provider Family Medicine
DX: Z12.31 Encounter for screening mammogram for malignant neoplasm of breast (principal)
CPT/HCPCS: 77063; 77067